=== PATIENT | male | born 1945 | race Caucasian/White ===

== ENCOUNTER 2020-02-09 18:48 | Inpatient (IN) | payer MEDICARE, BC ==
--- NOTE | 2020-02-09 19:15 | ER Document Report ---
ED Medical Screen (RME) - General Chief Complaint: Abnormal Lab Results Stated Complaint: ABNORMAL LABS Time Seen by Provider: 02/09/20 19:00 Notes: Patient is a 74-year-old male with a history of acid reflux and diabetes who presents emergency department with a chief complaint of abnormal labs. Patient reports he had his labs drawn at his doctor's office yesterday and was called today to report a low blood level. States that he was told to come immediately to the emergency department. Patient states he had his blood work drawn here at the hospital but there is no record. Patient states he has become more weak and short of breath. Patient also reports extreme swelling to his lower extremities. Physical Exam - Vital signs Vitals: Temp Pulse Resp BP Pulse Ox 98.7 F 87 22 H 117/51 L 100 02/09/20 19:00 02/09/20 19:00 02/09/20 19:00 02/09/20 19:00 02/09/20 19:00 Course - Re-evaluation Re-evalutation: 02/09/20 19:13 +4 pitting edema in bilateral lower extremities. There is no erythema. We will initiate basic labs as well as a chest x-ray and EKG to start. Son at side. I have greeted and performed a rapid initial assessment of this patient. A comprehensive ED assessment and evaluation of the patient, analysis of test results and completion of the medical decision making process will be conducted by additional ED providers. - Vital Signs Vital signs: Temp Pulse Resp BP Pulse Ox 98.7 F 87 22 H 117/51 L 100 02/09/20 19:00 02/09/20 19:00 02/09/20 19:00 02/09/20 19:00 02/09/20 19:00
--- NOTE | 2020-02-09 19:52 | RADIOLOGY REPORT (SQ) ---
EXAM DESCRIPTION: CHEST 2 VIEWS IMAGES COMPLETED DATE/TIME: 02/09/2020 7:40 pm REASON FOR STUDY: Shortness of breath COMPARISON: None. EXAM PARAMETERS: NUMBER OF VIEWS: two views TECHNIQUE: Digital Frontal and Lateral radiographic views of the chest acquired. RADIATION DOSE: NA LIMITATIONS: none FINDINGS: LUNGS AND PLEURA: Multifocal airspace opacities are seen throughout the lungs. No pleural effusion. No pneumothorax. MEDIASTINUM AND HILAR STRUCTURES: No masses or contour abnormalities. HEART AND VASCULAR STRUCTURES: Heart normal size. No evidence for failure. BONES: No acute findings. HARDWARE: None in the chest. OTHER: No other significant finding. IMPRESSION: In the appropriate clinical setting, findings are consistent with a multi lobar pneumoni a. Given distribution, recommend consideration for atypical etiologies in treatment planning. TECHNICAL DOCUMENTATION: JOB ID: [id number] 2010 [employer]- All Rights Reserved Reading location - IP/workstation name: [email or web address]
--- NOTE | 2020-02-09 20:45 | RADIOLOGY REPORT (SQ) ---
EXAM DESCRIPTION: CT HEAD WITHOUT IV CONTRAST COMPLETED DATE/TME: 02/09/2020 19:29 CLINICAL HISTORY: 74 years, Male, Confusion COMPARISON: None. TECHNIQUE: Axial images without IV contrast. Sagittal coronal reconstruction. Images stored on PACS. All CT scanners at this facility use dose modulation, iterative reconstruction, and/or weight based dosing when appropriate to reduce radiation dose to as low as reasonably achievable (ALARA). FINDINGS: Normal size ventricles. No suspicious intra-axial or extra-axial abnormalities. Pituitary gland is not enlarged. Paranasal sinuses are unremarkable. Previous left mastoidectomy with associated soft tissue structure. Bony calvarium is unremarkable. IMPRESSION: 1. No acute intracranial abnormalities. 2. Chronic changes in the left mastoid including left mastoidectomy.
[2020-02-09 21:51] LABS: MEAN CORPUSCULAR HGB CONC 31.9 g/dL (32.0-36.0); MEAN CORPUSCULAR VOLUME 85 fl (80-97); RED BLOOD COUNT 1.75 10^6/uL (4.35-5.55); RED CELL DISTRIBUTION WIDTH 21.6 % (11.5-14.0); WHITE BLOOD COUNT 3.8 10^3/uL (4.0-10.5)
[2020-02-09 22:03] LABS: PLATELET COUNT 73 10^3/uL (150-450)
[2020-02-09 22:04] LABS: INTERNATIONAL RATION (INR) 1.59; PROTHROMBIN TIME 19.1 SEC (11.4-15.4)
[2020-02-09 22:06] LABS: PARTIAL THROMBOPLASTIN TIME 52.6 SEC (23.5-35.8)
[2020-02-09 22:10] LABS: ALBUMIN 2.9 g/dL (3.5-5.0); ALKALINE PHOSPHATASE 96 U/L (38-126); ASPARTATE AMINO TRANSFERASE 41 U/L (17-59); BASOPHILS % (MANUAL) 0 % (0-2); BILIRUBIN,DIRECT 0.5 mg/dL (0.0-0.4); BILIRUBIN,TOTAL 1.8 mg/dL (0.2-1.3); BLOOD UREA NITROGEN 15 mg/dL (7-20); CALCIUM 8.2 mg/dL (8.4-10.2); CARBON DIOXIDE 24 mmol/L (22-30); EOSINOPHILS % (MANUAL) 2 % (0-6); GLUCOSE 89 mg/dL (75-110); LYMPHOCYTES % (MANUAL) 25 % (13-45); MONOCYTES % (MANUAL) 1 % (3-13); SEGMENTED NEUTROPHILS % (MAN) 72 % (42-78); TOTAL CELLS COUNTED 100; TOTAL PROTEIN 6.3 g/dL (6.3-8.2)
[2020-02-09 22:15] LABS: ANION GAP 5 (5-19); CHLORIDE 106 mmol/L (98-107)
[2020-02-09 22:16] LABS: ANISOCYTOSIS 3+; HYPOCHROMASIA 1+; OVALOCYTES 1+; POIKILOCYTOSIS SLIGHT; TOXIC GRANULATION SLIGHT
[2020-02-09 22:17] LABS: NT PRO BNP 562 pg/mL (<125); PLATELET COMMENT DECREASED; TEAR DROP CELLS SLIGHT
[2020-02-09 22:22] LABS: TROPONIN I < 0.012 ng/mL
[2020-02-09 22:27] LABS: HEMATOCRIT 14.8 % (37.9-51.0); HEMOGLOBIN 4.7 g/dL (13.5-17.0)
--- NOTE | 2020-02-09 23:10 | ER Document Report ---
ED General - General Chief Complaint: Abnormal Lab Results Stated Complaint: ABNORMAL LABS Time Seen by Provider: 02/09/20 19:00 Notes: 74-year-old male history of "liver problem" unable to further specify, diabetes "controlled by diet "referred to ED via PCP who did labs in office yesterday and was called today to say that there are abnormal values and presented to the emergency department. Patient endorses feeling short of breath for the last several months and not having energy to do activities. Patient has had dry cough for at least approximately 1 year and bilateral lower extremity edema for likely 1 year also. Patient says he is gone several years without seeing a doctor until now. Patient used to drink socially but none recently, says that liver problem was not attributed to alcohol use. Patient also endorses chronic abdominal distention of unknown duration. patient denies any chest pain, abdominal pain, black stools, bloody stools, frequent stools, vomiting, urinary symptoms, productive cough, fever, change in weight, history of drug use, infectious hepatitis history, cirrhosis, cardiac history - Related Data Allergies/Adverse Reactions: No Known Allergies Allergy (Unverified 02/09/20 19:21) Past Medical History - General Information source: Patient, Relative - Social History Smoking Status: Never Smoker Chew tobacco use (# tins/day): No Frequency of alcohol use: None Drug Abuse: None Family History: Reviewed & Not Pertinent Patient has homicidal ideation: No Review of Systems - Review of Systems Notes: REVIEW OF SYSTEMS: CONSTITUTIONAL : Denies fever, chills, or sweats. EENT: Denies recent cold/sinus symptoms, denies throat pain CARDIOVASCULAR: Denies chest pain, +NILES RESPIRATORY: +cough, + shortness of breath. GASTROINTESTINAL: Denies abdominal pain, nausea/vomiting. GENITOURINARY: Denies difficulty urinating, painful urination. MUSCULOSKELETAL: Denies neck pain, back pain. SKIN: Denies rash or skin lesions. HEMATOLOGIC : Denies easy bruising or bleeding. LYMPHATIC: Denies swollen, enlarged glands. NEUROLOGICAL: Denies headache, denies change in gait. PSYCHIATRIC: Denies anxiety or stress or depression. Physical Exam - Vital signs Vitals: Temp Pulse Resp BP Pulse Ox 98.7 F 87 22 H 117/51 L 100 02/09/20 19:00 02/09/20 19:00 02/09/20 19:00 02/09/20 19:00 02/09/20 19:00 - Notes Notes: PHYSICAL EXAMINATION: GENERAL: Well-appearing, well-nourished hard of hearing elderly male sitting up in stretcher with no visible signs of discomfort and in no acute distress. HEAD: Atraumatic, normocephalic. EYES: Pupils equal round and appropriate constriction, sclera anicteric, conjunctiva are pale ENT: nares patent, moist mucous membranes. NECK: Normal range of motion, supple without lymphadenopathy LUNGS: Breath sounds clear to auscultation bilaterally and equal. No wheezes rales or rhonchi. Normal respiratory rate and effort HEART: Regular rate and rhythm, iii/vi systolic ejection murmur heard loudest over upper right sternal border ABDOMEN: Soft, nontender, distended with fluid wave, no hepatosplenomegaly, no caput medusae, brown stool on rectal exam EXTREMITIES: Bilateral symmetric pitting lower extremity edema NEUROLOGICAL: Awake, alert, conversing appropriately, moves all extremities spontaneously. PSYCH: Normal mood, normal affect. SKIN: Warm, Dry, normal turgor, no rashes or lesions noted. 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 Anemia may also be due to aortic stenosis which patient has previously not had investigated. Chronic shortness of breath but no signs of impending respiratory failure, normal respiratory effort on room air and normal vital signs. Abdominal distention mild, not likely contributing to patient's shortness of breath. Patient will require admission for transfusion with likely outpatient CT surgery, cardiology, and hepatic follow- up. 02/10/20 01:52 Pt exam remains stable. Blood ordered. Stool guaiac negative. Discussed case with Dr. Up who has accepted patient to tele medicine. - Vital Signs Vital signs: Temp Pulse Resp BP Pulse Ox 98.5 F 89 16 104/44 L 96 02/10/20 01:02 02/10/20 01:02 02/10/20 01:02 02/10/20 01:02 02/10/20 01:02 - Laboratory Result Diagrams: 02/09/20 21:31 02/09/20 21:31 Laboratory results interpreted by me: 02/09/20 02/09/20 02/09/20 21:31 21:31 21:31 WBC 3.8 L RBC 1.75 L Hgb 4.7 L* Hct 14.8 L* MCHC 31.9 L RDW 21.6 H Plt Count 73 L Monocytes % (Manual) 1 L Abs Monocytes (Manual) 0.0 L PT APTT Sodium 134.9 L Calcium 8.2 L Total Bilirubin 1.8 H Direct Bilirubin 0.5 H NT-Pro-B Natriuret Pep 562 H Albumin 2.9 L Urine Urobilinogen Crossmatch 02/09/20 02/09/20 02/09/20 21:31 23:25 23:25 WBC RBC Hgb Hct MCHC RDW Plt Count Monocytes % (Manual) Abs Monocytes (Manual) PT 19.1 H APTT 52.6 H Sodium Calcium Total Bilirubin Direct Bilirubin NT-Pro-B Natriuret Pep Albumin Urine Urobilinogen 4.0 H Crossmatch See Detail 02/10/20 00:29 WBC RBC Hgb Hct MCHC RDW Plt Count Monocytes % (Manual) Abs Monocytes (Manual) PT 20.3 H APTT 56.0 H Sodium Calcium Total Bilirubin Direct Bilirubin NT-Pro-B Natriuret Pep Albumin Urine Urobilinogen Crossmatch - EKG Interpretation by Me Additional EKG results interpreted by me: 02/09/20 23:23 Heart rate 77, first-degree AV block, left bundle branch block, Sgarbossa's negative Discharge - Discharge Clinical Impression: Thrombocytopenia, Hepatic dysfunction Anemia Qualifiers: Anemia type: unspecified type Qualified Code(s): D64.9 - Anemia, unspecified Disposition: ADMITTED INPATIENT Unit Admitted: Telemetry
[2020-02-09 23:54] LABS: APPEARANCE,URINE CLEAR; BILIRUBIN,URINE NEGATIVE (NEGATIVE); COLOR,URINE YELLOW; GLUCOSE, URINE NEGATIVE (NEGATIVE); KETONES,URINE NEGATIVE (NEGATIVE); LEUKOCYTE ESTERASE,URINE NEGATIVE (NEGATIVE); NITRITE,URINE NEGATIVE (NEGATIVE); PROTEIN,URINE NEGATIVE (NEGATIVE); URINE SPECIFIC GRAVITY 1.016
[2020-02-10 00:48] LABS: INTERNATIONAL RATION (INR) 1.72; PROTHROMBIN TIME 20.3 SEC (11.4-15.4)
--- NOTE | 2020-02-10 01:28 | RADIOLOGY REPORT (SQ) ---
EXAM DESCRIPTION: CT scan of the chest without contrast. CLINICAL HISTORY: 74 years Male; multifocal infiltrates on cxr, no pna clinically TECHNIQUE: CT of the chest without intravenous contrast. All CT scans at this facility use dose modulation, iterative reconstruction, and/or weight based dosing when appropriate to reduce radiation dose to as low as reasonably achievable. COMPARISON: None. FINDINGS: Motion artifact is present. Chest: Lungs: Lung volumes are low. This results in crowding of the vascular lung markings. There is diffuse abnormality of the lung interstitium with increase in small irregular shadows, subpleural band formation and disorganization of the peripheral lung architecture. This is suggestive of changes of chronic fibrosis. In addition airways thickening is present diffusely and there is engorgement of the central pulmonary vessels and lymphatic suggestive of increased intravascular volume. No large pulmonary nodules or masses. Small pulmonary nodules would be missed on this exam because of motion.. Pleura: Possible trace pleural effusions bilaterally. No pneumothorax. Mediastinum: Four-chamber cardiac enlargement is seen and there is aortic valvular calcification. No pericardial abnormality. There is engorgement of the central lymphatics. No definitive lymphadenopathy. Bones: Endplate spondylosis. No destructive bone lesions. Upper Abdomen: Ascites is present in the abdomen. The liver is small and nodular and the spleen is enlarged. Findings are suggestive of cirrhosis and portal hypertension. IMPRESSION: 1. Cardiomegaly with probable changes of pulmonary edema. 2. Abnormality of the peripheral lung interstitium which may represent concordant mild fibrosis. Overall lung volumes are low. 3. Ascites with changes of cirrhosis and portal hypertension.
[2020-02-10] MEDS ORDERED: FUROSEMIDE INJ/PF 40 MG/4 ML SDV IV PRN ×2 (01:46→01:59)
[2020-02-10] MEDS ORDERED: ACETAMINOPHEN 325 MG TABLET PO PRN (01:46)
[2020-02-10] MEDS ORDERED: NORMAL SALINE 250 ML IV PRN ×4 (01:46→01:59)
[2020-02-10] MEDS ORDERED: MAGNESIUM HYDROXIDE SUSP 30 ML UDCUP PO PRN (01:51)
[2020-02-10] MEDS ORDERED: ONDANSETRON HCL INJ/PF 4 MG/2 ML SDV IV PRN (01:51)
[2020-02-10] MEDS ORDERED: MAG HYDROX/AL HYDROX/SIMETH SUSP 30 ML UDCUP PO PRN (01:51)
[2020-02-10] MEDS ORDERED: DEXTROSE 40% GEL 15 GM TUBE PO PRN ×2 (01:57)
[2020-02-10] MEDS ORDERED: DEXTROSE 50%-WATER 25 GM/50 ML DISP.SYRIN IV PRN ×2 (01:57)
[2020-02-10] MEDS ORDERED: GLUCAGON,HUMAN RECOMB 1 MG INJ IM PRN (01:57)
[2020-02-10 02:20] LABS: ABSOLUTE RETICS # 0.046 10^6/uL (0.028-0.122)
[2020-02-10] MEDS ORDERED: LORAZEPAM INJ 2 MG/1 ML VIAL IV PRN (02:25)
[2020-02-10] MEDS ORDERED: GUAIFENESIN SYRP 200 MG/10 ML UDC PO PRN (02:25)
[2020-02-10] MEDS ORDERED: MORPHINE SULFATE 10 MG/ML INJ IV PRN ×4 (02:25→02:43)
[2020-02-10 03:21] LABS: FERRITIN 7.48 ng/mL (17.9-464.0)
[2020-02-10] MEDS: DIPHENHYDRAMINE HCL 25 MG CAPSULE PO SCH ×4 (03:30→17:56)
--- NOTE | 2020-02-10 06:37 | PDOC H&P ---
History of Present Illness Admission Date/PCP: 02/10/2020 02:04 No local PCP Patient complains of: Generalized weakness History of Present Illness: RUPESH BUTLER is a 74 year old male who presents the emergency room with a 12-month history of generalized weakness. He admits gradually worsening constant generalized weakness over the course of the last year accompanied by dyspnea on exertion and associated with a nonproductive cough and progressively worsening bilateral lower extremity edema. He denies other associated or accompanying signs and symptoms. He denies prior similar episodes. He has not identified any aggravating or ameliorating factors for his generalized weakness. In the emergency room he was found to have a hemoglobin of 4.9 with a pancytopenia and bilateral pitting edema of his lower extremities was noted on clinical exam. Patient was subsequently admitted to the hospital for further evaluation treatment. Past Medical History Cardiac Medical History: Denies: Coronary Artery Disease, Myocardial Infarction, Hypertension Pulmonary Medical History: Denies: Asthma, Chronic Obstructive Pulmonary Disease (COPD) EENT Medical History: Denies: Cataracts, Ears - Hearing aids Neurological Medical History: Denies: Hemorrhagic CVA, Ischemic CVA, Seizures Endocrine Medical History: Reports: Diabetes Mellitus Type 2 Denies: Diabetes Mellitus Type 1, Hyperthyroidism, Hypothyroidism Renal/ Medical History: Denies: Chronic Kidney Disease, Nephrolithiasis Malignancy Medical History: Reports: None GI Medical History: Reports: Other - Elevated liver enzymes Denies: Cirrhosis, Crohn's Disease, Gastroesophageal Reflux Disease, Hepatiti s, Peptic Ulcer Disease, Ulcerative Colitis Musculoskeltal Medical History: Denies: Fibromyalgia, Gout Skin Medical History: Denies: Eczema, Psoriasis Psychiatric Medical History: Denies: Alcohol Dependency, Substance Abuse, Tobacco Dependency Traumatic Medical History: Reports: None Hematology: Denies: Anemia, Bleeding Tendencies Infectious Medical History: Reports: None Past Surgical History Past Surgical History: Reports: None Social History Information Source: Patient Lives with: Family Smoking Status: Never Smoker Electronic Cigarette use?: No Frequency of Alcohol Use: None Hx Recreational Drug Use: No Drugs: None Hx Prescription Drug Abuse: No - Advance Directive Resuscitation Status: Full Code Surrogate healthcare decision maker:: Jared Butler Family History Family History: CAD, CVA, DM, Hypertension, Malignancy Parental Family History Reviewed: Yes Children Family History Reviewed: No Sibling(s) Family History Reviewed.: Yes Medication/Allergy Home Medications: No Home Medications 02/09/20 Omeprazole 40 mg PO DAILY 02/09/20 Allergies/Adverse Reactions: No Known Allergies Allergy (Unverified 02/09/20 19:21) Review of Systems Constitutional: PRESENT: as per HPI, weakness. ABSENT: chills, fever(s) Eyes: ABSENT: visual disturbances, other - Eye pain Ears: ABSENT: hearing changes, other - Ear pain Nose, Mouth, and Throat: ABSENT: headache(s), sore throat Cardiovascular: PRESENT: as per HPI, dyspnea on exertion, edema. ABSENT: chest pain, palpitations Respiratory: PRESENT: as per HPI, cough. ABSENT: hemoptysis, sputum Gastrointestinal: ABSENT: abdominal pain, constipation, diarrhea, nausea, vomiting Genitourinary: ABSENT: dysuria, hematuria Musculoskeletal: ABSENT: back pain, joint swelling Integumentary: ABSENT: pruritus, rash Neurological: ABSENT: confusion, convulsions, focal weakness, memory loss, syncope Psychiatric: ABSENT: anxiety, depression Endocrine: ABSENT: cold intolerance, heat intolerance Hematologic/Lymphatic: ABSENT: easy bleeding, easy bruising Allergic/Immunologic: ABSENT: seasonal rhinorrhea Physical Exam Vital Signs: Temp Pulse Resp BP Pulse Ox 98.5 F 89 16 104/44 L 96 02/10/20 01:02 02/10/20 01:02 02/10/20 01:02 02/10/20 01:02 02/10/20 01:02 Intake & Output 02/08/20 02/09/20 02/10/20 23:59 23:59 23:59 Output Total 350 Balance -350 Weight 99.8 kg General appearance: PRESENT: no acute distress, cooperative, hard of hearing Head exam: PRESENT: atraumatic, normocephalic Eye exam: PRESENT: conjunctiva pale. ABSENT: conjunctival injection, scleral icterus Ear exam: PRESENT: normal external ear exam. ABSENT: bleeding, drainage Mouth exam: PRESENT: dry mucosa, neck supple Neck exam: ABSENT: thyromegaly, tracheal deviation Respiratory exam: PRESENT: clear to auscultation philip, symmetrical, unlabored Cardiovascular exam: PRESENT: RRR, systolic murmur - Grade 2/6 crescendo decrescendo systolic murmur heard best at the aortic root with radiation to the neck. ABSENT: clicks, gallop, rubs Pulses: PRESENT: normal carotid pulses, normal radial pulses Vascular exam: PRESENT: normal capillary refill, pallor - Generalized GI/Abdominal exam: PRESENT: normal bowel sounds, soft. ABSENT: tenderness Rectal exam: PRESENT: deferred. ABSENT: heme (+) stool - Heme-negative stool on ERP exam Extremities exam: PRESENT: other - 3+ pitting edema of the bilateral lower extremities to the distal thigh. ABSENT: joint swelling Musculoskeletal exam: ABSENT: deformity, dislocation Neurological exam: PRESENT: alert, oriented to person, oriented to place, oriented to time, oriented to situation, CN II-XII grossly intact. ABSENT: motor sensory deficit Psychiatric exam: ABSENT: anxious, depressed Skin exam: PRESENT: dry, intact, warm. ABSENT: jaundice, rash, urticaria Results Laboratory Results: 02/09/20 21:31 02/09/20 21:31 02/09/20 02/09/20 02/09/20 21:31 21:31 21:31 WBC 3.8 L RBC 1.75 L Hgb 4.7 L* Hct 14.8 L* MCV 85 MCH 27.0 MCHC 31.9 L RDW 21.6 H Plt Count 73 L Seg Neutrophils % Not Reportable Sodium 134.9 L Potassium 4.0 Chloride 106 Carbon Dioxide 24 Anion Gap 5 BUN 15 Creatinine 0.57 Est GFR ( Amer) > 60 Glucose 89 Calcium 8.2 L Total Bilirubin 1.8 H AST 41 Alkaline Phosphatase 96 Ammonia 12.3 Total Protein 6.3 Albumin 2.9 L Lipase 182.9 Urine Color Urine Appearance Urine pH Ur Specific Vesta Urine Protein Urine Glucose (UA) Urine Ketones Urine Blood Urine Nitrite Ur Leukocyte Esterase Urine WBC (Auto) Blood Type Antibody Screen 02/09/20 02/09/20 23:25 23:25 WBC RBC Hgb Hct MCV MCH MCHC RDW Plt Count Seg Neutrophils % Sodium Potassium Chloride Carbon Dioxide Anion Gap BUN Creatinine Est GFR ( Amer) Glucose Calcium Total Bilirubin AST Alkaline Phosphatase Ammonia Total Protein Albumin Lipase Urine Color YELLOW Urine Appearance CLEAR Urine pH 6.0 Ur Specific [place] 1.016 Urine Protein NEGATIVE Urine Glucose (UA) NEGATIVE Urine Ketones NEGATIVE Urine Blood NEGATIVE Urine Nitrite NEGATIVE Ur Leukocyte Esterase NEGATIVE Urine WBC (Auto) 1 Blood Type O NEGATIVE Antibody Screen NEGATIVE 02/09/20 21:31 Troponin I < 0.012 NT-Pro-B Natriuret Pep 562 H Impressions: Chest X-Ray 02/09/20 19:12 IMPRESSION: In the appropriate clinical setting, findings are consistent with a multi lobar pneumonia. Given distribution, recommend consideration for atypical etiologies in treatment planning. Head CT 02/09/20 19:29 IMPRESSION: 1. No acute intracranial abnormalities. 2. Chronic changes in the left mastoid including left mastoidectomy. Chest CT 02/09/20 23:16 IMPRESSION: 1. Cardiomegaly with probable changes of pulmonary edema. 2. Abnormality of the peripheral lung interstitium which may represent concordant mild fibrosis. Overall lung volumes are low. 3. Ascites with changes of cirrhosis and portal hypertension. Assessment and Plan - Diagnosis (1) Pancytopenia Is this a current diagnosis for this admission?: Yes (2) Dyspnea on exertion Is this a current diagnosis for this admission?: Yes (3) Generalized weakness Is this a current diagnosis for this admission?: Yes (4) Bilateral lower extremity edema Is this a current diagnosis for this admission?: Yes (5) Diabetes mellitus type 2 in nonobese Is this a current diagnosis for this admission?: Yes (6) Aortic stenosis Qualifiers: Cardiac valve disease etiology: etiology unspecified Qualified Code(s): I35.0 - Nonrheumatic aortic (valve) stenosis Is this a current diagnosis for this admission?: Yes - Plan Summary Summary: Patient will be admitted to the medical floor he will receive routine supportive and symptomatic cares with telemetry monitoring. He will be transfused with 4 units of packed red blood cells as soon as possible. He will be seen in consultation by Dr. Bar for hematology. An anemia profile will be obtained. Before meals and at bedtime Accu-Cheks will be performed with sliding scale insulin for hyperglycemia and a hypoglycemic protocol in place. Patient will receive Ativan 1 mg IV every 4 hours as needed for anxiety or restlessness. He will receive morphine sulfate 2 to 4 mg IV every 2 hours as needed for pain. An echocardiogram will be performed. Patient will be on a diabetic diet. CBCs, metabolic profiles and additional laboratory and/or radiographic evaluations will be obtained as needed. - Time Time Spent with patient: 15-24 minutes Medications reviewed and adjusted accordingly: Yes Anticipated Discharge Disposition: Home with Home Health Anticipated Discharge Timeframe: within 72 hours - Inpatient Certification Based on my medical assessment, after consideration of the patient's comorbiditi es, presenting symptoms, or acuity I expect that the services needed warrant INPATIENT care.: Yes I certify that my determination is in accordance with my understanding of [employer]'s requirements for reasonable and necessary INPATIENT services [42 CFR 412.3e].: Yes Medical Necessity: Need Close Monitoring Due to Risk of Patient Decompensation, Need For Continuous Telemetry Monitoring
[2020-02-10] MEDS: ACETAMINOPHEN 325 MG TABLET PO SCH ×4 (06:40→17:47)
--- NOTE | 2020-02-10 08:38 | PDOC CONSULTATION ---
Consultation Consult Date: 02/10/20 Attending physician:: LAURA DEL REAL Provider Consulted: JACK URIBE Consult reason:: Pancytopenia History of Present Illness Admission Date/PCP: 02/10/20 02:11 Patient complains of: Weakness, confusion History of Present Illness: RUPESH MICHELE is a 74 year old male who presents with several days of not being able to eat or drink anything and weakness, upon presentation he had severe pancytopenia, hemoglobin was in the 4 range platelets were 70, further evaluation of iron studies indicated a ferritin of less than 10. He had CT of the chest which did indicate ascites as well as nodular liver changes consistent with cirrhosis and portal hypertension. Patient is never had history of heavy alcohol use. But tells me greater than 10 years ago his PCP in [place] had mentioned something about "liver changes". He made dietary changes including avoiding fatty foods and going on a Mediterranean diet, lost a lot of weight and apparently the fatty liver changes resolved. He tells me about 2 years ago he did see what sounds like a houseperson in the [facility] area, Dr. Welch, but does not really remember too much about that conversation. He recently sold everything in [place] and came to move here with his son 1 to 2 years ago. And he has been apparently declining per his son. Past Medical History Cardiac Medical History: Denies: Coronary Artery Disease, Myocardial Infarction, Hypertension Pulmonary Medical History: Denies: Asthma, Chronic Obstructive Pulmonary Disease (COPD) EENT Medical History: Denies: Cataracts, Ears - Hearing aids Neurological Medical History: Denies: Hemorrhagic CVA, Ischemic CVA, Seizures Endocrine Medical History: Reports: Diabetes Mellitus Type 2 Denies: Diabetes Mellitus Type 1, Hyperthyroidism, Hypothyroidism Renal/ Medical History: Denies: Chronic Kidney Disease, Nephrolithiasis Malignancy Medical History: Reports: None GI Medical History: Reports: Other - Elevated liver enzymes Denies: Cirrhosis, Crohn's Disease, Gastroesophageal Reflux Disease, Hepatitis, Peptic Ulcer Disease, Ulcerative Colitis Musculoskeltal Medical History: Denies: Fibromyalgia, Gout Skin Medical History: Denies: Eczema, Psoriasis Psychiatric Medical History: Denies: Alcohol Dependency, Substance Abuse, Tobacco Dependency Traumatic Medical History: Reports: None Hematology: Denies: Anemia, Bleeding Tendencies Infectious Medical History: Reports: None Past Surgical History Past Surgical History: Reports: None Social History Lives with: Family Smoking Status: Never Smoker Electronic Cigarette use?: No Frequency of Alcohol Use: None Hx Recreational Drug Use: No Drugs: None Hx Prescription Drug Abuse: No - Advance Directive Resuscitation Status: Full Code Family History Family History: CAD, CVA, DM, Hypertension, Malignancy Parental Family History Reviewed: Yes Children Family History Reviewed: Yes Sibling(s) Family History Reviewed.: Yes Medication/Allergy Home Medications: No Home Medications 02/09/20 Omeprazole 40 mg PO DAILY 02/09/20 Allergies/Adverse Reactions: No Known Allergies Allergy (Verified 02/10/20 07:36) Review of Systems Constitutional: ABSENT: chills, fever(s), headache(s), weight gain, weight loss Eyes: ABSENT: visual disturbances Ears: ABSENT: hearing changes Cardiovascular: ABSENT: chest pain, dyspnea on exertion, edema, orthropnea, palpitations Respiratory: ABSENT: cough, hemoptysis Gastrointestinal: ABSENT: abdominal pain, constipation, diarrhea, hematemesis, hematochezia, nausea, vomiting Genitourinary: ABSENT: dysuria, hematuria Musculoskeletal: ABSENT: joint swelling Integumentary: ABSENT: rash, wounds Neurological: ABSENT: abnormal gait, abnormal speech, confusion, dizziness, foc al weakness, syncope Psychiatric: ABSENT: anxiety, depression, homidical ideation, suicidal ideation Endocrine: ABSENT: cold intolerance, heat intolerance, polydipsia, polyuria Hematologic/Lymphatic: ABSENT: easy bleeding, easy bruising Physical Exam Vital Signs: Temp Pulse Resp BP Pulse Ox 98.0 F 81 22 H 97/55 L 95 02/10/20 06:50 02/10/20 06:50 02/10/20 07:13 02/10/20 07:13 02/10/20 07:13 Intake & Output 02/09/20 02/10/20 02/11/20 06:59 06:59 06:59 Intake Total 300 Output Total 750 2450 Balance -450 -2450 Weight 99.8 kg General appearance: PRESENT: no acute distress, well-developed, well-nourished Head exam: PRESENT: atraumatic, normocephalic Eye exam: PRESENT: conjunctiva pink, EOMI, PERRLA. ABSENT: scleral icterus Ear exam: PRESENT: normal external ear exam Mouth exam: PRESENT: moist, tongue midline Neck exam: ABSENT: carotid bruit, JVD, lymphadenopathy, thyromegaly Respiratory exam: PRESENT: clear to auscultation philip. ABSENT: rales, rhonchi, wheezes Cardiovascular exam: PRESENT: RRR. ABSENT: diastolic murmur, rubs, systolic murmur Pulses: PRESENT: normal dorsalis pedis pul Vascular exam: PRESENT: normal capillary refill GI/Abdominal exam: PRESENT: normal bowel sounds, soft. ABSENT: distended, guarding, mass, organolmegaly, rebound, tenderness Rectal exam: PRESENT: deferred Extremities exam: PRESENT: full ROM. ABSENT: calf tenderness, clubbing, pedal edema Neurological exam: PRESENT: alert, awake, oriented to person, oriented to place, oriented to time, oriented to situation, CN II-XII grossly intact. ABSENT: motor sensory deficit Psychiatric exam: PRESENT: appropriate affect, normal mood. ABSENT: homicidal ideation, suicidal ideation Skin exam: PRESENT: dry, intact, warm. ABSENT: cyanosis, rash Results Laboratory Results: 02/09/20 21:31 02/09/20 21:31 02/09/20 02/09/20 02/09/20 21:31 21:31 21:31 WBC 3.8 L RBC 1.75 L Hgb 4.7 L* Hct 14.8 L* MCV 85 MCH 27.0 MCHC 31.9 L RDW 21.6 H Plt Count 73 L Seg Neutrophils % Not Reportable Retic Count (auto) Sodium 134.9 L Potassium 4.0 Chloride 106 Carbon Dioxide 24 Anion Gap 5 BUN 15 Creatinine 0.57 Est GFR ( Amer) > 60 Glucose 89 Calcium 8.2 L Iron TIBC % Saturation Ferritin Total Bilirubin 1.8 H AST 41 Alkaline Phosphatase 96 Ammonia 12.3 Total Protein 6.3 Albumin 2.9 L Lipase 182.9 Vitamin B12 Folate TSH Urine Color Urine Appearance Urine pH Ur Specific [place] Urine Protein Urine Glucose (UA) Urine Ketones Urine Blood Urine Nitrite Ur Leukocyte Esterase Urine WBC (Auto) Blood Type Antibody Screen 02/09/20 02/09/20 02/10/20 23:25 23:25 02:02 WBC RBC Hgb Hct MCV MCH MCHC RDW Plt Count Seg Neutrophils % Retic Count (auto) Sodium Potassium Chloride Carbon Dioxide Anion Gap BUN Creatinine Est GFR ( Amer) Glucose Calcium Iron TIBC % Saturation Ferritin Total Bilirubin AST Alkaline Phosphatase Ammonia Total Protein Albumin Lipase Vitamin B12 Folate TSH 1.72 Urine Color YELLOW Urine Appearance CLEAR Urine pH 6.0 Ur Specific [place] 1.016 Urine Protein NEGATIVE Urine Glucose (UA) NEGATIVE Urine Ketones NEGATIVE Urine Blood NEGATIVE Urine Nitrite NEGATIVE Ur Leukocyte Esterase NEGATIVE Urine WBC (Auto) 1 Blood Type O NEGATIVE Antibody Screen NEGATIVE 02/10/20 02/10/20 02:02 02:02 WBC RBC Hgb Hct MCV MCH MCHC RDW Plt Count Seg Neutrophils % Retic Count (auto) 2.70 Sodium Potassium Chloride Carbon Dioxide Anion Gap BUN Creatinine Est GFR ( Amer) Glucose Calcium Iron 23.0 L TIBC 450 % Saturation 5 Ferritin 7.48 L Total Bilirubin AST Alkaline Phosphatase Ammonia Total Protein Albumin Lipase Vitamin B12 > 1000.0 H Folate 16.90 TSH Urine Color Urine Appearance Urine pH Ur Specific [place] Urine Protein Urine Glucose (UA) Urine Ketones Urine Blood Urine Nitrite Ur Leukocyte Esterase Urine WBC (Auto) Blood Type Antibody Screen 02/09/20 21:31 Troponin I < 0.012 NT-Pro-B Natriuret Pep 562 H Impressions: Chest X-Ray 02/09/20 19:12 IMPRESSION: In the appropriate clinical setting, findings are consistent with a multi lobar pneumonia. Given distribution, recommend consideration for atypical etiologies in treatment planning. Head CT 02/09/20 19:29 IMPRESSION: 1. No acute intracranial abnormalities. 2. Chronic changes in the left mastoid including left mastoidectomy. Chest CT 02/09/20 23:16 IMPRESSION: 1. Cardiomegaly with probable changes of pulmonary edema. 2. Abnormality of the peripheral lung interstitium which may represent concordant mild fibrosis. Overall lung volumes are low. 3. Ascites with changes of cirrhosis and portal hypertension. 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 Agree with blood transfusion. Should not require platelet transfusion unless platelet gets under 10. Unknown cause of the cirrhosis however, but suspect probable fatty liver, would recommend a full cirrhotic work-up though. (2) Hepatic dysfunction Is this a current diagnosis for this admission?: Yes Plan: Unsure of cause, but this is the cause of his pancytopenia, suspect fatty liver but he should have other causes ruled out. Suggest getting gastroenterology involved if there is availability. Otherwise he will need gastroenterology as an outpatient. (3) Anemia Qualifiers: Anemia type: iron deficiency Iron deficiency anemia type: chronic blood loss Qualified Code(s): D50.0 - Iron deficiency anemia secondary to blood loss (chronic) Is this a current diagnosis for this admission?: Yes Plan: Probable chronic blood loss, since he does have cirrhosis and portal hypertension he may have esophageal varices that have bled in the past. Although he does not remember any symptomatology consistent with GI bleed. Agree with 4 units of packed red blood cell. Once he gets to floor, I can order IV iron for him. I will probably order that tomorrow. - Time Time Spent: Greater than 70 Minutes - Inpatient Certification Based on my medical assessment, after consideration of the patient's comorbidities, presenting symptoms, or acuity I expect that the services needed warrant INPATIENT care.: Yes I certify that my determination is in accordance with my understanding of Medicare's requirements for reasonable and necessary INPATIENT services [42 CFR 412.3e].: Yes Medical Necessity: Risk of Complication if Not Cared For in Hospital
--- NOTE | 2020-02-10 09:16 | EKG REPORT ---
SEVERITY:- ABNORMAL ECG - SINUS RHYTHM FIRST DEGREE AV BLOCK LEFT BUNDLE BRANCH BLOCK : Confirmed by: Lia Roberts 10-Feb-2020 09:16:05
[2020-02-10] MEDS: INSULIN LISPRO 100 UNIT/ML 3 ML VIAL SUBCUT SCH ×4 (10:15→21:43)
[2020-02-10] MEDS: HEPARIN SOD (PORCINE) 5,000 UNIT/ML 1 ML VIAL SUBCUT SCH (10:18)
[2020-02-10] MEDS: FAMOTIDINE 20 MG TABLET PO SCH ×2 (11:17→21:47)
[2020-02-10] MEDS: DOCUSATE SODIUM 100 MG CAPSULE PO SCH ×2 (11:17→17:47)
[2020-02-10 12:44] LABS: PATH REVIEW PATHOLOGIST REVIEWED
--- NOTE | 2020-02-10 13:51 | XCELERA REPORT ---
[address] [address] Transthoracic Echocardiogram Report Name: RUPESH MICHELE Age: 74 yrs Gender: Male : 1945 Patient Status: Inpatient Patient Location: [address] [place] [address] Study Date: 02/10/2020 08:37 AM History: Aortic stenosis Height: 72 in Weight: 220 lb BSA: 2.2 m2 Procedure: A complete two-dimensional transthoracic echocardiogram was performed (2D, M-mode, spectral and color flow Doppler). The study was technically difficult with many images being suboptimal in quality. Reason For Study: Aortic stenosis Previous Evaluation: No previous studies were available. History: Aortic stenosis Pancytopenia. Ordering Physician: NELDA CINTRON Performed By: Suzette Bauer Interpretation Summary Left ventricular systolic function is low normal. The Ejection Fraction estimate is 50-55% The right ventricle is normal in size and function. There is a trace amount of mitral regurgitation There is moderate aortic stenosis peak AO V=3.87 m/s Mean gradeient =38 mm Hg There is a trace amount of tricuspid regurgitation There is moderate to severe pulmonary hypertension by echo Small pericardial effusion. There are no echocardiographic indications of cardiac tamponade. Large left pleural effusion. MMode/2D Measurements & Calculations RVDd: 3.0 cm LVIDd: 5.0 cm FS: 25.6 % Ao root diam: 2.5 cm IVSd: 1.3 cm LVIDs: 3.7 cm EDV(Teich): 117.3 ml Ao root area: 5.0 cm2 LVPWd: 1.2 cm ESV(Teich): 58.4 ml EF(Teich): 50.2 % LVOT diam: 2.0 cm LVOT area: 3.1 cm2 Doppler Measurements & Calculations MV E max ashlee: MV dec slope: Ao V2 max: LV V1 max P.4 cm/sec 797.7 cm/sec2 386.6 cm/sec 8.0 mmHg MV A max ashlee: MV dec time: Ao max PG: LV V1 mean P.0 cm/sec 0.13 sec 59.8 mmHg 3.5 mmHg MV E/A: 0.76 Ao V2 mean: LV V1 max: 294.9 cm/sec 140.5 cm/sec Ao mean PG: LV V1 mean: 37.9 mmHg 86.9 cm/sec Ao V2 VTI: 92.0 cm LV V1 VTI: 30.1 cm EDWINA(I,D): 1.0 cm2 EDWINA(V,D): 1.1 cm2 SV(LVOT): 93.0 ml TR max ashlee: 387.5 cm/sec TR max P.1 mmHg Left Ventricle The left ventricle is grossly normal size. Left ventricular systolic function is low normal. The Ejection Fraction estimate is 50-55%. Doppler measurements suggest impaired left ventricular relaxation, which is associated with grade I/IV or mild diastolic dysfunction. No regional wall motion abnormalities noted. Right Ventricle The right ventricle is normal in size and function. Atria The right atrium is normal. The left atrium is mildly dilated. Mitral Valve Calcified mitral apparatus. There is no mitral valve stenosis. There is a trace amount of mitral regurgitation. Aortic Valve The aortic valve is sclerotic and shows some degree of functional abnormality. The aortic valve is moderately calcified. There is moderate aortic stenosis. peak AO V=3.87 m/s Mean gradeient =38 mm Hg. Tricuspid Valve The tricuspid valve is not well visualized, but is grossly normal. There is a trace amount of tricuspid regurgitation. There is moderate to severe pulmonary hypertension by echo. Right ventricular systolic pressure is estimated to be elevated at >60mmHg. Pulmonic Valve The pulmonic valve is not well visualized. There is a trace amount of pulmonic regurgitation. Great Vessels The aortic root is normal size. The inferior vena cava appeared normal and decreased > 50% with respiration (RAP 5-10 mmHg). Effusions Small pericardial effusion. There are no echocardiographic indications of cardiac tamponade. Large left pleural effusion. : NELDA CINTRON Anil
--- NOTE | 2020-02-10 14:52 | RADIOLOGY REPORT (SQ) ---
EXAM DESCRIPTION: U/S ABDOMEN LIMITED W/O DOP IMAGES COMPLETED DATE/TIME: 02/10/2020 2:06 pm REASON FOR STUDY: cirrhosis COMPARISON: None. TECHNIQUE: Dynamic and static grayscale images acquired of the abdomen and recorded on PACS. Shahidao adelita selected color Doppler and spectral images recorded. LIMITATIONS: None. FINDINGS: PANCREAS: No masses. The tail is not well seen. There is some free fluid adjacent to the pancreas. LIVER: The liver is somewhat heterogeneous and nodular. There is ascites around the liver. LIVER VASCULATURE: Normal directional flow of the main portal vein and hepatic veins. GALLBLADDER: Cannot entirely rule out a stone in the neck of the gallbladder. No wall thickening. N o pericholecystic fluid. ULTRASOUND-DETECTED TOLENTINO'S SIGN: Negative. INTRAHEPATIC DUCTS AND COMMON DUCT: CBD and intrahepatic ducts normal caliber. No filling defects. AORTA: No aneurysm. RIGHT KIDNEY: Normal size, 13.9 cm. Normal echogenicity. Multiple cysts. The largest measures 44 m m. No solid or suspicious masses. No hydronephrosis. No calcifications. PERITONEAL AND RIGHT PLEURAL SPACE: There is considerable ascites. OTHER: No other significant findings. IMPRESSION: Hepatic cirrhosis. Ascites. Cannot entirely rule out a stone in the neck of the gallbl adder. Right renal cysts. TECHNICAL DOCUMENTATION: JOB ID: [id number] [email or web address]- All Rights Reserved Reading location - IP/workstation name: [email or web address]
[2020-02-10] MEDS ORDERED: DIPHENHYDRAMINE HCL 25 MG CAPSULE PO PRN (17:45)
--- NOTE | 2020-02-10 20:04 | Progress Note ---
Provider Note Provider Note: Patient is a 74 year old male with a past medical history significant for DM2 and "liver disease," who was admitted early this morning with dyspnea on exertion, generalized weakness, and found to have pancytopenia with a hemoglobin of 4.7, WBC 3.8, platelet 73. Overnight events, nursing notes, vital signs, laboratory evaluation, imaging studies, H&P, consultation note, and orders reviewed. Agree with plan of care as established by the previous provider. In addition, have sent off hepatitis panel and requested a right upper quadrant ultrasound. This evening, I spoke with both of the patient's sons (Kwame and Jared Novoa) by phone and provided them an update regarding echocardiogram demonstrating moderate to severe pulmonary hypertension and right upper quadrant ultrasound showing cirrhosis/ascites. They do report that the patient was previously seen by Dr. Welch, gastroenterology, in [place]. Per patient, he is not recommended to be on a medication regiment for his liver failure. Will call Dr. Welch's office tomorrow to request most recent medication recommendations as the patient will clearly benefit from a combination of furosemide and spironolactone. Patient was seen by hematology, Dr. Bar. Appreciate Dr. Bar's assistance. Currently receiving PRBC x4 units.
[2020-02-11 00:45] LABS: HEMATOCRIT 22.3 % (37.9-51.0); MEAN CORPUSCULAR HEMOGLOBIN 28.2 pg (27.0-33.4); MEAN CORPUSCULAR HGB CONC 33.9 g/dL (32.0-36.0); MEAN CORPUSCULAR VOLUME 83 fl (80-97); RED BLOOD COUNT 2.68 10^6/uL (4.35-5.55); RED CELL DISTRIBUTION WIDTH 18.2 % (11.5-14.0); WHITE BLOOD COUNT 3.8 10^3/uL (4.0-10.5)
[2020-02-11 00:56] LABS: HEMOGLOBIN 7.6 g/dL (13.5-17.0)
[2020-02-11 01:16] LABS: PLATELET COUNT 62 10^3/uL (150-450)
[2020-02-11] MEDS: HEPARIN SOD (PORCINE) 5,000 UNIT/ML 1 ML VIAL SUBCUT SCH ×3 (05:47→22:06)
[2020-02-11 06:37] LABS: HEPATITS B SURFACE ANTIGEN Negative (Negative)
[2020-02-11 06:46] LABS: HEMATOCRIT 21.3 % (37.9-51.0); MEAN CORPUSCULAR HEMOGLOBIN 28.4 pg (27.0-33.4); MEAN CORPUSCULAR HGB CONC 33.8 g/dL (32.0-36.0); MEAN CORPUSCULAR VOLUME 84 fl (80-97); RED BLOOD COUNT 2.54 10^6/uL (4.35-5.55); RED CELL DISTRIBUTION WIDTH 18.1 % (11.5-14.0); WHITE BLOOD COUNT 3.2 10^3/uL (4.0-10.5)
[2020-02-11 06:58] LABS: ALBUMIN 2.4 g/dL (3.5-5.0); ALKALINE PHOSPHATASE 80 U/L (38-126); ASPARTATE AMINO TRANSFERASE 38 U/L (17-59); BILIRUBIN,DIRECT 0.6 mg/dL (0.0-0.4); BILIRUBIN,TOTAL 3.6 mg/dL (0.2-1.3); BLOOD UREA NITROGEN 15 mg/dL (7-20); CARBON DIOXIDE 25 mmol/L (22-30); GLUCOSE 100 mg/dL (75-110); HEMOGLOBIN 7.2 g/dL (13.5-17.0); PLATELET COUNT 52 10^3/uL (150-450); POTASSIUM 3.6 mmol/L (3.6-5.0); TOTAL PROTEIN 5.5 g/dL (6.3-8.2)
[2020-02-11 07:03] LABS: CHLORIDE 107 mmol/L (98-107)
[2020-02-11 07:04] LABS: ANION GAP 6 (5-19)
[2020-02-11 07:56] LABS: HEPATITIS C VIRUS ANTIBODY <0.1 s/co ratio (0.0-0.9)
[2020-02-11] MEDS: INSULIN LISPRO 100 UNIT/ML 3 ML VIAL SUBCUT SCH ×4 (08:00→22:11)
--- NOTE | 2020-02-11 08:02 | PDOC PROGRESS REPORT ---
Subjective Progress Note for:: 02/11/20 Subjective:: Seems better this am. Ordered IV iron for today Reason For Visit: ANEMIA,PANCYTOPENIA Physical Exam Vital Signs: Temp Pulse Resp BP Pulse Ox 98.2 F 68 20 102/49 L 98 02/11/20 04:01 02/11/20 04:01 02/11/20 04:01 02/11/20 04:01 02/11/20 04:01 Intake & Output 02/10/20 02/11/20 02/12/20 06:59 06:59 06:59 Intake Total 300 3646 Output Total 750 4565 Balance -450 -919 Weight 99.8 kg 93.2 kg General appearance: PRESENT: no acute distress, well-developed, well-nourished Head exam: PRESENT: atraumatic, normocephalic Eye exam: PRESENT: conjunctiva pink, EOMI, PERRLA. ABSENT: scleral icterus Ear exam: PRESENT: normal external ear exam Mouth exam: PRESENT: moist, tongue midline Neck exam: ABSENT: carotid bruit, JVD, lymphadenopathy, thyromegaly Respiratory exam: PRESENT: clear to auscultation philip. ABSENT: rales, rhonchi, wheezes Cardiovascular exam: PRESENT: RRR. ABSENT: diastolic murmur, rubs, systolic murmur Pulses: PRESENT: normal dorsalis pedis pul Vascular exam: PRESENT: normal capillary refill GI/Abdominal exam: PRESENT: normal bowel sounds, soft. ABSENT: distended, guarding, mass, organolmegaly, rebound, tenderness Rectal exam: PRESENT: deferred Extremities exam: PRESENT: full ROM. ABSENT: calf tenderness, clubbing, pedal edema Neurological exam: PRESENT: alert, awake, oriented to person, oriented to place, oriented to time, oriented to situation, CN II-XII grossly intact. ABSENT: motor sensory deficit Psychiatric exam: PRESENT: appropriate affect, normal mood. ABSENT: homicidal ideation, suicidal ideation Skin exam: PRESENT: dry, intact, warm. ABSENT: cyanosis, rash Results Laboratory Results: 02/11/20 05:28 02/11/20 05:28 02/09/20 02/11/20 02/11/20 23:25 00:26 05:28 WBC 3.8 L 3.2 L RBC 2.68 L 2.54 L Hgb 7.6 L D 7.2 L Hct 22.3 L 21.3 L MCV 83 84 MCH 28.2 28.4 MCHC 33.9 33.8 RDW 18.2 H 18.1 H Plt Count 62 L 52 L Sodium Potassium Chloride Carbon Dioxide Anion Gap BUN Creatinine Est GFR ( Amer) Glucose Calcium Magnesium Total Bilirubin AST Alkaline Phosphatase Total Protein Albumin Blood Type O NEGATIVE Antibody Screen NEGATIVE 02/11/20 05:28 WBC RBC Hgb Hct MCV MCH MCHC RDW Plt Count Sodium 137.5 Potassium 3.6 Chloride 107 Carbon Dioxide 25 Anion Gap 6 BUN 15 Creatinine 0.65 Est GFR ( Amer) > 60 Glucose 100 Calcium 8.0 L Magnesium 1.9 Total Bilirubin 3.6 H AST 38 Alkaline Phosphatase 80 Total Protein 5.5 L Albumin 2.4 L Blood Type Antibody Screen 02/09/20 21:31 Troponin I < 0.012 NT-Pro-B Natriuret Pep 562 H Impressions: Chest X-Ray 02/09/20 19:12 IMPRESSION: In the appropriate clinical setting, findings are consistent with a multi lobar pneumonia. Given distribution, recommend consideration for atypical etiologies in treatment planning. Head CT 02/09/20 19:29 IMPRESSION: 1. No acute intracranial abnormalities. 2. Chronic changes in the left mastoid including left mastoidectomy. Chest CT 02/09/20 23:16 IMPRESSION: 1. Cardiomegaly with probable changes of pulmonary edema. 2. Abnormality of the peripheral lung interstitium which may represent concordant mild fibrosis. Overall lung volumes are low. 3. Ascites with changes of cirrhosis and portal hypertension. Abdomen Ultrasound 02/10/20 00:00 IMPRESSION: Hepatic cirrhosis. Ascites. Cannot entirely rule out a stone in the neck of the gallbladder. Right renal cysts. 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
[2020-02-11] MEDS ORDERED: FERUMOXYTOL 510 MG in NORMAL SALINE 100 ML IV ONE (10:00)
[2020-02-11] MEDS: FUROSEMIDE 20 MG TABLET PO SCH (10:40)
[2020-02-11] MEDS: DOCUSATE SODIUM 100 MG CAPSULE PO SCH ×2 (10:40→17:35)
[2020-02-11] MEDS: FAMOTIDINE 20 MG TABLET PO SCH ×2 (10:40→22:05)
[2020-02-11] MEDS: SPIRONOLACTONE 25 MG TABLET PO SCH (10:41)
--- NOTE | 2020-02-11 18:20 | PDOC PROGRESS REPORT ---
Subjective Progress Note for:: 02/11/20 Subjective:: Patient is a 74 year old male with a past medical history significant for DM2 and "liver disease," who was admitted early this morning with dyspnea on exertion, generalized weakness, and found to have pancytopenia with a hemoglobin of 4.7, WBC 3.8, platelet 73. Patient was seen on afternoon rounds with son present. He was found sitting up to the recliner, comfortably, on supplemental oxygen via [place]. He reports that he is feeling much better. Has been ambulatory without difficulty; denies lightheadedness/dizziness, dyspnea, and palpitations. Patient and son are interested in possible [facility] placement. Discussed that patient will likely be stable for d/c home with home health services and can continue to pursue [facility] placement as outpatient. Patient denies fever, chills, chest pain, palpitations, dyspnea, abd pain, nausea and vomiting. They have no other questions or concerns at this time. No concerns per nursing. Reason For Visit: ANEMIA,PANCYTOPENIA Physical Exam Vital Signs: Temp Pulse Resp BP Pulse Ox 98.3 F 68 16 101/58 L 100 02/11/20 11:02 02/11/20 14:00 02/11/20 11:02 02/11/20 11:02 02/11/20 11:02 Intake & Output 02/10/20 02/11/20 02/12/20 06:59 06:59 06:59 Intake Total 300 3646 Output Total 750 4565 Balance -450 -919 Weight 99.8 kg 93.2 kg General appearance: PRESENT: no acute distress, cooperative, hard of hearing, well-developed, well-nourished Head exam: PRESENT: atraumatic, normocephalic Eye exam: PRESENT: conjunctiva pink, EOMI, PERRLA. ABSENT: scleral icterus Mouth exam: PRESENT: moist, tongue midline Respiratory exam: PRESENT: clear to auscultation philip, decreased breath sounds - bibasilar; R>L, symmetrical, unlabored, other - supplemental oxygen. ABSENT: rales, rhonchi, wheezes Cardiovascular exam: PRESENT: RRR. ABSENT: diastolic murmur, rubs, systolic murmur Vascular exam: PRESENT: normal capillary refill GI/Abdominal exam: PRESENT: ascites, normal bowel sounds, soft. ABSENT: distended, guarding, mass, organolmegaly, rebound, tenderness Rectal exam: PRESENT: deferred Extremities exam: PRESENT: full ROM, +1 edema - soft, nonpitting, BLE. ABSENT: calf tenderness, clubbing, pedal edema Musculoskeletal exam: PRESENT: ambulatory Neurological exam: PRESENT: alert, awake, oriented to person, oriented to place, oriented to time, oriented to situation, CN II-XII grossly intact. ABSENT: motor sensory deficit Psychiatric exam: PRESENT: appropriate affect, normal mood. ABSENT: homicidal ideation, suicidal ideation Skin exam: PRESENT: dry, intact, jaundice - mild, warm. ABSENT: cyanosis, rash Results Laboratory Results: 02/11/20 05:28 02/11/20 05:28 02/09/20 02/11/20 02/11/20 23:25 00:26 05:28 WBC 3.8 L 3.2 L RBC 2.68 L 2.54 L Hgb 7.6 L D 7.2 L Hct 22.3 L 21.3 L MCV 83 84 MCH 28.2 28.4 MCHC 33.9 33.8 RDW 18.2 H 18.1 H Plt Count 62 L 52 L Sodium Potassium Chloride Carbon Dioxide Anion Gap BUN Creatinine Est GFR ( Amer) Glucose Calcium Magnesium Total Bilirubin AST Alkaline Phosphatase Total Protein Albumin Blood Type O NEGATIVE Antibody Screen NEGATIVE 02/11/20 05:28 WBC RBC Hgb Hct MCV MCH MCHC RDW Plt Count Sodium 137.5 Potassium 3.6 Chloride 107 Carbon Dioxide 25 Anion Gap 6 BUN 15 Creatinine 0.65 Est GFR ( Amer) > 60 Glucose 100 Calcium 8.0 L Magnesium 1.9 Total Bilirubin 3.6 H AST 38 Alkaline Phosphatase 80 Total Protein 5.5 L Albumin 2.4 L Blood Type Antibody Screen 02/09/20 21:31 Troponin I < 0.012 NT-Pro-B Natriuret Pep 562 H Impressions: Chest X-Ray 02/09/20 19:12 IMPRESSION: In the appropriate clinical setting, findings are consistent with a multi lobar pneumonia. Given distribution, recommend consideration for atypical etiologies in treatment planning. Head CT 02/09/20 19:29 IMPRESSION: 1. No acute intracranial abnormalities. 2. Chronic changes in the left mastoid including left mastoidectomy. Chest CT 02/09/20 23:16 IMPRESSION: 1. Cardiomegaly with probable changes of pulmonary edema. 2. Abnormality of the peripheral lung interstitium which may represent concordant mild fibrosis. Overall lung volumes are low. 3. Ascites with changes of cirrhosis and portal hypertension. Abdomen Ultrasound 02/10/20 00:00 IMPRESSION: Hepatic cirrhosis. Ascites. Cannot entirely rule out a stone in the neck of the gallbladder. Right renal cysts. Assessment and Plan - Diagnosis (1) Pancytopenia Is this a current diagnosis for this admission?: Yes Plan: Likely secondary to cirrhosis. Patient has received 4 units PRBC. Hemoglobin 4.7-> 7.6-> 7.2. Occult stool negative. Urinalysis heme-negative. Hematology is consulted; appreciate Dr. Bar's assistance. Received IV iron today. Outpatient follow-up with Dr. Bar. (2) Cirrhosis Qualifiers: Hepatic cirrhosis type: unspecified hepatic cirrhosis Ascites presence: with ascites Qualified Code(s): K74.60 - Unspecified cirrhosis of liver; R18.8 - Other ascites Is this a current diagnosis for this admission?: Yes Plan: Likely QUINONES; patient and family deny hx EtOH use Hepatitis panel is negative. Last saw GI, Dr. Welch ([place]) in Apr 2018. Will start Spironolactone and furosemide. Monitor blood pressure and electrolytes. Follow-up chemistry. Patient with mild jaundice today following 4 units PRBC yesterday. We will check ammonia level in the morning as well. Recommend establishing with local gastroenterology. (3) Pulmonary HTN Is this a current diagnosis for this admission?: Yes Plan: Moderate to severe pulmonary hypertension noted by echocardiogram. LVEF 50 to 55%. Right ventricle with normal size and function. Grade 1 LV diastolic dysfunction. Small pericardial effusion. Furosemide and spironolactone as above. Recommend establishing with local manager of merchandising. (4) Bilateral lower extremity edema Is this a current diagnosis for this admission?: Yes Plan: Secondary to all of the above. ALYX hose. Elevate legs when not ambulatory. Diuretics as above. (5) Dyspnea on exertion Is this a current diagnosis for this admission?: Yes Plan: Secondary to all of the above. Improved following transfusions. Continues on supplemental oxygen at 2 L/min. Patient is not home O2 dependent. Continue weaning oxygen. Remaining management as above. (6) Generalized weakness Is this a current diagnosis for this admission?: Yes Plan: Resolved; likely secondary to profound anemia. Fall precautions. (7) Diabetes mellitus type 2 in nonobese Is this a current diagnosis for this admission?: Yes Plan: A1c 5.0%. Patient is diet controlled; does not take medications at home. Continue cardiac/consistent carb diet. Given patient's age, may be beneficial to liberalize dietary restrictions. PCP follow-up. - Time Time Spent with patient: 35 or more minutes Medications reviewed and adjusted accordingly: Yes Anticipated Discharge Disposition: Home with Home Health - vs [facility] Anticipated Discharge Timeframe: within 72 hours
[2020-02-12] MEDS: HEPARIN SOD (PORCINE) 5,000 UNIT/ML 1 ML VIAL SUBCUT SCH ×3 (05:30→22:16)
[2020-02-12 06:23] LABS: MEAN CORPUSCULAR HEMOGLOBIN 28.4 pg (27.0-33.4); MEAN CORPUSCULAR HGB CONC 33.4 g/dL (32.0-36.0); MEAN CORPUSCULAR VOLUME 85 fl (80-97); RED CELL DISTRIBUTION WIDTH 18.1 % (11.5-14.0); WHITE BLOOD COUNT 2.9 10^3/uL (4.0-10.5)
[2020-02-12 06:43] LABS: ALBUMIN 2.6 g/dL (3.5-5.0); ALKALINE PHOSPHATASE 84 U/L (38-126); ASPARTATE AMINO TRANSFERASE 38 U/L (17-59); BILIRUBIN,DIRECT 0.5 mg/dL (0.0-0.4); BILIRUBIN,TOTAL 2.9 mg/dL (0.2-1.3); BLOOD UREA NITROGEN 12 mg/dL (7-20); CALCIUM 8.2 mg/dL (8.4-10.2); GLUCOSE 84 mg/dL (75-110); POTASSIUM 3.9 mmol/L (3.6-5.0); TOTAL PROTEIN 5.7 g/dL (6.3-8.2)
[2020-02-12 06:48] LABS: ANION GAP 6 (5-19); CARBON DIOXIDE 24 mmol/L (22-30); CHLORIDE 105 mmol/L (98-107)
[2020-02-12 07:27] LABS: HEMOGLOBIN 7.7 g/dL (13.5-17.0); PLATELET COUNT 52 10^3/uL (150-450)
[2020-02-12] MEDS: INSULIN LISPRO 100 UNIT/ML 3 ML VIAL SUBCUT SCH ×4 (08:00→22:16)
[2020-02-12] MEDS: FUROSEMIDE 20 MG TABLET PO SCH (10:47)
[2020-02-12] MEDS: FAMOTIDINE 20 MG TABLET PO SCH ×2 (10:47→22:22)
[2020-02-12] MEDS: DOCUSATE SODIUM 100 MG CAPSULE PO SCH ×2 (10:47→18:11)
[2020-02-12] MEDS: LACTULOSE SYRUP 20 GM/30 ML UDCUP PO SCH ×2 (10:47→18:11)
[2020-02-12] MEDS: SPIRONOLACTONE 25 MG TABLET PO SCH (10:48)
--- NOTE | 2020-02-12 13:02 | PDOC PROGRESS REPORT ---
Subjective Progress Note for:: 02/12/20 Subjective:: No acute events overnight Reason For Visit: ANEMIA,PANCYTOPENIA Physical Exam Vital Signs: Temp Pulse Resp BP Pulse Ox 97.3 F 74 26 H 106/53 L 100 02/12/20 10:21 02/12/20 10:21 02/12/20 10:21 02/12/20 10:21 02/12/20 10:21 Intake & Output 02/11/20 02/12/20 02/13/20 06:59 06:59 06:59 Intake Total 3646 2420 Output Total 4565 1600 Balance -919 820 Weight 93.2 kg 93.4 kg General appearance: PRESENT: no acute distress, well-developed, well-nourished Head exam: PRESENT: atraumatic, normocephalic Eye exam: PRESENT: conjunctiva pink, EOMI, PERRLA. ABSENT: scleral icterus Ear exam: PRESENT: normal external ear exam Mouth exam: PRESENT: moist, tongue midline Neck exam: ABSENT: carotid bruit, JVD, lymphadenopathy, thyromegaly Respiratory exam: PRESENT: clear to auscultation philip. ABSENT: rales, rhonchi, wheezes Cardiovascular exam: PRESENT: RRR. ABSENT: diastolic murmur, rubs, systolic murmur Pulses: PRESENT: normal dorsalis pedis pul Vascular exam: PRESENT: normal capillary refill GI/Abdominal exam: PRESENT: normal bowel sounds, soft. ABSENT: distended, guarding, mass, organolmegaly, rebound, tenderness Rectal exam: PRESENT: deferred Extremities exam: PRESENT: full ROM. ABSENT: calf tenderness, clubbing, pedal edema Neurological exam: PRESENT: alert, awake, oriented to person, oriented to place, oriented to time, oriented to situation, CN II-XII grossly intact. ABSENT: motor sensory deficit Psychiatric exam: PRESENT: appropriate affect, normal mood. ABSENT: homicidal ideation, suicidal ideation Skin exam: PRESENT: dry, intact, warm. ABSENT: cyanosis, rash Results Laboratory Results: 02/12/20 05:16 02/12/20 05:16 02/12/20 02/12/20 02/12/20 05:16 05:16 05:16 WBC 2.9 L RBC 2.70 L Hgb 7.7 L Hct 23.0 L MCV 85 MCH 28.4 MCHC 33.4 RDW 18.1 H Plt Count 52 L Sodium 134.6 L Potassium 3.9 Chloride 105 Carbon Dioxide 24 Anion Gap 6 BUN 12 Creatinine 0.52 Est GFR ( Amer) > 60 Glucose 84 Calcium 8.2 L Total Bilirubin 2.9 H AST 38 Alkaline Phosphatase 84 Ammonia 62.8 H Total Protein 5.7 L Albumin 2.6 L 02/09/20 21:31 Troponin I < 0.012 NT-Pro-B Natriuret Pep 562 H Impressions: Chest X-Ray 02/09/20 19:12 IMPRESSION: In the appropriate clinical setting, findings are consistent with a multi lobar pneumonia. Given distribution, recommend consideration for atypical etiologies in treatment planning. Head CT 02/09/20 19:29 IMPRESSION: 1. No acute intracranial abnormalities. 2. Chronic changes in the left mastoid including left mastoidectomy. Chest CT 02/09/20 23:16 IMPRESSION: 1. Cardiomegaly with probable changes of pulmonary edema. 2. Abnormality of the peripheral lung interstitium which may represent concordant mild fibrosis. Overall lung volumes are low. 3. Ascites with changes of cirrhosis and portal hypertension. Abdomen Ultrasound 02/10/20 00:00 IMPRESSION: Hepatic cirrhosis. Ascites. Cannot entirely rule out a stone in the neck of the gallbladder. Right renal cysts. Assessment & Plan - Diagnosis (1) Pancytopenia Is this a current diagnosis for this admission?: Yes Plan: Related to cirrhosis, we can follow as an outpatient (2) Hepatic dysfunction Is this a current diagnosis for this admission?: Yes Plan: We will need outpatient GI follow-up (3) Anemia Qualifiers: Anemia type: iron deficiency Iron deficiency anemia type: chronic blood loss Qualified Code(s): D50.0 - Iron deficiency anemia secondary to blood loss (chronic) Is this a current diagnosis for this admission?: Yes Plan: Hemoglobin stable posttransfusion and IV iron. - Time Time Spent with patient: 25-34 minutes
--- NOTE | 2020-02-12 16:53 | PDOC PROGRESS REPORT ---
Subjective Progress Note for:: 02/12/20 Subjective:: Patient is a 74 year old male with a past medical history significant for DM2 and "liver disease," who was admitted early this morning with dyspnea on exertion, generalized weakness, and found to have pancytopenia with a hemoglobin of 4.7, WBC 3.8, platelet 73. Patient was seen on morning rounds. He was found ambulating in his room, comfortably, on room air. He reports that he is feeling much better today; appreciative of his care.. Has been ambulatory without difficulty; denies lightheadedness/dizziness, dyspnea, and palpitations. Patient denies fever, chills, chest pain, palpitations, dyspnea, abd pain, nausea and vomiting. He has no questions or concerns at this time. No concerns per nursing. Reason For Visit: ANEMIA,PANCYTOPENIA Physical Exam Vital Signs: Temp Pulse Resp BP Pulse Ox 97.7 F 73 19 115/56 L 100 02/12/20 16:13 02/12/20 16:13 02/12/20 16:13 02/12/20 16:13 02/12/20 16:13 Intake & Output 02/11/20 02/12/20 02/13/20 06:59 06:59 06:59 Intake Total 3646 2420 480 Output Total 4565 1600 Balance -919 820 480 Weight 93.2 kg 93.4 kg General appearance: PRESENT: no acute distress, cooperative, hard of hearing, well-developed, well-nourished Head exam: PRESENT: atraumatic, normocephalic Eye exam: PRESENT: conjunctiva pink, EOMI, PERRLA. ABSENT: scleral icterus Mouth exam: PRESENT: moist, tongue midline Respiratory exam: PRESENT: clear to auscultation philip, symmetrical, unlabored, other - room air. ABSENT: rales, rhonchi, wheezes Cardiovascular exam: PRESENT: RRR. ABSENT: diastolic murmur, rubs, systolic murmur Vascular exam: PRESENT: normal capillary refill GI/Abdominal exam: PRESENT: ascites, normal bowel sounds, soft. ABSENT: guarding, tenderness Rectal exam: PRESENT: deferred Extremities exam: PRESENT: full ROM. ABSENT: calf tenderness, clubbing, pedal edema Musculoskeletal exam: PRESENT: ambulatory Neurological exam: PRESENT: alert, awake, oriented to person, oriented to place, oriented to time, oriented to situation, CN II-XII grossly intact. ABSENT: motor sensory deficit Psychiatric exam: PRESENT: appropriate affect, normal mood. ABSENT: homicidal ideation, suicidal ideation Skin exam: PRESENT: dry, intact, warm. ABSENT: cyanosis, rash Results Laboratory Results: 02/12/20 05:16 02/12/20 05:16 02/12/20 02/12/20 02/12/20 05:16 05:16 05:16 WBC 2.9 L RBC 2.70 L Hgb 7.7 L Hct 23.0 L MCV 85 MCH 28.4 MCHC 33.4 RDW 18.1 H Plt Count 52 L Sodium 134.6 L Potassium 3.9 Chloride 105 Carbon Dioxide 24 Anion Gap 6 BUN 12 Creatinine 0.52 Est GFR ( Amer) > 60 Glucose 84 Calcium 8.2 L Total Bilirubin 2.9 H AST 38 Alkaline Phosphatase 84 Ammonia 62.8 H Total Protein 5.7 L Albumin 2.6 L 02/09/20 21:31 Troponin I < 0.012 NT-Pro-B Natriuret Pep 562 H Impressions: Chest X-Ray 02/09/20 19:12 IMPRESSION: In the appropriate clinical setting, findings are consistent with a multi lobar pneumonia. Given distribution, recommend consideration for atypical etiologies in treatment planning. Head CT 02/09/20 19:29 IMPRESSION: 1. No acute intracranial abnormalities. 2. Chronic changes in the left mastoid including left mastoidectomy. Chest CT 02/09/20 23:16 IMPRESSION: 1. Cardiomegaly with probable changes of pulmonary edema. 2. Abnormality of the peripheral lung interstitium which may represent concordant mild fibrosis. Overall lung volumes are low. 3. Ascites with changes of cirrhosis and portal hypertension. Abdomen Ultrasound 02/10/20 00:00 IMPRESSION: Hepatic cirrhosis. Ascites. Cannot entirely rule out a stone in the neck of the gallbladder. Right renal cysts. Assessment and Plan - Diagnosis (1) Pancytopenia Is this a current diagnosis for this admission?: Yes Plan: Likely secondary to cirrhosis. Patient has received 4 units PRBC. Hemoglobin 4.7-> 7.6-> 7.2-> 7.7 Occult stool negative. Urinalysis heme-negative. Hematology is consulted; appreciate Dr. Bar's assistance. Additional IV iron tomorrow Outpatient follow-up with Dr. Bar. (2) Cirrhosis Qualifiers: Hepatic cirrhosis type: unspecified hepatic cirrhosis Ascites presence: with ascites Qualified Code(s): K74.60 - Unspecified cirrhosis of liver; R18.8 - Other ascites Is this a current diagnosis for this admission?: Yes Plan: Likely QUINONES; patient and family deny hx EtOH use Hepatitis panel is negative. Last saw GI, Dr. Welch ([place]) in Apr 2018. Ammonia elevated to 62.8 Will start Spironolactone and furosemide. Orthostatic blood pressures are normal; borderline hypotension. Consider dose increase tomorrow. Start Lactulose 20gm q12 Monitor blood pressure and electrolytes. Follow-up chemistry. Recommend establishing with local gastroenterology. (3) Pulmonary HTN Is this a current diagnosis for this admission?: Yes Plan: Moderate to severe pulmonary hypertension noted by echocardiogram. LVEF 50 to 55%. Right ventricle with normal size and function. Grade 1 LV diastolic dysfunction. Small pericardial effusion. Furosemide and spironolactone as above. Recommend establishing with local brazing machine setter. (4) Bilateral lower extremity edema Is this a current diagnosis for this admission?: Yes Plan: Resolved; trace pedal edema bilaterally today Secondary to all of the above. ALYX hose. Elevate legs when not ambulatory. Diuretics as above. (5) Dyspnea on exertion Is this a current diagnosis for this admission?: Yes Plan: Resolved. Secondary to all of the above. Remaining management as above. (6) Generalized weakness Is this a current diagnosis for this admission?: Yes Plan: Resolved; likely secondary to profound anemia. Fall precautions. (7) Diabetes mellitus type 2 in nonobese Is this a current diagnosis for this admission?: Yes Plan: A1c 5.0%. Patient is diet controlled; does not take medications at home. Continue cardiac/consistent carb diet. Given patient's age, may be beneficial to liberalize dietary restrictions. PCP follow-up. - Time Time Spent with patient: 25-34 minutes Medications reviewed and adjusted accordingly: Yes Anticipated Discharge Disposition: Home with Home Health Anticipated Discharge Timeframe: within 48 hours
[2020-02-13 04:28] LABS: HEMATOCRIT 23.3 % (37.9-51.0); MEAN CORPUSCULAR HEMOGLOBIN 28.9 pg (27.0-33.4); MEAN CORPUSCULAR HGB CONC 33.7 g/dL (32.0-36.0); MEAN CORPUSCULAR VOLUME 86 fl (80-97); RED BLOOD COUNT 2.72 10^6/uL (4.35-5.55); RED CELL DISTRIBUTION WIDTH 18.3 % (11.5-14.0); WHITE BLOOD COUNT 3.3 10^3/uL (4.0-10.5)
[2020-02-13 04:45] LABS: ANION GAP 7 (5-19); BLOOD UREA NITROGEN 11 mg/dL (7-20); CALCIUM 8.5 mg/dL (8.4-10.2); CARBON DIOXIDE 23 mmol/L (22-30); CHLORIDE 106 mmol/L (98-107); GLUCOSE 87 mg/dL (75-110); POTASSIUM 4.1 mmol/L (3.6-5.0)
[2020-02-13] MEDS: HEPARIN SOD (PORCINE) 5,000 UNIT/ML 1 ML VIAL SUBCUT SCH ×3 (05:32→22:26)
[2020-02-13 05:34] LABS: HEMOGLOBIN 7.9 g/dL (13.5-17.0)
[2020-02-13 05:35] LABS: PLATELET COUNT 55 10^3/uL (150-450)
[2020-02-13] MEDS: INSULIN LISPRO 100 UNIT/ML 3 ML VIAL SUBCUT SCH ×4 (07:52→22:26)
[2020-02-13] MEDS: FUROSEMIDE 20 MG TABLET PO SCH (09:33)
[2020-02-13] MEDS: LACTULOSE SYRUP 20 GM/30 ML UDCUP PO SCH ×2 (09:33→22:25)
[2020-02-13] MEDS: SPIRONOLACTONE 25 MG TABLET PO SCH (09:34)
[2020-02-13] MEDS: DOCUSATE SODIUM 100 MG CAPSULE PO SCH ×2 (09:34→18:02)
[2020-02-13] MEDS: FAMOTIDINE 20 MG TABLET PO SCH ×2 (09:34→22:25)
[2020-02-13] MEDS ORDERED: FERUMOXYTOL 510 MG in NORMAL SALINE 100 ML IV ONE (10:00)
--- NOTE | 2020-02-13 19:00 | PDOC PROGRESS REPORT ---
Subjective Subjective:: Per previous physician: "Patient is a 74 year old male with a past medical history significant for DM2 and "liver disease," who was admitted early this morning with dyspnea on exertion, generalized weakness, and found to have pancytopenia with a hemoglobin of 4.7, WBC 3.8, platelet 73. Patient was seen on morning rounds. He was found ambulating in his room, comfortably, on room air. He reports that he is feeling much better today; appreciative of his care.. Has been ambulatory without difficulty; denies lightheadedness/dizziness, dyspnea, and palpitations. Patient denies fever, chills, chest pain, palpitations, dyspnea, abd pain, nausea and vomiting. He has no questions or concerns at this time. No concerns per nursing." 02/13/2020 Patient is currently being evaluated for assisted living and case management is reportedly helping him and his son with this. Hemoccult stool negative. WBC and platelets are higher and ammonia is elevated at 40. Follow-up with case management tomorrow to see where we are with planning his discharge. Patient may be able to discharge home with son until his assisted-living can be set up. He has no new complaints. Reason For Visit: ANEMIA,PANCYTOPENIA Physical Exam Vital Signs: Temp Pulse Resp BP Pulse Ox 98.2 F 68 17 110/63 100 02/13/20 16:45 02/13/20 16:45 02/13/20 16:45 02/13/20 16:45 02/13/20 16:45 Intake & Output 02/12/20 02/13/20 02/14/20 06:59 06:59 06:59 Intake Total 2420 1490 1070 Output Total 1600 Balance 820 1490 1070 Weight 93.4 kg 93.4 kg 88.1 kg General appearance: PRESENT: no acute distress, well-developed, well-nourished Head exam: PRESENT: atraumatic, normocephalic Eye exam: PRESENT: conjunctiva pink. ABSENT: scleral icterus Mouth exam: PRESENT: moist Respiratory exam: PRESENT: clear to auscultation philip. ABSENT: rales, rhonchi, wheezes Cardiovascular exam: PRESENT: RRR. ABSENT: diastolic murmur, rubs, systolic murmur GI/Abdominal exam: PRESENT: normal bowel sounds, soft. ABSENT: distended, guarding, mass, organolmegaly, rebound, tenderness Rectal exam: PRESENT: deferred Neurological exam: PRESENT: alert, awake, oriented to person, oriented to place, oriented to time, oriented to situation Psychiatric exam: PRESENT: appropriate affect, normal mood Skin exam: PRESENT: dry, intact, warm Results Laboratory Results: 02/13/20 03:59 02/13/20 03:59 02/13/20 02/13/20 02/13/20 03:59 03:59 03:59 WBC 3.3 L RBC 2.72 L Hgb 7.9 L Hct 23.3 L MCV 86 MCH 28.9 MCHC 33.7 RDW 18.3 H Plt Count 55 L Sodium 135.5 L Potassium 4.1 Chloride 106 Carbon Dioxide 23 Anion Gap 7 BUN 11 Creatinine 0.50 L Est GFR ( Amer) > 60 Glucose 87 Calcium 8.5 Ammonia 40.2 H 02/09/20 21:31 Troponin I < 0.012 NT-Pro-B Natriuret Pep 562 H Impressions: Chest X-Ray 02/09/20 19:12 IMPRESSION: In the appropriate clinical setting, findings are consistent with a multi lobar pneumonia. Given distribution, recommend consideration for atypical etiologies in treatment planning. Head CT 02/09/20 19:29 IMPRESSION: 1. No acute intracranial abnormalities. 2. Chronic changes in the left mastoid including left mastoidectomy. Chest CT 02/09/20 23:16 IMPRESSION: 1. Cardiomegaly with probable changes of pulmonary edema. 2. Abnormality of the peripheral lung interstitium which may represent concordant mild fibrosis. Overall lung volumes are low. 3. Ascites with changes of cirrhosis and portal hypertension. Abdomen Ultrasound 02/10/20 00:00 IMPRESSION: Hepatic cirrhosis. Ascites. Cannot entirely rule out a stone in the neck of the gallbladder. Right renal cysts. Assessment and Plan - Diagnosis (1) Cirrhosis Qualifiers: Hepatic cirrhosis type: unspecified hepatic cirrhosis Ascites presence: with ascites Qualified Code(s): K74.60 - Unspecified cirrhosis of liver; R18.8 - Other ascites Is this a current diagnosis for this admission?: Yes Plan: Per previous physician: "Likely QUINONES; patient and family deny hx EtOH use Hepatitis panel is negative. Last saw GI, Dr. Welch ([place]) in Apr 2018. Ammonia elevated to 62.8 Will start Spironolactone and furosemide. Orthostatic blood pressures are normal; borderline hypotension. Consider dose increase tomorrow. Start Lactulose 20gm q12 Monitor blood pressure and electrolytes. Follow-up chemistry. Recommend establishing with local gastroenterology." 02/13/2020 Continue cirrhosis medications as above, stable so far the blood pressure is lower limit normal, will keep doses the same needs GI follow-up (2) Pancytopenia Is this a current diagnosis for this admission?: Yes Plan: Her previous physician: "Likely secondary to cirrhosis. Patient has received 4 units PRBC. Hemoglobin 4.7-> 7.6-> 7.2-> 7.7 Occult stool negative. Urinalysis heme-negative. Hematology is consulted; appreciate Dr. Bar's assistance. Additional IV iron tomorrow Outpatient follow-up with Dr. Bar." 02/13/2020 Hematology is no further work-up inpatient, follow-up with patient outpatient Already given transfusion and IV iron (3) Aortic stenosis Qualifiers: Cardiac valve disease etiology: etiology unspecified Qualified Code(s): I35.0 - Nonrheumatic aortic (valve) stenosis Is this a current diagnosis for this admission?: Yes (4) Diabetes mellitus type 2 in nonobese Is this a current diagnosis for this admission?: Yes Plan: Per previous provider: "A1c 5.0%. Patient is diet controlled; does not take medications at home. Continue cardiac/consistent carb diet. Given patient's age, may be beneficial to liberalize dietary restrictions. PCP follow-up." (5) Dyspnea on exertion Is this a current diagnosis for this admission?: Yes Plan: Resolved. Secondary to all of the above. Remaining management as above. (6) Generalized weakness Is this a current diagnosis for this admission?: Yes Plan: Resolved; likely secondary to profound anemia. Fall precautions. (7) Pulmonary HTN Is this a current diagnosis for this admission?: Yes Plan: Moderate to severe pulmonary hypertension noted by echocardiogram. LVEF 50 to 55%. Right ventricle with normal size and function. Grade 1 LV diastolic dysfunction. Small pericardial effusion. Furosemide and spironolactone as above. Recommend establishing with local rn building. (8) Thrombocytopenia Is this a current diagnosis for this admission?: Yes - Time Time Spent with patient: 15-24 minutes Medications reviewed and adjusted accordingly: Yes Anticipated Discharge Disposition: Assisted Living with Home Health Services Anticipated Discharge Timeframe: within 24 hours - Inpatient Certification Based on my medical assessment, after consideration of the patient's comorbidities, presenting symptoms, or acuity I expect that the services needed warrant INPATIENT care.: Yes I certify that my determination is in accordance with my understanding of Medicare's requirements for reasonable and necessary INPATIENT services [42 CFR 412.3e].: Yes Medical Necessity: Significant Comorbidiites Make Outpatient Treatment Too Risky, Need Close Monitoring Due to Risk of Patient Decompensation, Risk of Complication if Not Cared For in Hospital, Risk of Diagnosis Which Will Require Inpatient Eval/Care/Monitoring
[2020-02-14 04:55] LABS: ABSOLUTE EOSINOPHILS # (AUTO) 0.1 10^3/uL (0.0-0.6); ABSOLUTE MONOCYTES (AUTO) 0.3 10^3/uL (0.1-1.4); ABSOLUTE NEUT (AUTO) 1.7 10^3/uL (1.7-8.2); BASOPHILS % (AUTO) 0.6 % (0-2); EOSINOPHILS % (AUTO) 3.5 % (0-6); HEMATOCRIT 23.3 % (37.9-51.0); MEAN CORPUSCULAR HEMOGLOBIN 29.2 pg (27.0-33.4); MEAN CORPUSCULAR HGB CONC 33.6 g/dL (32.0-36.0); MEAN CORPUSCULAR VOLUME 87 fl (80-97); MONOCYTES % (AUTO) 8.6 % (3-13); RED BLOOD COUNT 2.68 10^6/uL (4.35-5.55); RED CELL DISTRIBUTION WIDTH 18.7 % (11.5-14.0); SEGMENTED NEUTROPHILS % (AUTO) 55.3 % (42-78); TOTAL CELLS COUNTED % (AUTO) 100 %; WHITE BLOOD COUNT 3.1 10^3/uL (4.0-10.5)
[2020-02-14 05:01] LABS: BLOOD UREA NITROGEN 10 mg/dL (7-20); CALCIUM 8.6 mg/dL (8.4-10.2); GLUCOSE 86 mg/dL (75-110)
[2020-02-14 05:06] LABS: ANION GAP 3 (5-19); CARBON DIOXIDE 24 mmol/L (22-30); CHLORIDE 106 mmol/L (98-107)
[2020-02-14] MEDS: HEPARIN SOD (PORCINE) 5,000 UNIT/ML 1 ML VIAL SUBCUT SCH ×2 (05:47→13:19)
[2020-02-14 06:16] LABS: PLATELET COUNT 53 10^3/uL (150-450)
[2020-02-14 06:33] LABS: HEMOGLOBIN 7.8 g/dL (13.5-17.0)
[2020-02-14] MEDS: INSULIN LISPRO 100 UNIT/ML 3 ML VIAL SUBCUT SCH ×2 (07:39→11:18)
--- NOTE | 2020-02-14 07:54 | PDOC PROGRESS REPORT ---
Subjective Progress Note for:: 02/14/20 Subjective:: Clinically patient seems better, possible discharge home soon. Patient has follow-up in our office. Reason For Visit: ANEMIA,PANCYTOPENIA Physical Exam Vital Signs: Temp Pulse Resp BP Pulse Ox 98.2 F 66 17 119/58 L 96 02/14/20 03:43 02/14/20 03:43 02/14/20 03:43 02/14/20 03:43 02/14/20 03:43 Intake & Output 02/13/20 02/14/20 02/15/20 06:59 06:59 06:59 Intake Total 1490 1330 Balance 1490 1330 Weight 93.4 kg 93.4 kg General appearance: PRESENT: no acute distress, well-developed, well-nourished Head exam: PRESENT: atraumatic, normocephalic Eye exam: PRESENT: conjunctiva pink, EOMI, PERRLA. ABSENT: scleral icterus Ear exam: PRESENT: normal external ear exam Mouth exam: PRESENT: moist, tongue midline Neck exam: ABSENT: carotid bruit, JVD, lymphadenopathy, thyromegaly Respiratory exam: PRESENT: clear to auscultation philip. ABSENT: rales, rhonchi, w heezes Cardiovascular exam: PRESENT: RRR. ABSENT: diastolic murmur, rubs, systolic murmur Pulses: PRESENT: normal dorsalis pedis pul Vascular exam: PRESENT: normal capillary refill GI/Abdominal exam: PRESENT: normal bowel sounds, soft. ABSENT: distended, guarding, mass, organolmegaly, rebound, tenderness Rectal exam: PRESENT: deferred Extremities exam: PRESENT: full ROM. ABSENT: calf tenderness, clubbing, pedal edema Neurological exam: PRESENT: alert, awake, oriented to person, oriented to place, oriented to time, oriented to situation, CN II-XII grossly intact. ABSENT: motor sensory deficit Psychiatric exam: PRESENT: appropriate affect, normal mood. ABSENT: homicidal ideation, suicidal ideation Skin exam: PRESENT: dry, intact, warm. ABSENT: cyanosis, rash Results Laboratory Results: 02/14/20 03:58 02/14/20 03:58 02/14/20 02/14/20 03:58 03:58 WBC 3.1 L RBC 2.68 L Hgb 7.8 L Hct 23.3 L MCV 87 MCH 29.2 MCHC 33.6 RDW 18.7 H Plt Count 53 L Seg Neutrophils % 55.3 Sodium 133.3 L Potassium 4.0 Chloride 106 Carbon Dioxide 24 Anion Gap 3 L BUN 10 Creatinine 0.58 Est GFR ( Amer) > 60 Glucose 86 Calcium 8.6 02/09/20 21:31 Troponin I < 0.012 NT-Pro-B Natriuret Pep 562 H Impressions: Chest X-Ray 02/09/20 19:12 IMPRESSION: In the appropriate clinical setting, findings are consistent with a multi lobar pneumonia. Given distribution, recommend consideration for atypical etiologies in treatment planning. Head CT 02/09/20 19:29 IMPRESSION: 1. No acute intracranial abnormalities. 2. Chronic changes in the left mastoid including left mastoidectomy. Chest CT 02/09/20 23:16 IMPRESSION: 1. Cardiomegaly with probable changes of pulmonary edema. 2. Abnormality of the peripheral lung interstitium which may represent concordant mild fibrosis. Overall lung volumes are low. 3. Ascites with changes of cirrhosis and portal hypertension. Abdomen Ultrasound 02/10/20 00:00 IMPRESSION: Hepatic cirrhosis. Ascites. Cannot entirely rule out a stone in the neck of the gallbladder. Right renal cysts. Assessment & Plan - Diagnosis (1) Pancytopenia Is this a current diagnosis for this admission?: Yes Plan: Secondary to splenic sequestration from portal hypertension and cirrhosis stable overall (2) Hepatic dysfunction Is this a current diagnosis for this admission?: Yes Plan: Probably secondary to fatty liver work-up here is negative. Needs GI follow-up as an outpatient. (3) Anemia Qualifiers: Anemia type: iron deficiency Iron deficiency anemia type: chronic blood loss Qualified Code(s): D50.0 - Iron deficiency anemia secondary to blood loss (chronic) Is this a current diagnosis for this admission?: Yes Plan: Stable recently - Time Time Spent with patient: 15-24 minutes
[2020-02-14] MEDS: LACTULOSE SYRUP 20 GM/30 ML UDCUP PO SCH (09:23)
[2020-02-14] MEDS: FAMOTIDINE 20 MG TABLET PO SCH (09:24)
[2020-02-14] MEDS: SPIRONOLACTONE 25 MG TABLET PO SCH (09:24)
[2020-02-14] MEDS: FUROSEMIDE 20 MG TABLET PO SCH (09:24)
[2020-02-14] MEDS: DOCUSATE SODIUM 100 MG CAPSULE PO SCH (09:25)
[2020-02-14 12:36] VITALS: BP 108/49
--- NOTE | 2020-02-14 20:10 | PDOC DISCHARGE SUMMARY ---
Impression - Admit/DC Date/PCP Admission Date/Primary Care Provider: 02/10/20 02:11 Discharge Date: 02/14/20 - Discharge Diagnosis (1) Bilateral lower extremity edema Is this a current diagnosis for this admission?: Yes (2) Cirrhosis Is this a current diagnosis for this admission?: Yes (3) Diabetes mellitus type 2 in nonobese Is this a current diagnosis for this admission?: Yes (4) Dyspnea on exertion Is this a current diagnosis for this admission?: Yes (5) Generalized weakness Is this a current diagnosis for this admission?: Yes (6) Hepatic dysfunction Is this a current diagnosis for this admission?: Yes (7) Pancytopenia Is this a current diagnosis for this admission?: Yes (8) Pulmonary HTN Is this a current diagnosis for this admission?: Yes (9) Thrombocytopenia Is this a current diagnosis for this admission?: Yes - Assessment Summary: RUPESH MICHELE is a 74 year old male who presented with a 12-month history of generalized weakness accompanied by dyspnea on exertion and associated with a nonproductive cough and progressively worsening bilateral lower extremity edema. He was found to have QUINONES cirrhosis c/b portal hypertension, resulting in ascites, BLE edema and pancytopenia. He was started on diuretic therapy with Lasix/Spironolactone. He was also started on lactulose for elevated ammonia. He was seen by Heme/Onc who recommended outpatient follow up. He was also advised to follow up with GI within 1-2 weeks for ongoing management of cirrhosis (he was last seen by GI as outpatient >2 years ago). His symptoms of fatigue, SOB and STARK improved with treatment above. He was discharged home in stable condition with close outpatient follow up. - Additional Information Resuscitation Status: Full Code Discharge Diet: Cardiac, Other (Comments) Discharge Activity: Activity As Tolerated Referrals: GERARDO LA MD [ACTIVE STAFF] - (Called and left message at office to schedule appointment for stress test. Schedule for 2 weeks. Please contact office if you do not receive a call back.) JACK URIBE MD [ACTIVE STAFF] - 03/06/20 1:00 pm ( ) EDILBERTO MEDINA MD [ACTIVE STAFF] - (Called and left message with office to give a call with appointment date and time. ) Prescriptions: Spironolactone [Aldactone 25 mg Tablet] 50 mg PO DAILY #30 tablet Lactulose [Cephulac Syrup 20 gm/30 ml Udcup] 20 gm PO DAILY #30 udc Furosemide [Lasix 20 mg Tablet] 20 mg PO DAILY #30 tablet Omeprazole 20 mg PO DAILY #30 capsule. Home Medications: Furosemide [Lasix 20 mg Tablet] 20 mg PO DAILY #30 tablet 02/14/20 Lactulose [Cephulac Syrup 20 gm/30 ml Udcup] 20 gm PO DAILY #30 udc 02/14/20 Omeprazole 20 mg PO DAILY #30 capsule. 02/14/20 Spironolactone [Aldactone 25 mg Tablet] 50 mg PO DAILY #30 tablet 02/14/20 History of Present Illiness History of Present Illness: RUPESH MICHELE is a 74 year old male Physical Exam Vital Signs: Temp Pulse Resp BP Pulse Ox 97.4 F 69 24 H 108/49 L 97 02/14/20 12:31 02/14/20 12:31 02/14/20 12:31 02/14/20 12:31 02/14/20 12:31 Intake & Output 02/13/20 02/14/20 02/15/20 06:59 06:59 06:59 Intake Total 1490 1330 Balance 1490 1330 Weight 93.4 kg 93.4 kg Results Laboratory Results: WBC 3.1 10^3/uL (4.0-10.5) L 02/14/20 03:58 RBC 2.68 10^6/uL (4.35-5.55) L 02/14/20 03:58 Hgb 7.8 g/dL (13.5-17.0) L 02/14/20 03:58 Hct 23.3 % (37.9-51.0) L 02/14/20 03:58 MCV 87 fl (80-97) 02/14/20 03:58 MCH 29.2 pg (27.0-33.4) 02/14/20 03:58 MCHC 33.6 g/dL (32.0-36.0) 02/14/20 03:58 RDW 18.7 % (11.5-14.0) H 02/14/20 03:58 Plt Count 53 10^3/uL (150-450) L 02/14/20 03:58 Lymph % (Auto) 32.0 % (13-45) 02/14/20 03:58 [place] % (Auto) 8.6 % (3-13) 02/14/20 03:58 Eos % (Auto) 3.5 % (0-6) 02/14/20 03:58 Baso % (Auto) 0.6 % (0-2) 02/14/20 03:58 Reticulocyte # 0.046 10^6/uL (0.028-0.122) 02/10/20 02:02 Absolute Neuts (auto) 1.7 10^3/uL (1.7-8.2) 02/14/20 03:58 Absolute Lymphs (auto) 1.0 10^3/uL (0.5-4.7) 02/14/20 03:58 Absolute Monos (auto) 0.3 10^3/uL (0.1-1.4) 02/14/20 03:58 Absolute Eos (auto) 0.1 10^3/uL (0.0-0.6) 02/14/20 03:58 Absolute Basos (auto) 0.0 10^3/uL (0.0-0.2) 02/14/20 03:58 Total Counted 100 02/09/20 21:31 Seg Neutrophils % 55.3 % (42-78) 02/14/20 03:58 Seg Neuts % (Manual) 72 % (42-78) 02/09/20 21:31 Lymphocytes % (Manual) 25 % (13-45) 02/09/20 21:31 Monocytes % (Manual) 1 % (3-13) L 02/09/20 21:31 Eosinophils % (Manual) 2 % (0-6) 02/09/20 21:31 Basophils % (Manual) 0 % (0-2) 02/09/20 21:31 Abs Neuts (Manual) 2.7 10^3/uL (1.7-8.2) 02/09/20 21:31 Abs Lymphs (Manual) 1.0 10^3/uL (0.5-4.7) 02/09/20 21:31 Abs Monocytes (Manual) 0.0 10^3/uL (0.1-1.4) L 02/09/20 21:31 Absolute Eos (Manual) 0.1 10^3/uL (0.0-0.6) 02/09/20 21:31 Abs Basophils (Manual) 0.0 10^3/uL (0.0-0.2) 02/09/20 21:31 Toxic Granulation SLIGHT 02/09/20 21:31 Platelet Comment DECREASED 02/09/20 21:31 Hypochromasia 1+ 02/09/20 21:31 Poikilocytosis SLIGHT 02/09/20 21:31 Anisocytosis 3+ 02/09/20 21:31 Tear Drop Cells SLIGHT 02/09/20 21:31 Ovalocytes 1+ 02/09/20 21:31 Retic Count (auto) 2.70 % (0.66-2.85) 02/10/20 02:02 PT 20.3 SEC (11.4-15.4) H 02/10/20 00:29 INR 1.72 02/10/20 00:29 APTT 56.0 SEC (23.5-35.8) H 02/10/20 00:29 Sodium 133.3 mmol/L (137-145) L 02/14/20 03:58 Potassium 4.0 mmol/L (3.6-5.0) 02/14/20 03:58 Chloride 106 mmol/L (98-107) 02/14/20 03:58 Carbon Dioxide 24 mmol/L (22-30) 02/14/20 03:58 Anion Gap 3 (5-19) L 02/14/20 03:58 BUN 10 mg/dL (7-20) 02/14/20 03:58 Creatinine 0.58 mg/dL (0.52-1.25) 02/14/20 03:58 Est GFR ( Amer) > 60 (>60) 02/14/20 03:58 Est GFR (MDRD) Non-Af > 60 (>60) 02/14/20 03:58 Glucose 86 mg/dL (75-110) 02/14/20 03:58 POC Glucose 115 mg/dL (70-110) H 02/14/20 11:14 Hemoglobin A1c % 5.0 % (4.7-6.0) 02/11/20 05:28 Calcium 8.6 mg/dL (8.4-10.2) 02/14/20 03:58 Magnesium 1.9 mg/dL (1.6-2.3) 02/11/20 05:28 Iron 23.0 ug/dL (49-181) L 02/10/20 02:02 TIBC 450 ug/dL (250-450) 02/10/20 02:02 % Saturation 5 % 02/10/20 02:02 Ferritin 7.48 ng/mL (17.9-464.0) L 02/10/20 02:02 Total Bilirubin 2.9 mg/dL (0.2-1.3) H 02/12/20 05:16 Direct Bilirubin 0.5 mg/dL (0.0-0.4) H 02/12/20 05:16 Neonat Total Bilirubin Not Reportable 02/12/20 05:16 Neonat Direct Bilirubin Not Reportable 02/12/20 05:16 Neonat Indirect Bili Not Reportable 02/12/20 05:16 AST 38 U/L (17-59) 02/12/20 05:16 ALT 25 U/L (<50) 02/12/20 05:16 Alkaline Phosphatase 84 U/L (38-126) 02/12/20 05:16 Ammonia 40.2 umol/L (9-33) H 02/13/20 03:59 Troponin I < 0.012 ng/mL 02/09/20 21:31 NT-Pro-B Natriuret Pep 562 pg/mL (<125) H 02/09/20 21:31 Total Protein 5.7 g/dL (6.3-8.2) L 02/12/20 05:16 Albumin 2.6 g/dL (3.5-5.0) L 02/12/20 05:16 Lipase 182.9 U/L (23-300) 02/09/20 21:31 Vitamin B12 > 1000.0 pg/mL (239-931) H 02/10/20 02:02 Folate 16.90 ng/mL (>2.76) 02/10/20 02:02 TSH 1.72 uIU/mL (0.47-4.68) 02/10/20 02:02 Urine Color YELLOW 02/09/20 23:25 Urine Appearance CLEAR 02/09/20 23:25 Urine pH 6.0 (5.0-9.0) 02/09/20 23:25 Ur Specific [place] 1.016 02/09/20 23:25 Urine Protein NEGATIVE mg/dL (NEGATIVE) 02/09/20 23:25 Urine Glucose (UA) NEGATIVE mg/dL (NEGATIVE) 02/09/20 23:25 Urine Ketones NEGATIVE mg/dL (NEGATIVE) 02/09/20 23:25 Urine Blood NEGATIVE (NEGATIVE) 02/09/20 23:25 Urine Nitrite NEGATIVE (NEGATIVE) 02/09/20 23:25 Urine Bilirubin NEGATIVE (NEGATIVE) 02/09/20 23:25 Urine Urobilinogen 4.0 mg/dL (<2.0) H 02/09/20 23:25 Ur Leukocyte Esterase NEGATIVE (NEGATIVE) 02/09/20 23:25 Urine WBC (Auto) 1 /HPF 02/09/20 23:25 Squamous Epi Cells Auto <1 /HPF 02/09/20 23:25 Urine Mucus (Auto) OCC /LPF 02/09/20 23:25 Urine Ascorbic Acid NEGATIVE (NEGATIVE) 02/09/20 23:25 POC Stool Occult Blood NEGATIVE (NEGATIVE) 02/09/20 23:57 Hepatitis A IgM Ab Negative (Negative) 02/09/20 23:25 Hep Bs Antigen Negative (Negative) 02/09/20 23:25 Hep B Core IgM Ab Negative (Negative) 02/09/20 23:25 Hepatitis C Antibody <0.1 s/co ratio (0.0-0.9) 02/09/20 23:25 Slides for Path Review PATHOLOGIST REVIEWED 02/09/20 21:31 Blood Type O NEGATIVE 02/09/20 23:25 Blood Type Confirm O NEGATIVE 02/10/20 02:02 Antibody Screen NEGATIVE 02/09/20 23:25 Crossmatch See Detail 02/09/20 23:25 02/09/20 21:31 Troponin I < 0.012 NT-Pro-B Natriuret Pep 562 H Impressions: Chest X-Ray 02/09/20 19:12 IMPRESSION: In the appropriate clinical setting, findings are consistent with a multi lobar pneumonia. Given distribution, recommend consideration for atypical etiologies in treatment planning. Head CT 02/09/20 19:29 IMPRESSION: 1. No acute intracranial abnormalities. 2. Chronic changes in the left mastoid including left mastoidectomy. Chest CT 02/09/20 23:16 IMPRESSION: 1. Cardiomegaly with probable changes of pulmonary edema. 2. Abnormality of the peripheral lung interstitium which may represent concordant mild fibrosis. Overall lung volumes are low. 3. Ascites with changes of cirrhosis and portal hypertension. Abdomen Ultrasound 02/10/20 00:00 IMPRESSION: Hepatic cirrhosis. Ascites. Cannot entirely rule out a stone in the neck of the gallbladder. Right renal cysts. Stroke Is this a Stroke Patient?: No Acute Heart Failure Is this a Heart Failure Patient?: No
== END 2020-02-14 13:22 | disposition home health service (06) | DRG 809 ==
LOC: ER 18:48 → EH 02-10 02:11 → 4W 02-10 10:46
PROVIDERS: ADMIT Emergency Medicine; ATTEND Hospitalist
PROC: 30233N1 Transfusion of Nonautologous Red Blood Cells into Peripheral Vein, Percutaneous Approach (ICD-10-PCS; principal; 2020-02-10)
DX: D61.818 Other pancytopenia (principal); R18.8 Other ascites; K76.6 Portal hypertension; K74.60 Unspecified cirrhosis of liver; K75.81 Nonalcoholic steatohepatitis (NASH); I35.0 Nonrheumatic aortic (valve) stenosis; E11.9 Type 2 diabetes mellitus without complications; D50.0 Iron deficiency anemia secondary to blood loss (chronic); I27.20 Pulmonary hypertension, unspecified; Z82.49 Family history of ischemic heart disease and other diseases of the circulatory system; Z86.73 Personal history of transient ischemic attack (TIA), and cerebral infarction without residual deficits; Z83.3 Family history of diabetes mellitus
CPT/HCPCS: 36415; 36430; 70450; 71046; 71250; 76705; 80048; 80053; 80074; 81001; 82140; 82270; 82607; 82728; 82746; 82962; 83036; 83540; 83550; 83690; 83735; 83880; 84443; 84484; 85025; 85027; 85045; 85610; 85730; 86850; 86900; 86901; 86920; 93005; 93010; 93306; 99285; J1940; J3490; J7050; P9016; Q0138

== ENCOUNTER 2020-04-07 21:36 | Inpatient (IN) | payer MEDICARE, BC ==
[2020-04-07] MEDS ORDERED: NORMAL SALINE 1000 ML 1,000 ML IV ONE (22:20)
--- NOTE | 2020-04-07 22:23 | ER Document Report ---
ED General - Related Data Home Medications: lactulose. kamari <MARTINA HAGEN - Last Filed: 04/08/20 08:04> <OG LABOY Leida - Last Filed: 04/08/20 16:41> - General Chief Complaint: Fall Stated Complaint: FALL / ALTERED MENTAL STATUS Time Seen by Provider: 04/07/20 22:07 Notes: Patient is a 74-year-old male that comes emergency department for chief complaint of fall and being found on the floor after lying on the floor for an unknown duration. He comes by EMS. Patient states he was unable to get up himself. Patient cannot clearly tell me why he fell. He does believe he hit his head, he has new bruises to his upper back, old bruises to the lower back, although he denies any particular pain at this time. He denies shortness of breath, chest pain, fever/chills, nausea/vomiting. Past medical history includes type 2 diabetes, known heart murmur pending valvular repair with Dr. Falcon, patient denies any other medical history. (MARTINA HAGEN) - Related Data Allergies/Adverse Reactions: No Known Allergies Allergy (Verified 02/10/20 07:36) Past Medical History - General Information source: Patient - Social History Smoking Status: Never Smoker Chew tobacco use (# tins/day): No Frequency of alcohol use: None - denies Drug Abuse: None Lives with: Family Family History: CAD, CVA, DM, Hypertension, Malignancy Patient has homicidal ideation: No - Past Medical History Cardiac Medical History: Denies: Hx Coronary Artery Disease, Hx Heart Attack, Hx Hypertension Pulmonary Medical History: Denies: Hx Asthma, Hx COPD Neurological Medical History: Denies: Hx Seizures Endocrine Medical History: Reports: Hx Diabetes Mellitus Type 2. Denies: Hx Diabetes Mellitus Type 1, Hx Hyperthyroidism, Hx Hypothyroidism GI Medical History: Denies: Hx Cirrhosis, Hx Crohn's Disease, Hx Gastroesophageal Reflux Disease, Hx Hepatitis, Hx Ulcerative Colitis Musculoskeletal Medical History: Denies Hx Fibromyalgia, Denies Hx Gout Skin Medical History: Denies Hx Eczema, Denies Hx Psoriasis Psychiatric Medical History: Denies: Hx Depression Infectious Medical History: Denies: Hx Hepatitis - Immunizations Immunizations up to date: Yes Hx Diphtheria, Pertussis, Tetanus Vaccination: Yes <MARTINA HAGEN - Last Filed: 04/08/20 08:04> Review of Systems - Review of Systems Constitutional: See HPI EENT: No symptoms reported Cardiovascular: No symptoms reported Respiratory: No symptoms reported Gastrointestinal: No symptoms reported Genitourinary: No symptoms reported Male Genitourinary: No symptoms reported Musculoskeletal: See HPI Skin: No symptoms reported Hematologic/Lymphatic: No symptoms reported Neurological/Psychological: See HPI <MARTINA HAGEN - Last Filed: 04/08/20 08:04> Physical Exam <MARTINA HAGEN - Last Filed: 04/08/20 08:04> - Vital signs Vitals: Temp 98.6 F 04/07/20 21:37 - Notes Notes: GENERAL: Patient is frail and somewhat chronically ill-appearing. HEAD: Normocephalic, atraumatic. EYES: Pupils equal, round, and reactive to light. Extraocular movements intact. ENT: Oral mucosa parched, tongue midline. Oropharynx unremarkable. Airway patent. NECK: Full range of motion. Supple. Trachea midline. No lymphadenopathy. LUNGS: Clear to auscultation bilaterally, no wheezes, rales, or rhonchi. No respiratory distress. Non-tender chest wall. HEART: Regular rate and rhythm. No murmur ABDOMEN: Soft, non-tender. Non-distended. EXTREMITIES: Moves all 4 extremities spontaneously. No edema, normal radial and dorsalis pedis pulses bilaterally. No cyanosis. BACK: no cervical, thoracic, lumbar midline tenderness. No saddle anesthesia, normal distal neurovascular exam. Moves all extremities in full range of motion. NEUROLOGICAL: Alert and oriented to person and place but is difficult to understand when relating events. Very mumbled almost slurred speech. Cranial nerves II through XII grossly intact. Strength 5/5 in all extremities. Patient is unsteady on his feet with ataxia. PSYCH: Normal affect, normal mood. SKIN: Warm, dry, normal turgor. No rashes or lesions noted. (MARTINA HAGEN) Course - Laboratory Result Diagrams: 04/07/20 21:49 04/07/20 21:49 <MARTINA HAGEN - Last Filed: 04/08/20 08:04> - Laboratory Result Diagrams: 04/07/20 21:49 04/07/20 21:49 <OG LABOY - Last Filed: 04/08/20 16:41> - Re-evaluation Re-evalutation: 04/08/20 On exam patient is somewhat ill-appearing, frail, weak. He mumbles answers although he is oriented and cooperative. Patient is unable to even sit forward on his own strength, he is unable to stand or ambulate. His lungs are clear, he denies any current complaints, he states he was hoping to go home. However patient is doubtfully at his baseline despite what he says, he has multiple bruises over his face, upper back, and old bruises over his lower back. His work-up does appear to be most likely at baseline with unremarkable CAT scan of the head, unchanged anemia, not significantly changed pneumonia, not significantly changed bilirubin. Chest x-ray shows some vascular congestion and possible left lower consolidation but there is no leukocytosis, fever, respiratory abnormality on exam, hypoxia, tachycardia, or complaints of shortness of breath/chest pain. Clinically I do not suspect pneumonia. Patient has no lower extremity swelling. BNP is elevated but this is nonspecific given no comparison. Urinalysis, urine drug screen, alcohol unremarkable. I discussed again with patient, he did request to go home and is unable to tell me if this is clearly his baseline or not. He states he has a help from his son and [id number] his girlfriend, he states he uses a cane. Patient still unable to ambulate for me. I attempted to call the son to discuss patient's baseline but I was unable to reach them by phone. I discussed with Dr. Saavedra. Recommendation is MRI for ataxia, case management consultation. Patient is agr eeable for additional evaluation. MRI ordered and pending to assist with disposition. 04/08/20 08:05 Report given to Tabitha Laboy NP pending disposition. (MARTINA HAGEN) Disposition received from STEPHANY Gu at 805. MRI of brain pending. Repeat troponin less than 0.012 which is down from 0.017, repeat BNP 1010 to 1080. MRI of head without contrast did not show any acute findings for patient to explain the ataxia and weakness that he is experiencing. Consulted with Dr. Ovidio Trejo at 1043, he will come down to evaluate patient. A consult has already been placed for a social media senior associate. Dr. Trejo is working with social work to see if they can get him into an assisted living at [facility] and if he cannot he states that he will place him on observation on the medical service. pt was agreeable with this plan of care. 04/08/20 16:40 (OG LABOY) - Vital Signs Vital signs: Temp Pulse Resp BP Pulse Ox 98.7 F 20 95/58 L 96 04/08/20 09:24 04/08/20 16:00 04/08/20 16:00 04/08/20 16:00 - Laboratory Laboratory results interpreted by me: 04/07/20 04/07/20 04/07/20 21:49 21:49 21:49 RBC 2.38 L Hgb 8.8 L Hct 25.0 L MCV 105 H MCH 36.9 H RDW 23.7 H Plt Count 88 L PT APTT Sodium 134.2 L Total Bilirubin 4.9 H Direct Bilirubin 0.8 H AST 99 H ALT 63 H Ammonia Creatine Kinase 474 H NT-Pro-B Natriuret Pep Total Protein 5.9 L Albumin 2.7 L Urine Ketones Urine Urobilinogen 04/07/20 04/07/20 04/07/20 21:49 21:49 23:00 RBC Hgb Hct MCV MCH RDW Plt Count PT 21.7 H APTT 54.1 H Sodium Total Bilirubin Direct Bilirubin AST ALT Ammonia 40.0 H Creatine Kinase NT-Pro-B Natriuret Pep 1010 H Total Protein Albumin Urine Ketones Urine Urobilinogen 04/07/20 04/08/20 04/08/20 23:00 09:00 13:35 RBC Hgb Hct MCV MCH RDW Plt Count PT APTT Sodium Total Bilirubin Direct Bilirubin AST ALT Ammonia Creatine Kinase NT-Pro-B Natriuret Pep 1080 H Total Protein Albumin Urine Ketones TRACE H Urine Urobilinogen 4.0 H 4.0 H - EKG Interpretation by Me Additional EKG results interpreted by me: EKG shows sinus rhythm at a rate of 75, QTC slightly prolonged at 505, left bundle branch block is present but also present previously, first-degree AV block noted with CA interval of 260. No significant change from prior. (MARTINA HAGEN) Discharge <MARTINA HAGEN - Last Filed: 04/08/20 08:04> - Discharge Admitting Provider: Dr. Ovidio Trejo Unit Admitted: Medical Floor <OG LABOY - Last Filed: 04/08/20 16:41> - Discharge Clinical Impression: Generalized weakness, Ataxia Fall Qualifiers: Encounter type: initial encounter Qualified Code(s): W19.XXXA - Unspecified fall, initial encounter Facial contusion Qualifiers: Encounter type: initial encounter Qualified Code(s): S00.83XA - Contusion of other part of head, initial encounter Shoulder contusion Qualifiers: Encounter type: initial encounter Laterality: unspecified laterality Qualified Code(s): S40.019A - Contusion of unspecified shoulder, initial encounter Condition: Stable Disposition: ADMITTED OBSERVATION
[2020-04-07 22:34] LABS: ABSOLUTE EOSINOPHILS # (AUTO) 0.1 10^3/uL (0.0-0.6); ABSOLUTE LYMPHOCYTES (AUTO) 0.8 10^3/uL (0.5-4.7); ABSOLUTE MONOCYTES (AUTO) 0.4 10^3/uL (0.1-1.4); ABSOLUTE NEUT (AUTO) 4.4 10^3/uL (1.7-8.2); BASOPHILS % (AUTO) 0.3 % (0-2); EOSINOPHILS % (AUTO) 1.7 % (0-6); HEMOGLOBIN 8.8 g/dL (13.5-17.0); LYMPHOCYTES % (AUTO) 14.7 % (13-45); MEAN CORPUSCULAR HEMOGLOBIN 36.9 pg (27.0-33.4); MEAN CORPUSCULAR HGB CONC 35.2 g/dL (32.0-36.0); MEAN CORPUSCULAR VOLUME 105 fl (80-97); MONOCYTES % (AUTO) 7.7 % (3-13); RED BLOOD COUNT 2.38 10^6/uL (4.35-5.55); RED CELL DISTRIBUTION WIDTH 23.7 % (11.5-14.0); SEGMENTED NEUTROPHILS % (AUTO) 75.6 % (42-78); TOTAL CELLS COUNTED % (AUTO) 100 %; WHITE BLOOD COUNT 5.8 10^3/uL (4.0-10.5)
[2020-04-07 22:43] LABS: INTERNATIONAL RATION (INR) 1.88; PROTHROMBIN TIME 21.7 SEC (11.4-15.4)
[2020-04-07 22:44] LABS: ALBUMIN 2.7 g/dL (3.5-5.0); ALKALINE PHOSPHATASE 115 U/L (38-126); ANION GAP 7 (5-19); ASPARTATE AMINO TRANSFERASE 99 U/L (17-59); BILIRUBIN,DIRECT 0.8 mg/dL (0.0-0.4); BILIRUBIN,TOTAL 4.9 mg/dL (0.2-1.3); BLOOD UREA NITROGEN 16 mg/dL (7-20); CALCIUM 8.7 mg/dL (8.4-10.2); CARBON DIOXIDE 22 mmol/L (22-30); CHLORIDE 105 mmol/L (98-107); GLUCOSE 106 mg/dL (75-110); PARTIAL THROMBOPLASTIN TIME 54.1 SEC (23.5-35.8); POTASSIUM 4.1 mmol/L (3.6-5.0); TOTAL PROTEIN 5.9 g/dL (6.3-8.2)
[2020-04-07 23:08] LABS: PLATELET COUNT 88 10^3/uL (150-450)
--- NOTE | 2020-04-07 23:20 | RADIOLOGY REPORT (SQ) ---
EXAM DESCRIPTION: XR CHEST 1 VIEW, CT CERVICAL SPINE WITHOUT IV CONTRAST, CT HEAD WITHOUT IV CONTRAST COMPLETED DATE/TME: 04/07/2020 22:35 (accession [id number]), 04/07/2020 22:46 (accession [id number]), 04/07/2020 22:46 (accession [id number]) CLINICAL HISTORY: 74 years, Male, weakness EXAM DESCRIPTION: CHEST SINGLE VIEW (accession [id number]), CT CERVICAL SPINE WITHOUT (accession [id number]), CT HEAD WITHOUT (accession [id number]) CLINICAL HISTORY: weakness COMPARISON: None. FINDINGS: Single view of the chest is submitted. Cardiac silhouette is enlarged. There is mild pulmonary edema with consolidation at the left lung base. No significant pleural effusion. IMPRESSION: Cardiomegaly with pulmonary edema and left lung base consolidation. EXAM DESCRIPTION: CHEST SINGLE VIEW (accession [id number]), CT HEAD WITHOUT (accession [id number]), CT CERVICAL SPINE WITHOUT (accession [id number]) CLINICAL HISTORY: weakness COMPARISON: None Available TECHNIQUE: Contiguous axial CT images of the head were obtained. Coronal and sagittal reconstructions were created from the axial data. This exam was performed according to our departmental dose-optimization program, which includes automated exposure control, adjustment of the mA and/or kV according to patient size and/or use of iterative reconstruction technique. FINDINGS: There is no evidence of acute mass, mass effect, midline shift or hemorrhage. The ventricles and extra-axial CSF spaces are unremarkable. The brain parenchyma appears normal for the patient's age. No acute abnormalities of the bones is seen. IMPRESSION: No acute intracranial abnormality. EXAM DESCRIPTION: CHEST SINGLE VIEW (accession [id number]), CT HEAD WITHOUT (accession [id number]), CT CERVICAL SPINE WITHOUT (accession [id number]) CLINICAL HISTORY: weakness COMPARISON: None Available TECHNIQUE: Contiguous axial images of the cervical spine were obtained without the administration of intravenous contrast followed by reconstruction images. This exam was performed according to our departmental dose-optimization program, which includes automated exposure control, adjustment of the mA and/or kV according to patient size and/or use of iterative reconstruction technique. FINDINGS: There are degenerative changes with multilevel bridging syndesmophytes. There is interstitial thickening of the upper lungs with consolidation of the right upper lung. There is no acute fracture or subluxation. Prevertebral soft tissues are within normal limits. IMPRESSION: No acute fracture or subluxation
--- NOTE | 2020-04-07 23:20 | RADIOLOGY REPORT (SQ) ---
EXAM DESCRIPTION: XR CHEST 1 VIEW, CT CERVICAL SPINE WITHOUT IV CONTRAST, CT HEAD WITHOUT IV CONTRAST COMPLETED DATE/TME: 04/07/2020 22:35 (accession [id number]), 04/07/2020 22:46 (accession [id number]), 04/07/2020 22:46 (accession [id number]) CLINICAL HISTORY: 74 years, Male, weakness EXAM DESCRIPTION: CHEST SINGLE VIEW (accession [id number]), CT CERVICAL SPINE WITHOUT (accession [id number]), CT HEAD WITHOUT (accession [id number]) CLINICAL HISTORY: weakness COMPARISON: None. FINDINGS: Single view of the chest is submitted. Cardiac silhouette is enlarged. There is mild pulmonary edema with consolidation at the left lung base. No significant pleural effusion. IMPRESSION: Cardiomegaly with pulmonary edema and left lung base consolidation. EXAM DESCRIPTION: CHEST SINGLE VIEW (accession [id number]), CT HEAD WITHOUT (accession [id number]), CT CERVICAL SPINE WITHOUT (accession [id number]) CLINICAL HISTORY: weakness COMPARISON: None Available TECHNIQUE: Contiguous axial CT images of the head were obtained. Coronal and sagittal reconstructions were created from the axial data. This exam was performed according to our departmental dose-optimization program, which includes automated exposure control, adjustment of the mA and/or kV according to patient size and/or use of iterative reconstruction technique. FINDINGS: There is no evidence of acute mass, mass effect, midline shift or hemorrhage. The ventricles and extra-axial CSF spaces are unremarkable. The brain parenchyma appears normal for the patient's age. No acute abnormalities of the bones is seen. IMPRESSION: No acute intracranial abnormality. EXAM DESCRIPTION: CHEST SINGLE VIEW (accession [id number]), CT HEAD WITHOUT (accession [id number]), CT CERVICAL SPINE WITHOUT (accession [id number]) CLINICAL HISTORY: weakness COMPARISON: None Available TECHNIQUE: Contiguous axial images of the cervical spine were obtained without the administration of intravenous contrast followed by reconstruction images. This exam was performed according to our departmental dose-optimization program, which includes automated exposure control, adjustment of the mA and/or kV according to patient size and/or use of iterative reconstruction technique. FINDINGS: There are degenerative changes with multilevel bridging syndesmophytes. There is interstitial thickening of the upper lungs with consolidation of the right upper lung. There is no acute fracture or subluxation. Prevertebral soft tissues are within normal limits. IMPRESSION: No acute fracture or subluxation
--- NOTE | 2020-04-07 23:20 | RADIOLOGY REPORT (SQ) ---
EXAM DESCRIPTION: XR CHEST 1 VIEW, CT CERVICAL SPINE WITHOUT IV CONTRAST, CT HEAD WITHOUT IV CONTRAST COMPLETED DATE/TME: 04/07/2020 22:35 (accession [id number]), 04/07/2020 22:46 (accession [id number]), 04/07/2020 22:46 (accession [id number]) CLINICAL HISTORY: 74 years, Male, weakness EXAM DESCRIPTION: CHEST SINGLE VIEW (accession [id number]), CT CERVICAL SPINE WITHOUT (accession [id number]), CT HEAD WITHOUT (accession [id number]) CLINICAL HISTORY: weakness COMPARISON: None. FINDINGS: Single view of the chest is submitted. Cardiac silhouette is enlarged. There is mild pulmonary edema with consolidation at the left lung base. No significant pleural effusion. IMPRESSION: Cardiomegaly with pulmonary edema and left lung base consolidation. EXAM DESCRIPTION: CHEST SINGLE VIEW (accession [id number]), CT HEAD WITHOUT (accession [id number]), CT CERVICAL SPINE WITHOUT (accession [id number]) CLINICAL HISTORY: weakness COMPARISON: None Available TECHNIQUE: Contiguous axial CT images of the head were obtained. Coronal and sagittal reconstructions were created from the axial data. This exam was performed according to our departmental dose-optimization program, which includes automated exposure control, adjustment of the mA and/or kV according to patient size and/or use of iterative reconstruction technique. FINDINGS: There is no evidence of acute mass, mass effect, midline shift or hemorrhage. The ventricles and extra-axial CSF spaces are unremarkable. The brain parenchyma appears normal for the patient's age. No acute abnormalities of the bones is seen. IMPRESSION: No acute intracranial abnormality. EXAM DESCRIPTION: CHEST SINGLE VIEW (accession [id number]), CT HEAD WITHOUT (accession [id number]), CT CERVICAL SPINE WITHOUT (accession [id number]) CLINICAL HISTORY: weakness COMPARISON: None Available TECHNIQUE: Contiguous axial images of the cervical spine were obtained without the administration of intravenous contrast followed by reconstruction images. This exam was performed according to our departmental dose-optimization program, which includes automated exposure control, adjustment of the mA and/or kV according to patient size and/or use of iterative reconstruction technique. FINDINGS: There are degenerative changes with multilevel bridging syndesmophytes. There is interstitial thickening of the upper lungs with consolidation of the right upper lung. There is no acute fracture or subluxation. Prevertebral soft tissues are within normal limits. IMPRESSION: No acute fracture or subluxation
[2020-04-07 23:25] LABS: APPEARANCE,URINE CLEAR; BILIRUBIN,URINE NEGATIVE (NEGATIVE); COLOR,URINE AMBER; GLUCOSE, URINE NEGATIVE (NEGATIVE); KETONES,URINE TRACE mg/dL (NEGATIVE); LEUKOCYTE ESTERASE,URINE NEGATIVE (NEGATIVE); NITRITE,URINE NEGATIVE (NEGATIVE); PROTEIN,URINE NEGATIVE (NEGATIVE); URINE SPECIFIC GRAVITY 1.023
[2020-04-08 00:57] LABS: VENOUS BLOOD BASE EXCESS -1.3 mmol/L; VENOUS BLOOD HCO3 23.3 mmol/L (20-32); VENOUS BLOOD PCO2 38.8 mmHg (35-63); VENOUS BLOOD PH 7.4 (7.30-7.42)
[2020-04-08 02:29] LABS: URINE AMPHETAMINES SCREEN NEGATIVE; URINE BARBITURATES SCREEN NEGATIVE; URINE BENZODIAZEPINES SCREEN NEGATIVE; URINE COCAINE SCREEN NEGATIVE; URINE MARIJUANA (THC) SCREEN NEGATIVE; URINE METHADONE SCREEN NEGATIVE; URINE PHENCYCLIDINE SCREEN NEGATIVE
--- NOTE | 2020-04-08 09:18 | EKG REPORT ---
SEVERITY:- ABNORMAL ECG - SINUS RHYTHM FIRST DEGREE AV BLOCK LEFT BUNDLE BRANCH BLOCK : Confirmed by: Lia Roberts 08-Apr-2020 09:17:57
--- NOTE | 2020-04-08 09:22 | RADIOLOGY REPORT (SQ) ---
EXAM DESCRIPTION: MRI HEAD WITHOUT IMAGES COMPLETED DATE/TIME: 04/08/2020 8:55 am REASON FOR STUDY: ataxia COMPARISON: CT brain 02/09/2020 TECHNIQUE: Multiplanar imaging includes non-contrasted T1, T2, FLAIR, and diffusion with ADC map seq uences. Images stored on PACS. LIMITATIONS: None. FINDINGS: ANATOMY: No anomalies. Normal vascular flow voids. Pituitary fossa normal. CSF SPACES: Normal in size and contour. No hemorrhage. CEREBRUM: Diffusion-weighted images are negative for acute change No acute intracranial hemorrhage, mass effect, or midline shift FLAIR/ T2 weighted images demonstrate minimal chronic small vessel ischemic change in the hemispheric white matter. POSTERIOR FOSSA: No signal alteration. No hemorrhage. No edema, masses or mass effect. Internal kit tory canals, cerebello-pontine angles, mastoids normal. DIFFUSION IMAGING: Negative for acute or sub-acute infarction. ORBITS: No masses. Globes normal. PARANASAL SINUSES: No fluid levels. Mucosa normal. OTHER: No other significant finding. IMPRESSION: No acute findings EVIDENCE OF ACUTE STROKE: NO. TECHNICAL DOCUMENTATION: JOB ID: [id number] [employer]- All Rights Reserved Reading location - IP/workstation name: [id number]
[2020-04-08 10:04] LABS: NT PRO BNP 1080 pg/mL (<125)
[2020-04-08 10:05] LABS: TROPONIN I < 0.012 ng/mL
[2020-04-08 15:28] LABS: APPEARANCE,URINE SLIGHTLY-CLOUDY; BILIRUBIN,URINE NEGATIVE (NEGATIVE); CALCIUM OXALATE CRYSTALS,URINE MODERATE /HPF; COLOR,URINE AMBER; GLUCOSE, URINE NEGATIVE (NEGATIVE); KETONES,URINE NEGATIVE (NEGATIVE); PROTEIN,URINE NEGATIVE (NEGATIVE); URINE SPECIFIC GRAVITY 1.025
--- NOTE | 2020-04-08 15:49 | PDOC H&P ---
History of Present Illness Admission Date/PCP: 04/08/20 13:37 History of Present Illness: RUPESH MICHELE is a 74 year old male with multiple medical comorbidities who comes in after being found down at home. He has a history of nonalcoholic steatohepatitis with cirrhosis, general debility, pulmonary hypertension, and aortic stenosis. Apparently he lives with his son here in [place] who works at [employer] and is gone 60 to 65 hours a week at work. His other son, whom I spoke to today, lives in [place]. He told me his brother came home last night after having been away for a few days and found his father on the floor. The patient did not know how long he had been down there. Patient said he is fallen many times at home and can normally use his cane as leverage to help him get himself back up but was unable to do so this time. He does not know how long he was down on the floor. His son said that since the patient's 15 years ago the patient has not done hardly any physical activity and sits around most of the time. He said he never wants to talk about any issues of substance like his finances. Apparently for the last year or so they have been talking to the patient about getting into assisted living but the patient has always change the subject or just not engaged on the subject. He had multiple scans done and he does not have any fractures and his labs are all fairly consistent with baseline for him. His family would like help with getting him into assisted living. Past Medical History Cardiac Medical History: Denies: Coronary Artery Disease, Myocardial Infarction, Hypertension Pulmonary Medical History: Denies: Asthma, Chronic Obstructive Pulmonary Disease (COPD) Neurological Medical History: Denies: Seizures Endocrine Medical History: Reports: Diabetes Mellitus Type 2 Denies: Diabetes Mellitus Type 1, Hyperthyroidism, Hypothyroidism GI Medical History: Denies: Cirrhosis, Crohn's Disease, Gastroesophageal Reflux Disease, Hepatitis, Ulcerative Colitis Musculoskeltal Medical History: Denies: Fibromyalgia, Gout Skin Medical History: Denies: Eczema, Psoriasis Psychiatric Medical History: Denies: Depression Hematology: Denies: Anemia, Bleeding Tendencies Social History Lives with: Family Smoking Status: Never Smoker Electronic Cigarette use?: No Frequency of Alcohol Use: None Hx Recreational Drug Use: No Drugs: None Hx Prescription Drug Abuse: No Family History Family History: CAD, CVA, DM, Hypertension, Malignancy Parental Family History Reviewed: Yes Children Family History Reviewed: Yes Sibling(s) Family History Reviewed.: Yes Medication/Allergy Home Medications: Furosemide [Lasix 20 mg Tablet] 20 mg PO DAILY #30 tablet 02/14/20 Lactulose [Cephulac Syrup 20 gm/30 ml Udcup] 20 gm PO DAILY #30 udc 02/14/20 Omeprazole 20 mg PO DAILY #30 capsule. 02/14/20 Spironolactone [Aldactone 25 mg Tablet] 50 mg PO DAILY #30 tablet 02/14/20 Allergies/Adverse Reactions: No Known Allergies Allergy (Verified 02/10/20 07:36) Review of Systems All systems: reviewed and no additional remarkable complaints except as stated - All systems were reviewed and were negative except as noted in the HPI Physical Exam Vital Signs: Temp Pulse Resp BP Pulse Ox 98.7 F 21 H 94/50 L 92 04/08/20 09:24 04/08/20 14:00 04/08/20 14:00 04/08/20 14:00 Intake & Output 04/07/20 04/08/20 04/09/20 06:59 06:59 06:59 Intake Total 1000 Balance 1000 Weight 89.4 kg General appearance: PRESENT: no acute distress, cooperative, disheveled, other - Appears very frail and older than his stated age Head exam: PRESENT: atraumatic, normocephalic Eye exam: PRESENT: EOMI, PERRLA, scleral icterus. ABSENT: conjunctival injection, nystagmus Ear exam: PRESENT: normal external ear exam Mouth exam: PRESENT: dry mucosa, neck supple Throat exam: ABSENT: post pharyngeal erythema Neck exam: PRESENT: full ROM. ABSENT: carotid bruit, JVD, lymphadenopathy, meningismus, tenderness, thyromegaly Respiratory exam: PRESENT: clear to auscultation philip, symmetrical, unlabored. ABSENT: accessory muscle use, chest wall tenderness, crackles, prolonged expiratory phas, rhonchi, tachypnea, wheezes Cardiovascular exam: PRESENT: RRR, +S1, +S2 Pulses: PRESENT: normal carotid pulses Vascular exam: PRESENT: normal capillary refill GI/Abdominal exam: PRESENT: normal bowel sounds, soft. ABSENT: distended, guarding, rebound, tenderness Extremities exam: PRESENT: pedal edema, +1 edema. ABSENT: clubbing Musculoskeletal exam: PRESENT: normal inspection. ABSENT: deformity Neurological exam: PRESENT: awake, oriented to person, oriented to place, oriented to situation, CN II-XII grossly intact, motor sensory deficit - Diffusely weak Psychiatric exam: PRESENT: flat affect Skin exam: PRESENT: dry, pallor, warm Results Laboratory Results: 04/07/20 21:49 04/07/20 21:49 04/07/20 04/07/20 04/07/20 21:49 21:49 23:00 WBC 5.8 RBC 2.38 L Hgb 8.8 L Hct 25.0 L MCV 105 H MCH 36.9 H MCHC 35.2 RDW 23.7 H Plt Count 88 L Seg Neutrophils % 75.6 VBG pH VBG pCO2 VBG HCO3 VBG Base Excess Sodium 134.2 L Potassium 4.1 Chloride 105 Carbon Dioxide 22 Anion Gap 7 BUN 16 Creatinine 0.57 Est GFR ( Amer) > 60 Glucose 106 Calcium 8.7 Magnesium 1.9 Total Bilirubin 4.9 H AST 99 H Alkaline Phosphatase 115 Ammonia 40.0 H Total Protein 5.9 L Albumin 2.7 L Urine Color Urine Appearance Urine pH Ur Specific [place] Urine Protein Urine Glucose (UA) Urine Ketones Urine Blood Urine Nitrite Ur Leukocyte Esterase Urine WBC (Auto) Urine RBC (Auto) 04/07/20 04/08/20 23:00 00:30 WBC RBC Hgb Hct MCV MCH MCHC RDW Plt Count Seg Neutrophils % VBG pH 7.40 VBG pCO2 38.8 VBG HCO3 23.3 VBG Base Excess -1.3 Sodium Potassium Chloride Carbon Dioxide Anion Gap BUN Creatinine Est GFR ( Amer) Glucose Calcium Magnesium Total Bilirubin AST Alkaline Phosphatase Ammonia Total Protein Albumin Urine Color MISAEL Urine Appearance CLEAR Urine pH 6.0 Ur Specific [place] 1.023 Urine Protein NEGATIVE Urine Glucose (UA) NEGATIVE Urine Ketones TRACE H Urine Blood NEGATIVE Urine Nitrite NEGATIVE Ur Leukocyte Esterase NEGATIVE Urine WBC (Auto) 1 Urine RBC (Auto) 0 04/07/20 04/07/20 04/07/20 21:49 21:49 21:49 Creatine Kinase 474 H Troponin I 0.017 NT-Pro-B Natriuret Pep 1010 H 04/08/20 09:00 Creatine Kinase Troponin I < 0.012 NT-Pro-B Natriuret Pep 1080 H Impressions: Cervical Spine CT 04/07/20 22:18 IMPRESSION: Cardiomegaly with pulmonary edema and left lung base consolidation. EXAM DESCRIPTION: CHEST SINGLE VIEW (accession [id number]), CT HEAD WITHOUT (accession [id number]), CT CERVICAL SPINE WITHOUT (accession [id number]) CLINICAL HISTORY: weakness COMPARISON: None Available TECHNIQUE: Contiguous axial CT images of the head were obtained. Coronal and sagittal reconstructions were created from the axial data. This exam was performed according to our departmental dose-optimization program, which includes automated exposure control, adjustment of the mA and/or kV according to patient size and/or use of iterative reconstruction technique. FINDINGS: There is no evidence of acute mass, mass effect, midline shift or hemorrhage. The ventricles and extra-axial CSF spaces are unremarkable. The brain parenchyma appears normal for the patient's age. No acute abnormalities of the bones is seen. IMPRESSION: No acute intracranial abnormality. EXAM DESCRIPTION: CHEST SINGLE VIEW (accession [id number]), CT HEAD WITHOUT (accession [id number]), CT CERVICAL SPINE WITHOUT (accession [id number]) CLINICAL HISTORY: weakness COMPARISON: None Available TECHNIQUE: Contiguous axial images of the cervical spine were obtained without the administration of intravenous contrast followed by reconstruction images. This exam was performed according to our departmental dose-optimization program, which includes automated exposure control, adjustment of the mA and/or kV according to patient size and/or use of iterative reconstruction technique. FINDINGS: There are degenerative changes with multilevel bridging syndesmophytes. There is interstitial thickening of the upper lungs with consolidation of the right upper lung. There is no acute fracture or subluxation. Prevertebral soft tissues are within normal limits. IMPRESSION: No acute fracture or subluxation Head CT 04/07/20 22:18 IMPRESSION: Cardiomegaly with pulmonary edema and left lung base consolidation. EXAM DESCRIPTION: CHEST SINGLE VIEW (accession [id number]), CT HEAD WITHOUT (accession [id number]), CT CERVICAL SPINE WITHOUT (accession [id number]) CLINICAL HISTORY: weakness COMPARISON: None Available TECHNIQUE: Contiguous axial CT images of the head were obtained. Coronal and sagittal reconstructions were created from the axial data. This exam was performed according to our departmental dose-optimization program, which includes automated exposure control, adjustment of the mA and/or kV according to patient size and/or use of iterative reconstruction technique. FINDINGS: There is no evidence of acute mass, mass effect, midline shift or hemorrhage. The ventricles and extra-axial CSF spaces are unremarkable. The brain parenchyma appears normal for the patient's age. No acute abnormalities of the bones is seen. IMPRESSION: No acute intracranial abnormality. EXAM DESCRIPTION: CHEST SINGLE VIEW (accession [id number]), CT HEAD WITHOUT (accession [id number]), CT CERVICAL SPINE WITHOUT (accession [id number]) CLINICAL HISTORY: weakness COMPARISON: None Available TECHNIQUE: Contiguous axial images of the cervical spine were obtained without the administration of intravenous contrast followed by reconstruction images. This exam was performed according to our departmental dose-optimization program, which includes automated exposure control, adjustment of the mA and/or kV according to patient size and/or use of iterative reconstruction technique. FINDINGS: There are degenerative changes with multilevel bridging syndesmophytes. There is interstitial thickening of the upper lungs with consolidation of the right upper lung. There is no acute fracture or subluxation. Prevertebral soft tissues are within normal limits. IMPRESSION: No acute fracture or subluxation Chest X-Ray 04/07/20 22:19 IMPRESSION: Cardiomegaly with pulmonary edema and left lung base consolidation. EXAM DESCRIPTION: CHEST SINGLE VIEW (accession [id number]), CT HEAD WITHOUT (accession [id number]), CT CERVICAL SPINE WITHOUT (accession [id number]) CLINICAL HISTORY: weakness COMPARISON: None Available TECHNIQUE: Contiguous axial CT images of the head were obtained. Coronal and sagittal reconstructions were created from the axial data. This exam was performed according to our departmental dose-optimization program, which includes automated exposure control, adjustment of the mA and/or kV according to patient size and/or use of iterative reconstruction technique. FINDINGS: There is no evidence of acute mass, mass effect, midline shift or hemorrhage. The ventricles and extra-axial CSF spaces are unremarkable. The brain parenchyma appears normal for the patient's age. No acute abnormalities of the bones is seen. IMPRESSION: No acute intracranial abnormality. EXAM DESCRIPTION: CHEST SINGLE VIEW (accession [id number]), CT HEAD WITHOUT (accession [id number]), CT CERVICAL SPINE WITHOUT (accession [id number]) CLINICAL HISTORY: weakness COMPARISON: None Available TECHNIQUE: Contiguous axial images of the cervical spine were obtained without the administration of intravenous contrast followed by reconstruction images. This exam was performed according to our departmental dose-optimization program, which includes automated exposure control, adjustment of the mA and/or kV according to patient size and/or use of iterative reconstruction technique. FINDINGS: There are degenerative changes with multilevel bridging syndesmophytes. There is interstitial thickening of the upper lungs with consolidation of the right upper lung. There is no acute fracture or subluxation. Prevertebral soft tissues are within normal limits. IMPRESSION: No acute fracture or subluxation Head MRI 04/08/20 04:41 IMPRESSION: No acute findings EVIDENCE OF ACUTE STROKE: NO. Assessment and Plan - Diagnosis (1) Fall Qualifiers: Encounter type: initial encounter Qualified Code(s): W19.XXXA - Unspecified fall, initial encounter Is this a current diagnosis for this admission?: Yes (2) Generalized weakness Is this a current diagnosis for this admission?: Yes (3) Anemia Qualifiers: Anemia type: iron deficiency Iron deficiency anemia type: chronic blood loss Qualified Code(s): D50.0 - Iron deficiency anemia secondary to blood loss (chronic) Is this a current diagnosis for this admission?: Yes (4) Bilateral lower extremity edema Is this a current diagnosis for this admission?: Yes (5) Cirrhosis Qualifiers: Hepatic cirrhosis type: other cirrhosis Qualified Code(s): K74.69 - Other cirrhosis of liver Is this a current diagnosis for this admission?: Yes (6) Pulmonary HTN Is this a current diagnosis for this admission?: Yes (7) Aortic stenosis Qualifiers: Cardiac valve disease etiology: etiology unspecified Qualified Code(s): I35.0 - Nonrheumatic aortic (valve) stenosis Is this a current diagnosis for this admission?: Yes - Plan Summary Summary: His comorbid conditions are all at baseline. We will continue his home medications. We will admit him for observation so that he can get a physical therapy evaluation swab for Covid so that he can get into a intermediate facility for rehab in light of the recent waiver on the 3 midnight rule. The plan is to get him into rehab as a bridge to assisted living. Once a bed is available he will be transferred. - Time Time Spent with patient: 35 or more minutes Anticipated Discharge Disposition: Detention Facility Anticipated Discharge Timeframe: within 48 hours
[2020-04-08] MEDS: FUROSEMIDE 20 MG TABLET PO SCH (17:35)
[2020-04-08] MEDS: LACTULOSE SYRUP 20 GM/30 ML UDCUP PO SCH (17:35)
[2020-04-08] MEDS: PANTOPRAZOLE SODIUM 20 MG TABLET.DR PO SCH (17:35)
[2020-04-08] MEDS: SPIRONOLACTONE 25 MG TABLET PO SCH (17:35)
[2020-04-09] MEDS: SPIRONOLACTONE 25 MG TABLET PO SCH (10:07)
[2020-04-09] MEDS: FUROSEMIDE 20 MG TABLET PO SCH (10:07)
[2020-04-09] MEDS: PANTOPRAZOLE SODIUM 20 MG TABLET.DR PO SCH (10:07)
[2020-04-09] MEDS: LACTULOSE SYRUP 20 GM/30 ML UDCUP PO SCH (10:07)
--- NOTE | 2020-04-09 19:15 | PDOC PROGRESS REPORT ---
Subjective Date:: 04/09/20 Subjective:: No adverse events overnight. No new complaints. Vital signs been stable. Timmy ng fairly well. Reason For Visit: WEAKNESS Physical Exam Vital Signs: Temp Pulse Resp BP Pulse Ox 98.4 F 83 18 114/62 96 04/09/20 16:00 04/09/20 16:00 04/09/20 16:00 04/09/20 16:00 04/09/20 16:00 Intake & Output 04/08/20 04/09/20 04/10/20 06:59 06:59 06:59 Intake Total 1000 1275 700 Balance 1000 1275 700 Weight 89.4 kg 95.8 kg General appearance: PRESENT: no acute distress, cooperative, disheveled, other - Appears very frail and older than his stated age Respiratory exam: PRESENT: clear to auscultation philip, symmetrical, unlabored. ABSENT: accessory muscle use, chest wall tenderness, crackles, prolonged expi ratory phas, rhonchi, tachypnea, wheezes Cardiovascular exam: PRESENT: RRR, +S1, +S2 Pulses: PRESENT: normal carotid pulses Vascular exam: PRESENT: normal capillary refill GI/Abdominal exam: PRESENT: normal bowel sounds, soft. ABSENT: distended, guarding, rebound, tenderness Extremities exam: PRESENT: pedal edema, +1 edema. ABSENT: clubbing Musculoskeletal exam: PRESENT: normal inspection. ABSENT: deformity Neurological exam: PRESENT: awake, oriented to person, oriented to place, oriented to situation, motor sensory deficit - Diffusely weak Psychiatric exam: PRESENT: flat affect Skin exam: PRESENT: dry, pallor, warm Results Laboratory Results: 04/07/20 21:49 04/07/20 21:49 04/07/20 04/07/20 04/07/20 21:49 21:49 21:49 Creatine Kinase 474 H Troponin I 0.017 NT-Pro-B Natriuret Pep 1010 H 04/08/20 09:00 Creatine Kinase Troponin I < 0.012 NT-Pro-B Natriuret Pep 1080 H Impressions: Cervical Spine CT 04/07/20 22:18 IMPRESSION: Cardiomegaly with pulmonary edema and left lung base consolidation. EXAM DESCRIPTION: CHEST SINGLE VIEW (accession [id number]), CT HEAD WITHOUT (accession [id number]), CT CERVICAL SPINE WITHOUT (accession [id number]) CLINICAL HISTORY: weakness COMPARISON: None Available TECHNIQUE: Contiguous axial CT images of the head were obtained. Coronal and sagittal reconstructions were created from the axial data. This exam was performed according to our departmental dose-optimization program, which includes automated exposure control, adjustment of the mA and/or kV according to patient size and/or use of iterative reconstruction technique. FINDINGS: There is no evidence of acute mass, mass effect, midline shift or hemorrhage. The ventricles and extra-axial CSF spaces are unremarkable. The brain parenchyma appears normal for the patient's age. No acute abnormalities of the bones is seen. IMPRESSION: No acute intracranial abnormality. EXAM DESCRIPTION: CHEST SINGLE VIEW (accession [id number]), CT HEAD WITHOUT (accession [id number]), CT CERVICAL SPINE WITHOUT (accession [id number]) CLINICAL HISTORY: weakness COMPARISON: None Available TECHNIQUE: Contiguous axial images of the cervical spine were obtained without the administration of intravenous contrast followed by reconstruction images. This exam was performed according to our departmental dose-optimization program, which includes automated exposure control, adjustment of the mA and/or kV according to patient size and/or use of iterative reconstruction technique. FINDINGS: There are degenerative changes with multilevel bridging syndesmophytes. There is interstitial thickening of the upper lungs with consolidation of the right upper lung. There is no acute fracture or subluxation. Prevertebral soft tissues are within normal limits. IMPRESSION: No acute fracture or subluxation Head CT 04/07/20 22:18 IMPRESSION: Cardiomegaly with pulmonary edema and left lung base consolidation. EXAM DESCRIPTION: CHEST SINGLE VIEW (accession [id number]), CT HEAD WITHOUT (accession [id number]), CT CERVICAL SPINE WITHOUT (accession [id number]) CLINICAL HISTORY: weakness COMPARISON: None Available TECHNIQUE: Contiguous axial CT images of the head were obtained. Coronal and sagittal reconstructions were created from the axial data. This exam was performed according to our departmental dose-optimization program, which includes automated exposure control, adjustment of the mA and/or kV according to patient size and/or use of iterative reconstruction technique. FINDINGS: There is no evidence of acute mass, mass effect, midline shift or hemorrhage. The ventricles and extra-axial CSF spaces are unremarkable. The brain parenchyma appears normal for the patient's age. No acute abnormalities of the bones is seen. IMPRESSION: No acute intracranial abnormality. EXAM DESCRIPTION: CHEST SINGLE VIEW (accession [id number]), CT HEAD WITHOUT (accession [id number]), CT CERVICAL SPINE WITHOUT (accession [id number]) CLINICAL HISTORY: weakness COMPARISON: None Available TECHNIQUE: Contiguous axial images of the cervical spine were obtained without the administration of intravenous contrast followed by reconstruction images. This exam was performed according to our departmental dose-optimization program, which includes automated exposure control, adjustment of the mA and/or kV according to patient size and/or use of iterative reconstruction technique. FINDINGS: There are degenerative changes with multilevel bridging syndesmophytes. There is interstitial thickening of the upper lungs with consolidation of the right upper lung. There is no acute fracture or subluxation. Prevertebral soft tissues are within normal limits. IMPRESSION: No acute fracture or subluxation Chest X-Ray 04/07/20 22:19 IMPRESSION: Cardiomegaly with pulmonary edema and left lung base consolidation. EXAM DESCRIPTION: CHEST SINGLE VIEW (accession [id number]), CT HEAD WITHOUT (accession [id number]), CT CERVICAL SPINE WITHOUT (accession [id number]) CLINICAL HISTORY: weakness COMPARISON: None Available TECHNIQUE: Contiguous axial CT images of the head were obtained. Coronal and sagittal reconstructions were created from the axial data. This exam was performed according to our departmental dose-optimization program, which includes automated exposure control, adjustment of the mA and/or kV according to patient size and/or use of iterative reconstruction technique. FINDINGS: There is no evidence of acute mass, mass effect, midline shift or hemorrhage. The ventricles and extra-axial CSF spaces are unremarkable. The brain parenchyma appears normal for the patient's age. No acute abnormalities of the bones is seen. IMPRESSION: No acute intracranial abnormality. EXAM DESCRIPTION: CHEST SINGLE VIEW (accession [id number]), CT HEAD WITHOUT (accession [id number]), CT CERVICAL SPINE WITHOUT (accession [id number]) CLINICAL HISTORY: weakness COMPARISON: None Available TECHNIQUE: Contiguous axial images of the cervical spine were obtained without the administration of intravenous contrast followed by reconstruction images. This exam was performed according to our departmental dose-optimization program, which includes automated exposure control, adjustment of the mA and/or kV according to patient size and/or use of iterative reconstruction technique. FINDINGS: There are degenerative changes with multilevel bridging syndesmophytes. There is interstitial thickening of the upper lungs with consolidation of the right upper lung. There is no acute fracture or subluxation. Prevertebral soft tissues are within normal limits. IMPRESSION: No acute fracture or subluxation Head MRI 04/08/20 04:41 IMPRESSION: No acute findings EVIDENCE OF ACUTE STROKE: NO. Assessment and Plan - Diagnosis (1) Fall Qualifiers: Encounter type: initial encounter Qualified Code(s): W19.XXXA - Unspecified fall, initial encounter Is this a current diagnosis for this admission?: Yes (2) Generalized weakness Is this a current diagnosis for this admission?: Yes (3) Anemia Qualifiers: Anemia type: iron deficiency Iron deficiency anemia type: chronic blood loss Qualified Code(s): D50.0 - Iron deficiency anemia secondary to blood loss (chronic) Is this a current diagnosis for this admission?: Yes (4) Bilateral lower extremity edema Is this a current diagnosis for this admission?: Yes (5) Cirrhosis Qualifiers: Hepatic cirrhosis type: other cirrhosis Qualified Code(s): K74.69 - Other cirrhosis of liver Is this a current diagnosis for this admission?: Yes (6) Pulmonary HTN Is this a current diagnosis for this admission?: Yes (7) Aortic stenosis Qualifiers: Cardiac valve disease etiology: etiology unspecified Qualified Code(s): I35.0 - Nonrheumatic aortic (valve) stenosis Is this a current diagnosis for this admission?: Yes - Plan Summary Summary: His comorbid conditions are all at baseline. We will continue his home medications. We will admit him for observation so that he can get a physical therapy evaluation swab for Covid so that he can get into a correction facility for rehab in light of the recent waiver on the 3 midnight rule. The plan is to get him into rehab as a bridge to assisted living. Once a bed is available he will be transferred. - Time Time Spent with patient: 15-24 minutes Anticipated Discharge Disposition: Longterm Facility Anticipated Discharge Timeframe: when bed available
[2020-04-10] MEDS: LACTULOSE SYRUP 20 GM/30 ML UDCUP PO SCH (09:53)
[2020-04-10] MEDS: FUROSEMIDE 20 MG TABLET PO SCH (09:53)
[2020-04-10] MEDS: PANTOPRAZOLE SODIUM 20 MG TABLET.DR PO SCH (09:54)
[2020-04-10] MEDS: SPIRONOLACTONE 25 MG TABLET PO SCH (09:54)
--- NOTE | 2020-04-10 19:35 | PDOC PROGRESS REPORT ---
Subjective Date:: 04/10/20 Subjective:: No adverse events overnight. No new complaints. Vital signs been stable. Timmy ng fairly well. He tried to sit up on the edge of the bed today to eat and was too weak to hold himself up. Reason For Visit: WEAKNESS Physical Exam Vital Signs: Temp Pulse Resp BP Pulse Ox 97.8 F 82 24 H 108/62 95 04/10/20 15:34 04/10/20 15:34 04/10/20 15:34 04/10/20 15:34 04/10/20 15:34 Intake & Output 04/09/20 04/10/20 04/11/20 06:59 06:59 06:59 Intake Total 1275 1070 387 Balance 1275 1070 387 Weight 95.8 kg 96.8 kg General appearance: PRESENT: no acute distress, cooperative, disheveled, other - Appears very frail and older than his stated age Respiratory exam: PRESENT: clear to auscultation philip, symmetrical, unlabored. ABSENT: accessory muscle use, chest wall tenderness, crackles, prolonged expiratory phas, rhonchi, tachypnea, wheezes Cardiovascular exam: PRESENT: RRR, +S1, +S2 Pulses: PRESENT: normal carotid pulses Vascular exam: PRESENT: normal capillary refill GI/Abdominal exam: PRESENT: normal bowel sounds, soft. ABSENT: distended, guarding, rebound, tenderness Extremities exam: PRESENT: pedal edema, +1 edema. ABSENT: clubbing Musculoskeletal exam: PRESENT: normal inspection. ABSENT: deformity Neurological exam: PRESENT: awake, oriented to person, oriented to place, oriented to situation, motor sensory deficit - Diffusely weak Psychiatric exam: PRESENT: flat affect Skin exam: PRESENT: dry, pallor, warm Results Laboratory Results: 04/07/20 21:49 04/07/20 21:49 04/07/20 04/07/20 04/07/20 21:49 21:49 21:49 Creatine Kinase 474 H Troponin I 0.017 NT-Pro-B Natriuret Pep 1010 H 04/08/20 09:00 Creatine Kinase Troponin I < 0.012 NT-Pro-B Natriuret Pep 1080 H Impressions: Cervical Spine CT 04/07/20 22:18 IMPRESSION: Cardiomegaly with pulmonary edema and left lung base consolidation. EXAM DESCRIPTION: CHEST SINGLE VIEW (accession [id number]), CT HEAD WITHOUT (accession [id number]), CT CERVICAL SPINE WITHOUT (accession [id number]) CLINICAL HISTORY: weakness COMPARISON: None Available TECHNIQUE: Contiguous axial CT images of the head were obtained. Coronal and sagittal reconstructions were created from the axial data. This exam was performed according to our departmental dose-optimization program, which includes automated exposure control, adjustment of the mA and/or kV according to patient size and/or use of iterative reconstruction technique. FINDINGS: There is no evidence of acute mass, mass effect, midline shift or hemorrhage. The ventricles and extra-axial CSF spaces are unremarkable. The brain parenchyma appears normal for the patient's age. No acute abnormalities of the bones is seen. IMPRESSION: No acute intracranial abnormality. EXAM DESCRIPTION: CHEST SINGLE VIEW (accession [id number]), CT HEAD WITHOUT (accession [id number]), CT CERVICAL SPINE WITHOUT (accession [id number]) CLINICAL HISTORY: weakness COMPARISON: None Available TECHNIQUE: Contiguous axial images of the cervical spine were obtained without the administration of intravenous contrast followed by reconstruction images. This exam was performed according to our departmental dose-optimization program, which includes automated exposure control, adjustment of the mA and/or kV according to patient size and/or use of iterative reconstruction technique. FINDINGS: There are degenerative changes with multilevel bridging syndesmophytes. There is interstitial thickening of the upper lungs with consolidation of the right upper lung. There is no acute fracture or subluxation. Prevertebral soft tissues are within normal limits. IMPRESSION: No acute fracture or subluxation Head CT 04/07/20 22:18 IMPRESSION: Cardiomegaly with pulmonary edema and left lung base consolidation. EXAM DESCRIPTION: CHEST SINGLE VIEW (accession [id number]), CT HEAD WITHOUT (accession [id number]), CT CERVICAL SPINE WITHOUT (accession [id number]) CLINICAL HISTORY: weakness COMPARISON: None Available TECHNIQUE: Contiguous axial CT images of the head were obtained. Coronal and sagittal reconstructions were created from the axial data. This exam was performed according to our departmental dose-optimization program, which includes automated exposure control, adjustment of the mA and/or kV according to patient size and/or use of iterative reconstruction technique. FINDINGS: There is no evidence of acute mass, mass effect, midline shift or hemorrhage. The ventricles and extra-axial CSF spaces are unremarkable. The brain parenchyma appears normal for the patient's age. No acute abnormalities of the bones is seen. IMPRESSION: No acute intracranial abnormality. EXAM DESCRIPTION: CHEST SINGLE VIEW (accession [id number]), CT HEAD WITHOUT (accession [id number]), CT CERVICAL SPINE WITHOUT (accession [id number]) CLINICAL HISTORY: weakness COMPARISON: None Available TECHNIQUE: Contiguous axial images of the cervical spine were obtained without the administration of intravenous contrast followed by reconstruction images. This exam was performed according to our departmental dose-optimization program, which includes automated exposure control, adjustment of the mA and/or kV according to patient size and/or use of iterative reconstruction technique. FINDINGS: There are degenerative changes with multilevel bridging syndesmophytes. There is interstitial thickening of the upper lungs with consolidation of the right upper lung. There is no acute fracture or subluxation. Prevertebral soft tissues are within normal limits. IMPRESSION: No acute fracture or subluxation Chest X-Ray 04/07/20 22:19 IMPRESSION: Cardiomegaly with pulmonary edema and left lung base consolidation. EXAM DESCRIPTION: CHEST SINGLE VIEW (accession [id number]), CT HEAD WITHOUT (accession [id number]), CT CERVICAL SPINE WITHOUT (accession [id number]) CLINICAL HISTORY: weakness COMPARISON: None Available TECHNIQUE: Contiguous axial CT images of the head were obtained. Coronal and sagittal reconstructions were created from the axial data. This exam was performed according to our departmental dose-optimization program, which includes automated exposure control, adjustment of the mA and/or kV according to patient size and/or use of iterative reconstruction technique. FINDINGS: There is no evidence of acute mass, mass effect, midline shift or hemorrhage. The ventricles and extra-axial CSF spaces are unremarkable. The brain parenchyma appears normal for the patient's age. No acute abnormalities of the bones is seen. IMPRESSION: No acute intracranial abnormality. EXAM DESCRIPTION: CHEST SINGLE VIEW (accession [id number]), CT HEAD WITHOUT (accession [id number]), CT CERVICAL SPINE WITHOUT (accession [id number]) CLINICAL HISTORY: weakness COMPARISON: None Available TECHNIQUE: Contiguous axial images of the cervical spine were obtained without the administration of intravenous contrast followed by reconstruction images. This exam was performed according to our departmental dose-optimization program, which includes automated exposure control, adjustment of the mA and/or kV according to patient size and/or use of iterative reconstruction technique. FINDINGS: There are degenerative changes with multilevel bridging syndesmophytes. There is interstitial thickening of the upper lungs with consolidation of the right upper lung. There is no acute fracture or subluxation. Prevertebral soft tissues are within normal limits. IMPRESSION: No acute fracture or subluxation Head MRI 04/08/20 04:41 IMPRESSION: No acute findings EVIDENCE OF ACUTE STROKE: NO. Assessment and Plan - Diagnosis (1) Fall Qualifiers: Encounter type: initial encounter Qualified Code(s): W19.XXXA - Unspecified fall, initial encounter Is this a current diagnosis for this admission?: Yes (2) Generalized weakness Is this a current diagnosis for this admission?: Yes (3) Anemia Qualifiers: Anemia type: iron deficiency Iron deficiency anemia type: chronic blood loss Qualified Code(s): D50.0 - Iron deficiency anemia secondary to blood loss (chronic) Is this a current diagnosis for this admission?: Yes (4) Bilateral lower extremity edema Is this a current diagnosis for this admission?: Yes (5) Cirrhosis Qualifiers: Hepatic cirrhosis type: other cirrhosis Qualified Code(s): K74.69 - Other cirrhosis of liver Is this a current diagnosis for this admission?: Yes (6) Pulmonary HTN Is this a current diagnosis for this admission?: Yes (7) Aortic stenosis Qualifiers: Cardiac valve disease etiology: etiology unspecified Qualified Code(s): I35.0 - Nonrheumatic aortic (valve) stenosis Is this a current diagnosis for this admission?: Yes - Plan Summary Summary: His comorbid conditions are all at baseline. We will continue his home medications. He had an isolated low-grade fever today and so the skilled n ursing facility wants to see him fever free for 24 hours before they will take him. - Time Time Spent with patient: 15-24 minutes Anticipated Discharge Disposition: [facility] Anticipated Discharge Timeframe: within 24 hours
[2020-04-11] MEDS: PANTOPRAZOLE SODIUM 20 MG TABLET.DR PO SCH (10:18)
[2020-04-11] MEDS: SPIRONOLACTONE 25 MG TABLET PO SCH (10:18)
[2020-04-11] MEDS: FUROSEMIDE 20 MG TABLET PO SCH (10:18)
[2020-04-11] MEDS: LACTULOSE SYRUP 20 GM/30 ML UDCUP PO SCH (10:18)
--- NOTE | 2020-04-11 17:19 | PDOC PROGRESS REPORT ---
Subjective Date:: 04/11/20 Subjective:: No adverse events overnight. He has developed a large area of swelling that cam e up abruptly today over the right side of his face. It seems to be located around his angle of his mandible on the right. He has been afebrile today. Reason For Visit: WEAKNESS Physical Exam Vital Signs: Temp Pulse Resp BP Pulse Ox 99.2 F 79 20 103/41 L 93 04/11/20 11:24 04/11/20 11:24 04/11/20 11:24 04/11/20 11:24 04/11/20 11:24 Intake & Output 04/10/20 04/11/20 04/12/20 06:59 06:59 06:59 Intake Total 1070 962 600 Balance 1070 962 600 Weight 96.8 kg 99.2 kg General appearance: PRESENT: no acute distress, cooperative, disheveled, other - Appears very frail and older than his stated age HEENT: He has a large area of swelling and induration on the right side of his face around the angle of his right mandible, I could not see in his oropharynx very well because he had a large amount of residual broccoli that he had not swallowed Respiratory exam: PRESENT: clear to auscultation philip, symmetrical, unlabored. ABSENT: accessory muscle use, chest wall tenderness, crackles, prolonged expiratory phas, rhonchi, tachypnea, wheezes Cardiovascular exam: PRESENT: RRR, +S1, +S2 Pulses: PRESENT: normal carotid pulses Vascular exam: PRESENT: normal capillary refill GI/Abdominal exam: PRESENT: normal bowel sounds, soft. ABSENT: distended, guarding, rebound, tenderness Extremities exam: PRESENT: pedal edema, +1 edema. ABSENT: clubbing Musculoskeletal exam: PRESENT: normal inspection. ABSENT: deformity Neurological exam: PRESENT: awake, oriented to person, oriented to place, oriented to situation, motor sensory deficit - Diffusely weak Psychiatric exam: PRESENT: flat affect Skin exam: PRESENT: dry, pallor, warm Results Laboratory Results: 04/07/20 21:49 04/07/20 21:49 04/07/20 04/07/20 04/07/20 21:49 21:49 21:49 Creatine Kinase 474 H Troponin I 0.017 NT-Pro-B Natriuret Pep 1010 H 04/08/20 09:00 Creatine Kinase Troponin I < 0.012 NT-Pro-B Natriuret Pep 1080 H Impressions: Cervical Spine CT 04/07/20 22:18 IMPRESSION: Cardiomegaly with pulmonary edema and left lung base consolidation. EXAM DESCRIPTION: CHEST SINGLE VIEW (accession [id number]), CT HEAD WITHOUT (accession [id number]), CT CERVICAL SPINE WITHOUT (accession [id number]) CLINICAL HISTORY: weakness COMPARISON: None Available TECHNIQUE: Contiguous axial CT images of the head were obtained. Coronal and sagittal reconstructions were created from the axial data. This exam was performed according to our departmental dose-optimization program, which includes automated exposure control, adjustment of the mA and/or kV according to patient size and/or use of iterative reconstruction technique. FINDINGS: There is no evidence of acute mass, mass effect, midline shift or hemorrhage. The ventricles and extra-axial CSF spaces are unremarkable. The brain parenchyma appears normal for the patient's age. No acute abnormalities of the bones is seen. IMPRESSION: No acute intracranial abnormality. EXAM DESCRIPTION: CHEST SINGLE VIEW (accession [id number]), CT HEAD WITHOUT (accession [id number]), CT CERVICAL SPINE WITHOUT (accession [id number]) CLINICAL HISTORY: weakness COMPARISON: None Available TECHNIQUE: Contiguous axial images of the cervical spine were obtained without the administration of intravenous contrast followed by reconstruction images. This exam was performed according to our departmental dose-optimization program, which includes automated exposure control, adjustment of the mA and/or kV according to patient size and/or use of iterative reconstruction technique. FINDINGS: There are degenerative changes with multilevel bridging syndesmophytes. There is interstitial thickening of the upper lungs with consolidation of the right upper lung. There is no acute fracture or subluxation. Prevertebral soft tissues are within normal limits. IMPRESSION: No acute fracture or subluxation Head CT 04/07/20 22:18 IMPRESSION: Cardiomegaly with pulmonary edema and left lung base consolidation. EXAM DESCRIPTION: CHEST SINGLE VIEW (accession [id number]), CT HEAD WITHOUT (accession [id number]), CT CERVICAL SPINE WITHOUT (accession [id number]) CLINICAL HISTORY: weakness COMPARISON: None Available TECHNIQUE: Contiguous axial CT images of the head were obtained. Coronal and sagittal reconstructions were created from the axial data. This exam was performed according to our departmental dose-optimization program, which includes automated exposure control, adjustment of the mA and/or kV according to patient size and/or use of iterative reconstruction technique. FINDINGS: There is no evidence of acute mass, mass effect, midline shift or hemorrhage. The ventricles and extra-axial CSF spaces are unremarkable. The brain parenchyma appears normal for the patient's age. No acute abnormalities of the bones is seen. IMPRESSION: No acute intracranial abnormality. EXAM DESCRIPTION: CHEST SINGLE VIEW (accession [id number]), CT HEAD WITHOUT (accession [id number]), CT CERVICAL SPINE WITHOUT (accession [id number]) CLINICAL HISTORY: weakness COMPARISON: None Available TECHNIQUE: Contiguous axial images of the cervical spine were obtained without the administration of intravenous contrast followed by reconstruction images. This exam was performed according to our departmental dose-optimization program, which includes automated exposure control, adjustment of the mA and/or kV according to patient size and/or use of iterative reconstruction technique. FINDINGS: There are degenerative changes with multilevel bridging syndesmophytes. There is interstitial thickening of the upper lungs with consolidation of the right upper lung. There is no acute fracture or subluxation. Prevertebral soft tissues are within normal limits. IMPRESSION: No acute fracture or subluxation Chest X-Ray 04/07/20 22:19 IMPRESSION: Cardiomegaly with pulmonary edema and left lung base consolidation. EXAM DESCRIPTION: CHEST SINGLE VIEW (accession [id number]), CT HEAD WITHOUT (accession [id number]), CT CERVICAL SPINE WITHOUT (accession [id number]) CLINICAL HISTORY: weakness COMPARISON: None Available TECHNIQUE: Contiguous axial CT images of the head were obtained. Coronal and sagittal reconstructions were created from the axial data. This exam was performed according to our departmental dose-optimization program, which includes automated exposure control, adjustment of the mA and/or kV according to patient size and/or use of iterative reconstruction technique. FINDINGS: There is no evidence of acute mass, mass effect, midline shift or hemorrhage. The ventricles and extra-axial CSF spaces are unremarkable. The brain parenchyma appears normal for the patient's age. No acute abnormalities of the bones is seen. IMPRESSION: No acute intracranial abnormality. EXAM DESCRIPTION: CHEST SINGLE VIEW (accession [id number]), CT HEAD WITHOUT (accession [id number]), CT CERVICAL SPINE WITHOUT (accession [id number]) CLINICAL HISTORY: weakness COMPARISON: None Available TECHNIQUE: Contiguous axial images of the cervical spine were obtained without the administration of intravenous contrast followed by reconstruction images. This exam was performed according to our departmental dose-optimization program, which includes automated exposure control, adjustment of the mA and/or kV according to patient size and/or use of iterative reconstruction technique. FINDINGS: There are degenerative changes with multilevel bridging syndesmophytes. There is interstitial thickening of the upper lungs with consolidation of the right upper lung. There is no acute fracture or subluxation. Prevertebral soft tissues are within normal limits. IMPRESSION: No acute fracture or subluxation Head MRI 04/08/20 04:41 IMPRESSION: No acute findings EVIDENCE OF ACUTE STROKE: NO. Assessment and Plan - Diagnosis (1) Fall Qualifiers: Encounter type: initial encounter Qualified Code(s): W19.XXXA - Unspecified fall, initial encounter Is this a current diagnosis for this admission?: Yes (2) Generalized weakness Is this a current diagnosis for this admission?: Yes (3) Anemia Qualifiers: Anemia type: iron deficiency Iron deficiency anemia type: chronic blood loss Qualified Code(s): D50.0 - Iron deficiency anemia secondary to blood loss (chronic) Is this a current diagnosis for this admission?: Yes (4) Bilateral lower extremity edema Is this a current diagnosis for this admission?: Yes (5) Cirrhosis Qualifiers: Hepatic cirrhosis type: other cirrhosis Qualified Code(s): K74.69 - Other cirrhosis of liver Is this a current diagnosis for this admission?: Yes (6) Pulmonary HTN Is this a current diagnosis for this admission?: Yes (7) Aortic stenosis Qualifiers: Cardiac valve disease etiology: etiology unspecified Qualified Code(s): I35.0 - Nonrheumatic aortic (valve) stenosis Is this a current diagnosis for this admission?: Yes (8) Facial cellulitis Is this a current diagnosis for this admission?: Yes - Plan Summary Summary: His comorbid conditions are all at baseline. He is got a large amount of swelling on the right side of his face and a CT scan has been done and the read is pending. We are looking to see if he has any cellulitis, dental abscess, or parotitis. No evidence of overlying abrasion to suggest a superficial cellulitis. If so, will initiate antibiotics. - Time Time Spent with patient: 25-34 minutes [facility]ticipated [facility] Anticipated Discharge Timeframe: within 72 hours
[2020-04-12] MEDS: LACTULOSE SYRUP 20 GM/30 ML UDCUP PO SCH (10:05)
[2020-04-12] MEDS: SPIRONOLACTONE 25 MG TABLET PO SCH (10:05)
[2020-04-12] MEDS: PANTOPRAZOLE SODIUM 20 MG TABLET.DR PO SCH (10:05)
[2020-04-12] MEDS: FUROSEMIDE 20 MG TABLET PO SCH (10:05)
[2020-04-12 11:06] LABS: ABSOLUTE EOSINOPHILS # (AUTO) 0.1 10^3/uL (0.0-0.6); ABSOLUTE LYMPHOCYTES (AUTO) 0.9 10^3/uL (0.5-4.7); ABSOLUTE MONOCYTES (AUTO) 0.9 10^3/uL (0.1-1.4); ABSOLUTE NEUT (AUTO) 12.1 10^3/uL (1.7-8.2); BASOPHILS % (AUTO) 0.1 % (0-2); EOSINOPHILS % (AUTO) 0.7 % (0-6); HEMATOCRIT 28.1 % (37.9-51.0); HEMOGLOBIN 9.7 g/dL (13.5-17.0); LYMPHOCYTES % (AUTO) 6.4 % (13-45); MEAN CORPUSCULAR HEMOGLOBIN 36.4 pg (27.0-33.4); MEAN CORPUSCULAR HGB CONC 34.5 g/dL (32.0-36.0); MEAN CORPUSCULAR VOLUME 105 fl (80-97); MONOCYTES % (AUTO) 6.7 % (3-13); RED BLOOD COUNT 2.67 10^6/uL (4.35-5.55); SEGMENTED NEUTROPHILS % (AUTO) 86.1 % (42-78); TOTAL CELLS COUNTED % (AUTO) 100 %; WHITE BLOOD COUNT 14.1 10^3/uL (4.0-10.5)
[2020-04-12 11:24] LABS: ANION GAP 10 (5-19); BLOOD UREA NITROGEN 18 mg/dL (7-20); CALCIUM 8.9 mg/dL (8.4-10.2); CARBON DIOXIDE 23 mmol/L (22-30); CHLORIDE 96 mmol/L (98-107); GLUCOSE 160 mg/dL (75-110); POTASSIUM 4.2 mmol/L (3.6-5.0)
[2020-04-12 11:31] LABS: PLATELET COUNT 88 10^3/uL (150-450)
[2020-04-12 11:39] LABS: ANISOCYTOSIS 2+
[2020-04-12 11:40] LABS: TEAR DROP CELLS 2+
[2020-04-12 11:42] LABS: PLATELET COMMENT DECREASED
--- NOTE | 2020-04-12 15:27 | PDOC PROGRESS REPORT ---
Subjective Date:: 04/12/20 Subjective:: Patient's neck is swollen as well as tender. T scan done is currently pending p er review does show multiple lymphadenopathy/soft tissue swelling Reason For Visit: WEAKNESS Physical Exam Vital Signs: Temp Pulse Resp BP Pulse Ox 99.3 F 89 20 119/66 95 04/12/20 10:00 04/12/20 08:07 04/12/20 08:07 04/12/20 08:07 04/12/20 08:07 Intake & Output 04/11/20 04/12/20 04/13/20 06:59 06:59 06:59 Intake Total 962 1040 120 Balance 962 1040 120 Weight 99.2 kg 97.6 kg General appearance: PRESENT: no acute distress, well-nourished Head exam: PRESENT: atraumatic Eye exam: PRESENT: EOMI, PERRLA. ABSENT: scleral icterus Ear exam: PRESENT: normal external ear exam Mouth exam: PRESENT: tongue midline Neck exam: PRESENT: tenderness, other - swelling R neck. ABSENT: carotid bruit, JVD, lymphadenopathy, thyromegaly Respiratory exam: PRESENT: clear to auscultation philip. ABSENT: rales, rhonchi, wheezes Cardiovascular exam: PRESENT: RRR, +S1, +S2. ABSENT: diastolic murmur, rubs, systolic murmur Pulses: PRESENT: normal dorsalis pedis pul Vascular exam: PRESENT: normal capillary refill GI/Abdominal exam: PRESENT: normal bowel sounds, soft. ABSENT: distended, guarding, mass, organolmegaly, rebound, tenderness Rectal exam: PRESENT: deferred Extremities exam: PRESENT: full ROM. ABSENT: calf tenderness, clubbing, pedal edema Neurological exam: PRESENT: alert, awake, oriented to person, oriented to place, oriented to time, oriented to situation, CN II-XII grossly intact. ABSENT: motor sensory deficit Psychiatric exam: PRESENT: appropriate affect, normal mood. ABSENT: homicidal ideation, suicidal ideation Skin exam: PRESENT: dry, intact, warm. ABSENT: cyanosis, rash Results Laboratory Results: 04/12/20 10:14 04/12/20 10:14 04/12/20 04/12/20 10:14 10:14 WBC 14.1 H RBC 2.67 L Hgb 9.7 L Hct 28.1 L MCV 105 H MCH 36.4 H MCHC 34.5 RDW 22.0 H Plt Count 88 L Seg Neutrophils % 86.1 H Sodium 129.4 L Potassium 4.2 Chloride 96 L Carbon Dioxide 23 Anion Gap 10 BUN 18 Creatinine 0.57 Est GFR ( Amer) > 60 Glucose 160 H Calcium 8.9 04/07/20 04/07/20 04/07/20 21:49 21:49 21:49 Creatine Kinase 474 H Troponin I 0.017 NT-Pro-B Natriuret Pep 1010 H 04/08/20 09:00 Creatine Kinase Troponin I < 0.012 NT-Pro-B Natriuret Pep 1080 H Impressions: Cervical Spine CT 04/07/20 22:18 IMPRESSION: Cardiomegaly with pulmonary edema and left lung base consolidation. EXAM DESCRIPTION: CHEST SINGLE VIEW (accession [id number]), CT HEAD WITHOUT (accession [id number]), CT CERVICAL SPINE WITHOUT (accession [id number]) CLINICAL HISTORY: weakness COMPARISON: None Available TECHNIQUE: Contiguous axial CT images of the head were obtained. Coronal and sagittal reconstructions were created from the axial data. This exam was performed according to our departmental dose-optimization program, which includes automated exposure control, adjustment of the mA and/or kV according to patient size and/or use of iterative reconstruction technique. FINDINGS: There is no evidence of acute mass, mass effect, midline shift or hemorrhage. The ventricles and extra-axial CSF spaces are unremarkable. The brain parenchyma appears normal for the patient's age. No acute abnormalities of the bones is seen. IMPRESSION: No acute intracranial abnormality. EXAM DESCRIPTION: CHEST SINGLE VIEW (accession [id number]), CT HEAD WITHOUT (accession [id number]), CT CERVICAL SPINE WITHOUT (accession [id number]) CLINICAL HISTORY: weakness COMPARISON: None Available TECHNIQUE: Contiguous axial images of the cervical spine were obtained without the administration of intravenous contrast followed by reconstruction images. This exam was performed according to our departmental dose-optimization program, which includes automated exposure control, adjustment of the mA and/or kV according to patient size and/or use of iterative reconstruction technique. FINDINGS: There are degenerative changes with multilevel bridging syndesmophytes. There is interstitial thickening of the upper lungs with consolidation of the right upper lung. There is no acute fracture or subluxation. Prevertebral soft tissues are within normal limits. IMPRESSION: No acute fracture or subluxation Head CT 04/07/20 22:18 IMPRESSION: Cardiomegaly with pulmonary edema and left lung base consolidation. EXAM DESCRIPTION: CHEST SINGLE VIEW (accession [id number]), CT HEAD WITHOUT (accession [id number]), CT CERVICAL SPINE WITHOUT (accession [id number]) CLINICAL HISTORY: weakness COMPARISON: None Available TECHNIQUE: Contiguous axial CT images of the head were obtained. Coronal and sagittal reconstructions were created from the axial data. This exam was performed according to our departmental dose-optimization program, which includes automated exposure control, adjustment of the mA and/or kV according to patient size and/or use of iterative reconstruction technique. FINDINGS: There is no evidence of acute mass, mass effect, midline shift or hemorrhage. The ventricles and extra-axial CSF spaces are unremarkable. The brain parenchyma appears normal for the patient's age. No acute abnormalities of the bones is seen. IMPRESSION: No acute intracranial abnormality. EXAM DESCRIPTION: CHEST SINGLE VIEW (accession [id number]), CT HEAD WITHOUT (accession [id number]), CT CERVICAL SPINE WITHOUT (accession [id number]) CLINICAL HISTORY: weakness COMPARISON: None Available TECHNIQUE: Contiguous axial images of the cervical spine were obtained without the administration of intravenous contrast followed by reconstruction images. This exam was performed according to our departmental dose-optimization program, which includes automated exposure control, adjustment of the mA and/or kV according to patient size and/or use of iterative reconstruction technique. FINDINGS: There are degenerative changes with multilevel bridging syndesmophytes. There is interstitial thickening of the upper lungs with consolidation of the right upper lung. There is no acute fracture or subluxation. Prevertebral soft tissues are within normal limits. IMPRESSION: No acute fracture or subluxation Chest X-Ray 04/07/20 22:19 IMPRESSION: Cardiomegaly with pulmonary edema and left lung base consolidation. EXAM DESCRIPTION: CHEST SINGLE VIEW (accession [id number]), CT HEAD WITHOUT (accession [id number]), CT CERVICAL SPINE WITHOUT (accession [id number]) CLINICAL HISTORY: weakness COMPARISON: None Available TECHNIQUE: Contiguous axial CT images of the head were obtained. Coronal and sagittal reconstructions were created from the axial data. This exam was performed according to our departmental dose-optimization program, which includes automated exposure control, adjustment of the mA and/or kV according to patient size and/or use of iterative reconstruction technique. FINDINGS: There is no evidence of acute mass, mass effect, midline shift or hemorrhage. The ventricles and extra-axial CSF spaces are unremarkable. The brain parenchyma appears normal for the patient's age. No acute abnormalities of the bones is seen. IMPRESSION: No acute intracranial abnormality. EXAM DESCRIPTION: CHEST SINGLE VIEW (accession [id number]), CT HEAD WITHOUT (accession [id number]), CT CERVICAL SPINE WITHOUT (accession [id number]) CLINICAL HISTORY: weakness COMPARISON: None Available TECHNIQUE: Contiguous axial images of the cervical spine were obtained without the administration of intravenous contrast followed by reconstruction images. This exam was performed according to our departmental dose-optimization program, which includes automated exposure control, adjustment of the mA and/or kV according to patient size and/or use of iterative reconstruction technique. FINDINGS: There are degenerative changes with multilevel bridging syndesmophytes. There is interstitial thickening of the upper lungs with consolidation of the right upper lung. There is no acute fracture or subluxation. Prevertebral soft tissues are within normal limits. IMPRESSION: No acute fracture or subluxation Head MRI 04/08/20 04:41 IMPRESSION: No acute findings EVIDENCE OF ACUTE STROKE: NO. 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) Is this a current diagnosis for this admission?: Yes (4) Cirrhosis Qualifiers: Hepatic cirrhosis type: other cirrhosis Qualified Code(s): K74.69 - Other cirrhosis of liver Is this a current diagnosis for this admission?: Yes (5) Fall Qualifiers: Encounter type: subsequent encounter Qualified Code(s): W19.XXXD - Unspecified fall, subsequent encounter Is this a current diagnosis for this admission?: Yes (6) Aortic stenosis Qualifiers: Cardiac valve disease etiology: etiology unspecified Qualified Code(s): I35.0 - Nonrheumatic aortic (valve) stenosis Is this a current diagnosis for this admission?: Yes (7) Hyponatremia Is this a current diagnosis for this admission?: Yes - Plan Summary Summary: His comorbid conditions are all at baseline. He is got a large amount of swelling on the right side of his face and a CT scan has been done and the read is pending. We are looking to see if he has any cellulitis, dental abscess, or parotitis. No evidence of overlying abrasion to suggest a superficial cellulitis. If so, will initiate antibiotics. 04/12 patient has a leukocytosis, swelling of the right maxillary area possibly a parotitis with CT scan still pending. I will start the patient on Unasyn. Will continue to monitor and repeat blood count in a.m. Noted to have hyponatremia which is slightly worse than his baseline. This may be due to his acute infection. I will start him off on some normal saline and will recheck in a.m. - Time Time Spent with patient: 25-34 minutes Anticipated Discharge Disposition: [facility] Anticipated Discharge Timeframe: within 72 hours
[2020-04-12] MEDS: AMPICILLIN SODIUM/SULBACTAM NA 3 GM in NORMAL SALINE 100 ML IV SCH (17:56)
[2020-04-12] MEDS: NORMAL SALINE 1000 ML 1,000 ML IV PRN (17:56)
[2020-04-13] MEDS: AMPICILLIN SODIUM/SULBACTAM NA 3 GM in NORMAL SALINE 100 ML IV SCH ×5 (01:34→23:45)
[2020-04-13 05:28] LABS: ABSOLUTE BASOPHILS # (AUTO) 0.1 10^3/uL (0.0-0.2); ABSOLUTE EOSINOPHILS # (AUTO) 0.2 10^3/uL (0.0-0.6); ABSOLUTE MONOCYTES (AUTO) 0.8 10^3/uL (0.1-1.4); ABSOLUTE NEUT (AUTO) 8.7 10^3/uL (1.7-8.2); BASOPHILS % (AUTO) 0.5 % (0-2); EOSINOPHILS % (AUTO) 1.8 % (0-6); HEMATOCRIT 26.5 % (37.9-51.0); HEMOGLOBIN 9.4 g/dL (13.5-17.0); LYMPHOCYTES % (AUTO) 9.1 % (13-45); MEAN CORPUSCULAR HEMOGLOBIN 37.2 pg (27.0-33.4); MEAN CORPUSCULAR HGB CONC 35.5 g/dL (32.0-36.0); MEAN CORPUSCULAR VOLUME 105 fl (80-97); MONOCYTES % (AUTO) 7.4 % (3-13); RED BLOOD COUNT 2.52 10^6/uL (4.35-5.55); RED CELL DISTRIBUTION WIDTH 21.6 % (11.5-14.0); SEGMENTED NEUTROPHILS % (AUTO) 81.2 % (42-78); TOTAL CELLS COUNTED % (AUTO) 100 %; WHITE BLOOD COUNT 10.7 10^3/uL (4.0-10.5)
[2020-04-13 05:40] LABS: ANION GAP 5 (5-19); BLOOD UREA NITROGEN 19 mg/dL (7-20); CALCIUM 8.4 mg/dL (8.4-10.2); CARBON DIOXIDE 26 mmol/L (22-30); CHLORIDE 98 mmol/L (98-107); GLUCOSE 116 mg/dL (75-110); POTASSIUM 4.1 mmol/L (3.6-5.0)
[2020-04-13] MEDS: NORMAL SALINE 1000 ML 1,000 ML IV PRN (05:40)
[2020-04-13 06:01] LABS: PLATELET COUNT 75 10^3/uL (150-450)
[2020-04-13] MEDS ORDERED: NORMAL SALINE 1000 ML 1,000 ML IV PRN ×2 (11:07→14:13)
--- NOTE | 2020-04-13 11:19 | PDOC PROGRESS REPORT ---
Subjective Date:: 04/13/20 Subjective:: Patient's neck is swollen as well as tender but he says he feels better today. Abdomen also noted to be distended. Patient does have a history of cirrhosis and ascites however it is unclear if the distention is more than his baseline. Reason For Visit: POSSIBLE CELLULITIS OF FACE Physical Exam Vital Signs: Temp Pulse Resp BP Pulse Ox 97.5 F 79 20 92/49 L 97 04/13/20 08:01 04/13/20 08:01 04/13/20 08:01 04/13/20 08:01 04/12/20 23:53 Intake & Output 04/12/20 04/13/20 04/14/20 06:59 06:59 06:59 Intake Total 1040 2240 Balance 1040 2240 Weight 97.6 kg 96.6 kg General appearance: PRESENT: no acute distress Head exam: PRESENT: atraumatic, normocephalic, other - R supramandibular swelling and tenderness, hard and immobile Eye exam: PRESENT: conjunctiva pink, EOMI, PERRLA. ABSENT: scleral icterus Ear exam: PRESENT: normal external ear exam Mouth exam: PRESENT: moist, tongue midline Teeth exam: PRESENT: poor dentation Neck exam: ABSENT: carotid bruit, JVD, lymphadenopathy, thyromegaly Respiratory exam: PRESENT: clear to auscultation philip. ABSENT: rales, rhonchi, wheezes Cardiovascular exam: PRESENT: RRR, +S1, +S2, systolic murmur. ABSENT: diastolic murmur, rubs Pulses: PRESENT: normal dorsalis pedis pul Vascular exam: PRESENT: normal capillary refill GI/Abdominal exam: PRESENT: distended, normal bowel sounds, soft, other - ascit es. ABSENT: guarding, mass, organolmegaly, rebound, tenderness Rectal exam: PRESENT: deferred Extremities exam: PRESENT: full ROM, +1 edema. ABSENT: calf tenderness, clubbing, pedal edema Neurological exam: PRESENT: alert, awake, oriented to person, oriented to place, oriented to time, CN II-XII grossly intact. ABSENT: motor sensory deficit Psychiatric exam: PRESENT: appropriate affect, normal mood. ABSENT: homicidal ideation, suicidal ideation Skin exam: PRESENT: dry, intact, warm. ABSENT: cyanosis, rash Results Laboratory Results: 04/13/20 05:05 04/13/20 05:05 04/12/20 04/12/20 04/13/20 10:14 10:14 05:05 WBC 14.1 H 10.7 H RBC 2.67 L 2.52 L Hgb 9.7 L 9.4 L Hct 28.1 L 26.5 L MCV 105 H 105 H MCH 36.4 H 37.2 H MCHC 34.5 35.5 RDW 22.0 H 21.6 H Plt Count 88 L 75 L Seg Neutrophils % 86.1 H 81.2 H Sodium 129.4 L Potassium 4.2 Chloride 96 L Carbon Dioxide 23 Anion Gap 10 BUN 18 Creatinine 0.57 Est GFR ( Amer) > 60 Glucose 160 H Calcium 8.9 04/13/20 05:05 WBC RBC Hgb Hct MCV MCH MCHC RDW Plt Count Seg Neutrophils % Sodium 128.5 L Potassium 4.1 Chloride 98 Carbon Dioxide 26 Anion Gap 5 BUN 19 Creatinine 0.53 Est GFR ( Amer) > 60 Glucose 116 H Calcium 8.4 04/08/20 00:30 Blood Blood Culture - Final NO GROWTH IN 5 DAYS 04/07/20 21:49 Blood Blood Culture - Final NO GROWTH IN 5 DAYS 04/07/20 04/07/20 04/07/20 21:49 21:49 21:49 Creatine Kinase 474 H Troponin I 0.017 NT-Pro-B Natriuret Pep 1010 H 04/08/20 09:00 Creatine Kinase Troponin I < 0.012 NT-Pro-B Natriuret Pep 1080 H Impressions: Cervical Spine CT 04/07/20 22:18 IMPRESSION: Cardiomegaly with pulmonary edema and left lung base consolidation. EXAM DESCRIPTION: CHEST SINGLE VIEW (accession [id number]), CT HEAD WITHOUT (accession [id number]), CT CERVICAL SPINE WITHOUT (accession [id number]) CLINICAL HISTORY: weakness COMPARISON: None Available TECHNIQUE: Contiguous axial CT images of the head were obtained. Coronal and sagittal reconstructions were created from the axial data. This exam was performed according to our departmental dose-optimization program, which includes automated exposure control, adjustment of the mA and/or kV according to patient size and/or use of iterative reconstruction technique. FINDINGS: There is no evidence of acute mass, mass effect, midline shift or hemorrhage. The ventricles and extra-axial CSF spaces are unremarkable. The brain parenchyma appears normal for the patient's age. No acute abnormalities of the bones is seen. IMPRESSION: No acute intracranial abnormality. EXAM DESCRIPTION: CHEST SINGLE VIEW (accession [id number]), CT HEAD WITHOUT (accession [id number]), CT CERVICAL SPINE WITHOUT (accession [id number]) CLINICAL HISTORY: weakness COMPARISON: None Available TECHNIQUE: Contiguous axial images of the cervical spine were obtained without the administration of intravenous contrast followed by reconstruction images. This exam was performed according to our departmental dose-optimization program, which includes automated exposure control, adjustment of the mA and/or kV according to patient size and/or use of iterative reconstruction technique. FINDINGS: There are degenerative changes with multilevel bridging syndesmophytes. There is interstitial thickening of the upper lungs with consolidation of the right upper lung. There is no acute fracture or subluxation. Prevertebral soft tissues are within normal limits. IMPRESSION: No acute fracture or subluxation Head CT 04/07/20 22:18 IMPRESSION: Cardiomegaly with pulmonary edema and left lung base consolidation. EXAM DESCRIPTION: CHEST SINGLE VIEW (accession [id number]), CT HEAD WITHOUT (accession [id number]), CT CERVICAL SPINE WITHOUT (accession [id number]) CLINICAL HISTORY: weakness COMPARISON: None Available TECHNIQUE: Contiguous axial CT images of the head were obtained. Coronal and sagittal reconstructions were created from the axial data. This exam was performed according to our departmental dose-optimization program, which includes automated exposure control, adjustment of the mA and/or kV according to patient size and/or use of iterative reconstruction technique. FINDINGS: There is no evidence of acute mass, mass effect, midline shift or hemorrhage. The ventricles and extra-axial CSF spaces are unremarkable. The brain parenchyma appears normal for the patient's age. No acute abnormalities of the bones is seen. IMPRESSION: No acute intracranial abnormality. EXAM DESCRIPTION: CHEST SINGLE VIEW (accession [id number]), CT HEAD WITHOUT (accession [id number]), CT CERVICAL SPINE WITHOUT (accession [id number]) CLINICAL HISTORY: weakness COMPARISON: None Available TECHNIQUE: Contiguous axial images of the cervical spine were obtained without the administration of intravenous contrast followed by reconstruction images. This exam was performed according to our departmental dose-optimization program, which includes automated exposure control, adjustment of the mA and/or kV according to patient size and/or use of iterative reconstruction technique. FINDINGS: There are degenerative changes with multilevel bridging syndesmophytes. There is interstitial thickening of the upper lungs with consolidation of the right upper lung. There is no acute fracture or subluxation. Prevertebral soft tissues are within normal limits. IMPRESSION: No acute fracture or subluxation Chest X-Ray 04/07/20 22:19 IMPRESSION: Cardiomegaly with pulmonary edema and left lung base consolidation. EXAM DESCRIPTION: CHEST SINGLE VIEW (accession [id number]), CT HEAD WITHOUT (accession [id number]), CT CERVICAL SPINE WITHOUT (accession [id number]) CLINICAL HISTORY: weakness COMPARISON: None Available TECHNIQUE: Contiguous axial CT images of the head were obtained. Coronal and sagittal reconstructions were created from the axial data. This exam was performed according to our departmental dose-optimization program, which includes automated exposure control, adjustment of the mA and/or kV according to patient size and/or use of iterative reconstruction technique. FINDINGS: There is no evidence of acute mass, mass effect, midline shift or hemorrhage. The ventricles and extra-axial CSF spaces are unremarkable. The brain parenchyma appears normal for the patient's age. No acute abnormalities of the bones is seen. IMPRESSION: No acute intracranial abnormality. EXAM DESCRIPTION: CHEST SINGLE VIEW (accession [id number]), CT HEAD WITHOUT (accession [id number]), CT CERVICAL SPINE WITHOUT (accession [id number]) CLINICAL HISTORY: weakness COMPARISON: None Available TECHNIQUE: Contiguous axial images of the cervical spine were obtained without the administration of intravenous contrast followed by reconstruction images. This exam was performed according to our departmental dose-optimization program, which includes automated exposure control, adjustment of the mA and/or kV according to patient size and/or use of iterative reconstruction technique. FINDINGS: There are degenerative changes with multilevel bridging syndesmophytes. There is interstitial thickening of the upper lungs with consolidation of the right upper lung. There is no acute fracture or subluxation. Prevertebral soft tissues are within normal limits. IMPRESSION: No acute fracture or subluxation Head MRI 04/08/20 04:41 IMPRESSION: No acute findings EVIDENCE OF ACUTE STROKE: NO. 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) Is this a current diagnosis for this admission?: Yes (4) Cirrhosis Qualifiers: Hepatic cirrhosis type: other cirrhosis Qualified Code(s): K74.69 - Other cirrhosis of liver Is this a current diagnosis for this admission?: Yes (5) Fall Qualifiers: Encounter type: subsequent encounter Qualified Code(s): W19.XXXD - Unspecified fall, subsequent encounter Is this a current diagnosis for this admission?: Yes (6) Aortic stenosis Qualifiers: Cardiac valve disease etiology: etiology unspecified Qualified Code(s): I35.0 - Nonrheumatic aortic (valve) stenosis Is this a current diagnosis for this admission?: Yes (7) Hyponatremia Is this a current diagnosis for this admission?: Yes - Plan Summary Summary: His comorbid conditions are all at baseline. He is got a large amount of swelling on the right side of his face and a CT scan has been done and the read is pending. We are looking to see if he has any cellulitis, dental abscess, or parotitis. No evidence of overlying abrasion to suggest a superficial cellulitis. If so, will initiate antibiotics. 04/12 patient has a leukocytosis, swelling of the right maxillary area possibly a parotitis with CT scan still pending. I will start the patient on Unasyn. Will continue to monitor and repeat blood count in a.m. Noted to have hyponatremia which is slightly worse than his baseline. This may be due to his acute infection. I will start him off on some normal saline and will recheck in a.m. 04/13 I have called radiology to obtain the official CT scan reading. Patient appears to have a possible parotitis or sialadenitis. He does appear to have responded somewhat to the Unasyn which will cover: Organisms as well as anaerobic organisms. I will continue with this at this time. And guarded in order and ultrasound and possible paracentesis. Patient will also be given Some Albumin as his blood pressure is borderline low which could be multifactorial given his history of ascites and possible sepsis. I will cut down on his IV fluid as soon as possible - Time Time Spent with patient: 25-34 minutes Medications reviewed and adjusted accordingly: Yes Anticipated Discharge Disposition: [facility] Anticipated Discharge Timeframe: within 72 hours
[2020-04-13] MEDS: SPIRONOLACTONE 25 MG TABLET PO SCH (11:36)
[2020-04-13] MEDS: LACTULOSE SYRUP 20 GM/30 ML UDCUP PO SCH (11:36)
[2020-04-13] MEDS: PANTOPRAZOLE SODIUM 20 MG TABLET.DR PO SCH (11:36)
[2020-04-13] MEDS: FUROSEMIDE 20 MG TABLET PO SCH (11:36)
--- NOTE | 2020-04-13 11:36 | RADIOLOGY REPORT (SQ) ---
EXAM DESCRIPTION: CT SOFT TISSUE NECK WITH IMAGES COMPLETED DATE/TIME: 04/11/2020 3:02 pm REASON FOR STUDY: dental abscess, please eval right jaw swelling COMPARISON: None. TECHNIQUE: Post IV contrasted scanning from skull base through lung apices with review of bone, soft tissue and lung windows. Reconstructed coronal and sagittal MPR images reviewed. All images stored on PACS. All CT scanners at this facility use dose modulation, iterative reconstruction, and/or weight based d osing when appropriate to reduce radiation dose to as low as reasonably achievable (ALARA). [facility]: Dose Right [facility]: CareDose [facility]: Dose Right [facility]: Teradose 4D [facility]: [employer] RENAL FUNCTION: GFR > 60. RADIATION DOSE: . LIMITATIONS: None. FINDINGS: SKULL BASE: Intact. MAJOR SALIVARY GLANDS: 4.0 x 2.2 cm abnormal soft tissue density in the right parotid space which has indistinct margins with the parotid gland. No organized fluid collection. No evidence of salivary duct stone. LYMPHADENOPATHY: Subcentimeter regional nodes. No pathologically enlarged lymph nodes. MUCOSAL MASSES OR ASYMMETRY: No mucosal masses or asymmetry. LARYNX/CORDS: No abnormal findings. VASCULAR STRUCTURES: The major vessels are patent. LUNG APICES: Clear. BONES: Intact. THYROID: Normal size. No masses. PARANASAL SINUSES: Clear. OTHER: No other significant finding. IMPRESSION: Inflammatory changes in the right parotid space without organized fluid collection. Thi s could represent cellulitis although follow-up is recommended to exclude underlying mass. Small reg ional lymph nodes, most likely reactive. TECHNICAL DOCUMENTATION: JOB ID: [id number] Quality ID # [id number]: Final reports with documentation of one or more dose reduction techniques (e.g., Au tomated exposure control, adjustment of the mA and/or kV according to patient size, use of iterative reconstruction technique) 2010 [employer]- All Rights Reserved Reading location - IP/workstation name: [email or web address]
[2020-04-13 12:11] LABS: INTERNATIONAL RATION (INR) 1.56; PROTHROMBIN TIME 18.8 SEC (11.4-15.4)
[2020-04-13] MEDS: ALBUMIN HUMAN 12.5 GM/50 ML RTUINJ IV SCH ×2 (13:01→14:05)
[2020-04-14] MEDS: AMPICILLIN SODIUM/SULBACTAM NA 3 GM in NORMAL SALINE 100 ML IV SCH ×2 (05:43→13:41)
[2020-04-14 07:02] LABS: ABSOLUTE EOSINOPHILS # (AUTO) 0.3 10^3/uL (0.0-0.6); ABSOLUTE LYMPHOCYTES (AUTO) 0.9 10^3/uL (0.5-4.7); ABSOLUTE MONOCYTES (AUTO) 0.6 10^3/uL (0.1-1.4); ABSOLUTE NEUT (AUTO) 6.9 10^3/uL (1.7-8.2); BASOPHILS % (AUTO) 0.3 % (0-2); EOSINOPHILS % (AUTO) 3.6 % (0-6); HEMATOCRIT 26.8 % (37.9-51.0); HEMOGLOBIN 9.5 g/dL (13.5-17.0); LYMPHOCYTES % (AUTO) 10.1 % (13-45); MEAN CORPUSCULAR HEMOGLOBIN 36.9 pg (27.0-33.4); MEAN CORPUSCULAR HGB CONC 35.3 g/dL (32.0-36.0); MEAN CORPUSCULAR VOLUME 105 fl (80-97); MONOCYTES % (AUTO) 7.3 % (3-13); RED BLOOD COUNT 2.57 10^6/uL (4.35-5.55); RED CELL DISTRIBUTION WIDTH 21.7 % (11.5-14.0); SEGMENTED NEUTROPHILS % (AUTO) 78.7 % (42-78); TOTAL CELLS COUNTED % (AUTO) 100 %; WHITE BLOOD COUNT 8.8 10^3/uL (4.0-10.5)
[2020-04-14 07:27] LABS: ALBUMIN 2.5 g/dL (3.5-5.0); ALKALINE PHOSPHATASE 116 U/L (38-126); ANION GAP 8 (5-19); ASPARTATE AMINO TRANSFERASE 38 U/L (17-59); BILIRUBIN,DIRECT 0.7 mg/dL (0.0-0.4); BLOOD UREA NITROGEN 14 mg/dL (7-20); CALCIUM 8.2 mg/dL (8.4-10.2); CARBON DIOXIDE 21 mmol/L (22-30); CHLORIDE 100 mmol/L (98-107); GLUCOSE 137 mg/dL (75-110); POTASSIUM 4.1 mmol/L (3.6-5.0); TOTAL PROTEIN 5.8 g/dL (6.3-8.2)
[2020-04-14 08:26] LABS: PLATELET COUNT 79 10^3/uL (150-450)
[2020-04-14] MEDS: PANTOPRAZOLE SODIUM 20 MG TABLET.DR PO SCH (10:14)
[2020-04-14] MEDS: SPIRONOLACTONE 25 MG TABLET PO SCH (10:14)
--- NOTE | 2020-04-14 16:25 | RADIOLOGY REPORT (SQ) ---
EXAM DESCRIPTION: U/S ABD PARACENTESIS IMAGES COMPLETED DATE/TIME: 04/14/2020 4:15 pm REASON FOR STUDY: Cirrhosis, Ascites COMPARISON None. LIMITATIONS: None. PROCEDURE: After obtaining informed consent, the patient was brought to the ultrasound suite. The p rocedure was performed with the patient on a gurney. Ultrasound was used to identify a prominent poc ket of ascites in the right lower quadrant. An appropriate access site was selected. The patient wa s prepped and draped in usual sterile fashion. The access site was anesthetized with 8 mL 1% lidoca ine. A [id number] needle was advanced into the fluid. After aspiration of fluid the needle, th e catheter was advanced off the needle into the fluid. A total of 6,000 mL of clear, straw-colored f luid was removed. The patient tolerated the procedure well left the department in satisfactory condit ion. IMPRESSION: Successful ultrasound-guided paracentesis COMMENT: Patient medication list reviewed: Yes- Quality ID# [id number]:Eligible professional attests to doc umenting in the medical record they obtained, updated, or reviewed the patient's current medications. TECHNICAL DOCUMENTATION: JOB ID: [id number] 2010 [employer]- All Rights Reserved Reading location - IP/workstation name: [email or web address]
[2020-04-14] MEDS: FUROSEMIDE 20 MG TABLET PO SCH (16:28)
[2020-04-14] MEDS: LACTULOSE SYRUP 20 GM/30 ML UDCUP PO SCH (16:28)
--- NOTE | 2020-04-14 16:29 | PDOC PROGRESS REPORT ---
Subjective Date:: 04/14/20 Subjective:: Patient's neck is swollen as well as tender but he says he feels better today. Abdomen also noted to be distended. Patient does have a history of cirrhosis and ascites however it is unclear if the distention is more than his baseline. 04/14Patient feels better today. He is currently awaiting paracentesis to be done. His jaw swelling is slightly improved. No fever. No difficulty swallowing Reason For Visit: POSSIBLE CELLULITIS OF FACE Physical Exam Vital Signs: Temp Pulse Resp BP Pulse Ox 98.0 F 77 20 105/64 97 04/14/20 11:34 04/14/20 11:34 04/14/20 11:34 04/14/20 11:34 04/14/20 11:34 Intake & Output 04/13/20 04/14/20 04/15/20 06:59 06:59 06:59 Intake Total 2240 2590 Balance 2240 2590 Weight 96.6 kg 96.6 kg General appearance: PRESENT: no acute distress, cooperative Head exam: PRESENT: atraumatic, other - Right supra mandibular swelling, tender fixed warm to touch Teeth exam: PRESENT: poor dentation Respiratory exam: PRESENT: rhonchi Cardiovascular exam: PRESENT: RRR, +S1, +S2, systolic murmur GI/Abdominal exam: PRESENT: ascites, distended Rectal exam: PRESENT: deferred Neurological exam: PRESENT: alert, oriented to person, oriented to place, oriented to time Results Laboratory Results: 04/14/20 06:00 04/14/20 06:00 04/14/20 04/14/20 06:00 06:00 WBC 8.8 RBC 2.57 L Hgb 9.5 L Hct 26.8 L MCV 105 H MCH 36.9 H MCHC 35.3 RDW 21.7 H Plt Count 79 L Seg Neutrophils % 78.7 H Sodium 129.3 L Potassium 4.1 Chloride 100 Carbon Dioxide 21 L Anion Gap 8 BUN 14 Creatinine 0.54 Est GFR ( Amer) > 60 Glucose 137 H Calcium 8.2 L Total Bilirubin 5.0 H AST 38 Alkaline Phosphatase 116 Total Protein 5.8 L Albumin 2.5 L 04/07/20 04/07/20 04/07/20 21:49 21:49 21:49 Creatine Kinase 474 H Troponin I 0.017 NT-Pro-B Natriuret Pep 1010 H 04/08/20 09:00 Creatine Kinase Troponin I < 0.012 NT-Pro-B Natriuret Pep 1080 H Impressions: Cervical Spine CT 04/07/20 22:18 IMPRESSION: Cardiomegaly with pulmonary edema and left lung base consolidation. EXAM DESCRIPTION: CHEST SINGLE VIEW (accession [id number]), CT HEAD WITHOUT (accession [id number]), CT CERVICAL SPINE WITHOUT (accession [id number]) CLINICAL HISTORY: weakness COMPARISON: None Available TECHNIQUE: Contiguous axial CT images of the head were obtained. Coronal and sagittal reconstructions were created from the axial data. This exam was performed according to our departmental dose-optimization program, which includes automated exposure control, adjustment of the mA and/or kV according to patient size and/or use of iterative reconstruction technique. FINDINGS: There is no evidence of acute mass, mass effect, midline shift or hemorrhage. The ventricles and extra-axial CSF spaces are unremarkable. The brain parenchyma appears normal for the patient's age. No acute abnormalities of the bones is seen. IMPRESSION: No acute intracranial abnormality. EXAM DESCRIPTION: CHEST SINGLE VIEW (accession [id number]), CT HEAD WITHOUT (accession [id number]), CT CERVICAL SPINE WITHOUT (accession [id number]) CLINICAL HISTORY: weakness COMPARISON: None Available TECHNIQUE: Contiguous axial images of the cervical spine were obtained without the administration of intravenous contrast followed by reconstruction images. This exam was performed according to our departmental dose-optimization program, which includes automated exposure control, adjustment of the mA and/or kV according to patient size and/or use of iterative reconstruction technique. FINDINGS: There are degenerative changes with multilevel bridging syndesmophytes. There is interstitial thickening of the upper lungs with consolidation of the right upper lung. There is no acute fracture or subluxation. Prevertebral soft tissues are within normal limits. IMPRESSION: No acute fracture or subluxation Head CT 04/07/20 22:18 IMPRESSION: Cardiomegaly with pulmonary edema and left lung base consolidation. EXAM DESCRIPTION: CHEST SINGLE VIEW (accession [id number]), CT HEAD WITHOUT (accession [id number]), CT CERVICAL SPINE WITHOUT (accession [id number]) CLINICAL HISTORY: weakness COMPARISON: None Available TECHNIQUE: Contiguous axial CT images of the head were obtained. Coronal and sagittal reconstructions were created from the axial data. This exam was performed according to our departmental dose-optimization program, which includes automated exposure control, adjustment of the mA and/or kV according to patient size and/or use of iterative reconstruction technique. FINDINGS: There is no evidence of acute mass, mass effect, midline shift or hemorrhage. The ventricles and extra-axial CSF spaces are unremarkable. The brain parenchyma appears normal for the patient's age. No acute abnormalities of the bones is seen. IMPRESSION: No acute intracranial abnormality. EXAM DESCRIPTION: CHEST SINGLE VIEW (accession [id number]), CT HEAD WITHOUT (accession [id number]), CT CERVICAL SPINE WITHOUT (accession [id number]) CLINICAL HISTORY: weakness COMPARISON: None Available TECHNIQUE: Contiguous axial images of the cervical spine were obtained without the administration of intravenous contrast followed by reconstruction images. This exam was performed according to our departmental dose-optimization program, which includes automated exposure control, adjustment of the mA and/or kV according to patient size and/or use of iterative reconstruction technique. FINDINGS: There are degenerative changes with multilevel bridging syndesmophytes. There is interstitial thickening of the upper lungs with consolidation of the right upper lung. There is no acute fracture or subluxation. Prevertebral soft tissues are within normal limits. IMPRESSION: No acute fracture or subluxation Chest X-Ray 04/07/20 22:19 IMPRESSION: Cardiomegaly with pulmonary edema and left lung base consolidation. EXAM DESCRIPTION: CHEST SINGLE VIEW (accession [id number]), CT HEAD WITHOUT (accession [id number]), CT CERVICAL SPINE WITHOUT (accession [id number]) CLINICAL HISTORY: weakness COMPARISON: None Available TECHNIQUE: Contiguous axial CT images of the head were obtained. Coronal and sagittal reconstructions were created from the axial data. This exam was performed according to our departmental dose-optimization program, which includes automated exposure control, adjustment of the mA and/or kV according to patient size and/or use of iterative reconstruction technique. FINDINGS: There is no evidence of acute mass, mass effect, midline shift or hemorrhage. The ventricles and extra-axial CSF spaces are unremarkable. The brain parenchyma appears normal for the patient's age. No acute abnormalities of the bones is seen. IMPRESSION: No acute intracranial abnormality. EXAM DESCRIPTION: CHEST SINGLE VIEW (accession [id number]), CT HEAD WITHOUT (accession [id number]), CT CERVICAL SPINE WITHOUT (accession [id number]) CLINICAL HISTORY: weakness COMPARISON: None Available TECHNIQUE: Contiguous axial images of the cervical spine were obtained without the administration of intravenous contrast followed by reconstruction images. This exam was performed according to our departmental dose-optimization program, which includes automated exposure control, adjustment of the mA and/or kV according to patient size and/or use of iterative reconstruction technique. FINDINGS: There are degenerative changes with multilevel bridging syndesmophytes. There is interstitial thickening of the upper lungs with consolidation of the right upper lung. There is no acute fracture or subluxation. Prevertebral soft tissues are within normal limits. IMPRESSION: No acute fracture or subluxation Head MRI 04/08/20 04:41 IMPRESSION: No acute findings EVIDENCE OF ACUTE STROKE: NO. Soft Tissue Neck CT 04/11/20 00:00 IMPRESSION: Inflammatory changes in the right parotid space without organized fluid collection. This could represent cellulitis although follow-up is recommended to exclude underlying mass. Small regional lymph nodes, most likely reactive. 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) Is this a current diagnosis for this admission?: Yes (4) Cirrhosis Qualifiers: Hepatic cirrhosis type: other cirrhosis Qualified Code(s): K74.69 - Other cirrhosis of liver Is this a current diagnosis for this admission?: Yes (5) Fall Qualifiers: Encounter type: subsequent encounter Qualified Code(s): W19.XXXD - Unspecified fall, subsequent encounter Is this a current diagnosis for this admission?: Yes (6) Aortic stenosis Qualifiers: Cardiac valve disease etiology: etiology unspecified Qualified Code(s): I35.0 - Nonrheumatic aortic (valve) stenosis Is this a current diagnosis for this admission?: Yes (7) Hyponatremia Is this a current diagnosis for this admission?: Yes - Plan Summary Summary: His comorbid conditions are all at baseline. He is got a large amount of swelling on the right side of his face and a CT scan has been done and the read is pending. We are looking to see if he has any cellulitis, dental abscess, or parotitis. No evidence of overlying abrasion to suggest a superficial cellulitis. If so, will initiate antibiotics. 04/12 patient has a leukocytosis, swelling of the right maxillary area possibly a parotitis with CT scan still pending. I will start the patient on Unasyn. Will continue to monitor and repeat blood count in a.m. Noted to have hyponatremia which is slightly worse than his baseline. This may be due to his acute infection. I will start him off on some normal saline and will recheck in a.m. 04/13 I have called radiology to obtain the official CT scan reading. Patient appears to have a possible parotitis or sialadenitis. He does appear to have responded somewhat to the Unasyn which will cover: Organisms as well as anaerobic organisms. I will continue with this at this time. And guarded in order and ultrasound and possible paracentesis. Patient will also be given Some Albumin as his blood pressure is borderline low which could be multifactorial given his history of ascites and possible sepsis. I will cut down on his IV fluid as soon as possible 04/14 patient is status post paracentesis. Apparently 6 L of fluid were removed from his abdomen. He had 50 g of albumin yesterday and this appeared to have increased his blood pressure and his stabilized. Because of the large volume paracentesis I will give him another dose of albumin today. We will stop the IV fluids. We will continue with the IV antibiotics for now as this is still clinically indicated. There is no evidence of SBP above follow-up on cultures - Time Time Spent with patient: 15-24 minutes Medications reviewed and adjusted accordingly: Yes Anticipated Discharge Disposition: [facility] Anticipated Discharge Timeframe: within 72 hours
[2020-04-14 17:44] LABS: FLUID SOURCE ASCITES
[2020-04-14 17:45] LABS: FLUID APPEARANCE CLEAR; FLUID COLOR YELLOW; FLUID TYPE PERITONEAL; FLUID VISCOSITY LIQUID
[2020-04-14] MEDS: ALBUMIN HUMAN 12.5 GM/50 ML RTUINJ IV SCH ×3 (21:48→22:58)
[2020-04-15] MEDS: AMPICILLIN SODIUM/SULBACTAM NA 3 GM in NORMAL SALINE 100 ML IV SCH ×5 (00:04→20:25)
[2020-04-15] MEDS: PANTOPRAZOLE SODIUM 20 MG TABLET.DR PO SCH (09:48)
[2020-04-15] MEDS: FUROSEMIDE 20 MG TABLET PO SCH (09:48)
[2020-04-15] MEDS: LACTULOSE SYRUP 20 GM/30 ML UDCUP PO SCH (09:48)
[2020-04-15] MEDS: SPIRONOLACTONE 25 MG TABLET PO SCH (09:48)
--- NOTE | 2020-04-15 13:58 | PDOC PROGRESS REPORT ---
Subjective Date:: 04/15/20 Subjective:: Patient's neck is swollen as well as tender but he says he feels better today. Abdomen also noted to be distended. Patient does have a history of cirrhosis and ascites however it is unclear if the distention is more than his baseline. 04/14Patient feels better today. He is currently awaiting paracentesis to be done. His jaw swelling is slightly improved. No fever. No difficulty swallowing 04/15 patient continues to improve. The jaw swelling is improving although sti ll tender. He is status post paracentesis of 6 L of fluid Reason For Visit: POSSIBLE CELLULITIS OF FACE Physical Exam Vital Signs: Temp Pulse Resp BP Pulse Ox 97.8 F 84 18 113/59 L 97 04/15/20 12:31 04/15/20 12:31 04/15/20 12:31 04/15/20 12:31 04/15/20 12:31 Intake & Output 04/14/20 04/15/20 04/16/20 06:59 06:59 06:59 Intake Total 2590 2428 Output Total 2150 Balance 2590 278 Weight 96.6 kg 94.6 kg General appearance: PRESENT: no acute distress Head exam: PRESENT: atraumatic, normocephalic, other - Right supramandibular swelling tenderness improved with had fixed mass Eye exam: PRESENT: conjunctiva pink, EOMI, PERRLA. ABSENT: scleral icterus Ear exam: PRESENT: normal external ear exam Mouth exam: PRESENT: moist, tongue midline Teeth exam: PRESENT: poor dentation Neck exam: PRESENT: lymphadenopathy. ABSENT: carotid bruit, JVD, thyromegaly Respiratory exam: PRESENT: clear to auscultation philip. ABSENT: rales, rhonchi, wheezes Cardiovascular exam: PRESENT: RRR, +S1, +S2, systolic murmur. ABSENT: diastolic murmur, rubs Pulses: PRESENT: normal dorsalis pedis pul Vascular exam: PRESENT: normal capillary refill GI/Abdominal exam: PRESENT: ascites, normal bowel sounds, soft. ABSENT: distended, guarding, mass, organolmegaly, rebound, tenderness Rectal exam: PRESENT: deferred Extremities exam: PRESENT: full ROM, +1 edema. ABSENT: calf tenderness, clubbing, pedal edema Neurological exam: PRESENT: alert, awake, oriented to person, oriented to place, oriented to time, oriented to situation, CN II-XII grossly intact. ABSENT: motor sensory deficit Psychiatric exam: PRESENT: appropriate affect, normal mood. ABSENT: homicidal ideation, suicidal ideation Skin exam: PRESENT: dry, intact, warm. ABSENT: cyanosis, rash Results Laboratory Results: 04/14/20 06:00 04/14/20 06:00 04/14/20 14:39 Fluid Type PERITONEAL Fluid Source ASCITES Fluid Color YELLOW Fluid Appearance CLEAR Fluid Viscosity LIQUID Fluid WBC 244 Fluid RBC 278 04/07/20 04/07/20 04/07/20 21:49 21:49 21:49 Creatine Kinase 474 H Troponin I 0.017 NT-Pro-B Natriuret Pep 1010 H 04/08/20 09:00 Creatine Kinase Troponin I < 0.012 NT-Pro-B Natriuret Pep 1080 H Impressions: Cervical Spine CT 04/07/20 22:18 IMPRESSION: Cardiomegaly with pulmonary edema and left lung base consolidation. EXAM DESCRIPTION: CHEST SINGLE VIEW (accession [id number]), CT HEAD WITHOUT (accession [id number]), CT CERVICAL SPINE WITHOUT (accession [id number]) CLINICAL HISTORY: weakness COMPARISON: None Available TECHNIQUE: Contiguous axial CT images of the head were obtained. Coronal and sagittal reconstructions were created from the axial data. This exam was performed according to our departmental dose-optimization program, which includes automated exposure control, adjustment of the mA and/or kV according to patient size and/or use of iterative reconstruction technique. FINDINGS: There is no evidence of acute mass, mass effect, midline shift or hemorrhage. The ventricles and extra-axial CSF spaces are unremarkable. The brain parenchyma appears normal for the patient's age. No acute abnormalities of the bones is seen. IMPRESSION: No acute intracranial abnormality. EXAM DESCRIPTION: CHEST SINGLE VIEW (accession [id number]), CT HEAD WITHOUT (accession [id number]), CT CERVICAL SPINE WITHOUT (accession [id number]) CLINICAL HISTORY: weakness COMPARISON: None Available TECHNIQUE: Contiguous axial images of the cervical spine were obtained without the administration of intravenous contrast followed by reconstruction images. This exam was performed according to our departmental dose-optimization program, which includes automated exposure control, adjustment of the mA and/or kV according to patient size and/or use of iterative reconstruction technique. FINDINGS: There are degenerative changes with multilevel bridging syndesmophytes. There is interstitial thickening of the upper lungs with consolidation of the right upper lung. There is no acute fracture or subluxation. Prevertebral soft tissues are within normal limits. IMPRESSION: No acute fracture or subluxation Head CT 04/07/20 22:18 IMPRESSION: Cardiomegaly with pulmonary edema and left lung base consolidation. EXAM DESCRIPTION: CHEST SINGLE VIEW (accession [id number]), CT HEAD WITHOUT (accession [id number]), CT CERVICAL SPINE WITHOUT (accession [id number]) CLINICAL HISTORY: weakness COMPARISON: None Available TECHNIQUE: Contiguous axial CT images of the head were obtained. Coronal and sagittal reconstructions were created from the axial data. This exam was performed according to our departmental dose-optimization program, which includes automated exposure control, adjustment of the mA and/or kV according to patient size and/or use of iterative reconstruction technique. FINDINGS: There is no evidence of acute mass, mass effect, midline shift or hemorrhage. The ventricles and extra-axial CSF spaces are unremarkable. The brain parenchyma appears normal for the patient's age. No acute abnormalities of the bones is seen. IMPRESSION: No acute intracranial abnormality. EXAM DESCRIPTION: CHEST SINGLE VIEW (accession [id number]), CT HEAD WITHOUT (accession [id number]), CT CERVICAL SPINE WITHOUT (accession [id number]) CLINICAL HISTORY: weakness COMPARISON: None Available TECHNIQUE: Contiguous axial images of the cervical spine were obtained without the administration of intravenous contrast followed by reconstruction images. This exam was performed according to our departmental dose-optimization program, which includes automated exposure control, adjustment of the mA and/or kV according to patient size and/or use of iterative reconstruction technique. FINDINGS: There are degenerative changes with multilevel bridging syndesmophytes. There is interstitial thickening of the upper lungs with consolidation of the right upper lung. There is no acute fracture or subluxation. Prevertebral soft tissues are within normal limits. IMPRESSION: No acute fracture or subluxation Chest X-Ray 04/07/20 22:19 IMPRESSION: Cardiomegaly with pulmonary edema and left lung base consolidation. EXAM DESCRIPTION: CHEST SINGLE VIEW (accession [id number]), CT HEAD WITHOUT (accession [id number]), CT CERVICAL SPINE WITHOUT (accession [id number]) CLINICAL HISTORY: weakness COMPARISON: None Available TECHNIQUE: Contiguous axial CT images of the head were obtained. Coronal and sagittal reconstructions were created from the axial data. This exam was performed according to our departmental dose-optimization program, which includes automated exposure control, adjustment of the mA and/or kV according to patient size and/or use of iterative reconstruction technique. FINDINGS: There is no evidence of acute mass, mass effect, midline shift or hemorrhage. The ventricles and extra-axial CSF spaces are unremarkable. The brain parenchyma appears normal for the patient's age. No acute abnormalities of the bones is seen. IMPRESSION: No acute intracranial abnormality. EXAM DESCRIPTION: CHEST SINGLE VIEW (accession [id number]), CT HEAD WITHOUT (accession [id number]), CT CERVICAL SPINE WITHOUT (accession [id number]) CLINICAL HISTORY: weakness COMPARISON: None Available TECHNIQUE: Contiguous axial images of the cervical spine were obtained without the administration of intravenous contrast followed by reconstruction images. This exam was performed according to our departmental dose-optimization program, which includes automated exposure control, adjustment of the mA and/or kV according to patient size and/or use of iterative reconstruction technique. FINDINGS: There are degenerative changes with multilevel bridging syndesmophytes. There is interstitial thickening of the upper lungs with consolidation of the right upper lung. There is no acute fracture or subluxation. Prevertebral soft tissues are within normal limits. IMPRESSION: No acute fracture or subluxation Head MRI 04/08/20 04:41 IMPRESSION: No acute findings EVIDENCE OF ACUTE STROKE: NO. Soft Tissue Neck CT 04/11/20 00:00 IMPRESSION: Inflammatory changes in the right parotid space without organized fluid collection. This could represent cellulitis although follow-up is recommended to exclude underlying mass. Small regional lymph nodes, most likely reactive. Paracentesis Ultrasound 04/14/20 00:00 IMPRESSION: Successful ultrasound-guided paracentesis 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) Is this a current diagnosis for this admission?: Yes (4) Cirrhosis Qualifiers: Hepatic cirrhosis type: other cirrhosis Qualified Code(s): K74.69 - Other cirrhosis of liver Is this a current diagnosis for this admission?: Yes Plan: Rest with 6 L of paracentesis. There is no evidence of SBP (5) Fall Qualifiers: Encounter type: subsequent encounter Qualified Code(s): W19.XXXD - Unspecified fall, subsequent encounter Is this a current diagnosis for this admission?: Yes (6) Aortic stenosis Qualifiers: Cardiac valve disease etiology: etiology unspecified Qualified Code(s): I35.0 - Nonrheumatic aortic (valve) stenosis Is this a current diagnosis for this admission?: Yes (7) Hyponatremia Is this a current diagnosis for this admission?: Yes Plan: Likely is related to underlying cirrhosis of the liver - Plan Summary Summary: His comorbid conditions are all at baseline. He is got a large amount of swelli ng on the right side of his face and a CT scan has been done and the read is pending. We are looking to see if he has any cellulitis, dental abscess, or parotitis. No evidence of overlying abrasion to suggest a superficial cellulitis. If so, will initiate antibiotics. 04/12 patient has a leukocytosis, swelling of the right maxillary area possibly a parotitis with CT scan still pending. I will start the patient on Unasyn. Will continue to monitor and repeat blood count in a.m. Noted to have hyponatremia which is slightly worse than his baseline. This may be due to his acute infection. I will start him off on some normal saline and will recheck in a.m. 04/13 I have called radiology to obtain the official CT scan reading. Patient appears to have a possible parotitis or sialadenitis. He does appear to have responded somewhat to the Unasyn which will cover: Organisms as well as ladonna erobic organisms. I will continue with this at this time. And guarded in order and ultrasound and possible paracentesis. Patient will also be given Some Albumin as his blood pressure is borderline low which could be multifactorial given his history of ascites and possible sepsis. I will cut down on his IV fluid as soon as possible 04/14 patient is status post paracentesis. Apparently 6 L of fluid were removed from his abdomen. He had 50 g of albumin yesterday and this appeared to have increased his blood pressure and his stabilized. Because of the large volume paracentesis I will give him another dose of albumin today. We will stop the IV fluids. We will continue with the IV antibiotics for now as this is still clinically indicated. There is no evidence of SBP above follow-up on cultures 04/15 patient general condition appears to be improving. His blood pressure is better Albumin of which she received 50 g total. Have also discontinued his IV fluids. He continues on Unasyn with clinical improvement on his parotitis. We will continue with IV antibiotics and follow-up with labs in a.m. his total bilirubin is noted to be elevated due to his underlying liver disease - Time Time Spent with patient: 15-24 minutes Medications reviewed and adjusted accordingly: Yes Anticipated Discharge Disposition: Long Term Facility Anticipated Discharge Timeframe: within 72 hours
[2020-04-16] MEDS: AMPICILLIN SODIUM/SULBACTAM NA 3 GM in NORMAL SALINE 100 ML IV SCH ×4 (02:11→20:19)
[2020-04-16 06:45] LABS: HEMOGLOBIN 9.5 g/dL (13.5-17.0); MEAN CORPUSCULAR HEMOGLOBIN 36.8 pg (27.0-33.4); MEAN CORPUSCULAR HGB CONC 35.2 g/dL (32.0-36.0); MEAN CORPUSCULAR VOLUME 105 fl (80-97); RED BLOOD COUNT 2.58 10^6/uL (4.35-5.55); RED CELL DISTRIBUTION WIDTH 20.2 % (11.5-14.0); WHITE BLOOD COUNT 7.1 10^3/uL (4.0-10.5)
[2020-04-16 07:06] LABS: ALBUMIN 2.3 g/dL (3.5-5.0); ALKALINE PHOSPHATASE 114 U/L (38-126); ANION GAP 6 (5-19); ASPARTATE AMINO TRANSFERASE 46 U/L (17-59); BILIRUBIN,DIRECT 0.3 mg/dL (0.0-0.4); BILIRUBIN,TOTAL 4.4 mg/dL (0.2-1.3); BLOOD UREA NITROGEN 12 mg/dL (7-20); CALCIUM 8.1 mg/dL (8.4-10.2); CARBON DIOXIDE 24 mmol/L (22-30); CHLORIDE 100 mmol/L (98-107); GLUCOSE 149 mg/dL (75-110); POTASSIUM 4.3 mmol/L (3.6-5.0); TOTAL PROTEIN 5.6 g/dL (6.3-8.2)
[2020-04-16 07:19] LABS: PLATELET COUNT 85 10^3/uL (150-450)
[2020-04-16 07:21] LABS: ABSOLUTE LYMPHOCYTES# (MANUAL) 0.9 10^3/uL (0.5-4.7); ABSOLUTE MONOCYTES # (MANUAL) 0.3 10^3/uL (0.1-1.4); BASOPHILS % (MANUAL) 1 % (0-2); EOSINOPHILS % (MANUAL) 2 % (0-6); LYMPHOCYTES % (MANUAL) 12 % (13-45); MONOCYTES % (MANUAL) 4 % (3-13); SEGMENTED NEUTROPHILS % (MAN) 81 % (42-78); TOTAL CELLS COUNTED 100
[2020-04-16 07:23] LABS: ANISOCYTOSIS 2+; OVALOCYTES 1+; PLATELET COMMENT DECREASED; POLYCHROMASIA SLIGHT; TEAR DROP CELLS SLIGHT; TOXIC GRANULATION 1+
[2020-04-16] MEDS: FUROSEMIDE 20 MG TABLET PO SCH (09:18)
[2020-04-16] MEDS: LACTULOSE SYRUP 20 GM/30 ML UDCUP PO SCH (09:18)
[2020-04-16] MEDS: PANTOPRAZOLE SODIUM 20 MG TABLET.DR PO SCH (09:19)
[2020-04-16] MEDS: SPIRONOLACTONE 25 MG TABLET PO SCH (09:19)
[2020-04-16 12:09] LABS: ALBUMIN BODY FLUID 0.3 g/dL (Not Estab.)
--- NOTE | 2020-04-16 13:33 | PDOC PROGRESS REPORT ---
Subjective Date:: 04/16/20 Subjective:: Patient's neck is swollen as well as tender but he says he feels better today. Abdomen also noted to be distended. Patient does have a history of cirrhosis and ascites however it is unclear if the distention is more than his baseline. 04/14Patient feels better today. He is currently awaiting paracentesis to be done. His jaw swelling is slightly improved. No fever. No difficulty swallowing 04/15 patient continues to improve. The jaw swelling is improving although sti ll tender. He is status post paracentesis of 6 L of fluid 04/16 patient denies any new symptoms. He denies any abdominal pain. The jaw swelling is improving Reason For Visit: POSSIBLE CELLULITIS OF FACE Physical Exam Vital Signs: Temp Pulse Resp BP Pulse Ox 97.7 F 91 18 112/56 L 97 04/16/20 08:25 04/16/20 08:02 04/16/20 08:02 04/16/20 08:02 04/16/20 08:02 Intake & Output 04/15/20 04/16/20 04/17/20 06:59 06:59 06:59 Intake Total 2428 1262 Output Total 2150 375 Balance 278 887 Weight 94.6 kg 94.3 kg General appearance: PRESENT: no acute distress, thin, other - R supramandibular swelling Head exam: PRESENT: atraumatic, normocephalic Eye exam: PRESENT: conjunctiva pink, PERRLA. ABSENT: scleral icterus Ear exam: PRESENT: normal external ear exam Mouth exam: PRESENT: tongue midline Neck exam: ABSENT: carotid bruit, JVD, lymphadenopathy, thyromegaly Respiratory exam: PRESENT: clear to auscultation philip. ABSENT: rales, rhonchi, wheezes Cardiovascular exam: PRESENT: RRR, +S1, +S2, systolic murmur. ABSENT: diastolic murmur, rubs Pulses: PRESENT: normal dorsalis pedis pul Vascular exam: PRESENT: normal capillary refill GI/Abdominal exam: PRESENT: ascites, distended, normal bowel sounds, soft. ABSENT: guarding, mass, organolmegaly, rebound, tenderness Rectal exam: PRESENT: deferred Extremities exam: PRESENT: full ROM, +2 edema. ABSENT: calf tenderness, clubbing, pedal edema Neurological exam: PRESENT: alert, awake, oriented to person, oriented to place, oriented to time. ABSENT: motor sensory deficit Psychiatric exam: PRESENT: appropriate affect. ABSENT: homicidal ideation, suicidal ideation Skin exam: PRESENT: dry, intact, warm. ABSENT: cyanosis, rash Results Laboratory Results: 04/16/20 05:31 04/16/20 05:31 04/14/20 04/14/20 04/16/20 14:39 14:39 05:31 WBC 7.1 RBC 2.58 L Hgb 9.5 L Hct 27.0 L MCV 105 H MCH 36.8 H MCHC 35.2 RDW 20.2 H Plt Count 85 L Seg Neutrophils % Not Reportable Sodium Potassium Chloride Carbon Dioxide Anion Gap BUN Creatinine Est GFR ( Amer) Glucose Calcium Total Bilirubin AST Alkaline Phosphatase Total Protein Albumin Fluid Glucose 168 Fluid Albumin 0.3 Fluid LDH 38 04/16/20 05:31 WBC RBC Hgb Hct MCV MCH MCHC RDW Plt Count Seg Neutrophils % Sodium 130.2 L Potassium 4.3 Chloride 100 Carbon Dioxide 24 Anion Gap 6 BUN 12 Creatinine 0.59 Est GFR ( Amer) > 60 Glucose 149 H Calcium 8.1 L Total Bilirubin 4.4 H AST 46 Alkaline Phosphatase 114 Total Protein 5.6 L Albumin 2.3 L Fluid Glucose Fluid Albumin Fluid LDH 04/14/20 14:39 Abdominal Fluid Gram Stain - Final 04/07/20 04/07/20 04/07/20 21:49 21:49 21:49 Creatine Kinase 474 H Troponin I 0.017 NT-Pro-B Natriuret Pep 1010 H 04/08/20 09:00 Creatine Kinase Troponin I < 0.012 NT-Pro-B Natriuret Pep 1080 H Impressions: Cervical Spine CT 04/07/20 22:18 IMPRESSION: Cardiomegaly with pulmonary edema and left lung base consolidation. EXAM DESCRIPTION: CHEST SINGLE VIEW (accession [id number]), CT HEAD WITHOUT (accession [id number]), CT CERVICAL SPINE WITHOUT (accession [id number]) CLINICAL HISTORY: weakness COMPARISON: None Available TECHNIQUE: Contiguous axial CT images of the head were obtained. Coronal and sagittal reconstructions were created from the axial data. This exam was performed according to our departmental dose-optimization program, which includes automated exposure control, adjustment of the mA and/or kV according to patient size and/or use of iterative reconstruction technique. FINDINGS: There is no evidence of acute mass, mass effect, midline shift or hemorrhage. The ventricles and extra-axial CSF spaces are unremarkable. The brain parenchyma appears normal for the patient's age. No acute abnormalities of the bones is seen. IMPRESSION: No acute intracranial abnormality. EXAM DESCRIPTION: CHEST SINGLE VIEW (accession [id number]), CT HEAD WITHOUT (accession [id number]), CT CERVICAL SPINE WITHOUT (accession [id number]) CLINICAL HISTORY: weakness COMPARISON: None Available TECHNIQUE: Contiguous axial images of the cervical spine were obtained without the administration of intravenous contrast followed by reconstruction images. This exam was performed according to our departmental dose-optimization program, which includes automated exposure control, adjustment of the mA and/or kV according to patient size and/or use of iterative reconstruction technique. FINDINGS: There are degenerative changes with multilevel bridging syndesmophytes. There is interstitial thickening of the upper lungs with consolidation of the right upper lung. There is no acute fracture or subluxation. Prevertebral soft tissues are within normal limits. IMPRESSION: No acute fracture or subluxation Head CT 04/07/20 22:18 IMPRESSION: Cardiomegaly with pulmonary edema and left lung base consolidation. EXAM DESCRIPTION: CHEST SINGLE VIEW (accession [id number]), CT HEAD WITHOUT (accession [id number]), CT CERVICAL SPINE WITHOUT (accession [id number]) CLINICAL HISTORY: weakness COMPARISON: None Available TECHNIQUE: Contiguous axial CT images of the head were obtained. Coronal and sagittal reconstructions were created from the axial data. This exam was performed according to our departmental dose-optimization program, which includes automated exposure control, adjustment of the mA and/or kV according to patient size and/or use of iterative reconstruction technique. FINDINGS: There is no evidence of acute mass, mass effect, midline shift or hemorrhage. The ventricles and extra-axial CSF spaces are unremarkable. The brain parenchyma appears normal for the patient's age. No acute abnormalities of the bones is seen. IMPRESSION: No acute intracranial abnormality. EXAM DESCRIPTION: CHEST SINGLE VIEW (accession [id number]), CT HEAD WITHOUT (accession [id number]), CT CERVICAL SPINE WITHOUT (accession [id number]) CLINICAL HISTORY: weakness COMPARISON: None Available TECHNIQUE: Contiguous axial images of the cervical spine were obtained without the administration of intravenous contrast followed by reconstruction images. This exam was performed according to our departmental dose-optimization program, which includes automated exposure control, adjustment of the mA and/or kV according to patient size and/or use of iterative reconstruction technique. FINDINGS: There are degenerative changes with multilevel bridging syndesmophytes. There is interstitial thickening of the upper lungs with consolidation of the right upper lung. There is no acute fracture or subluxation. Prevertebral soft tissues are within normal limits. IMPRESSION: No acute fracture or subluxation Chest X-Ray 04/07/20 22:19 IMPRESSION: Cardiomegaly with pulmonary edema and left lung base consolidation. EXAM DESCRIPTION: CHEST SINGLE VIEW (accession [id number]), CT HEAD WITHOUT (accession [id number]), CT CERVICAL SPINE WITHOUT (accession [id number]) CLINICAL HISTORY: weakness COMPARISON: None Available TECHNIQUE: Contiguous axial CT images of the head were obtained. Coronal and sagittal reconstructions were created from the axial data. This exam was performed according to our departmental dose-optimization program, which includes automated exposure control, adjustment of the mA and/or kV according to patient size and/or use of iterative reconstruction technique. FINDINGS: There is no evidence of acute mass, mass effect, midline shift or hemorrhage. The ventricles and extra-axial CSF spaces are unremarkable. The brain parenchyma appears normal for the patient's age. No acute abnormalities of the bones is seen. IMPRESSION: No acute intracranial abnormality. EXAM DESCRIPTION: CHEST SINGLE VIEW (accession [id number]), CT HEAD WITHOUT (accession [id number]), CT CERVICAL SPINE WITHOUT (accession [id number]) CLINICAL HISTORY: weakness COMPARISON: None Available TECHNIQUE: Contiguous axial images of the cervical spine were obtained without the administration of intravenous contrast followed by reconstruction images. This exam was performed according to our departmental dose-optimization program, which includes automated exposure control, adjustment of the mA and/or kV according to patient size and/or use of iterative reconstruction technique. FINDINGS: There are degenerative changes with multilevel bridging syndesmophytes. There is interstitial thickening of the upper lungs with consolidation of the right upper lung. There is no acute fracture or subluxation. Prevertebral soft tissues are within normal limits. IMPRESSION: No acute fracture or subluxation Head MRI 04/08/20 04:41 IMPRESSION: No acute findings EVIDENCE OF ACUTE STROKE: NO. Soft Tissue Neck CT 04/11/20 00:00 IMPRESSION: Inflammatory changes in the right parotid space without organized fluid collection. This could represent cellulitis although follow-up is tres mmended to exclude underlying mass. Small regional lymph nodes, most likely reactive. Paracentesis Ultrasound 04/14/20 00:00 IMPRESSION: Successful ultrasound-guided paracentesis 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) Is this a current diagnosis for this admission?: Yes (4) Cirrhosis Qualifiers: Hepatic cirrhosis type: other cirrhosis Qualified Code(s): K74.69 - Other cirrhosis of liver Is this a current diagnosis for this admission?: Yes Plan: S/p 6 L of paracentesis. There is no evidence of SBP He has received 2 g I believe of Albumin so far over the last few days and his blood pressure has improved remarkably although still borderline hypotensive which is not unexpected (5) Fall Qualifiers: Encounter type: subsequent encounter Qualified Code(s): W19.XXXD - Unspecified fall, subsequent encounter Is this a current diagnosis for this admission?: Yes (6) Aortic stenosis Qualifiers: Cardiac valve disease etiology: etiology unspecified Qualified Code(s): I35.0 - Nonrheumatic aortic (valve) stenosis Is this a current diagnosis for this admission?: Yes (7) Hyponatremia Is this a current diagnosis for this admission?: Yes Plan: Likely is related to underlying cirrhosis of the liver, improved - Plan Summary Summary: His comorbid conditions are all at baseline. He is got a large amount of swelling on the right side of his face and a CT scan has been done and the read is pending. We are looking to see if he has any cellulitis, dental abscess, or parotitis. No evidence of overlying abrasion to suggest a superficial celluli tis. If so, will initiate antibiotics. 04/12 patient has a leukocytosis, swelling of the right maxillary area possibly a parotitis with CT scan still pending. I will start the patient on Unasyn. W ill continue to monitor and repeat blood count in a.m. Noted to have hyponatremia which is slightly worse than his baseline. This may be due to his acute infection. I will start him off on some normal saline and will recheck in a.m. 04/13 I have called radiology to obtain the official CT scan reading. Patient appears to have a possible parotitis or sialadenitis. He does appear to have responded somewhat to the Unasyn which will cover: Organisms as well as anaerobic organisms. I will continue with this at this time. And guarded in order and ultrasound and possible paracentesis. Patient will also be given Some Albumin as his blood pressure is borderline low which could be multifactorial given his history of ascites and possible sepsis. I will cut down on his IV fluid as soon as possible 04/14 patient is status post paracentesis. Apparently 6 L of fluid were removed from his abdomen. He had 50 g of albumin yesterday and this appeared to have increased his blood pressure and his stabilized. Because of the large volume paracentesis I will give him another dose of albumin today. We will stop the IV fluids. We will continue with the IV antibiotics for now as this is still clinically indicated. There is no evidence of SBP above follow-up on cultures 04/15 patient general condition appears to be improving. His blood pressure is better Albumin of which she received 50 g total. Have also discontinued his IV fluids. He continues on Unasyn with clinical improvement on his parotitis. We will continue with IV antibiotics and follow-up with labs in a.m. his total bilirubin is noted to be elevated due to his underlying liver disease 04/16 general condition continues to improve. The right supramandibular swelling continues to resolve on day 4 of Unasyn. I will continue with the Unasyn for now. Patient had paracentesis done with 6 L of fluid removed. I am pretty sure he still has residual fluid as his abdomen is still distended but not tender. We will consider further paracentesis if clinically warranted. The fluid was essentially benign with no evidence of infection. Plan is to discharge to [facility] hopefully this week once his medically stable - Time Time Spent with patient: 15-24 minutes Medications reviewed and adjusted accordingly: Yes Anticipated Discharge Disposition: [facility] Facility Anticipated Discharge Timeframe: within 72 hours
[2020-04-17] MEDS: AMPICILLIN SODIUM/SULBACTAM NA 3 GM in NORMAL SALINE 100 ML IV SCH ×4 (02:22→20:45)
[2020-04-17 07:22] LABS: PH BODY FLUID 8.3 (Not Estab.)
[2020-04-17] MEDS: LACTULOSE SYRUP 20 GM/30 ML UDCUP PO SCH (09:27)
[2020-04-17] MEDS: SPIRONOLACTONE 25 MG TABLET PO SCH (09:27)
[2020-04-17] MEDS: FUROSEMIDE 20 MG TABLET PO SCH (09:27)
[2020-04-17] MEDS: PANTOPRAZOLE SODIUM 20 MG TABLET.DR PO SCH (09:27)
--- NOTE | 2020-04-17 09:30 | PDOC PROGRESS REPORT ---
Subjective Date:: 04/17/20 Subjective:: Resting in the chair. States that his right jaw no longer hurts. Abdomen feels better since they took off fluid. He reports that they are doing a second tap tomorrow. Reason For Visit: POSSIBLE CELLULITIS OF FACE Physical Exam Vital Signs: Temp Pulse Resp BP Pulse Ox 97.8 F 76 18 99/74 L 96 04/17/20 07:26 04/17/20 07:26 04/17/20 07:26 04/17/20 07:26 04/17/20 07:26 Intake & Output 04/16/20 04/17/20 04/18/20 06:59 06:59 06:59 Intake Total 1262 2512 Output Total 375 250 Balance 887 2262 Weight 94.3 kg 94.3 kg General appearance: PRESENT: no acute distress, cooperative, well-developed Head exam: PRESENT: atraumatic, normocephalic, other - No tenderness over the right angle of the jaw area. Some firmness inferior to the right ear. Eye exam: PRESENT: conjunctiva pink, scleral icterus Ear exam: PRESENT: normal external ear exam. ABSENT: bleeding, drainage Mouth exam: PRESENT: moist, tongue midline Respiratory exam: PRESENT: prolonged expiratory phas, rales - Bilateral bases, symmetrical, unlabored. ABSENT: rhonchi, tachypnea, wheezes Cardiovascular exam: PRESENT: RRR, +S1, +S2, systolic murmur - 3/6. ABSENT: bradycardia, diastolic murmur, irregular rhythm GI/Abdominal exam: PRESENT: ascites, diminished bowel sounds - Difficult to auscultate due to large volume ascites, distended, soft, other - Diminished is distended and. ABSENT: tenderness Rectal exam: PRESENT: deferred Gentrourinary exam: ABSENT: indwelling catheter Extremities exam: PRESENT: +2 edema Neurological exam: PRESENT: alert, awake, oriented to person, oriented to place, oriented to situation, motor sensory deficit - Patient is hard of hearing Psychiatric exam: PRESENT: appropriate affect. ABSENT: agitated, anxious Focused psych exam: ABSENT: delusional, paranoid, restlessness Skin exam: PRESENT: dry, warm. ABSENT: erythema Results Laboratory Results: 04/16/20 05:31 04/16/20 05:31 04/14/20 04/14/20 14:39 14:39 Fluid pH 8.3 Fluid Glucose 168 Fluid Albumin 0.3 Fluid LDH 38 04/14/20 14:39 Abdominal Fluid Gram Stain - Final 04/07/20 04/07/20 04/07/20 21:49 21:49 21:49 Creatine Kinase 474 H Troponin I 0.017 NT-Pro-B Natriuret Pep 1010 H 04/08/20 09:00 Creatine Kinase Troponin I < 0.012 NT-Pro-B Natriuret Pep 1080 H Impressions: Cervical Spine CT 04/07/20 22:18 IMPRESSION: Cardiomegaly with pulmonary edema and left lung base consolidation. EXAM DESCRIPTION: CHEST SINGLE VIEW (accession [id number]), CT HEAD WITHOUT (accession [id number]), CT CERVICAL SPINE WITHOUT (accession [id number]) CLINICAL HISTORY: weakness COMPARISON: None Available TECHNIQUE: Contiguous axial CT images of the head were obtained. Coronal and sagittal reconstructions were created from the axial data. This exam was performed according to our departmental dose-optimization program, which includes automated exposure control, adjustment of the mA and/or kV according to patient size and/or use of iterative reconstruction technique. FINDINGS: There is no evidence of acute mass, mass effect, midline shift or hemorrhage. The ventricles and extra-axial CSF spaces are unremarkable. The brain parenchyma appears normal for the patient's age. No acute abnormalities of the bones is seen. IMPRESSION: No acute intracranial abnormality. EXAM DESCRIPTION: CHEST SINGLE VIEW (accession [id number]), CT HEAD WITHOUT (accession [id number]), CT CERVICAL SPINE WITHOUT (accession [id number]) CLINICAL HISTORY: weakness COMPARISON: None Available TECHNIQUE: Contiguous axial images of the cervical spine were obtained without the administration of intravenous contrast followed by reconstruction images. This exam was performed according to our departmental dose-optimization program, which includes automated exposure control, adjustment of the mA and/or kV according to patient size and/or use of iterative reconstruction technique. FINDINGS: There are degenerative changes with multilevel bridging syndesmophytes. There is interstitial thickening of the upper lungs with consolidation of the right upper lung. There is no acute fracture or subluxation. Prevertebral soft tissues are within normal limits. IMPRESSION: No acute fracture or subluxation Head CT 04/07/20 22:18 IMPRESSION: Cardiomegaly with pulmonary edema and left lung base consolidation. EXAM DESCRIPTION: CHEST SINGLE VIEW (accession [id number]), CT HEAD WITHOUT (accession [id number]), CT CERVICAL SPINE WITHOUT (accession [id number]) CLINICAL HISTORY: weakness COMPARISON: None Available TECHNIQUE: Contiguous axial CT images of the head were obtained. Coronal and sagittal reconstructions were created from the axial data. This exam was performed according to our departmental dose-optimization program, which includes automated exposure control, adjustment of the mA and/or kV according to patient size and/or use of iterative reconstruction technique. FINDINGS: There is no evidence of acute mass, mass effect, midline shift or hemorrhage. The ventricles and extra-axial CSF spaces are unremarkable. The brain parenchyma appears normal for the patient's age. No acute abnormalities of the bones is seen. IMPRESSION: No acute intracranial abnormality. EXAM DESCRIPTION: CHEST SINGLE VIEW (accession [id number]), CT HEAD WITHOUT (accession [id number]), CT CERVICAL SPINE WITHOUT (accession [id number]) CLINICAL HISTORY: weakness COMPARISON: None Available TECHNIQUE: Contiguous axial images of the cervical spine were obtained without the administration of intravenous contrast followed by reconstruction images. This exam was performed according to our departmental dose-optimization program, which includes automated exposure control, adjustment of the mA and/or kV according to patient size and/or use of iterative reconstruction technique. FINDINGS: There are degenerative changes with multilevel bridging syndesmophytes. There is interstitial thickening of the upper lungs with consolidation of the right upper lung. There is no acute fracture or subluxation. Prevertebral soft tissues are within normal limits. IMPRESSION: No acute fracture or subluxation Chest X-Ray 04/07/20 22:19 IMPRESSION: Cardiomegaly with pulmonary edema and left lung base consolidation. EXAM DESCRIPTION: CHEST SINGLE VIEW (accession [id number]), CT HEAD WITHOUT (accession [id number]), CT CERVICAL SPINE WITHOUT (accession [id number]) CLINICAL HISTORY: weakness COMPARISON: None Available TECHNIQUE: Contiguous axial CT images of the head were obtained. Coronal and sagittal reconstructions were created from the axial data. This exam was performed according to our departmental dose-optimization program, which includes automated exposure control, adjustment of the mA and/or kV according to patient size and/or use of iterative reconstruction technique. FINDINGS: There is no evidence of acute mass, mass effect, midline shift or hemorrhage. The ventricles and extra-axial CSF spaces are unremarkable. The brain parenchyma appears normal for the patient's age. No acute abnormalities of the bones is seen. IMPRESSION: No acute intracranial abnormality. EXAM DESCRIPTION: CHEST SINGLE VIEW (accession [id number]), CT HEAD WITHOUT (accession [id number]), CT CERVICAL SPINE WITHOUT (accession [id number]) CLINICAL HISTORY: weakness COMPARISON: None Available TECHNIQUE: Contiguous axial images of the cervical spine were obtained without the administration of intravenous contrast followed by reconstruction images. This exam was performed according to our departmental dose-optimization program, which includes automated exposure control, adjustment of the mA and/or kV according to patient size and/or use of iterative reconstruction technique. FINDINGS: There are degenerative changes with multilevel bridging syndesmophytes. There is interstitial thickening of the upper lungs with consolidation of the right upper lung. There is no acute fracture or subluxation. Prevertebral soft tissues are within normal limits. IMPRESSION: No acute fracture or subluxation Head MRI 04/08/20 04:41 IMPRESSION: No acute findings EVIDENCE OF ACUTE STROKE: NO. Soft Tissue Neck CT 04/11/20 00:00 IMPRESSION: Inflammatory changes in the right parotid space without organized fluid collection. This could represent cellulitis although follow-up is recommended to exclude underlying mass. Small regional lymph nodes, most likely reactive. Paracentesis Ultrasound 04/14/20 00:00 IMPRESSION: Successful ultrasound-guided paracentesis 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) Is this a current diagnosis for this admission?: Yes (4) Cirrhosis Qualifiers: Hepatic cirrhosis type: other cirrhosis Qualified Code(s): K74.69 - Other cirrhosis of liver Is this a current diagnosis for this admission?: Yes (5) Fall Qualifiers: Encounter type: subsequent encounter Qualified Code(s): W19.XXXD - Unspecified fall, subsequent encounter Is this a current diagnosis for this admission?: Yes (6) Hyponatremia Is this a current diagnosis for this admission?: Yes (7) Aortic stenosis Qualifiers: Cardiac valve disease etiology: etiology unspecified Qualified Code(s): I35.0 - Nonrheumatic aortic (valve) stenosis Is this a current diagnosis for this admission?: Yes - Plan Summary Summary: His comorbid conditions are all at baseline. He is got a large amount of swelling on the right side of his face and a CT scan has been done and the read is pending. We are looking to see if he has any cellulitis, dental abscess, or parotitis. No evidence of overlying abrasion to suggest a superficial cellulit is. If so, will initiate antibiotics. 04/12 patient has a leukocytosis, swelling of the right maxillary area possibly a parotitis with CT scan still pending. I will start the patient on Unasyn. Wi ll continue to monitor and repeat blood count in a.m. Noted to have hyponatremia which is slightly worse than his baseline. This may be due to his acute infection. I will start him off on some normal saline and will recheck in a.m. 04/13 I have called radiology to obtain the official CT scan reading. Patient appears to have a possible parotitis or sialadenitis. He does appear to have responded somewhat to the Unasyn which will cover: Organisms as well as anaerobic organisms. I will continue with this at this time. And guarded in order and ultrasound and possible paracentesis. Patient will also be given Some Albumin as his blood pressure is borderline low which could be multifactorial given his history of ascites and possible sepsis. I will cut down on his IV fluid as soon as possible 04/14 patient is status post paracentesis. Apparently 6 L of fluid were removed from his abdomen. He had 50 g of albumin yesterday and this appeared to have increased his blood pressure and his stabilized. Because of the large volume paracentesis I will give him another dose of albumin today. We will stop the IV fluids. We will continue with the IV antibiotics for now as this is still clinically indicated. There is no evidence of SBP above follow-up on cultures 04/15 patient general condition appears to be improving. His blood pressure is better Albumin of which she received 50 g total. Have also discontinued his IV fluids. He continues on Unasyn with clinical improvement on his parotitis. We will continue with IV antibiotics and follow-up with labs in a.m. his total bilirubin is noted to be elevated due to his underlying liver disease 04/16 general condition continues to improve. The right supramandibular swelling continues to resolve on day 4 of Unasyn. I will continue with the Unasyn for now. Patient had paracentesis done with 6 L of fluid removed. I am pretty sure he still has residual fluid as his abdomen is still distended but not tender. We will consider further paracentesis if clinically warranted. The fluid was essentially benign with no evidence of infection. Plan is to discharge to long-term hopefully this week once his medically stable 04/17/2020 Patient is resting in the bed. Sitting up and conversant. Reports that the right side of his face is much better. Right facial cellulitis-still with some firmness but no tenderness. Continue Unasyn. Ascites from cirrhosis-the patient reports that he supposed to have a second tap tomorrow. He did have 6 L removed several days ago. He would likely benefit from some albumin if in fact he is going to have a paracentesis. I have ordered an INR for the morning in the event of a repeat procedure. We will continue furosemide and spironolactone. Hyponatremia-with his hyponatremia and ascites consider fluid restriction. I will implement 1.5 L at this time. The patient is medically stable for transition to longterm. It is my understanding that he will need a repeat Covid test and this has been ordered. - Time Time Spent with patient: 15-24 minutes Medications reviewed and adjusted accordingly: Yes Anticipated Discharge Disposition: Nursing Home Facility Anticipated Discharge Timeframe: within 48 hours
[2020-04-18] MEDS: AMPICILLIN SODIUM/SULBACTAM NA 3 GM in NORMAL SALINE 100 ML IV SCH ×4 (04:00→21:09)
[2020-04-18 05:53] LABS: ABSOLUTE BASOPHILS # (AUTO) 0.1 10^3/uL (0.0-0.2); ABSOLUTE EOSINOPHILS # (AUTO) 0.3 10^3/uL (0.0-0.6); ABSOLUTE LYMPHOCYTES (AUTO) 1.3 10^3/uL (0.5-4.7); ABSOLUTE MONOCYTES (AUTO) 0.6 10^3/uL (0.1-1.4); ABSOLUTE NEUT (AUTO) 6.3 10^3/uL (1.7-8.2); BASOPHILS % (AUTO) 1.2 % (0-2); EOSINOPHILS % (AUTO) 3.4 % (0-6); HEMATOCRIT 29.2 % (37.9-51.0); HEMOGLOBIN 10.1 g/dL (13.5-17.0); LYMPHOCYTES % (AUTO) 14.8 % (13-45); MEAN CORPUSCULAR HEMOGLOBIN 36.1 pg (27.0-33.4); MEAN CORPUSCULAR HGB CONC 34.4 g/dL (32.0-36.0); MEAN CORPUSCULAR VOLUME 105 fl (80-97); MONOCYTES % (AUTO) 6.5 % (3-13); PLATELET COUNT 111 10^3/uL (150-450); RED BLOOD COUNT 2.78 10^6/uL (4.35-5.55); RED CELL DISTRIBUTION WIDTH 20.3 % (11.5-14.0); SEGMENTED NEUTROPHILS % (AUTO) 74.1 % (42-78); TOTAL CELLS COUNTED % (AUTO) 100 %; WHITE BLOOD COUNT 8.5 10^3/uL (4.0-10.5)
[2020-04-18 06:00] LABS: INTERNATIONAL RATION (INR) 1.55; PROTHROMBIN TIME 18.7 SEC (11.4-15.4)
[2020-04-18 06:21] LABS: ALBUMIN 2.5 g/dL (3.5-5.0); ALKALINE PHOSPHATASE 182 U/L (38-126); ANION GAP 5 (5-19); ASPARTATE AMINO TRANSFERASE 89 U/L (17-59); BILIRUBIN,DIRECT 0.5 mg/dL (0.0-0.4); BILIRUBIN,TOTAL 4.6 mg/dL (0.2-1.3); BLOOD UREA NITROGEN 14 mg/dL (7-20); CALCIUM 8.3 mg/dL (8.4-10.2); CARBON DIOXIDE 24 mmol/L (22-30); CHLORIDE 100 mmol/L (98-107); GLUCOSE 123 mg/dL (75-110); POTASSIUM 4.5 mmol/L (3.6-5.0)
[2020-04-18] MEDS: LACTULOSE SYRUP 20 GM/30 ML UDCUP PO SCH (09:15)
[2020-04-18] MEDS: SPIRONOLACTONE 25 MG TABLET PO SCH ×2 (09:16→21:09)
[2020-04-18] MEDS: FUROSEMIDE 20 MG TABLET PO SCH (09:16)
[2020-04-18] MEDS: PANTOPRAZOLE SODIUM 20 MG TABLET.DR PO SCH (09:16)
[2020-04-18] MEDS: ALBUMIN HUMAN 12.5 GM/50 ML RTUINJ IV SCH ×4 (13:19→18:49)
--- NOTE | 2020-04-18 14:25 | RADIOLOGY REPORT (SQ) ---
EXAM DESCRIPTION: U/S ABD PARACENTESIS IMAGES COMPLETED DATE/TIME: 04/18/2020 1:02 pm REASON FOR STUDY: Cirrhosis with ascites D62 ACUTE POSTHEMORRHAGIC ANEMIA A41.9 SEPSIS, UNSPECIFIE D ORGANISM COMPARISON: 04/14/2020 paracentesis RADIATION DOSE: None LIMITATIONS: None. PROCEDURE: Procedure, risks, benefit, and alternative explained to patient who then gave written con sent. The left lower abdominal wall marked using ultrasound guidance. A time-out was called for cor rect marking verification. Abdomen prepped and draped using sterile technique. Local anesthesia achi eved using 18 ml of 1% lidocaine injection. A 6fr [id number]-[id number]-Fsbhqlav set was introduced into the perito lucio cavity. Fluid was drained. The catheter was removed and entry site was covered with sterile ba ndage. No immediate complications noted. Images acquired during the procedure were stored on PACS. FINDINGS: ENTRY SITE: left lower quadrant. FLUID VOLUME: 6700 mL FLUID ANALYSIS: Straw-colored OTHER: Therapeutic only. IMPRESSION: SUCCESSFUL ULTRASOUND GUIDED PARACENTESIS. COMMENT: Patient medication list reviewed:Yes- Quality ID# [id number]:Eligible professional attests to docu menting in the medical record they obtained, updated, or reviewed the patient's current medications. TECHNICAL DOCUMENTATION: JOB ID: [id number] 2010 [employer]- All Rights Reserved Reading location - IP/workstation name: [email or web address]
--- NOTE | 2020-04-18 15:30 | PDOC PROGRESS REPORT ---
Subjective Date:: 04/18/20 Subjective:: Patient is sitting in the chair eating a piece of cake. He has returned from to day's paracentesis. They removed 6.7 L of fluid. He is currently receiving IV albumin. He states he feels better. He tolerated the procedure without any difficulty. Reason For Visit: POSSIBLE CELLULITIS OF FACE Physical Exam Vital Signs: Temp Pulse Resp BP Pulse Ox 97.1 F 88 18 114/64 98 04/18/20 07:57 04/18/20 07:57 04/18/20 07:57 04/18/20 07:57 04/18/20 07:57 Intake & Output 04/17/20 04/18/20 04/19/20 06:59 06:59 06:59 Intake Total 2512 2580 170 Output Total 250 200 Balance 2262 2380 170 Weight 94.3 kg 94.3 kg General appearance: PRESENT: no acute distress, cooperative, well-developed Head exam: PRESENT: atraumatic, normocephalic Respiratory exam: PRESENT: rales - At bases, symmetrical, unlabored. ABSENT: rhonchi, tachypnea, wheezes Cardiovascular exam: PRESENT: RRR, +S1, +S2, systolic murmur - 3/6. ABSENT: bradycardia, diastolic murmur, irregular rhythm, tachycardia GI/Abdominal exam: PRESENT: distended - Still with distended abdomen but softer than yesterday., normal bowel sounds, soft. ABSENT: guarding, tenderness Rectal exam: PRESENT: deferred Gentrourinary exam: ABSENT: indwelling catheter Extremities exam: PRESENT: pedal edema, +1 edema Musculoskeletal exam: PRESENT: ambulatory. ABSENT: deformity, dislocation Neurological exam: PRESENT: alert, awake, oriented to person, oriented to place, oriented to time, oriented to situation, CN II-XII grossly intact. ABSENT: altered Psychiatric exam: PRESENT: appropriate affect. ABSENT: agitated, anxious Focused psych exam: ABSENT: delusional, paranoid, restlessness Skin exam: PRESENT: dry, warm. ABSENT: rash Results Laboratory Results: 04/18/20 05:34 04/18/20 05:34 04/18/20 04/18/20 05:34 05:34 WBC 8.5 RBC 2.78 L Hgb 10.1 L Hct 29.2 L MCV 105 H MCH 36.1 H MCHC 34.4 RDW 20.3 H Plt Count 111 L Seg Neutrophils % 74.1 Sodium 129.2 L Potassium 4.5 Chloride 100 Carbon Dioxide 24 Anion Gap 5 BUN 14 Creatinine 0.62 Est GFR ( Amer) > 60 Glucose 123 H Calcium 8.3 L Magnesium 1.9 Total Bilirubin 4.6 H AST 89 H Alkaline Phosphatase 182 H Total Protein 6.0 L Albumin 2.5 L 04/14/20 14:39 Abdominal Fluid Gram Stain - Final 04/14/20 14:39 Abdominal Fluid Body Fluid Culture - Final NO AEROBIC OR ANAEROBIC ORGANISMS RECOVERED 04/07/20 04/07/20 04/07/20 21:49 21:49 21:49 Creatine Kinase 474 H Troponin I 0.017 NT-Pro-B Natriuret Pep 1010 H 04/08/20 09:00 Creatine Kinase Troponin I < 0.012 NT-Pro-B Natriuret Pep 1080 H Impressions: Cervical Spine CT 04/07/20 22:18 IMPRESSION: Cardiomegaly with pulmonary edema and left lung base consolidation. EXAM DESCRIPTION: CHEST SINGLE VIEW (accession [id number]), CT HEAD WITHOUT (accession [id number]), CT CERVICAL SPINE WITHOUT (accession [id number]) CLINICAL HISTORY: weakness COMPARISON: None Available TECHNIQUE: Contiguous axial CT images of the head were obtained. Coronal and sagittal reconstructions were created from the axial data. This exam was performed according to our departmental dose-optimization program, which includes automated exposure control, adjustment of the mA and/or kV according to patient size and/or use of iterative reconstruction technique. FINDINGS: There is no evidence of acute mass, mass effect, midline shift or hemorrhage. The ventricles and extra-axial CSF spaces are unremarkable. The brain parenchyma appears normal for the patient's age. No acute abnormalities of the bones is seen. IMPRESSION: No acute intracranial abnormality. EXAM DESCRIPTION: CHEST SINGLE VIEW (accession [id number]), CT HEAD WITHOUT (accession [id number]), CT CERVICAL SPINE WITHOUT (accession [id number]) CLINICAL HISTORY: weakness COMPARISON: None Available TECHNIQUE: Contiguous axial images of the cervical spine were obtained without the administration of intravenous contrast followed by reconstruction images. This exam was performed according to our departmental dose-optimization program, which includes automated exposure control, adjustment of the mA and/or kV according to patient size and/or use of iterative reconstruction technique. FINDINGS: There are degenerative changes with multilevel bridging syndesmophytes. There is interstitial thickening of the upper lungs with consolidation of the right upper lung. There is no acute fracture or subluxation. Prevertebral soft tissues are within normal limits. IMPRESSION: No acute fracture or subluxation Head CT 04/07/20 22:18 IMPRESSION: Cardiomegaly with pulmonary edema and left lung base consolidation. EXAM DESCRIPTION: CHEST SINGLE VIEW (accession [id number]), CT HEAD WITHOUT (accession [id number]), CT CERVICAL SPINE WITHOUT (accession [id number]) CLINICAL HISTORY: weakness COMPARISON: None Available TECHNIQUE: Contiguous axial CT images of the head were obtained. Coronal and sagittal reconstructions were created from the axial data. This exam was performed according to our departmental dose-optimization program, which includes automated exposure control, adjustment of the mA and/or kV according to patient size and/or use of iterative reconstruction technique. FINDINGS: There is no evidence of acute mass, mass effect, midline shift or hemorrhage. The ventricles and extra-axial CSF spaces are unremarkable. The brain parenchyma appears normal for the patient's age. No acute abnormalities of the bones is seen. IMPRESSION: No acute intracranial abnormality. EXAM DESCRIPTION: CHEST SINGLE VIEW (accession [id number]), CT HEAD WITHOUT (accession [id number]), CT CERVICAL SPINE WITHOUT (accession [id number]) CLINICAL HISTORY: weakness COMPARISON: None Available TECHNIQUE: Contiguous axial images of the cervical spine were obtained without the administration of intravenous contrast followed by reconstruction images. This exam was performed according to our departmental dose-optimization program, which includes automated exposure control, adjustment of the mA and/or kV according to patient size and/or use of iterative reconstruction technique. FINDINGS: There are degenerative changes with multilevel bridging syndesmophytes. There is interstitial thickening of the upper lungs with consolidation of the right upper lung. There is no acute fracture or subluxation. Prevertebral soft tissues are within normal limits. IMPRESSION: No acute fracture or subluxation Chest X-Ray 04/07/20 22:19 IMPRESSION: Cardiomegaly with pulmonary edema and left lung base consolidation. EXAM DESCRIPTION: CHEST SINGLE VIEW (accession [id number]), CT HEAD WITHOUT (accession [id number]), CT CERVICAL SPINE WITHOUT (accession [id number]) CLINICAL HISTORY: weakness COMPARISON: None Available TECHNIQUE: Contiguous axial CT images of the head were obtained. Coronal and sagittal reconstructions were created from the axial data. This exam was performed according to our departmental dose-optimization program, which includes automated exposure control, adjustment of the mA and/or kV according to patient size and/or use of iterative reconstruction technique. FINDINGS: There is no evidence of acute mass, mass effect, midline shift or hemorrhage. The ventricles and extra-axial CSF spaces are unremarkable. The brain parenchyma appears normal for the patient's age. No acute abnormalities of the bones is seen. IMPRESSION: No acute intracranial abnormality. EXAM DESCRIPTION: CHEST SINGLE VIEW (accession [id number]), CT HEAD WITHOUT (accession [id number]), CT CERVICAL SPINE WITHOUT (accession [id number]) CLINICAL HISTORY: weakness COMPARISON: None Available TECHNIQUE: Contiguous axial images of the cervical spine were obtained without the administration of intravenous contrast followed by reconstruction images. This exam was performed according to our departmental dose-optimization program, which includes automated exposure control, adjustment of the mA and/or kV according to patient size and/or use of iterative reconstruction technique. FINDINGS: There are degenerative changes with multilevel bridging syndesmophytes. There is interstitial thickening of the upper lungs with consolidation of the right upper lung. There is no acute fracture or subluxation. Prevertebral soft tissues are within normal limits. IMPRESSION: No acute fracture or subluxation Head MRI 04/08/20 04:41 IMPRESSION: No acute findings EVIDENCE OF ACUTE STROKE: NO. Soft Tissue Neck CT 04/11/20 00:00 IMPRESSION: Inflammatory changes in the right parotid space without organized fluid collection. This could represent cellulitis although follow-up is recommended to exclude underlying mass. Small regional lymph nodes, most likely reactive. Paracentesis Ultrasound 04/18/20 00:00 IMPRESSION: SUCCESSFUL ULTRASOUND GUIDED PARACENTESIS. 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) Is this a current diagnosis for this admission?: Yes (4) Cirrhosis Qualifiers: Hepatic cirrhosis type: other cirrhosis Qualified Code(s): K74.69 - Other cirrhosis of liver Is this a current diagnosis for this admission?: Yes (5) Fall Qualifiers: Encounter type: subsequent encounter Qualified Code(s): W19.XXXD - Unspecified fall, subsequent encounter Is this a current diagnosis for this admission?: Yes (6) Hyponatremia Is this a current diagnosis for this admission?: Yes (7) Aortic stenosis Qualifiers: Cardiac valve disease etiology: etiology unspecified Qualified Code(s): I35.0 - Nonrheumatic aortic (valve) stenosis Is this a current diagnosis for this admission?: Yes - Plan Summary Summary: His comorbid conditions are all at baseline. He is got a large amount of swelling on the right side of his face and a CT scan has been done and the read is pending. We are looking to see if he has any cellulitis, dental abscess, or parotitis. No evidence of overlying abrasion to suggest a superficial cellulitis. If so, will initiate antibiotics. 04/12 patient has a leukocytosis, swelling of the right maxillary area possibly a parotitis with CT scan still pending. I will start the patient on Unasyn. Will continue to monitor and repeat blood count in a.m. Noted to have hyponatremia which is slightly worse than his baseline. This may be due to his acute infection. I will start him off on some normal saline and will recheck in a.m. 04/13 I have called radiology to obtain the official CT scan reading. Patient appears to have a possible parotitis or sialadenitis. He does appear to have responded somewhat to the Unasyn which will cover: Organisms as well as anaerobic organisms. I will continue with this at this time. And guarded in order and ultrasound and possible paracentesis. Patient will also be given Some Albumin as his blood pressure is borderline low which could be multifactorial given his history of ascites and possible sepsis. I will cut down on his IV fluid as soon as possible 04/14 patient is status post paracentesis. Apparently 6 L of fluid were removed from his abdomen. He had 50 g of albumin yesterday and this appeared to have increased his blood pressure and his stabilized. Because of the large volume paracentesis I will give him another dose of albumin today. We will stop the IV fluids. We will continue with the IV antibiotics for now as this is still clinically indicated. There is no evidence of SBP above follow-up on cultures 04/15 patient general condition appears to be improving. His blood pressure is better Albumin of which she received 50 g total. Have also discontinued his IV fluids. He continues on Unasyn with clinical improvement on his parotitis. We will continue with IV antibiotics and follow-up with labs in a.m. his total bilirubin is noted to be elevated due to his underlying liver disease 04/16 general condition continues to improve. The right supramandibular swelling continues to resolve on day 4 of Unasyn. I will continue with the Unasyn for now. Patient had paracentesis done with 6 L of fluid removed. I am pretty sure he still has residual fluid as his abdomen is still distended but not tender. We will consider further paracentesis if clinically warranted. The fluid was essentially benign with no evidence of infection. Plan [facility] to [facility] to [facility] hopefully this week once his medically stable 04/17/2020 Patient is resting in the bed. Sitting up and conversant. Reports that the right side of his face is much better. Right facial cellulitis-still with some firmness but no tenderness. Continue Unasyn. Ascites from cirrhosis-the patient reports that he supposed to have a second tap tomorrow. He did have 6 L removed several days ago. He would likely benefit from some albumin if in fact he is going to have a paracentesis. I have ordered an INR for the morning in the event of a repeat procedure. We will continue furosemide and spironolactone. Hyponatremia-with his hyponatremia and ascites consider fluid restriction. I will implement 1.5 L at this time. The patient is medically stable for transition to assisted. It is my understanding that he will need a repeat Covid test and this has been ordered. 04/18/2020 Cirrhosis with ascites-another 6.7 L of fluid removed today. Currently receiving albumin 50 g IV. Reports feeling better. Edema-secondary to low albumin and anemia. Increasing Aldactone in addition to the fluid restriction and his furosemide dosing. We will try to keep the negative fluid balance. Hyponatremia-1.2 L fluid restriction Right facial cellulitis-resolving nicely. Anemia-hemoglobin continues to slowly improve little by little. The patient son is at the bedside. They are looking for assisted living f acilities. Pretransfer Covid testing is pending. Explained to the patient the importance of good meal intake and the fluid restriction. He will likely need recurrent paracenteses. - Time Time Spent with patient: 25-34 minutes - More than half this time was spent in discussion with the patient and his son regarding current pathologies as well as reviewing possible dispositions. Medications reviewed and adjusted accordingly: Yes Anticipated Discharge Disposition: [facility] - Probable assisted living. Actively looking for a facility. Anticipated Discharge Timeframe: when bed available
[2020-04-18] MEDS ORDERED: ALBUMIN HUMAN 12.5 GM/50 ML RTUINJ IV ONE (18:00)
[2020-04-19] MEDS: AMPICILLIN SODIUM/SULBACTAM NA 3 GM in NORMAL SALINE 100 ML IV SCH ×3 (05:11→15:55)
[2020-04-19 08:11] LABS: HEMATOCRIT 26.3 % (37.9-51.0); HEMOGLOBIN 9.2 g/dL (13.5-17.0); MEAN CORPUSCULAR HEMOGLOBIN 36.7 pg (27.0-33.4); MEAN CORPUSCULAR HGB CONC 34.9 g/dL (32.0-36.0); MEAN CORPUSCULAR VOLUME 105 fl (80-97); RED BLOOD COUNT 2.51 10^6/uL (4.35-5.55); RED CELL DISTRIBUTION WIDTH 19.9 % (11.5-14.0); WHITE BLOOD COUNT 6.3 10^3/uL (4.0-10.5)
[2020-04-19 08:16] LABS: ALBUMIN 2.5 g/dL (3.5-5.0); ALKALINE PHOSPHATASE 137 U/L (38-126); ANION GAP 5 (5-19); ASPARTATE AMINO TRANSFERASE 62 U/L (17-59); BILIRUBIN,DIRECT 0.2 mg/dL (0.0-0.4); BILIRUBIN,TOTAL 4.3 mg/dL (0.2-1.3); BLOOD UREA NITROGEN 16 mg/dL (7-20); CALCIUM 8.2 mg/dL (8.4-10.2); CARBON DIOXIDE 26 mmol/L (22-30); CHLORIDE 98 mmol/L (98-107); GLUCOSE 116 mg/dL (75-110); POTASSIUM 4.3 mmol/L (3.6-5.0); TOTAL PROTEIN 5.7 g/dL (6.3-8.2)
[2020-04-19 08:56] LABS: PLATELET COUNT 92 10^3/uL (150-450)
[2020-04-19] MEDS: PANTOPRAZOLE SODIUM 20 MG TABLET.DR PO SCH (10:41)
[2020-04-19] MEDS: VITAMIN B COMPLEX TABLET PO SCH (10:41)
[2020-04-19] MEDS: SPIRONOLACTONE 25 MG TABLET PO SCH ×2 (10:41→22:11)
[2020-04-19] MEDS: LACTULOSE SYRUP 20 GM/30 ML UDCUP PO SCH (10:41)
[2020-04-19] MEDS: FUROSEMIDE 20 MG TABLET PO SCH (10:41)
--- NOTE | 2020-04-19 15:50 | PDOC PROGRESS REPORT ---
Subjective Date:: 04/19/20 Subjective:: Resting comfortably. No complaints. Sitting with legs down and noticeable corrie a. Reason For Visit: POSSIBLE CELLULITIS OF FACE Physical Exam Vital Signs: Temp Pulse Resp BP Pulse Ox 97.9 F 71 17 102/55 L 99 04/19/20 12:00 04/19/20 12:00 04/19/20 12:00 04/19/20 12:00 04/19/20 12:00 Intake & Output 04/18/20 04/19/20 04/20/20 06:59 06:59 06:59 Intake Total 2580 1650 220 Output Total 200 Balance 2380 1650 220 Weight 94.3 kg 94.3 kg General appearance: PRESENT: cooperative, well-developed Ear exam: PRESENT: normal external ear exam. ABSENT: bleeding, drainage Mouth exam: PRESENT: moist, tongue midline Respiratory exam: PRESENT: rales - At bases, symmetrical, unlabored. ABSENT: rhonchi, tachypnea, wheezes Cardiovascular exam: PRESENT: RRR, +S1, +S2. ABSENT: bradycardia, diastolic murmur, irregular rhythm, systolic murmur, tachycardia GI/Abdominal exam: PRESENT: diminished bowel sounds, distended, soft. ABSENT: tenderness Rectal exam: PRESENT: deferred Gentrourinary exam: ABSENT: indwelling catheter Extremities exam: PRESENT: +2 edema Musculoskeletal exam: PRESENT: ambulatory Neurological exam: PRESENT: alert, awake, oriented to person, oriented to place, oriented to time, oriented to situation, CN II-XII grossly intact Psychiatric exam: ABSENT: agitated, anxious Focused psych exam: ABSENT: delusional, paranoid, restlessness Results Laboratory Results: 04/19/20 07:13 04/19/20 07:13 04/19/20 04/19/20 07:13 07:13 WBC 6.3 RBC 2.51 L Hgb 9.2 L Hct 26.3 L MCV 105 H MCH 36.7 H MCHC 34.9 RDW 19.9 H Plt Count 92 L Sodium 128.7 L Potassium 4.3 Chloride 98 Carbon Dioxide 26 Anion Gap 5 BUN 16 Creatinine 0.59 Est GFR ( Amer) > 60 Glucose 116 H Calcium 8.2 L Magnesium 1.9 Total Bilirubin 4.3 H AST 62 H Alkaline Phosphatase 137 H Total Protein 5.7 L Albumin 2.5 L 04/07/20 04/07/20 04/07/20 21:49 21:49 21:49 Creatine Kinase 474 H Troponin I 0.017 NT-Pro-B Natriuret Pep 1010 H 04/08/20 09:00 Creatine Kinase Troponin I < 0.012 NT-Pro-B Natriuret Pep 1080 H Impressions: Cervical Spine CT 04/07/20 22:18 IMPRESSION: Cardiomegaly with pulmonary edema and left lung base consolidation. EXAM DESCRIPTION: CHEST SINGLE VIEW (accession [id number]), CT HEAD WITHOUT (accession [id number]), CT CERVICAL SPINE WITHOUT (accession [id number]) CLINICAL HISTORY: weakness COMPARISON: None Available TECHNIQUE: Contiguous axial CT images of the head were obtained. Coronal and sagittal reconstructions were created from the axial data. This exam was performed according to our departmental dose-optimization program, which includes automated exposure control, adjustment of the mA and/or kV according to patient size and/or use of iterative reconstruction technique. FINDINGS: There is no evidence of acute mass, mass effect, midline shift or hemorrhage. The ventricles and extra-axial CSF spaces are unremarkable. The brain parenchyma appears normal for the patient's age. No acute abnormalities of the bones is seen. IMPRESSION: No acute intracranial abnormality. EXAM DESCRIPTION: CHEST SINGLE VIEW (accession [id number]), CT HEAD WITHOUT (accession [id number]), CT CERVICAL SPINE WITHOUT (accession [id number]) CLINICAL HISTORY: weakness COMPARISON: None Available TECHNIQUE: Contiguous axial images of the cervical spine were obtained without the administration of intravenous contrast followed by reconstruction images. This exam was performed according to our departmental dose-optimization program, which includes automated exposure control, adjustment of the mA and/or kV according to patient size and/or use of iterative reconstruction technique. FINDINGS: There are degenerative changes with multilevel bridging syndesmophytes. There is interstitial thickening of the upper lungs with consolidation of the right upper lung. There is no acute fracture or subluxation. Prevertebral soft tissues are within normal limits. IMPRESSION: No acute fracture or subluxation Head CT 04/07/20 22:18 IMPRESSION: Cardiomegaly with pulmonary edema and left lung base consolidation. EXAM DESCRIPTION: CHEST SINGLE VIEW (accession [id number]), CT HEAD WITHOUT (accession [id number]), CT CERVICAL SPINE WITHOUT (accession [id number]) CLINICAL HISTORY: weakness COMPARISON: None Available TECHNIQUE: Contiguous axial CT images of the head were obtained. Coronal and sagittal reconstructions were created from the axial data. This exam was performed according to our departmental dose-optimization program, which includes automated exposure control, adjustment of the mA and/or kV according to patient size and/or use of iterative reconstruction technique. FINDINGS: There is no evidence of acute mass, mass effect, midline shift or hemorrhage. The ventricles and extra-axial CSF spaces are unremarkable. The brain parenchyma appears normal for the patient's age. No acute abnormalities of the bones is seen. IMPRESSION: No acute intracranial abnormality. EXAM DESCRIPTION: CHEST SINGLE VIEW (accession [id number]), CT HEAD WITHOUT (accession [id number]), CT CERVICAL SPINE WITHOUT (accession [id number]) CLINICAL HISTORY: weakness COMPARISON: None Available TECHNIQUE: Contiguous axial images of the cervical spine were obtained without the administration of intravenous contrast followed by reconstruction images. This exam was performed according to our departmental dose-optimization program, which includes automated exposure control, adjustment of the mA and/or kV according to patient size and/or use of iterative reconstruction technique. FINDINGS: There are degenerative changes with multilevel bridging syndesmophytes. There is interstitial thickening of the upper lungs with consolidation of the right upper lung. There is no acute fracture or subluxation. Prevertebral soft tissues are within normal limits. IMPRESSION: No acute fracture or subluxation Chest X-Ray 04/07/20 22:19 IMPRESSION: Cardiomegaly with pulmonary edema and left lung base consolidation. EXAM DESCRIPTION: CHEST SINGLE VIEW (accession [id number]), CT HEAD WITHOUT (accession [id number]), CT CERVICAL SPINE WITHOUT (accession [id number]) CLINICAL HISTORY: weakness COMPARISON: None Available TECHNIQUE: Contiguous axial CT images of the head were obtained. Coronal and sagittal reconstructions were created from the axial data. This exam was performed according to our departmental dose-optimization program, which includes automated exposure control, adjustment of the mA and/or kV according to patient size and/or use of iterative reconstruction technique. FINDINGS: There is no evidence of acute mass, mass effect, midline shift or hemorrhage. The ventricles and extra-axial CSF spaces are unremarkable. The brain parenchyma appears normal for the patient's age. No acute abnormalities of the bones is seen. IMPRESSION: No acute intracranial abnormality. EXAM DESCRIPTION: CHEST SINGLE VIEW (accession [id number]), CT HEAD WITHOUT (accession [id number]), CT CERVICAL SPINE WITHOUT (accession [id number]) CLINICAL HISTORY: weakness COMPARISON: None Available TECHNIQUE: Contiguous axial images of the cervical spine were obtained without the administration of intravenous contrast followed by reconstruction images. This exam was performed according to our departmental dose-optimization program, which includes automated exposure control, adjustment of the mA and/or kV according to patient size and/or use of iterative reconstruction technique. FINDINGS: There are degenerative changes with multilevel bridging syndesmophytes. There is interstitial thickening of the upper lungs with consolidation of the right upper lung. There is no acute fracture or subluxation. Prevertebral soft tissues are within normal limits. IMPRESSION: No acute fracture or subluxation Head MRI 04/08/20 04:41 IMPRESSION: No acute findings EVIDENCE OF ACUTE STROKE: NO. Soft Tissue Neck CT 04/11/20 00:00 IMPRESSION: Inflammatory changes in the right parotid space without organized fluid collection. This could represent cellulitis although follow-up is recommended to exclude underlying mass. Small regional lymph nodes, most likely reactive. Paracentesis Ultrasound 04/18/20 00:00 IMPRESSION: SUCCESSFUL ULTRASOUND GUIDED PARACENTESIS. 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) Is this a current diagnosis for this admission?: Yes (4) Cirrhosis Qualifiers: Hepatic cirrhosis type: other cirrhosis Qualified Code(s): K74.69 - Other cirrhosis of liver Is this a current diagnosis for this admission?: Yes (5) Fall Qualifiers: Encounter type: subsequent encounter Qualified Code(s): W19.XXXD - Unspecified fall, subsequent encounter Is this a current diagnosis for this admission?: Yes (6) Hyponatremia Is this a current diagnosis for this admission?: Yes (7) Aortic stenosis Qualifiers: Cardiac valve disease etiology: etiology unspecified Qualified Code(s): I35.0 - Nonrheumatic aortic (valve) stenosis Is this a current diagnosis for this admission?: Yes - Plan Summary Summary: His comorbid conditions are all at baseline. He is got a large amount of swelling on the right side of his face and a CT scan has been done and the read is pending. We are looking to see if he has any cellulitis, dental abscess, or parotitis. No evidence of overlying abrasion to suggest a superficial cellulitis. If so, will initiate antibiotics. 04/12 patient has a leukocytosis, swelling of the right maxillary area possibly a parotitis with CT scan still pending. I will start the patient on Unasyn. Will continue to monitor and repeat blood count in a.m. Noted to have hyponatremia which is slightly worse than his baseline. This may be due to his acute infection. I will start him off on some normal saline and will recheck in a.m. 04/13 I have called radiology to obtain the official CT scan reading. Patient appears to have a possible parotitis or sialadenitis. He does appear to have responded somewhat to the Unasyn which will cover: Organisms as well as anaerobic organisms. I will continue with this at this time. And guarded in order and ultrasound and possible paracentesis. Patient will also be given Some Albumin as his blood pressure is borderline low which could be multifactorial given his history of ascites and possible sepsis. I will cut down on his IV fluid as soon as possible 04/14 patient is status post paracentesis. Apparently 6 L of fluid were removed from his abdomen. He had 50 g of albumin yesterday and this appeared to have increased his blood pressure and his stabilized. Because of the large volume paracentesis I will give him another dose of albumin today. We will stop the IV fluids. We will continue with the IV antibiotics for now as this is still clinically indicated. There is no evidence of SBP above follow-up on cultures 04/15 patient general condition appears to be improving. His blood pressure is better Albumin of which she received 50 g total. Have also discontinued his IV fluids. He continues on Unasyn with clinical improvement on his parotitis. We will continue with IV antibiotics and follow-up with labs in a.m. his total bilirubin is noted to be elevated due to his underlying liver disease 04/16 general condition continues to improve. The right supramandibular swelling continues to resolve on day 4 of Unasyn. I will continue with the Unasyn for now. Patient had paracentesis done with 6 L of fluid removed. I am pretty sure he still has residual fluid as his abdomen is still distended but not tender. We will consider further paracentesis if clinically warranted. The fluid was essentially benign with no evidence of infection. Plan is to discharge to halfway hopefully this week once his medically stable 04/17/2020 Patient is resting in the bed. Sitting up and conversant. Reports that the right side of his face is much better. Right facial cellulitis-still with some firmness but no tenderness. Continue Unasyn. Ascites from cirrhosis-the patient reports that he supposed to have a second tap tomorrow. He did have 6 L removed several days ago. He would likely benefit from some albumin if in fact he is going to have a paracentesis. I have ordered an INR for the morning in the event of a repeat procedure. We will continue furosemide and spironolactone. Hyponatremia-with his hyponatremia and ascites consider fluid restriction. I will implement 1.5 L at this time. The patient is medically stable for transition to long term. It is my understanding that he will need a repeat Covid test and this has been ordered. 04/18/2020 Cirrhosis with ascites-another 6.7 L of fluid removed today. Currently receiving albumin 50 g IV. Reports feeling better. Edema-secondary to low albumin and anemia. Increasing Aldactone in addition to the fluid restriction and his furosemide dosing. We will try to keep the negative fluid balance. Hyponatremia-1.2 L fluid restriction Right facial cellulitis-resolving nicely. Anemia-hemoglobin continues to slowly improve little by little. The patient son is at the bedside. They are looking for assisted living facilities. Pretransfer Covid testing is pending. Explained to the patient the importance of good meal intake and the fluid restriction. He will likely need recurrent paracenteses. 04/19/2020 Stable after yesterday's paracentesis. My concern is that fluid is already accumulating. Fluid restriction initiated. We will try and encourage accurate daily weights. Consider compression stockings. Awaiting placement for assisted living. - Time Time Spent with patient: Less than 15 minutes Medications reviewed and adjusted accordingly: Yes Anticipated Discharge Disposition: Assisted Living with Home Health Services Anticipated Discharge Timeframe: when bed available
[2020-04-20] MEDS: LACTULOSE SYRUP 20 GM/30 ML UDCUP PO SCH ×2 (09:00→22:35)
[2020-04-20] MEDS: VITAMIN B COMPLEX TABLET PO SCH (09:00)
[2020-04-20] MEDS: FUROSEMIDE 20 MG TABLET PO SCH (09:01)
[2020-04-20] MEDS: SPIRONOLACTONE 25 MG TABLET PO SCH ×2 (09:01→22:35)
[2020-04-20] MEDS: PANTOPRAZOLE SODIUM 20 MG TABLET.DR PO SCH (09:01)
--- NOTE | 2020-04-20 12:13 | PDOC PROGRESS REPORT ---
Subjective Date:: 04/20/20 Subjective:: The patient seems quite somnolent today. His abdomen appears to be increasing i n size from ascites. Reason For Visit: POSSIBLE CELLULITIS OF FACE Physical Exam Vital Signs: Temp Pulse Resp BP Pulse Ox 97.7 F 83 18 96/58 L 98 04/19/20 23:32 04/19/20 23:32 04/19/20 23:32 04/19/20 23:32 04/19/20 23:32 Intake & Output 04/19/20 04/20/20 04/21/20 06:59 06:59 06:59 Intake Total 1650 1210 Output Total 625 Balance 1650 585 Weight 94.3 kg 87.7 kg General appearance: PRESENT: mild distress Neck exam: PRESENT: JVD Respiratory exam: PRESENT: rales - Bilateral bases, symmetrical. ABSENT: rhonchi, wheezes Cardiovascular exam: PRESENT: RRR, +S1, +S2. ABSENT: bradycardia, tachycardia GI/Abdominal exam: PRESENT: diminished bowel sounds, distended, soft. ABSENT: tenderness Rectal exam: PRESENT: deferred Gentrourinary exam: ABSENT: indwelling catheter Extremities exam: PRESENT: +2 edema Neurological exam: PRESENT: awake. ABSENT: alert - More groggy today than alert Psychiatric exam: PRESENT: flat affect. ABSENT: agitated, anxious Results Laboratory Results: 04/19/20 07:13 04/19/20 07:13 04/07/20 04/07/20 04/07/20 21:49 21:49 21:49 Creatine Kinase 474 H Troponin I 0.017 NT-Pro-B Natriuret Pep 1010 H 04/08/20 09:00 Creatine Kinase Troponin I < 0.012 NT-Pro-B Natriuret Pep 1080 H Impressions: Cervical Spine CT 04/07/20 22:18 IMPRESSION: Cardiomegaly with pulmonary edema and left lung base consolidation. EXAM DESCRIPTION: CHEST SINGLE VIEW (accession [id number]), CT HEAD WITHOUT (accession [id number]), CT CERVICAL SPINE WITHOUT (accession [id number]) CLINICAL HISTORY: weakness COMPARISON: None Available TECHNIQUE: Contiguous axial CT images of the head were obtained. Coronal and sagittal reconstructions were created from the axial data. This exam was performed according to our departmental dose-optimization program, which includes automated exposure control, adjustment of the mA and/or kV according to patient size and/or use of iterative reconstruction technique. FINDINGS: There is no evidence of acute mass, mass effect, midline shift or hemorrhage. The ventricles and extra-axial CSF spaces are unremarkable. The brain parenchyma appears normal for the patient's age. No acute abnormalities of the bones is seen. IMPRESSION: No acute intracranial abnormality. EXAM DESCRIPTION: CHEST SINGLE VIEW (accession [id number]), CT HEAD WITHOUT (accession [id number]), CT CERVICAL SPINE WITHOUT (accession [id number]) CLINICAL HISTORY: weakness COMPARISON: None Available TECHNIQUE: Contiguous axial images of the cervical spine were obtained without the administration of intravenous contrast followed by reconstruction images. This exam was performed according to our departmental dose-optimization program, which includes automated exposure control, adjustment of the mA and/or kV according to patient size and/or use of iterative reconstruction technique. FINDINGS: There are degenerative changes with multilevel bridging syndesmophytes. There is interstitial thickening of the upper lungs with consolidation of the right upper lung. There is no acute fracture or subluxation. Prevertebral soft tissues are within normal limits. IMPRESSION: No acute fracture or subluxation Head CT 04/07/20 22:18 IMPRESSION: Cardiomegaly with pulmonary edema and left lung base consolidation. EXAM DESCRIPTION: CHEST SINGLE VIEW (accession [id number]), CT HEAD WITHOUT (accession [id number]), CT CERVICAL SPINE WITHOUT (accession [id number]) CLINICAL HISTORY: weakness COMPARISON: None Available TECHNIQUE: Contiguous axial CT images of the head were obtained. Coronal and sagittal reconstructions were created from the axial data. This exam was performed according to our departmental dose-optimization program, which includes automated exposure control, adjustment of the mA and/or kV according to patient size and/or use of iterative reconstruction technique. FINDINGS: There is no evidence of acute mass, mass effect, midline shift or hemorrhage. The ventricles and extra-axial CSF spaces are unremarkable. The brain parenchyma appears normal for the patient's age. No acute abnormalities of the bones is seen. IMPRESSION: No acute intracranial abnormality. EXAM DESCRIPTION: CHEST SINGLE VIEW (accession [id number]), CT HEAD WITHOUT (accession [id number]), CT CERVICAL SPINE WITHOUT (accession [id number]) CLINICAL HISTORY: weakness COMPARISON: None Available TECHNIQUE: Contiguous axial images of the cervical spine were obtained without the administration of intravenous contrast followed by reconstruction images. This exam was performed according to our departmental dose-optimization program, which includes automated exposure control, adjustment of the mA and/or kV according to patient size and/or use of iterative reconstruction technique. FINDINGS: There are degenerative changes with multilevel bridging syndesmophytes. There is interstitial thickening of the upper lungs with consolidation of the right upper lung. There is no acute fracture or subluxation. Prevertebral soft tissues are within normal limits. IMPRESSION: No acute fracture or subluxation Chest X-Ray 04/07/20 22:19 IMPRESSION: Cardiomegaly with pulmonary edema and left lung base consolidation. EXAM DESCRIPTION: CHEST SINGLE VIEW (accession [id number]), CT HEAD WITHOUT (accession [id number]), CT CERVICAL SPINE WITHOUT (accession [id number]) CLINICAL HISTORY: weakness COMPARISON: None Available TECHNIQUE: Contiguous axial CT images of the head were obtained. Coronal and sagittal reconstructions were created from the axial data. This exam was performed according to our departmental dose-optimization program, which includes automated exposure control, adjustment of the mA and/or kV according to patient size and/or use of iterative reconstruction technique. FINDINGS: There is no evidence of acute mass, mass effect, midline shift or hemorrhage. The ventricles and extra-axial CSF spaces are unremarkable. The brain parenchyma appears normal for the patient's age. No acute abnormalities of the bones is seen. IMPRESSION: No acute intracranial abnormality. EXAM DESCRIPTION: CHEST SINGLE VIEW (accession [id number]), CT HEAD WITHOUT (accession [id number]), CT CERVICAL SPINE WITHOUT (accession [id number]) CLINICAL HISTORY: weakness COMPARISON: None Available TECHNIQUE: Contiguous axial images of the cervical spine were obtained without the administration of intravenous contrast followed by reconstruction images. This exam was performed according to our departmental dose-optimization program, which includes automated exposure control, adjustment of the mA and/or kV according to patient size and/or use of iterative reconstruction technique. FINDINGS: There are degenerative changes with multilevel bridging syndesmophytes. There is interstitial thickening of the upper lungs with consolidation of the right upper lung. There is no acute fracture or subluxation. Prevertebral soft tissues are within normal limits. IMPRESSION: No acute fracture or subluxation Head MRI 04/08/20 04:41 IMPRESSION: No acute findings EVIDENCE OF ACUTE STROKE: NO. Soft Tissue Neck CT 04/11/20 00:00 IMPRESSION: Inflammatory changes in the right parotid space without organized fluid collection. This could represent cellulitis although follow-up is recommended to exclude underlying mass. Small regional lymph nodes, most likely reactive. Paracentesis Ultrasound 04/18/20 00:00 IMPRESSION: SUCCESSFUL ULTRASOUND GUIDED PARACENTESIS. 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) Is this a current diagnosis for this admission?: Yes (4) Cirrhosis Qualifiers: Hepatic cirrhosis type: other cirrhosis Qualified Code(s): K74.69 - Other cirrhosis of liver Is this a current diagnosis for this admission?: Yes (5) Fall Qualifiers: Encounter type: subsequent encounter Qualified Code(s): W19.XXXD - Unspecified fall, subsequent encounter Is this a current diagnosis for this admission?: Yes (6) Hyponatremia Is this a current diagnosis for this admission?: Yes (7) Aortic stenosis Qualifiers: Cardiac valve disease etiology: etiology unspecified Qualified Code(s): I35.0 - Nonrheumatic aortic (valve) stenosis Is this a current diagnosis for this admission?: Yes - Plan Summary Summary: His comorbid conditions are all at baseline. He is got a large amount of swelling on the right side of his face and a CT scan has been done and the read is pending. We are looking to see if he has any cellulitis, dental abscess, or parotitis. No evidence of overlying abrasion to suggest a superficial cellulitis. If so, will initiate antibiotics. 04/12 patient has a leukocytosis, swelling of the right maxillary area possibly a parotitis with CT scan still pending. I will start the patient on Unasyn. Will continue to monitor and repeat blood count in a.m. Noted to have hyponatremia which is slightly worse than his baseline. This may be due to his acute infection. I will start him off on some normal saline and will recheck in a.m. 04/13 I have called radiology to obtain the official CT scan reading. Patient appears to have a possible parotitis or sialadenitis. He does appear to have responded somewhat to the Unasyn which will cover: Organisms as well as anaerobic organisms. I will continue with this at this time. And guarded in order and ultrasound and possible paracentesis. Patient will also be given Some Albumin as his blood pressure is borderline low which could be multifactorial given his history of ascites and possible sepsis. I will cut down on his IV fluid as soon as possible 04/14 patient is status post paracentesis. Apparently 6 L of fluid were removed from his abdomen. He had 50 g of albumin yesterday and this appeared to have increased his blood pressure and his stabilized. Because of the large volume paracentesis I will give him another dose of albumin today. We will stop the IV fluids. We will continue with the IV antibiotics for now as this is still clinically indicated. There is no evidence of SBP above follow-up on cultures 04/15 patient general condition appears to be improving. His blood pressure is better Albumin of which she received 50 g total. Have also discontinued his IV fluids. He continues on Unasyn with clinical improvement on his parotitis. We will continue with IV antibiotics and follow-up with labs in a.m. his total bilirubin is noted to be elevated due to his underlying liver disease 04/16 general condition continues to improve. The right supramandibular swelling continues to resolve on day 4 of Unasyn. I will continue with the Unasyn for now. Patient had paracentesis done with 6 L of fluid removed. I am pretty sure he still has residual fluid as his abdomen is still distended but not tender. We will consider further paracentesis if clinically warranted. The fluid was essentially benign with no evidence of infection. Plan is to discharge to residential hopefully this week once his medically stable 04/17/2020 Patient is resting in the bed. Sitting up and conversant. Reports that the right side of his face is much better. Right facial cellulitis-still with some firmness but no tenderness. Continue Unasyn. Ascites from cirrhosis-the patient reports that he supposed to have a second tap tomorrow. He did have 6 L removed several days ago. He would likely benefit from some albumin if in fact he is going to have a paracentesis. I have ordered an INR for the morning in the event of a repeat procedure. We will continue furosemide and spironolactone. Hyponatremia-with his hyponatremia and ascites consider fluid restriction. I will implement 1.5 L at this time. The patient is medically stable for transition to [facility]. It is my understanding that he will need a repeat Covid test and this has been ordered. 04/18/2020 Cirrhosis with ascites-another 6.7 L of fluid removed today. Currently re ceiving albumin 50 g IV. Reports feeling better. Edema-secondary to low albumin and anemia. Increasing Aldactone in addition to the fluid restriction and his furosemide dosing. We will try to keep the negative fluid balance. Hyponatremia-1.2 L fluid restriction Right facial cellulitis-resolving nicely. Anemia-hemoglobin continues to slowly improve little by little. The patient son is at the bedside. They are looking for assisted living facilities. Pretransfer Covid testing is pending. Explained to the patient the importance of good meal intake and the fluid restriction. He will likely need recurrent paracenteses. 04/19/2020 Stable after yesterday's paracentesis. My concern is that fluid is already accumulating. Fluid restriction initiated. We will try and encourage accurate daily weights. Consider compression stockings. Awaiting placement for assisted living. 04/20/2020 Noticeable change from yesterday. He is awake and alert answering questions yesterday. Today I did wake him from a nap however he was somnolent and it was difficult to understand all of his conversation. The abdomen clearly appears to be enlarging from ascites. I am going to obtain an ammonia level at this time. He may need lactulose therapy. I will also administer additional albumin - Time Time Spent with patient: 15-24 minutes Medications reviewed and adjusted accordingly: Yes Anticipated Discharge Disposition: Assisted Living with Home Health Services Anticipated Discharge Timeframe: Unknown
[2020-04-20] MEDS: ALBUMIN HUMAN 12.5 GM/50 ML RTUINJ IV SCH ×2 (13:16→14:32)
[2020-04-20 13:31] LABS: ALBUMIN 2.6 g/dL (3.5-5.0); ALKALINE PHOSPHATASE 192 U/L (38-126); ANION GAP 6 (5-19); ASPARTATE AMINO TRANSFERASE 82 U/L (17-59); BILIRUBIN,DIRECT 0.3 mg/dL (0.0-0.4); BILIRUBIN,TOTAL 4.1 mg/dL (0.2-1.3); BLOOD UREA NITROGEN 21 mg/dL (7-20); CALCIUM 8.2 mg/dL (8.4-10.2); CARBON DIOXIDE 24 mmol/L (22-30); CHLORIDE 98 mmol/L (98-107); GLUCOSE 171 mg/dL (75-110); POTASSIUM 4.5 mmol/L (3.6-5.0)
[2020-04-21 06:16] LABS: PROTHROMBIN TIME 18.3 SEC (11.4-15.4)
[2020-04-21 06:17] LABS: ABSOLUTE EOSINOPHILS # (AUTO) 0.2 10^3/uL (0.0-0.6); ABSOLUTE MONOCYTES (AUTO) 0.3 10^3/uL (0.1-1.4); ABSOLUTE NEUT (AUTO) 4.2 10^3/uL (1.7-8.2); BASOPHILS % (AUTO) 0.5 % (0-2); EOSINOPHILS % (AUTO) 3.6 % (0-6); HEMATOCRIT 23.8 % (37.9-51.0); HEMOGLOBIN 8.3 g/dL (13.5-17.0); LYMPHOCYTES % (AUTO) 17.2 % (13-45); MEAN CORPUSCULAR HEMOGLOBIN 36.7 pg (27.0-33.4); MEAN CORPUSCULAR HGB CONC 34.8 g/dL (32.0-36.0); MEAN CORPUSCULAR VOLUME 105 fl (80-97); MONOCYTES % (AUTO) 5.4 % (3-13); RED BLOOD COUNT 2.25 10^6/uL (4.35-5.55); RED CELL DISTRIBUTION WIDTH 19.4 % (11.5-14.0); SEGMENTED NEUTROPHILS % (AUTO) 73.3 % (42-78); TOTAL CELLS COUNTED % (AUTO) 100 %; WHITE BLOOD COUNT 5.7 10^3/uL (4.0-10.5)
[2020-04-21] MEDS: LACTULOSE SYRUP 20 GM/30 ML UDCUP PO SCH ×3 (06:19→21:16)
[2020-04-21 06:41] LABS: PLATELET COUNT 75 10^3/uL (150-450)
[2020-04-21 06:42] LABS: ALBUMIN 2.4 g/dL (3.5-5.0); ALKALINE PHOSPHATASE 153 U/L (38-126); ASPARTATE AMINO TRANSFERASE 60 U/L (17-59); BILIRUBIN,DIRECT 0.4 mg/dL (0.0-0.4); BILIRUBIN,TOTAL 3.9 mg/dL (0.2-1.3); BLOOD UREA NITROGEN 16 mg/dL (7-20); CALCIUM 8.2 mg/dL (8.4-10.2); CARBON DIOXIDE 24 mmol/L (22-30); CHLORIDE 101 mmol/L (98-107); GLUCOSE 101 mg/dL (75-110); POTASSIUM 4.1 mmol/L (3.6-5.0); TOTAL PROTEIN 5.2 g/dL (6.3-8.2)
[2020-04-21 06:55] LABS: ANION GAP 3 (5-19)
[2020-04-21] MEDS: VITAMIN B COMPLEX TABLET PO SCH (10:38)
[2020-04-21] MEDS: FUROSEMIDE 20 MG TABLET PO SCH (10:38)
[2020-04-21] MEDS: SPIRONOLACTONE 25 MG TABLET PO SCH ×2 (10:38→21:21)
[2020-04-21] MEDS: PANTOPRAZOLE SODIUM 20 MG TABLET.DR PO SCH (10:38)
--- NOTE | 2020-04-21 12:09 | PDOC PROGRESS REPORT ---
Subjective Date:: 04/21/20 Subjective:: Patient appears less groggy than yesterday. He was wondering when he can discha rge to rehab. Reason For Visit: POSSIBLE CELLULITIS OF FACE Physical Exam Vital Signs: Temp Pulse Resp BP Pulse Ox 97.8 F 75 18 91/51 L 93 04/21/20 07:29 04/21/20 07:29 04/21/20 07:29 04/21/20 07:29 04/21/20 07:29 Intake & Output 04/20/20 04/21/20 04/22/20 06:59 06:59 06:59 Intake Total 1210 1081 Output Total 625 300 Balance 585 781 Weight 87.7 kg 87.4 kg General appearance: PRESENT: cooperative, mild distress, well-developed Head exam: PRESENT: atraumatic, normocephalic Eye exam: PRESENT: conjunctiva pale, scleral icterus Ear exam: PRESENT: normal external ear exam. ABSENT: bleeding, drainage Mouth exam: PRESENT: moist, tongue midline Respiratory exam: PRESENT: rales - Rales at left base, symmetrical, unlabored. ABSENT: accessory muscle use, rhonchi, tachypnea, wheezes Cardiovascular exam: PRESENT: RRR, +S1, +S2. ABSENT: bradycardia, diastolic murmur, irregular rhythm, systolic murmur, tachycardia GI/Abdominal exam: PRESENT: distended, normal bowel sounds, soft. ABSENT: tenderness Rectal exam: PRESENT: deferred Gentrourinary exam: ABSENT: indwelling catheter Extremities exam: PRESENT: +2 edema Neurological exam: PRESENT: alert, awake, oriented to person, oriented to place, oriented to time, oriented to situation, CN II-XII grossly intact. ABSENT: altered Psychiatric exam: PRESENT: flat affect. ABSENT: agitated, anxious Focused psych exam: ABSENT: delusional, paranoid, restlessness Results Laboratory Results: 04/21/20 05:55 04/21/20 05:55 04/20/20 04/20/20 04/21/20 12:54 12:54 05:55 WBC 5.7 RBC 2.25 L Hgb 8.3 L Hct 23.8 L MCV 105 H MCH 36.7 H MCHC 34.8 RDW 19.4 H Plt Count 75 L Seg Neutrophils % 73.3 Sodium 128.1 L Potassium 4.5 Chloride 98 Carbon Dioxide 24 Anion Gap 6 BUN 21 H Creatinine 0.63 Est GFR ( Amer) > 60 Glucose 171 H Calcium 8.2 L Magnesium Total Bilirubin 4.1 H AST 82 H Alkaline Phosphatase 192 H Ammonia 67.7 H Total Protein 6.0 L Albumin 2.6 L 04/21/20 04/21/20 05:55 05:55 WBC RBC Hgb Hct MCV MCH MCHC RDW Plt Count Seg Neutrophils % Sodium 128.3 L Potassium 4.1 Chloride 101 Carbon Dioxide 24 Anion Gap 3 L BUN 16 Creatinine 0.55 Est GFR ( Amer) > 60 Glucose 101 Calcium 8.2 L Magnesium 1.9 Total Bilirubin 3.9 H AST 60 H Alkaline Phosphatase 153 H Ammonia 35.4 H Total Protein 5.2 L Albumin 2.4 L 04/07/20 04/07/20 04/07/20 21:49 21:49 21:49 Creatine Kinase 474 H Troponin I 0.017 NT-Pro-B Natriuret Pep 1010 H 04/08/20 09:00 Creatine Kinase Troponin I < 0.012 NT-Pro-B Natriuret Pep 1080 H Impressions: Cervical Spine CT 04/07/20 22:18 IMPRESSION: Cardiomegaly with pulmonary edema and left lung base consolidation. EXAM DESCRIPTION: CHEST SINGLE VIEW (accession [id number]), CT HEAD WITHOUT (accession [id number]), CT CERVICAL SPINE WITHOUT (accession [id number]) CLINICAL HISTORY: weakness COMPARISON: None Available TECHNIQUE: Contiguous axial CT images of the head were obtained. Coronal and sagittal reconstructions were created from the axial data. This exam was performed according to our departmental dose-optimization program, which includes automated exposure control, adjustment of the mA and/or kV according to patient size and/or use of iterative reconstruction technique. FINDINGS: There is no evidence of acute mass, mass effect, midline shift or hemorrhage. The ventricles and extra-axial CSF spaces are unremarkable. The brain parenchyma appears normal for the patient's age. No acute abnormalities of the bones is seen. IMPRESSION: No acute intracranial abnormality. EXAM DESCRIPTION: CHEST SINGLE VIEW (accession [id number]), CT HEAD WITHOUT (accession [id number]), CT CERVICAL SPINE WITHOUT (accession [id number]) CLINICAL HISTORY: weakness COMPARISON: None Available TECHNIQUE: Contiguous axial images of the cervical spine were obtained without the administration of intravenous contrast followed by reconstruction images. This exam was performed according to our departmental dose-optimization program, which includes automated exposure control, adjustment of the mA and/or kV according to patient size and/or use of iterative reconstruction technique. FINDINGS: There are degenerative changes with multilevel bridging syndesmophytes. There is interstitial thickening of the upper lungs with consolidation of the right upper lung. There is no acute fracture or subluxation. Prevertebral soft tissues are within normal limits. IMPRESSION: No acute fracture or subluxation Head CT 04/07/20 22:18 IMPRESSION: Cardiomegaly with pulmonary edema and left lung base consolidation. EXAM DESCRIPTION: CHEST SINGLE VIEW (accession [id number]), CT HEAD WITHOUT (accession [id number]), CT CERVICAL SPINE WITHOUT (accession [id number]) CLINICAL HISTORY: weakness COMPARISON: None Available TECHNIQUE: Contiguous axial CT images of the head were obtained. Coronal and sagittal reconstructions were created from the axial data. This exam was performed according to our departmental dose-optimization program, which includes automated exposure control, adjustment of the mA and/or kV according to patient size and/or use of iterative reconstruction technique. FINDINGS: There is no evidence of acute mass, mass effect, midline shift or hemorrhage. The ventricles and extra-axial CSF spaces are unremarkable. The brain parenchyma appears normal for the patient's age. No acute abnormalities of the bones is seen. IMPRESSION: No acute intracranial abnormality. EXAM DESCRIPTION: CHEST SINGLE VIEW (accession [id number]), CT HEAD WITHOUT (accession [id number]), CT CERVICAL SPINE WITHOUT (accession [id number]) CLINICAL HISTORY: weakness COMPARISON: None Available TECHNIQUE: Contiguous axial images of the cervical spine were obtained without the administration of intravenous contrast followed by reconstruction images. This exam was performed according to our departmental dose-optimization program, which includes automated exposure control, adjustment of the mA and/or kV according to patient size and/or use of iterative reconstruction technique. FINDINGS: There are degenerative changes with multilevel bridging syndesmophytes. There is interstitial thickening of the upper lungs with consolidation of the right upper lung. There is no acute fracture or subluxation. Prevertebral soft tissues are within normal limits. IMPRESSION: No acute fracture or subluxation Chest X-Ray 04/07/20 22:19 IMPRESSION: Cardiomegaly with pulmonary edema and left lung base consolidation. EXAM DESCRIPTION: CHEST SINGLE VIEW (accession [id number]), CT HEAD WITHOUT (accession [id number]), CT CERVICAL SPINE WITHOUT (accession [id number]) CLINICAL HISTORY: weakness COMPARISON: None Available TECHNIQUE: Contiguous axial CT images of the head were obtained. Coronal and sagittal reconstructions were created from the axial data. This exam was performed according to our departmental dose-optimization program, which includes automated exposure control, adjustment of the mA and/or kV according to patient size and/or use of iterative reconstruction technique. FINDINGS: There is no evidence of acute mass, mass effect, midline shift or hemorrhage. The ventricles and extra-axial CSF spaces are unremarkable. The brain parenchyma appears normal for the patient's age. No acute abnormalities of the bones is seen. IMPRESSION: No acute intracranial abnormality. EXAM DESCRIPTION: CHEST SINGLE VIEW (accession [id number]), CT HEAD WITHOUT (accession [id number]), CT CERVICAL SPINE WITHOUT (accession [id number]) CLINICAL HISTORY: weakness COMPARISON: None Available TECHNIQUE: Contiguous axial images of the cervical spine were obtained without the administration of intravenous contrast followed by reconstruction images. This exam was performed according to our departmental dose-optimization program, which includes automated exposure control, adjustment of the mA and/or kV according to patient size and/or use of iterative reconstruction technique. FINDINGS: There are degenerative changes with multilevel bridging syndesmophytes. There is interstitial thickening of the upper lungs with consolidation of the right upper lung. There is no acute fracture or subluxation. Prevertebral soft tissues are within normal limits. IMPRESSION: No acute fracture or subluxation Head MRI 04/08/20 04:41 IMPRESSION: No acute findings EVIDENCE OF ACUTE STROKE: NO. Soft Tissue Neck CT 04/11/20 00:00 IMPRESSION: Inflammatory changes in the right parotid space without organized fluid collection. This could represent cellulitis although follow-up is recommended to exclude underlying mass. Small regional lymph nodes, most likely reactive. Paracentesis Ultrasound 04/18/20 00:00 IMPRESSION: SUCCESSFUL ULTRASOUND GUIDED PARACENTESIS. 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) Is this a current diagnosis for this admission?: Yes (4) Cirrhosis Qualifiers: Hepatic cirrhosis type: other cirrhosis Qualified Code(s): K74.69 - Other cirrhosis of liver Is this a current diagnosis for this admission?: Yes (5) Fall Qualifiers: Encounter type: subsequent encounter Qualified Code(s): W19.XXXD - Unspecified fall, subsequent encounter Is this a current diagnosis for this admission?: Yes (6) Hyponatremia Is this a current diagnosis for this admission?: Yes (7) Aortic stenosis Qualifiers: Cardiac valve disease etiology: etiology unspecified Qualified Code(s): I35.0 - Nonrheumatic aortic (valve) stenosis Is this a current diagnosis for this admission?: Yes - Plan Summary Summary: His comorbid conditions are all at baseline. He is got a large amount of swelling on the right side of his face and a CT scan has been done and the read is pending. We are looking to see if he has any cellulitis, dental abscess, or parotitis. No evidence of overlying abrasion to suggest a superficial cellulitis. If so, will initiate antibiotics. 04/12 patient has a leukocytosis, swelling of the right maxillary area possibly a parotitis with CT scan still pending. I will start the patient on Unasyn. Will continue to monitor and repeat blood count in a.m. Noted to have hyponatremia which is slightly worse than his baseline. This may be due to his acute infection. I will start him off on some normal saline and will recheck in a.m. 04/13 I have called radiology to obtain the official CT scan reading. Patient appears to have a possible parotitis or sialadenitis. He does appear to have responded somewhat to the Unasyn which will cover: Organisms as well as anaer obic organisms. I will continue with this at this time. And guarded in order and ultrasound and possible paracentesis. Patient will also be given Some Albumin as his blood pressure is borderline low which could be multifactorial given his history of ascites and possible sepsis. I will cut down on his IV fluid as soon as possible 04/14 patient is status post paracentesis. Apparently 6 L of fluid were removed from his abdomen. He had 50 g of albumin yesterday and this appeared to have increased his blood pressure and his stabilized. Because of the large volume paracentesis I will give him another dose of albumin today. We will stop the IV fluids. We will continue with the IV antibiotics for now as this is still clinically indicated. There is no evidence of SBP above follow-up on cultures 04/15 patient general condition appears to be improving. His blood pressure is better Albumin of which she received 50 g total. Have also discontinued his IV fluids. He continues on Unasyn with clinical improvement on his parotitis. We will continue with IV antibiotics and follow-up with labs in a.m. his total bilirubin is noted to be elevated due to his underlying liver disease 04/16 general condition continues to improve. The right supramandibular swelling continues to resolve on day 4 of Unasyn. I will continue with the Unasyn for now. Patient had paracentesis done with 6 L of fluid removed. I am pretty sure he still has residual fluid as his abdomen is still distended but not tender. We will consider further paracentesis if clinically warranted. The fluid was essentially benign with no evidence of infection. [facility] hopefully this week once his medically stable 04/17/2020 Patient is resting in the bed. Sitting up and conversant. Reports that the right side of his face is much better. Right facial cellulitis-still with some firmness but no tenderness. Continue Unasyn. Ascites from cirrhosis-the patient reports that he supposed to have a second tap tomorrow. He did have 6 L removed several days ago. He would likely benefit from some albumin if in fact he is going to have a paracentesis. I have ordered an INR for the morning in the event of a repeat procedure. We will continue furosemide and spironolactone. Hyponatremia-with his hyponatremia and ascites consider fluid restriction. I will implement 1.5 L at this time. The patient is medically stable for transition to halfway. It is my understanding that he will need a repeat Covid test and this has been ordered. 04/18/2020 Cirrhosis with ascites-another 6.7 L of fluid removed today. Currently receiving albumin 50 g IV. Reports feeling better. Edema-secondary to low albumin and anemia. Increasing Aldactone in addition to the fluid restriction and his furosemide dosing. We will try to keep the negative fluid balance. Hyponatremia-1.2 L fluid restriction Right facial cellulitis-resolving nicely. Anemia-hemoglobin continues to slowly improve little by little. The patient son is at the bedside. They are looking for assisted living facilities. Pretransfer Covid testing is pending. Explained to the patient the importance of good meal intake and the fluid restriction. He will likely need recurrent paracenteses. 04/19/2020 Stable after yesterday's paracentesis. My concern is that fluid is already accumulating. Fluid restriction initiated. We will try and encourage accurate daily weights. Consider compression stockings. Awaiting placement for assisted living. 04/20/2020 Noticeable change from yesterday. He is awake and alert answering questions yesterday. Today I did wake him from a nap however he was somnolent and it was difficult to understand all of his conversation. The abdomen clearly appears to be enlarging from ascites. I am going to obtain an ammonia level at this time. He may need lactulose therapy. I will also administer additional albumin 04/21/2020 Ammonia level is back down to 36. The patient is more alert and cohesive. Total bilirubin and transaminases are slightly improved. Abdomen is still distended but it is not tense. Serum sodium is holding at 128. Patient is tolerating additional spironolactone. Hemoglobin is slightly decreased. We will monitor his anemia closely. Discharge planning is working on placement for rehab. The patient son was going to provide a list of preferred facilities. Referrals were to be made. - Time Time Spent with patient: 15-24 minutes Medications reviewed and adjusted accordingly: Yes Anticipated Discharge Disposition: Long Term Facility Anticipated Discharge Timeframe: when bed available
[2020-04-22] MEDS: LACTULOSE SYRUP 20 GM/30 ML UDCUP PO SCH ×3 (06:44→22:28)
[2020-04-22] MEDS: VITAMIN B COMPLEX TABLET PO SCH (11:49)
[2020-04-22] MEDS: SPIRONOLACTONE 25 MG TABLET PO SCH ×2 (11:49→22:30)
[2020-04-22] MEDS: PANTOPRAZOLE SODIUM 20 MG TABLET.DR PO SCH (11:49)
[2020-04-22] MEDS: FUROSEMIDE 20 MG TABLET PO SCH (11:49)
--- NOTE | 2020-04-22 13:28 | PDOC PROGRESS REPORT ---
Subjective Date:: 04/22/20 Subjective:: The patient is resting in bed. He continues to ask when he might be going to rehab. Each day I explained that we are waiting for a bed. His son was going to give a list of facilities to discharge planning. The patient seems somewhat sluggish again today. Unfortunately his abdomen clearly is filling with fluid and he replaces the 6 L removed by paracentesis within 2 to 3 days. Reason For Visit: POSSIBLE CELLULITIS OF FACE Cirrhosis with ascites Hepatic encephalopathy Physical Exam Vital Signs: Temp Pulse Resp BP Pulse Ox 98.6 F 69 16 121/63 97 04/22/20 10:00 04/22/20 07:35 04/22/20 07:35 04/22/20 07:35 04/22/20 07:35 Intake & Output 04/21/20 04/22/20 04/23/20 06:59 06:59 06:59 Intake Total 1081 1356 Output Total 300 225 Balance 781 1131 Weight 87.4 kg 88 kg General appearance: PRESENT: cooperative, mild distress, well-developed Head exam: PRESENT: atraumatic, normocephalic Respiratory exam: PRESENT: clear to auscultation philip, symmetrical, unlabored. ABSENT: rales, rhonchi, tachypnea, wheezes Cardiovascular exam: PRESENT: RRR, +S1, +S2, systolic murmur - 4/6. ABSENT: bradycardia, diastolic murmur, irregular rhythm, tachycardia GI/Abdominal exam: PRESENT: ascites, distended - Markedly distended, normal bowel sounds, soft. ABSENT: tenderness Rectal exam: PRESENT: deferred Gentrourinary exam: ABSENT: indwelling catheter Extremities exam: PRESENT: pedal edema, +2 edema Neurological exam: PRESENT: alert, awake, oriented to person, oriented to place, oriented to situation Psychiatric exam: PRESENT: flat affect. ABSENT: agitated, anxious Focused psych exam: ABSENT: delusional, paranoid, restlessness Results Laboratory Results: 04/21/20 05:55 04/21/20 05:55 04/07/20 04/07/20 04/07/20 21:49 21:49 21:49 Creatine Kinase 474 H Troponin I 0.017 NT-Pro-B Natriuret Pep 1010 H 04/08/20 09:00 Creatine Kinase Troponin I < 0.012 NT-Pro-B Natriuret Pep 1080 H Impressions: Cervical Spine CT 04/07/20 22:18 IMPRESSION: Cardiomegaly with pulmonary edema and left lung base consolidation. EXAM DESCRIPTION: CHEST SINGLE VIEW (accession [id number]), CT HEAD WITHOUT (accession [id number]), CT CERVICAL SPINE WITHOUT (accession [id number]) CLINICAL HISTORY: weakness COMPARISON: None Available TECHNIQUE: Contiguous axial CT images of the head were obtained. Coronal and sagittal reconstructions were created from the axial data. This exam was performed according to our departmental dose-optimization program, which includes automated exposure control, adjustment of the mA and/or kV according to patient size and/or use of iterative reconstruction technique. FINDINGS: There is no evidence of acute mass, mass effect, midline shift or hemorrhage. The ventricles and extra-axial CSF spaces are unremarkable. The brain parenchyma appears normal for the patient's age. No acute abnormalities of the bones is seen. IMPRESSION: No acute intracranial abnormality. EXAM DESCRIPTION: CHEST SINGLE VIEW (accession [id number]), CT HEAD WITHOUT (accession [id number]), CT CERVICAL SPINE WITHOUT (accession [id number]) CLINICAL HISTORY: weakness COMPARISON: None Available TECHNIQUE: Contiguous axial images of the cervical spine were obtained without the administration of intravenous contrast followed by reconstruction images. This exam was performed according to our departmental dose-optimization program, which includes automated exposure control, adjustment of the mA and/or kV according to patient size and/or use of iterative reconstruction technique. FINDINGS: There are degenerative changes with multilevel bridging syndesmophytes. There is interstitial thickening of the upper lungs with consolidation of the right upper lung. There is no acute fracture or subluxation. Prevertebral soft tissues are within normal limits. IMPRESSION: No acute fracture or subluxation Head CT 04/07/20 22:18 IMPRESSION: Cardiomegaly with pulmonary edema and left lung base consolidation. EXAM DESCRIPTION: CHEST SINGLE VIEW (accession [id number]), CT HEAD WITHOUT (accession [id number]), CT CERVICAL SPINE WITHOUT (accession [id number]) CLINICAL HISTORY: weakness COMPARISON: None Available TECHNIQUE: Contiguous axial CT images of the head were obtained. Coronal and sagittal reconstructions were created from the axial data. This exam was performed according to our departmental dose-optimization program, which includes automated exposure control, adjustment of the mA and/or kV according to patient size and/or use of iterative reconstruction technique. FINDINGS: There is no evidence of acute mass, mass effect, midline shift or hemorrhage. The ventricles and extra-axial CSF spaces are unremarkable. The brain parenchyma appears normal for the patient's age. No acute abnormalities of the bones is seen. IMPRESSION: No acute intracranial abnormality. EXAM DESCRIPTION: CHEST SINGLE VIEW (accession [id number]), CT HEAD WITHOUT (accession [id number]), CT CERVICAL SPINE WITHOUT (accession [id number]) CLINICAL HISTORY: weakness COMPARISON: None Available TECHNIQUE: Contiguous axial images of the cervical spine were obtained without the administration of intravenous contrast followed by reconstruction images. This exam was performed according to our departmental dose-optimization program, which includes automated exposure control, adjustment of the mA and/or kV according to patient size and/or use of iterative reconstruction technique. FINDINGS: There are degenerative changes with multilevel bridging syndesmophytes. There is interstitial thickening of the upper lungs with consolidation of the right upper lung. There is no acute fracture or subluxation. Prevertebral soft tissues are within normal limits. IMPRESSION: No acute fracture or subluxation Chest X-Ray 04/07/20 22:19 IMPRESSION: Cardiomegaly with pulmonary edema and left lung base consolidation. EXAM DESCRIPTION: CHEST SINGLE VIEW (accession [id number]), CT HEAD WITHOUT (accession [id number]), CT CERVICAL SPINE WITHOUT (accession [id number]) CLINICAL HISTORY: weakness COMPARISON: None Available TECHNIQUE: Contiguous axial CT images of the head were obtained. Coronal and sagittal reconstructions were created from the axial data. This exam was performed according to our departmental dose-optimization program, which includes automated exposure control, adjustment of the mA and/or kV according to patient size and/or use of iterative reconstruction technique. FINDINGS: There is no evidence of acute mass, mass effect, midline shift or hemorrhage. The ventricles and extra-axial CSF spaces are unremarkable. The brain parenchyma appears normal for the patient's age. No acute abnormalities of the bones is seen. IMPRESSION: No acute intracranial abnormality. EXAM DESCRIPTION: CHEST SINGLE VIEW (accession [id number]), CT HEAD WITHOUT (accession [id number]), CT CERVICAL SPINE WITHOUT (accession [id number]) CLINICAL HISTORY: weakness COMPARISON: None Available TECHNIQUE: Contiguous axial images of the cervical spine were obtained without the administration of intravenous contrast followed by reconstruction images. This exam was performed according to our departmental dose-optimization program, which includes automated exposure control, adjustment of the mA and/or kV according to patient size and/or use of iterative reconstruction technique. FINDINGS: There are degenerative changes with multilevel bridging syndesmophytes. There is interstitial thickening of the upper lungs with consolidation of the right upper lung. There is no acute fracture or subluxation. Prevertebral soft tissues are within normal limits. IMPRESSION: No acute fracture or subluxation Head MRI 04/08/20 04:41 IMPRESSION: No acute findings EVIDENCE OF ACUTE STROKE: NO. Soft Tissue Neck CT 04/11/20 00:00 IMPRESSION: Inflammatory changes in the right parotid space without organized fluid collection. This could represent cellulitis although follow-up is recommended to exclude underlying mass. Small regional lymph nodes, most likely reactive. Paracentesis Ultrasound 04/18/20 00:00 IMPRESSION: SUCCESSFUL ULTRASOUND GUIDED PARACENTESIS. 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) Is this a current diagnosis for this admission?: Yes (4) Cirrhosis Qualifiers: Hepatic cirrhosis type: other cirrhosis Qualified Code(s): K74.69 - Other cirrhosis of liver Is this a current diagnosis for this admission?: Yes (5) Fall Qualifiers: Encounter type: subsequent encounter Qualified Code(s): W19.XXXD - Unspecified fall, subsequent encounter Is this a current diagnosis for this admission?: Yes (6) Hyponatremia Is this a current diagnosis for this admission?: Yes (7) Aortic stenosis Qualifiers: Cardiac valve disease etiology: etiology unspecified Qualified Code(s): I 35.0 - Nonrheumatic aortic (valve) stenosis Is this a current diagnosis for this admission?: Yes - Plan Summary Summary: His comorbid conditions are all at baseline. He is got a large amount of swelling on the right side of his face and a CT scan has been done and the read is pending. We are looking to see if he has any cellulitis, dental abscess, or parotitis. No evidence of overlying abrasion to suggest a superficial tami lulitis. If so, will initiate antibiotics. 04/12 patient has a leukocytosis, swelling of the right maxillary area possibly a parotitis with CT scan still pending. I will start the patient on Unasyn. Will continue to monitor and repeat blood count in a.m. Noted to have hyponatremia which is slightly worse than his baseline. This may be due to his acute infection. I will start him off on some normal saline and will recheck in a.m. 04/13 I have called radiology to obtain the official CT scan reading. Patient appears to have a possible parotitis or sialadenitis. He does appear to have responded somewhat to the Unasyn which will cover: Organisms as well as anaerobic organisms. I will continue with this at this time. And guarded in order and ultrasound and possible paracentesis. Patient will also be given Some Albumin as his blood pressure is borderline low which could be multifactorial given his history of ascites and possible sepsis. I will cut down on his IV fluid as soon as possible 04/14 patient is status post paracentesis. Apparently 6 L of fluid were removed from his abdomen. He had 50 g of albumin yesterday and this appeared to have increased his blood pressure and his stabilized. Because of the large volume paracentesis I will give him another dose of albumin today. We will stop the IV fluids. We will continue with the IV antibiotics for now as this is still clinically indicated. There is no evidence of SBP above follow-up on cultures 04/15 patient general condition appears to be improving. His blood pressure is better Albumin of which she received 50 g total. Have also discontinued his IV fluids. He continues on Unasyn with clinical improvement on his parotitis. We will continue with IV antibiotics and follow-up with labs in a.m. his total bi lirubin is noted to be elevated due to his underlying liver disease 04/16 general condition continues to improve. The right supramandibular swelling continues to resolve on day 4 of Unasyn. I will continue with the Unasyn for now. Patient had paracentesis done with 6 L of fluid removed. I am pretty sure he still has residual fluid as his abdomen is still distended but not tender. We will consider further paracentesis if clinically warranted. The fluid was essentially benign with no evidence of infection. Plan is to discharge to residential hopefully this week once his medically stable 04/17/2020 Patient is resting in the bed. Sitting up and conversant. Reports that the right side of his face is much better. Right facial cellulitis-still with some firmness but no tenderness. Continue Unasyn. Ascites from cirrhosis-the patient reports that he supposed to have a second tap tomorrow. He did have 6 L removed several days ago. He would likely benefit from some albumin if in fact he is going to have a paracentesis. I have ordered an INR for the morning in the event of a repeat procedure. We will continue furosemide and spironolactone. Hyponatremia-with his hyponatremia and ascites consider fluid restriction. I will implement 1.5 L at this time. The patient is medically stable for transition to [facility]. It is my understanding that he will need a repeat Covid test and this has been ordered. 04/18/2020 Cirrhosis with ascites-another 6.7 L of fluid removed today. Currently receiving albumin 50 g IV. Reports feeling better. Edema-secondary to low albumin and anemia. Increasing Aldactone in addition to the fluid restriction and his furosemide dosing. We will try to keep the negative fluid balance. Hyponatremia-1.2 L fluid restriction Right facial cellulitis-resolving nicely. Anemia-hemoglobin continues to slowly improve little by little. The patient son is at the bedside. They are looking for assisted living facilities. Pretransfer Covid testing is pending. Explained to the patient the importance of good meal intake and the fluid restriction. He will likely need recurrent paracenteses. 04/19/2020 Stable after yesterday's paracentesis. My concern is that fluid is already accumulating. Fluid restriction initiated. We will try and encourage accurate daily weights. Consider compression stockings. Awaiting placement for assisted living. 04/20/2020 Noticeable change from yesterday. He is awake and alert answering questions yesterday. Today I did wake him from a nap however he was somnolent and it was difficult to understand all of his conversation. The abdomen clearly appears to be enlarging from ascites. I am going to obtain an ammonia level at this time. He may need lactulose therapy. I will also administer additional albumin 04/21/2020 Ammonia level is back down to 36. The patient is more alert and cohesive. Total bilirubin and transaminases are slightly improved. Abdomen is still distended but it is not tense. Serum sodium is holding at 128. Patient is tolerating additional spironolactone. Hemoglobin is slightly decreased. We will monitor his anemia closely. Discharge planning is working on placement for rehab. The patient son was going to provide a list of preferred facilities. Referrals were to be made. 04/22/2020 Somewhat sluggish again today but participates in the encounter without difficulty. We will recheck liver function studies tomorrow. Abdomen appears more distended than yesterday. It is beginning to get firm. Blood pressures appear to be stable but I do not believe he would tolerate an increased dose of spironolactone. We will likely need to perform another paracentesis tomorrow. With this marked reaccumulation of fluid effective treatment of his cirrhosis with ascites may be limited. - Time Time Spent with patient: 15-24 minutes Medications reviewed and adjusted accordingly: Yes Anticipated Discharge Disposition: Senior Living Facility Anticipated Discharge Timeframe: when bed available
[2020-04-23 05:22] LABS: HEMATOCRIT 24.8 % (37.9-51.0); HEMOGLOBIN 8.6 g/dL (13.5-17.0); MEAN CORPUSCULAR HEMOGLOBIN 36.7 pg (27.0-33.4); MEAN CORPUSCULAR HGB CONC 34.6 g/dL (32.0-36.0); MEAN CORPUSCULAR VOLUME 106 fl (80-97); RED BLOOD COUNT 2.34 10^6/uL (4.35-5.55); RED CELL DISTRIBUTION WIDTH 19.1 % (11.5-14.0)
[2020-04-23 05:43] LABS: ALBUMIN 2.5 g/dL (3.5-5.0); ALKALINE PHOSPHATASE 150 U/L (38-126); ASPARTATE AMINO TRANSFERASE 65 U/L (17-59); BILIRUBIN,DIRECT 0.2 mg/dL (0.0-0.4); BILIRUBIN,TOTAL 3.5 mg/dL (0.2-1.3); BLOOD UREA NITROGEN 14 mg/dL (7-20); CALCIUM 8.3 mg/dL (8.4-10.2); GLUCOSE 95 mg/dL (75-110); POTASSIUM 4.3 mmol/L (3.6-5.0); TOTAL PROTEIN 5.7 g/dL (6.3-8.2)
[2020-04-23 05:49] LABS: CARBON DIOXIDE 25 mmol/L (22-30); CHLORIDE 102 mmol/L (98-107)
[2020-04-23 05:55] LABS: PLATELET COUNT 74 10^3/uL (150-450)
[2020-04-23 05:57] LABS: ANION GAP 3 (5-19)
[2020-04-23] MEDS: LACTULOSE SYRUP 20 GM/30 ML UDCUP PO SCH ×4 (06:33→22:20)
[2020-04-23] MEDS: PANTOPRAZOLE SODIUM 20 MG TABLET.DR PO SCH (10:23)
[2020-04-23] MEDS: SPIRONOLACTONE 25 MG TABLET PO SCH ×2 (10:23→22:17)
[2020-04-23] MEDS: VITAMIN B COMPLEX TABLET PO SCH (10:23)
[2020-04-23] MEDS: FUROSEMIDE 20 MG TABLET PO SCH (10:24)
--- NOTE | 2020-04-23 15:20 | PDOC PROGRESS REPORT ---
Subjective Date:: 04/23/20 Subjective:: The patient is resting in the chair. He is somewhat sleepy. It takes some prompting to awaken him. Reason For Visit: POSSIBLE CELLULITIS OF FACE Physical Exam Vital Signs: Temp Pulse Resp BP Pulse Ox 98.4 F 78 17 100/66 98 04/23/20 11:11 04/23/20 11:11 04/23/20 11:11 04/23/20 11:11 04/23/20 11:11 Intake & Output 04/22/20 04/23/20 04/24/20 06:59 06:59 06:59 Intake Total 1356 1110 240 Output Total 225 725 350 Balance 1131 385 -110 Weight 88 kg 88.5 kg General appearance: PRESENT: cooperative - Cooperative but slightly groggy, mild distress, well-developed Head exam: PRESENT: atraumatic, normocephalic Ear exam: PRESENT: normal external ear exam. ABSENT: bleeding, drainage Mouth exam: PRESENT: dry mucosa, tongue midline Respiratory exam: PRESENT: rales - This is, symmetrical, unlabored. ABSENT: rhonchi, tachypnea, wheezes Cardiovascular exam: PRESENT: RRR, +S1, +S2, systolic murmur - 3/6. ABSENT: bradycardia, diastolic murmur, irregular rhythm, tachycardia GI/Abdominal exam: PRESENT: distended, firm, normal bowel sounds, soft. ABSENT: tenderness Rectal exam: PRESENT: deferred Gentrourinary exam: ABSENT: indwelling catheter Extremities exam: PRESENT: +2 edema Neurological exam: PRESENT: awake - But slightly groggy, oriented to person, oriented to place, oriented to situation Psychiatric exam: PRESENT: flat affect. ABSENT: agitated Focused psych exam: ABSENT: delusional, paranoid, restlessness Results Laboratory Results: 04/23/20 05:07 04/23/20 05:07 04/23/20 04/23/20 05:07 05:07 WBC 5.0 RBC 2.34 L Hgb 8.6 L Hct 24.8 L MCV 106 H MCH 36.7 H MCHC 34.6 RDW 19.1 H Plt Count 74 L Sodium 129.8 L Potassium 4.3 Chloride 102 Carbon Dioxide 25 Anion Gap 3 L BUN 14 Creatinine 0.54 Est GFR ( Amer) > 60 Glucose 95 Calcium 8.3 L Total Bilirubin 3.5 H AST 65 H Alkaline Phosphatase 150 H Total Protein 5.7 L Albumin 2.5 L 04/07/20 04/07/20 04/07/20 21:49 21:49 21:49 Creatine Kinase 474 H Troponin I 0.017 NT-Pro-B Natriuret Pep 1010 H 04/08/20 09:00 Creatine Kinase Troponin I < 0.012 NT-Pro-B Natriuret Pep 1080 H Impressions: Cervical Spine CT 04/07/20 22:18 IMPRESSION: Cardiomegaly with pulmonary edema and left lung base consolidation. EXAM DESCRIPTION: CHEST SINGLE VIEW (accession [id number]), CT HEAD WITHOUT (accession [id number]), CT CERVICAL SPINE WITHOUT (accession [id number]) CLINICAL HISTORY: weakness COMPARISON: None Available TECHNIQUE: Contiguous axial CT images of the head were obtained. Coronal and sagittal reconstructions were created from the axial data. This exam was performed according to our departmental dose-optimization program, which includes automated exposure control, adjustment of the mA and/or kV according to patient size and/or use of iterative reconstruction technique. FINDINGS: There is no evidence of acute mass, mass effect, midline shift or hemorrhage. The ventricles and extra-axial CSF spaces are unremarkable. The brain parenchyma appears normal for the patient's age. No acute abnormalities of the bones is seen. IMPRESSION: No acute intracranial abnormality. EXAM DESCRIPTION: CHEST SINGLE VIEW (accession [id number]), CT HEAD WITHOUT (accession [id number]), CT CERVICAL SPINE WITHOUT (accession [id number]) CLINICAL HISTORY: weakness COMPARISON: None Available TECHNIQUE: Contiguous axial images of the cervical spine were obtained without the administration of intravenous contrast followed by reconstruction images. This exam was performed according to our departmental dose-optimization program, which includes automated exposure control, adjustment of the mA and/or kV according to patient size and/or use of iterative reconstruction technique. FINDINGS: There are degenerative changes with multilevel bridging syndesmophytes. There is interstitial thickening of the upper lungs with consolidation of the right upper lung. There is no acute fracture or subluxation. Prevertebral soft tissues are within normal limits. IMPRESSION: No acute fracture or subluxation Head CT 04/07/20 22:18 IMPRESSION: Cardiomegaly with pulmonary edema and left lung base consolidation. EXAM DESCRIPTION: CHEST SINGLE VIEW (accession [id number]), CT HEAD WITHOUT (accession [id number]), CT CERVICAL SPINE WITHOUT (accession [id number]) CLINICAL HISTORY: weakness COMPARISON: None Available TECHNIQUE: Contiguous axial CT images of the head were obtained. Coronal and sagittal reconstructions were created from the axial data. This exam was performed according to our departmental dose-optimization program, which includes automated exposure control, adjustment of the mA and/or kV according to patient size and/or use of iterative reconstruction technique. FINDINGS: There is no evidence of acute mass, mass effect, midline shift or hemorrhage. The ventricles and extra-axial CSF spaces are unremarkable. The brain parenchyma appears normal for the patient's age. No acute abnormalities of the bones is seen. IMPRESSION: No acute intracranial abnormality. EXAM DESCRIPTION: CHEST SINGLE VIEW (accession [id number]), CT HEAD WITHOUT (accession [id number]), CT CERVICAL SPINE WITHOUT (accession [id number]) CLINICAL HISTORY: weakness COMPARISON: None Available TECHNIQUE: Contiguous axial images of the cervical spine were obtained without the administration of intravenous contrast followed by reconstruction images. This exam was performed according to our departmental dose-optimization program, which includes automated exposure control, adjustment of the mA and/or kV according to patient size and/or use of iterative reconstruction technique. FINDINGS: There are degenerative changes with multilevel bridging syndesmophytes. There is interstitial thickening of the upper lungs with consolidation of the right upper lung. There is no acute fracture or subluxation. Prevertebral soft tissues are within normal limits. IMPRESSION: No acute fracture or subluxation Chest X-Ray 04/07/20 22:19 IMPRESSION: Cardiomegaly with pulmonary edema and left lung base consolidation. EXAM DESCRIPTION: CHEST SINGLE VIEW (accession [id number]), CT HEAD WITHOUT (accession [id number]), CT CERVICAL SPINE WITHOUT (accession [id number]) CLINICAL HISTORY: weakness COMPARISON: None Available TECHNIQUE: Contiguous axial CT images of the head were obtained. Coronal and sagittal reconstructions were created from the axial data. This exam was performed according to our departmental dose-optimization program, which includes automated exposure control, adjustment of the mA and/or kV according to patient size and/or use of iterative reconstruction technique. FINDINGS: There is no evidence of acute mass, mass effect, midline shift or hemorrhage. The ventricles and extra-axial CSF spaces are unremarkable. The brain parenchyma appears normal for the patient's age. No acute abnormalities of the bones is seen. IMPRESSION: No acute intracranial abnormality. EXAM DESCRIPTION: CHEST SINGLE VIEW (accession [id number]), CT HEAD WITHOUT (accession [id number]), CT CERVICAL SPINE WITHOUT (accession [id number]) CLINICAL HISTORY: weakness COMPARISON: None Available TECHNIQUE: Contiguous axial images of the cervical spine were obtained without the administration of intravenous contrast followed by reconstruction images. This exam was performed according to our departmental dose-optimization program, which includes automated exposure control, adjustment of the mA and/or kV according to patient size and/or use of iterative reconstruction technique. FINDINGS: There are degenerative changes with multilevel bridging syndesmophytes. There is interstitial thickening of the upper lungs with consolidation of the right upper lung. There is no acute fracture or subluxation. Prevertebral soft tissues are within normal limits. IMPRESSION: No acute fracture or subluxation Head MRI 04/08/20 04:41 IMPRESSION: No acute findings EVIDENCE OF ACUTE STROKE: NO. Soft Tissue Neck CT 04/11/20 00:00 IMPRESSION: Inflammatory changes in the right parotid space without organized fluid collection. This could represent cellulitis although follow-up is recommended to exclude underlying mass. Small regional lymph nodes, most likely reactive. Paracentesis Ultrasound 04/18/20 00:00 IMPRESSION: SUCCESSFUL ULTRASOUND GUIDED PARACENTESIS. 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) Is this a current diagnosis for this admission?: Yes (4) Cirrhosis Qualifiers: Hepatic cirrhosis type: other cirrhosis Qualified Code(s): K74.69 - Other cirrhosis of liver Is this a current diagnosis for this admission?: Yes (5) Fall Qualifiers: Encounter type: subsequent encounter Qualified Code(s): W19.XXXD - Unspecified fall, subsequent encounter Is this a current diagnosis for this admission?: Yes (6) Hyponatremia Is this a current diagnosis for this admission?: Yes (7) Aortic stenosis Qualifiers: Cardiac valve disease etiology: etiology unspecified Qualified Code(s): I35.0 - Nonrheumatic aortic (valve) stenosis Is this a current diagnosis for this admission?: Yes - Plan Summary Summary: His comorbid conditions are all at baseline. He is got a large amount of swelling on the right side of his face and a CT scan has been done and the read is pending. We are looking to see if he has any cellulitis, dental abscess, or parotitis. No evidence of overlying abrasion to suggest a superficial cellulitis. If so, will initiate antibiotics. 04/12 patient has a leukocytosis, swelling of the right maxillary area possibly a parotitis with CT scan still pending. I will start the patient on Unasyn. Will continue to monitor and repeat blood count in a.m. Noted to have hyponatremia which is slightly worse than his baseline. This may be due to his acute infection. I will start him off on some normal saline and will recheck in a.m. 04/13 I have called radiology to obtain the official CT scan reading. Patient appears to have a possible parotitis or sialadenitis. He does appear to have responded somewhat to the Unasyn which will cover: Organisms as well as anaerobic organisms. I will continue with this at this time. And guarded in order and ultrasound and possible paracentesis. Patient will also be given Some Albumin as his blood pressure is borderline low which could be multifactorial given his history of ascites and possible sepsis. I will cut down on his IV fluid as soon as possible 04/14 patient is status post paracentesis. Apparently 6 L of fluid were removed from his abdomen. He had 50 g of albumin yesterday and this appeared to have increased his blood pressure and his stabilized. Because of the large volume paracentesis I will give him another dose of albumin today. We will stop the IV fluids. We will continue with the IV antibiotics for now as this is still clinically indicated. There is no evidence of SBP above follow-up on cultures 04/15 patient general condition appears to be improving. His blood pressure is better Albumin of which she received 50 g total. Have also discontinued his IV fluids. He continues on Unasyn with clinical improvement on his parotitis. We will continue with IV antibiotics and follow-up with labs in a.m. his total bilirubin is noted to be elevated due to his underlying liver disease 04/16 general condition continues to improve. The right supramandibular swelling continues to resolve on day 4 of Unasyn. I will continue with the Unasyn for now. Patient had paracentesis done with 6 L of fluid removed. I am pretty sure he still has residual fluid as his abdomen is still distended but not tender. We will consider further paracentesis if clinically warranted. The fluid was essentially benign with no evidence of infection. Plan is to discharge to longterm hopefully this week once his medically stable 04/17/2020 Patient is resting in the bed. Sitting up and conversant. Reports that the right side of his face is much better. Right facial cellulitis-still with some firmness but no tenderness. Continue Unasyn. Ascites from cirrhosis-the patient reports that he supposed to have a second tap tomorrow. He did have 6 L removed several days ago. He would likely benefit from some albumin if in fact he is going to have a paracentesis. I have ordered an INR for the morning in the event of a repeat procedure. We will continue furosemide and spironolactone. Hyponatremia-with his hyponatremia and ascites consider fluid restriction. I will implement 1.5 L at this time. The patient is medically stable for transition to [facility]. It is my understanding that he will need a repeat Covid test and this has been ordered. 04/18/2020 Cirrhosis with ascites-another 6.7 L of fluid removed today. Currently receiving albumin 50 g IV. Reports feeling better. Edema-secondary to low albumin and anemia. Increasing Aldactone in addition to the fluid restriction and his furosemide dosing. We will try to keep the negative fluid balance. Hyponatremia-1.2 L fluid restriction Right facial cellulitis-resolving nicely. Anemia-hemoglobin continues to slowly improve little by little. The patient son is at the bedside. They are looking for assisted living facilities. Pretransfer Covid testing is pending. Explained to the patient the importance of good meal intake and the fluid restriction. He will likely need recurrent paracenteses. 04/19/2020 Stable after yesterday's paracentesis. My concern is that fluid is already accumulating. Fluid restriction initiated. We will try and encourage accurate daily weights. Consider compression stockings. Awaiting placement for assisted living. 04/20/2020 Noticeable change from yesterday. He is awake and alert answering questions yesterday. Today I did wake him from a nap however he was somnolent and it was difficult to understand all of his conversation. The abdomen clearly appears to be enlarging from ascites. I am going to obtain an ammonia level at this time. He may need lactulose therapy. I will also administer additional albumin 04/21/2020 Ammonia level is back down to 36. The patient is more alert and cohesive. Total bilirubin and transaminases are slightly improved. Abdomen is still distended but it is not tense. Serum sodium is holding at 128. Patient is tolerating additional spironolactone. Hemoglobin is slightly decreased. We will monitor his anemia closely. Discharge planning is working on placement for rehab. The patient son was going to provide a list of preferred facilities. Referrals were to be made. 04/22/2020 Somewhat sluggish again today but participates in the encounter without difficulty. We will recheck liver function studies tomorrow. Abdomen appears more distended than yesterday. It is beginning to get firm. Blood pressures appear to be stable but I do not believe he would tolerate an increased dose of spironolactone. We will likely need to perform another paracentesis tomorrow. With this marked reaccumulation of fluid effective treatment of his cirrhosis with ascites may be limited. 04/23/2020 I left a message for his son Kwame. I will try to call him later today. Wanted to discuss the progress with placement as well as the fact that his father's ascites recurs very rapidly. We will recheck ammonia level as well as laboratory studies tomorrow. I have ordered repeat paracentesis. The abdomen is now getting firm. Transaminases and bilirubin elevated but stable. Sodium is also 129.8 and improving slowly. Hemoglobin is slightly better at 8.6. Very disconcerting that he reaccumulate's the ascites that quickly. I decreased his fluid restriction to 1 L daily. We will continue the current furosemide and spironolactone dosing. - Time Time Spent with patient: Less than 15 minutes Medications reviewed and adjusted accordingly: Yes Anticipated Discharge Disposition: Long-Term Care Facility Anticipated Discharge Timeframe: when bed available
[2020-04-24 07:00] LABS: INTERNATIONAL RATION (INR) 1.47
[2020-04-24 07:02] LABS: HEMATOCRIT 24.8 % (37.9-51.0); HEMOGLOBIN 8.6 g/dL (13.5-17.0); MEAN CORPUSCULAR HEMOGLOBIN 36.8 pg (27.0-33.4); MEAN CORPUSCULAR HGB CONC 34.5 g/dL (32.0-36.0); MEAN CORPUSCULAR VOLUME 107 fl (80-97); RED BLOOD COUNT 2.32 10^6/uL (4.35-5.55); RED CELL DISTRIBUTION WIDTH 18.6 % (11.5-14.0); WHITE BLOOD COUNT 5.1 10^3/uL (4.0-10.5)
[2020-04-24 07:34] LABS: ALBUMIN 2.4 g/dL (3.5-5.0); ALKALINE PHOSPHATASE 150 U/L (38-126); ANION GAP 5 (5-19); ASPARTATE AMINO TRANSFERASE 60 U/L (17-59); BILIRUBIN,DIRECT 0.3 mg/dL (0.0-0.4); BILIRUBIN,TOTAL 3.2 mg/dL (0.2-1.3); BLOOD UREA NITROGEN 15 mg/dL (7-20); CALCIUM 8.4 mg/dL (8.4-10.2); CARBON DIOXIDE 26 mmol/L (22-30); CHLORIDE 101 mmol/L (98-107); GLUCOSE 100 mg/dL (75-110); POTASSIUM 4.2 mmol/L (3.6-5.0); TOTAL PROTEIN 5.6 g/dL (6.3-8.2)
[2020-04-24 07:35] LABS: PLATELET COUNT 84 10^3/uL (150-450)
[2020-04-24] MEDS: VITAMIN B COMPLEX TABLET PO SCH (13:00)
[2020-04-24] MEDS: PANTOPRAZOLE SODIUM 20 MG TABLET.DR PO SCH (13:00)
[2020-04-24] MEDS: SPIRONOLACTONE 25 MG TABLET PO SCH ×2 (13:00→22:55)
[2020-04-24] MEDS: FUROSEMIDE 20 MG TABLET PO SCH (13:00)
[2020-04-24] MEDS: LACTULOSE SYRUP 20 GM/30 ML UDCUP PO SCH ×4 (13:00→23:50)
[2020-04-24] MEDS: ALBUMIN HUMAN 12.5 GM/50 ML RTUINJ IV SCH ×5 (13:01→17:56)
--- NOTE | 2020-04-24 13:05 | PDOC PROGRESS REPORT ---
Subjective Date:: 04/24/20 Subjective:: The patient just returned from his paracentesis. 50 g of albumin are ordered. He is slightly sluggish but reports that he feels much better than this morning. Reason For Visit: POSSIBLE CELLULITIS OF FACE Physical Exam Vital Signs: Temp Pulse Resp BP Pulse Ox 98.4 F 74 18 97/52 L 96 04/24/20 08:30 04/24/20 07:38 04/24/20 07:38 04/24/20 07:38 04/24/20 07:38 Intake & Output 04/23/20 04/24/20 04/25/20 06:59 06:59 06:59 Intake Total 1110 1370 Output Total 725 550 Balance 385 820 Weight 88.5 kg 87.8 kg General appearance: PRESENT: no acute distress, cooperative Respiratory exam: PRESENT: clear to auscultation philip, symmetrical, unlabored. ABSENT: rales, rhonchi, tachypnea, wheezes Cardiovascular exam: PRESENT: RRR, +S1, +S2, systolic murmur - We have a 6 GI/Abdominal exam: PRESENT: distended - Much less distended this afternoon, no rmal bowel sounds, soft. ABSENT: tenderness Rectal exam: PRESENT: deferred Gentrourinary exam: ABSENT: indwelling catheter Extremities exam: PRESENT: +1 edema Neurological exam: PRESENT: alert - Slightly groggy as he just returned from a procedure, awake, oriented to person, oriented to place, oriented to situation, CN II-XII grossly intact Psychiatric exam: PRESENT: flat affect. ABSENT: agitated, anxious Focused psych exam: ABSENT: delusional, paranoid, restlessness Skin exam: PRESENT: dry, warm. ABSENT: rash Results Laboratory Results: 04/24/20 06:37 04/24/20 06:37 04/24/20 04/24/20 04/24/20 06:37 06:37 06:37 WBC 5.1 RBC 2.32 L Hgb 8.6 L Hct 24.8 L MCV 107 H MCH 36.8 H MCHC 34.5 RDW 18.6 H Plt Count 84 L Sodium 131.8 L Potassium 4.2 Chloride 101 Carbon Dioxide 26 Anion Gap 5 BUN 15 Creatinine 0.63 Est GFR ( Amer) > 60 Glucose 100 Calcium 8.4 Total Bilirubin 3.2 H AST 60 H Alkaline Phosphatase 150 H Ammonia 45.3 H Total Protein 5.6 L Albumin 2.4 L 04/07/20 04/07/20 04/07/20 21:49 21:49 21:49 Creatine Kinase 474 H Troponin I 0.017 NT-Pro-B Natriuret Pep 1010 H 04/08/20 09:00 Creatine Kinase Troponin I < 0.012 NT-Pro-B Natriuret Pep 1080 H Impressions: Cervical Spine CT 04/07/20 22:18 IMPRESSION: Cardiomegaly with pulmonary edema and left lung base consolidation. EXAM DESCRIPTION: CHEST SINGLE VIEW (accession [id number]), CT HEAD WITHOUT (accession [id number]), CT CERVICAL SPINE WITHOUT (accession [id number]) CLINICAL HISTORY: weakness COMPARISON: None Available TECHNIQUE: Contiguous axial CT images of the head were obtained. Coronal and sagittal reconstructions were created from the axial data. This exam was performed according to our departmental dose-optimization program, which includes automated exposure control, adjustment of the mA and/or kV according to patient size and/or use of iterative reconstruction technique. FINDINGS: There is no evidence of acute mass, mass effect, midline shift or hemorrhage. The ventricles and extra-axial CSF spaces are unremarkable. The brain parenchyma appears normal for the patient's age. No acute abnormalities of the bones is seen. IMPRESSION: No acute intracranial abnormality. EXAM DESCRIPTION: CHEST SINGLE VIEW (accession [id number]), CT HEAD WITHOUT (accession [id number]), CT CERVICAL SPINE WITHOUT (accession [id number]) CLINICAL HISTORY: weakness COMPARISON: None Available TECHNIQUE: Contiguous axial images of the cervical spine were obtained without the administration of intravenous contrast followed by reconstruction images. This exam was performed according to our departmental dose-optimization program, which includes automated exposure control, adjustment of the mA and/or kV according to patient size and/or use of iterative reconstruction technique. FINDINGS: There are degenerative changes with multilevel bridging syndesmophytes. There is interstitial thickening of the upper lungs with consolidation of the right upper lung. There is no acute fracture or subluxation. Prevertebral soft tissues are within normal limits. IMPRESSION: No acute fracture or subluxation Head CT 04/07/20 22:18 IMPRESSION: Cardiomegaly with pulmonary edema and left lung base consolidation. EXAM DESCRIPTION: CHEST SINGLE VIEW (accession [id number]), CT HEAD WITHOUT (accession [id number]), CT CERVICAL SPINE WITHOUT (accession [id number]) CLINICAL HISTORY: weakness COMPARISON: None Available TECHNIQUE: Contiguous axial CT images of the head were obtained. Coronal and sagittal reconstructions were created from the axial data. This exam was performed according to our departmental dose-optimization program, which includes automated exposure control, adjustment of the mA and/or kV according to patient size and/or use of iterative reconstruction technique. FINDINGS: There is no evidence of acute mass, mass effect, midline shift or hemorrhage. The ventricles and extra-axial CSF spaces are unremarkable. The brain parenchyma appears normal for the patient's age. No acute abnormalities of the bones is seen. IMPRESSION: No acute intracranial abnormality. EXAM DESCRIPTION: CHEST SINGLE VIEW (accession [id number]), CT HEAD WITHOUT (accession [id number]), CT CERVICAL SPINE WITHOUT (accession [id number]) CLINICAL HISTORY: weakness COMPARISON: None Available TECHNIQUE: Contiguous axial images of the cervical spine were obtained without the administration of intravenous contrast followed by reconstruction images. This exam was performed according to our departmental dose-optimization program, which includes automated exposure control, adjustment of the mA and/or kV according to patient size and/or use of iterative reconstruction technique. FINDINGS: There are degenerative changes with multilevel bridging syndesmophytes. There is interstitial thickening of the upper lungs with consolidation of the right upper lung. There is no acute fracture or subluxation. Prevertebral soft tissues are within normal limits. IMPRESSION: No acute fracture or subluxation Chest X-Ray 04/07/20 22:19 IMPRESSION: Cardiomegaly with pulmonary edema and left lung base consolidation. EXAM DESCRIPTION: CHEST SINGLE VIEW (accession [id number]), CT HEAD WITHOUT (accession [id number]), CT CERVICAL SPINE WITHOUT (accession [id number]) CLINICAL HISTORY: weakness COMPARISON: None Available TECHNIQUE: Contiguous axial CT images of the head were obtained. Coronal and sagittal reconstructions were created from the axial data. This exam was performed according to our departmental dose-optimization program, which includes automated exposure control, adjustment of the mA and/or kV according to patient size and/or use of iterative reconstruction technique. FINDINGS: There is no evidence of acute mass, mass effect, midline shift or hemorrhage. The ventricles and extra-axial CSF spaces are unremarkable. The brain parenchyma appears normal for the patient's age. No acute abnormalities of the bones is seen. IMPRESSION: No acute intracranial abnormality. EXAM DESCRIPTION: CHEST SINGLE VIEW (accession [id number]), CT HEAD WITHOUT (accession [id number]), CT CERVICAL SPINE WITHOUT (accession [id number]) CLINICAL HISTORY: weakness COMPARISON: None Available TECHNIQUE: Contiguous axial images of the cervical spine were obtained without the administration of intravenous contrast followed by reconstruction images. This exam was performed according to our departmental dose-optimization program, which includes automated exposure control, adjustment of the mA and/or kV according to patient size and/or use of iterative reconstruction technique. FINDINGS: There are degenerative changes with multilevel bridging syndesmophytes. There is interstitial thickening of the upper lungs with consolidation of the right upper lung. There is no acute fracture or subluxation. Prevertebral soft tissues are within normal limits. IMPRESSION: No acute fracture or subluxation Head MRI 04/08/20 04:41 IMPRESSION: No acute findings EVIDENCE OF ACUTE STROKE: NO. Soft Tissue Neck CT 04/11/20 00:00 IMPRESSION: Inflammatory changes in the right parotid space without organized fluid collection. This could represent cellulitis although follow-up is recommended to exclude underlying mass. Small regional lymph nodes, most likely reactive. 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) Is this a current diagnosis for this admission?: Yes (4) Cirrhosis Qualifiers: Hepatic cirrhosis type: other cirrhosis Qualified Code(s): K74.69 - Other cirrhosis of liver Is this a current diagnosis for this admission?: Yes (5) Fall Qualifiers: Encounter type: subsequent encounter Qualified Code(s): W19.XXXD - Unspecified fall, subsequent encounter Is this a current diagnosis for this admission?: Yes (6) Hyponatremia Is this a current diagnosis for this admission?: Yes (7) Aortic stenosis Qualifiers: Cardiac valve disease etiology: etiology unspecified Qualified Code(s): I35.0 - Nonrheumatic aortic (valve) stenosis Is this a current diagnosis for this admission?: Yes - Plan Summary Summary: His comorbid conditions are all at baseline. He is got a large amount of swelling on the right side of his face and a CT scan has been done and the read is pending. We are looking to see if he has any cellulitis, dental abscess, or parotitis. No evidence of overlying abrasion to suggest a superficial cellulitis. If so, will initiate antibiotics. 04/12 patient has a leukocytosis, swelling of the right maxillary area possibly a parotitis with CT scan still pending. I will start the patient on Unasyn. Will continue to monitor and repeat blood count in a.m. Noted to have hyponatremia which is slightly worse than his baseline. This may be due to his acute infection. I will start him off on some normal saline and will recheck in a.m. 04/13 I have called radiology to obtain the official CT scan reading. Patient appears to have a possible parotitis or sialadenitis. He does appear to have responded somewhat to the Unasyn which will cover: Organisms as well as anaerobic organisms. I will continue with this at this time. And guarded in order and ultrasound and possible paracentesis. Patient will also be given Some Albumin as his blood pressure is borderline low which could be multifactorial given his history of ascites and possible sepsis. I will cut down on his IV fluid as soon as possible 04/14 patient is status post paracentesis. Apparently 6 L of fluid were removed from his abdomen. He had 50 g of albumin yesterday and this appeared to have increased his blood pressure and his stabilized. Because of the large volume paracentesis I will give him another dose of albumin today. We will stop the IV fluids. We will continue with the IV antibiotics for now as this is still clinically indicated. There is no evidence of SBP above follow-up on cultures 04/15 patient general condition appears to be improving. His blood pressure is better Albumin of which she received 50 g total. Have also discontinued his IV fluids. He continues on Unasyn with clinical improvement on his parotitis. We will continue with IV antibiotics and follow-up with labs in a.m. his total bilirubin is noted to be elevated due to his underlying liver disease 04/16 general condition continues to improve. The right supramandibular swelling continues to resolve on day 4 of Unasyn. I will continue with the Unasyn for now. Patient had paracentesis done with 6 L of fluid removed. I am pretty sure he still has residual fluid as his abdomen is still distended but not tender. We will consider further paracentesis if clinically warranted. The fluid was essentially benign with no evidence of infection. Plan is to disch arge to halfway hopefully this week once his medically stable 04/17/2020 Patient is resting in the bed. Sitting up and conversant. Reports that the right side of his face is much better. Right facial cellulitis-still with some firmness but no tenderness. Continue Unasyn. Ascites from cirrhosis-the patient reports that he supposed to have a second tap tomorrow. He did have 6 L removed several days ago. He would likely benefit from some albumin if in fact he is going to have a paracentesis. I have ordered an INR for the morning in the event of a repeat procedure. We will continue fu rosemide and spironolactone. Hyponatremia-with his hyponatremia and ascites consider fluid restriction. I will implement 1.5 L at this time. The patient is medically stable for transition to halfway. It is my understanding that he will need a repeat Covid test and this has been ordered. 04/18/2020 Cirrhosis with ascites-another 6.7 L of fluid removed today. Currently receiving albumin 50 g IV. Reports feeling better. Edema-secondary to low albumin and anemia. Increasing Aldactone in addition to the fluid restriction and his furosemide dosing. We will try to keep the negative fluid balance. Hyponatremia-1.2 L fluid restriction Right facial cellulitis-resolving nicely. Anemia-hemoglobin continues to slowly improve little by little. The patient son is at the bedside. They are looking for assisted living facilities. Pretransfer Covid testing is pending. Explained to the patient the importance of good meal intake and the fluid restriction. He will likely need recurrent paracenteses. 04/19/2020 Stable after yesterday's paracentesis. My concern is that fluid is already a ccumulating. Fluid restriction initiated. We will try and encourage accurate daily weights. Consider compression stockings. Awaiting placement for assisted living. 04/20/2020 Noticeable change from yesterday. He is awake and alert answering questions yesterday. Today I did wake him from a nap however he was somnolent and it was difficult to understand all of his conversation. The abdomen clearly appears to be enlarging from ascites. I am going to obtain an ammonia level at this time. He may need lactulose therapy. I will also administer additional albumin 04/21/2020 Ammonia level is back down to 36. The patient is more alert and cohesive. Total bilirubin and transaminases are slightly improved. Abdomen is still distended but it is not tense. Serum sodium is holding at 128. Patient is tolerating additional spironolactone. Hemoglobin is slightly decreased. We will monitor his anemia closely. Discharge planning is working on placement for rehab. The patient son was going to provide a list of preferred facilities. Referrals were to be made. 04/22/2020 Somewhat sluggish again today but participates in the encounter without difficulty. We will recheck liver function studies tomorrow. Abdomen appears more distended than yesterday. It is beginning to get firm. Blood pressures appear to be stable but I do not believe he would tolerate an increased dose of spironolactone. We will likely need to perform another paracentesis tomorrow. With this marked reaccumulation of fluid effective treatment of his cirrhosis with ascites may be limited. 04/23/2020 I left a message for his son Kwame. I will try to call him later today. Wanted to discuss the progress with placement as well as the fact that his father's ascites recurs very rapidly. We will recheck ammonia level as well as laboratory studies tomorrow. I have ordered repeat paracentesis. The abdomen is now getting firm. Transaminases and bilirubin elevated but stable. Sodium is also 129.8 and improving slowly. Hemoglobin is slightly better at 8.6. Very disconcerting that he reaccumulate's the ascites that quickly. I decreased his fluid restriction to 1 L daily. We will continue the current furosemide and spironolactone dosing. 04/24/2020 Awaiting final report from paracentesis to see what volume was removed. The patient has 50 g of albumin IV ordered for now. Ammonia level was still slightly elevated. I will increase the lactulose. Sodium level is 131.8. It continues to slowly improve. Potassium is normal at 4.2 glucose was 100 BUN was 15 creatinine 0.63. Systolic blood pressure still hovered between approximately 100 and 110. Continue spironolactone and furosemide as is. We will try to reach his son Kwame again today to discuss disposition. - Time Time Spent with patient: Less than 15 minutes Medications reviewed and adjusted accordingly: Yes Anticipated Discharge Disposition: [facility] Facility Anticipated Discharge Timeframe: when bed available
--- NOTE | 2020-04-24 13:05 | RADIOLOGY REPORT (SQ) ---
EXAM DESCRIPTION: U/S ABD PARACENTESIS IMAGES COMPLETED DATE/TIME: 04/24/2020 12:54 pm REASON FOR STUDY: ascites COMPARISON 04/18/2020 LIMITATIONS: None. PROCEDURE: After obtaining informed consent, the patient was brought to the ultrasound suite. The p rocedure was performed with the patient on a gurney. Ultrasound was used to identify a prominent poc ket of ascites in the left lower quadrant. An appropriate access site was selected. The patient was prepped and draped in usual sterile fashion. The access site was anesthetized with 6 mL 1% lidocai ne. A Jsde-M-Qngwtgny needle was advanced into the fluid. After aspiration of fluid the needle, the catheter was advanced off the needle into the fluid. A total of 5,500 mL of chey colored, clear fl uid was removed. The patient tolerated the procedure well left the department in satisfactory conditi on. IMPRESSION: Successful ultrasound-guided paracentesis COMMENT: Patient medication list reviewed: Yes- Quality ID# [id number]:Eligible professional attests to doc umenting in the medical record they obtained, updated, or reviewed the patient's current medications. TECHNICAL DOCUMENTATION: JOB ID: [id number] 2010 [employer]- All Rights Reserved Reading location - IP/workstation name: [email or web address]
[2020-04-24] MEDS ORDERED: TUBERCULIN,PURIF.PROT.DERIV. 5 TU/0.1 ML TEST 1 ML VIAL ID ONE (22:00)
[2020-04-25] MEDS: LACTULOSE SYRUP 20 GM/30 ML UDCUP PO SCH ×6 (06:51→22:15)
[2020-04-25] MEDS: SPIRONOLACTONE 25 MG TABLET PO SCH (10:40)
[2020-04-25] MEDS: VITAMIN B COMPLEX TABLET PO SCH (10:41)
[2020-04-25] MEDS: PANTOPRAZOLE SODIUM 20 MG TABLET.DR PO SCH (10:41)
[2020-04-25] MEDS: FUROSEMIDE 40 MG TABLET PO SCH (10:41)
--- NOTE | 2020-04-25 17:10 | PDOC PROGRESS REPORT ---
Subjective Date:: 04/25/20 Subjective:: NAEO. Patient is disoriented and confused. ROS unable to be performed due to AMS. Reason For Visit: POSSIBLE CELLULITIS OF FACE Physical Exam Vital Signs: Temp Pulse Resp BP Pulse Ox 97.8 F 66 17 93/46 L 100 04/25/20 11:19 04/25/20 11:19 04/25/20 11:19 04/25/20 11:19 04/25/20 11:19 Intake & Output 04/24/20 04/25/20 04/26/20 06:59 06:59 06:59 Intake Total 1370 978 120 Output Total 550 625 Balance 820 353 120 Weight 87.8 kg 80 kg General appearance: PRESENT: no acute distress Eye exam: PRESENT: scleral icterus Throat exam: ABSENT: post pharyngeal erythema Neck exam: ABSENT: JVD Respiratory exam: PRESENT: unlabored Cardiovascular exam: PRESENT: RRR GI/Abdominal exam: PRESENT: ascites, normal bowel sounds, soft. ABSENT: firm, guarding, rebound, rigid, tenderness Extremities exam: PRESENT: +2 edema Neurological exam: PRESENT: altered, awake Skin exam: PRESENT: jaundice. ABSENT: rash Results Laboratory Results: 04/24/20 06:37 04/24/20 06:37 04/07/20 04/07/20 04/07/20 21:49 21:49 21:49 Creatine Kinase 474 H Troponin I 0.017 NT-Pro-B Natriuret Pep 1010 H 04/08/20 09:00 Creatine Kinase Troponin I < 0.012 NT-Pro-B Natriuret Pep 1080 H Impressions: Cervical Spine CT 04/07/20 22:18 IMPRESSION: Cardiomegaly with pulmonary edema and left lung base consolidation. EXAM DESCRIPTION: CHEST SINGLE VIEW (accession [id number]), CT HEAD WITHOUT (accession [id number]), CT CERVICAL SPINE WITHOUT (accession [id number]) CLINICAL HISTORY: weakness COMPARISON: None Available TECHNIQUE: Contiguous axial CT images of the head were obtained. Coronal and sagittal reconstructions were created from the axial data. This exam was performed according to our departmental dose-optimization program, which includes automated exposure control, adjustment of the mA and/or kV according to patient size and/or use of iterative reconstruction technique. FINDINGS: There is no evidence of acute mass, mass effect, midline shift or hemorrhage. The ventricles and extra-axial CSF spaces are unremarkable. The brain parenchyma appears normal for the patient's age. No acute abnormalities of the bones is seen. IMPRESSION: No acute intracranial abnormality. EXAM DESCRIPTION: CHEST SINGLE VIEW (accession [id number]), CT HEAD WITHOUT (accession [id number]), CT CERVICAL SPINE WITHOUT (accession [id number]) CLINICAL HISTORY: weakness COMPARISON: None Available TECHNIQUE: Contiguous axial images of the cervical spine were obtained without the administration of intravenous contrast followed by reconstruction images. This exam was performed according to our departmental dose-optimization program, which includes automated exposure control, adjustment of the mA and/or kV according to patient size and/or use of iterative reconstruction technique. FINDINGS: There are degenerative changes with multilevel bridging syndesmophytes. There is interstitial thickening of the upper lungs with consolidation of the right upper lung. There is no acute fracture or subluxation. Prevertebral soft tissues are within normal limits. IMPRESSION: No acute fracture or subluxation Head CT 04/07/20 22:18 IMPRESSION: Cardiomegaly with pulmonary edema and left lung base consolidation. EXAM DESCRIPTION: CHEST SINGLE VIEW (accession [id number]), CT HEAD WITHOUT (accession [id number]), CT CERVICAL SPINE WITHOUT (accession [id number]) CLINICAL HISTORY: weakness COMPARISON: None Available TECHNIQUE: Contiguous axial CT images of the head were obtained. Coronal and sagittal reconstructions were created from the axial data. This exam was performed according to our departmental dose-optimization program, which includes automated exposure control, adjustment of the mA and/or kV according to patient size and/or use of iterative reconstruction technique. FINDINGS: There is no evidence of acute mass, mass effect, midline shift or hemorrhage. The ventricles and extra-axial CSF spaces are unremarkable. The brain parenchyma appears normal for the patient's age. No acute abnormalities of the bones is seen. IMPRESSION: No acute intracranial abnormality. EXAM DESCRIPTION: CHEST SINGLE VIEW (accession [id number]), CT HEAD WITHOUT (accession [id number]), CT CERVICAL SPINE WITHOUT (accession [id number]) CLINICAL HISTORY: weakness COMPARISON: None Available TECHNIQUE: Contiguous axial images of the cervical spine were obtained without the administration of intravenous contrast followed by reconstruction images. This exam was performed according to our departmental dose-optimization program, which includes automated exposure control, adjustment of the mA and/or kV according to patient size and/or use of iterative reconstruction technique. FINDINGS: There are degenerative changes with multilevel bridging syndesmophytes. There is interstitial thickening of the upper lungs with consolidation of the right upper lung. There is no acute fracture or subluxation. Prevertebral soft tissues are within normal limits. IMPRESSION: No acute fracture or subluxation Chest X-Ray 04/07/20 22:19 IMPRESSION: Cardiomegaly with pulmonary edema and left lung base consolidation. EXAM DESCRIPTION: CHEST SINGLE VIEW (accession [id number]), CT HEAD WITHOUT (accession [id number]), CT CERVICAL SPINE WITHOUT (accession [id number]) CLINICAL HISTORY: weakness COMPARISON: None Available TECHNIQUE: Contiguous axial CT images of the head were obtained. Coronal and sagittal reconstructions were created from the axial data. This exam was performed according to our departmental dose-optimization program, which includes automated exposure control, adjustment of the mA and/or kV according to patient size and/or use of iterative reconstruction technique. FINDINGS: There is no evidence of acute mass, mass effect, midline shift or hemorrhage. The ventricles and extra-axial CSF spaces are unremarkable. The brain parenchyma appears normal for the patient's age. No acute abnormalities of the bones is seen. IMPRESSION: No acute intracranial abnormality. EXAM DESCRIPTION: CHEST SINGLE VIEW (accession [id number]), CT HEAD WITHOUT (accession [id number]), CT CERVICAL SPINE WITHOUT (accession [id number]) CLINICAL HISTORY: weakness COMPARISON: None Available TECHNIQUE: Contiguous axial images of the cervical spine were obtained without the administration of intravenous contrast followed by reconstruction images. This exam was performed according to our departmental dose-optimization program, which includes automated exposure control, adjustment of the mA and/or kV according to patient size and/or use of iterative reconstruction technique. FINDINGS: There are degenerative changes with multilevel bridging syndesmophytes. There is interstitial thickening of the upper lungs with consolidation of the right upper lung. There is no acute fracture or subluxation. Prevertebral soft tissues are within normal limits. IMPRESSION: No acute fracture or subluxation Head MRI 04/08/20 04:41 IMPRESSION: No acute findings EVIDENCE OF ACUTE STROKE: NO. Soft Tissue Neck CT 04/11/20 00:00 IMPRESSION: Inflammatory changes in the right parotid space without organized fluid collection. This could represent cellulitis although follow-up is recommended to exclude underlying mass. Small regional lymph nodes, most likely reactive. Paracentesis Ultrasound 04/24/20 08:00 IMPRESSION: Successful ultrasound-guided paracentesis Assessment and Plan - Diagnosis (1) Facial cellulitis Is this a current diagnosis for this admission?: Yes (2) Fall Qualifiers: Encounter type: subsequent encounter Qualified Code(s): W19.XXXD - Unspecified fall, subsequent encounter Is this a current diagnosis for this admission?: Yes (3) Generalized weakness Is this a current diagnosis for this admission?: Yes (4) Hyponatremia Is this a current diagnosis for this admission?: Yes (5) Anemia Qualifiers: Anemia type: iron deficiency Iron deficiency anemia type: chronic blood loss Qualified Code(s): D50.0 - Iron deficiency anemia secondary to blood loss (chronic) Is this a current diagnosis for this admission?: Yes (6) Bilateral lower extremity edema Is this a current diagnosis for this admission?: Yes (7) Cirrhosis Qualifiers: Hepatic cirrhosis type: other cirrhosis Qualified Code(s): K74.69 - Other cirrhosis of liver Is this a current diagnosis for this admission?: Yes (8) Diabetes mellitus type 2 in nonobese Is this a current diagnosis for this admission?: Yes (9) Dyspnea on exertion Is this a current diagnosis for this admission?: Yes (10) Hepatic dysfunction Is this a current diagnosis for this admission?: Yes (11) Pancytopenia Is this a current diagnosis for this admission?: Yes (12) Pulmonary HTN Is this a current diagnosis for this admission?: Yes (13) Thrombocytopenia Is this a current diagnosis for this admission?: Yes - Plan Summary Summary: RUPESH MICHELE is a 74 year old male with QUINONES cirrhosis with ascites, general debility c/b frequent falls, pulmonary hypertension, and aortic stenosis. He was found down at home after a fall. He lives with his son, Jared, who notes that patient is very sedentary at baseline and has had 10-15 falls over the last 6-8 weeks. He can normally use his cane as leverage to help him get himself back up but was unable to do so this time. He does not know how long he was down on the floor. His son said that since the patient's 15 years ago, the patient has not done hardly any physical activity and sits around at home most of the time. The patient's sons have been working on getting their father into an [employer] for increased support and assistance, since they both work and are gone for the majority of the day. Frequent Falls: sons note that patient falls at least 10 times a year, but over the last 2 months, has had 10-15 falls at home. He is incredibly weak and debilitated. High risk for future falls. - fall precautions - PT/OT right parotitis: treated with Unasyn, now resolved. QUINONES cirrhosis with ascites: s/p paracentesis x3 this admission - increase Lasix/spironolactone doses - limit fluid intake to 1 L/day hypervolemic hyponatremia: has diffuse edema and ascites due to severe cirrhosis - increase Lasix/spironolactone doses - limit fluid intake to 1 L/day Hyperammonemia: somnolent again today after refusing several doses of lactulose. - increase lactulose frequency and encourage medication adherence - goal 3-4 BM/day - recheck ammonia tomorrow macrocytic anemia: stable, no signs of active bleeding. Likely due to known cirrhosis. - check iron studies - on PPI therapy and B-complex vitamins thrombocytopenia: stable, due to cirrhosis. - transfuse for plt >10K or active bleeding DM2: resolved, HbA1c 5% in 01/2020 - does not require SSI DVT ppx: HELD due to thrombocytopenia - Time Time Spent with patient: 35 or more minutes Anticipated Discharge Disposition: [facility] Anticipated Discharge Timeframe: within 24 hours
--- NOTE | 2020-04-25 17:15 | ADVANCED CARE ---
- Diagnosis (3) Hyponatremia Diagnosis Current: Yes (4) Anemia Diagnosis Current: Yes (5) Bilateral lower extremity edema Diagnosis Current: Yes (6) Cirrhosis Diagnosis Current: Yes (7) Dyspnea on exertion Diagnosis Current: Yes (8) Hepatic dysfunction Diagnosis Current: Yes (9) Pancytopenia Diagnosis Current: Yes (10) Pulmonary HTN Diagnosis Current: Yes (11) Thrombocytopenia Diagnosis Current: Yes Attendance: Jared, son Resuscitation Status: Full Code Discussion: Discussed with patient's son, Jared, that Mr. Butler has severe cirrhosis. He is weak, debilitated and altered. He is refusing to take the medications that he needs to stay healthy, like lactulose. He is at high risk for future hospitalizations, falls, bleeding complications and likely has a very limited amount of time left to live due to severe hepatic dysfunction. Jared and his brother make medical decisions jointly for their dad, and we are planning to have a family meeting to discuss code status and goals of care further tomorrow, 04/26. Time Spent: >16 minutes
[2020-04-26] MEDS: LACTULOSE SYRUP 20 GM/30 ML UDCUP PO SCH ×4 (01:49→13:22)
[2020-04-26 06:00] LABS: ABSOLUTE RETICS # 0.057 10^6/uL (0.028-0.122); HEMATOCRIT 24.4 % (37.9-51.0); HEMOGLOBIN 8.4 g/dL (13.5-17.0); MEAN CORPUSCULAR HEMOGLOBIN 36.6 pg (27.0-33.4); MEAN CORPUSCULAR HGB CONC 34.5 g/dL (32.0-36.0); MEAN CORPUSCULAR VOLUME 106 fl (80-97); RETICULOCYTE COUNT (AUTO) 2.48 % (0.66-2.85); WHITE BLOOD COUNT 3.6 10^3/uL (4.0-10.5)
[2020-04-26 06:32] LABS: BLOOD UREA NITROGEN 15 mg/dL (7-20); CALCIUM 8.7 mg/dL (8.4-10.2); CARBON DIOXIDE 26 mmol/L (22-30); CHLORIDE 103 mmol/L (98-107); GLUCOSE 99 mg/dL (75-110); IRON(TIBC) 51.7 ug/dL (49-181); POTASSIUM 4.1 mmol/L (3.6-5.0)
[2020-04-26 06:33] LABS: PLATELET COUNT 64 10^3/uL (150-450)
[2020-04-26 07:47] LABS: ANION GAP 4 (5-19)
[2020-04-26] MEDS: SPIRONOLACTONE 25 MG TABLET PO SCH (09:48)
[2020-04-26] MEDS: PANTOPRAZOLE SODIUM 20 MG TABLET.DR PO SCH (09:48)
[2020-04-26] MEDS: FUROSEMIDE 40 MG TABLET PO SCH (09:48)
[2020-04-26] MEDS: VITAMIN B COMPLEX TABLET PO SCH (09:49)
--- NOTE | 2020-04-26 10:31 | PDOC TRANSFER SUMMARY ---
Impression - Admit/DC Date/PCP Admission Date/Primary Care Provider: 04/12/20 16:01 Discharge Date: 04/26/20 - Discharge Diagnosis (1) Fall Is this a current diagnosis for this admission?: Yes (2) Generalized weakness Is this a current diagnosis for this admission?: Yes (3) Hyponatremia Is this a current diagnosis for this admission?: Yes (4) Anemia Is this a current diagnosis for this admission?: Yes (5) Bilateral lower extremity edema Is this a current diagnosis for this admission?: Yes (6) Cirrhosis Is this a current diagnosis for this admission?: Yes (7) Dyspnea on exertion Is this a current diagnosis for this admission?: Yes (8) Hepatic dysfunction Is this a current diagnosis for this admission?: Yes (9) Pancytopenia Is this a current diagnosis for this admission?: Yes (10) Pulmonary HTN Is this a current diagnosis for this admission?: Yes (11) Thrombocytopenia Is this a current diagnosis for this admission?: Yes - Assessment Summary: RUPESH MICHELE is a 74 year old gentleman with QUINONES cirrhosis with ascites, general debility c/b frequent falls, pulmonary hypertension, and aortic stenosis who presented on 04/07/2020 was found down at home after a fall. He lives with his son, Jared, who notes that patient is very sedentary at baseline and has had 10-15 falls over the last 6-8 weeks prior to admission. He can normally use his cane as leverage to help him get himself back up but was unable to do so this time. He did not know how long he was down on the floor. His son said that since the patient's 15 years ago, the patient has not done hardly any physical activity and sits around at home most of the time. The patient's sons have been working on getting their father into an JENA for increased support and assistance, since they both work and are gone for the majority of the day. Frequent Falls: sons note that patient falls at least 10 times a year, but over the last 2 months, has had 10-15 falls at home. He is weak and debilitated. High risk for future falls. He was evaluated by PT/OT who recommended discharge to SNF. Right parotitis: treated with Unasyn, now resolved. QUINONES cirrhosis with ascites: s/p paracentesis x3 this admission. Ascites now much improved after increased doses of Lasix/spironolactone. His fluid intake has been limited to 1 L/day. He will need close outpatient GI follow up upon discharge from SNF for ongoing medication titration. Hypervolemic hyponatremia: presented with diffuse edema and ascites due to severe, decompensated cirrhosis. Now much improved after increasing Lasix/spironolactone doses. Continue to limit fluid intake to 1 L/day. Hyperammonemia: increased lactulose frequency and encourage medication adherence. Goal is for him to have at least 3-4 BM/day. Iron deficiency anemia: stable, no signs of active bleeding. He has not had a recent EGD/colonoscopy, and will need outpatient GI follow up for further work- up after rehab. He has been started on oral iron therapy, PPI therapy and B- complex vitamins. Pancytopenia: stable, due to cirrhosis. DM2: resolved, HbA1c 5% in 01/2020. He does not require further therapy. Goals of Care: family meeting held with patient's sons, Jared and Kwame, on 04/26/2020. Code status was changed to DNR/DNI. They agree that their father requires more assistance and supervision, and are pursuing JENA after discharge from SNF. We discussed that he has severe liver disease, is at high risk for falls, and has poor overall prognosis given his liver disease, heart disease, frailty, weakness and frequent falls. They are understanding. All three (patient and his sons) agree that comfort and maintaining a good quality of life are their main goals. If he does well at SNF, he could go to a SNF with home healthcare services. However, if he continues to decline further, he would benefit from referral to home hospice for ongoing symptom management. Code Status: DNR/DNI - Additional Information Resuscitation Status: Do Not Resuscitate Discharge Diet: Cardiac, Other (Comments) - 1 L/day fluid restriction Discharge Activity: Keep Legs Elevated, Supervised Activity, Weigh Daily Prescriptions: Spironolactone [Aldactone 25 mg Tablet] 100 mg PO DAILY #30 tablet Lactulose [Cephulac Syrup 20 gm/30 ml Udcup] 20 gm PO QID #30 udc Ferrous Sulfate/Vit C/Folic AC [Folitab 500 Caplet] 1 each PO DAILY #30 tablet.er Furosemide [Lasix 20 mg Tablet] 40 mg PO DAILY #30 tablet Pantoprazole Sodium [Protonix [address] Tablet] 40 mg PO DAILY #60 tablet.dr Home Medications: Ferrous Sulfate/Vit C/Folic AC [Folitab 500 Caplet] 1 each PO DAILY #30 tablet.er 04/26/20 Furosemide [Lasix 20 mg Tablet] 40 mg PO DAILY #30 tablet 04/26/20 Lactulose [Cephulac Syrup 20 gm/30 ml Udcup] 20 gm PO QID #30 udc 04/26/20 Pantoprazole Sodium [Protonix [address] Tablet] 40 mg PO DAILY #60 tablet.dr 04/26/20 Spironolactone [Aldactone 25 mg Tablet] 100 mg PO DAILY #30 tablet 04/26/20 Vitamin B Complex [Vitamin B Complex Tablet] 1 tab PO DAILY tablet 04/26/20 History of Present Illiness History of Present Illness: RUPESH MICHELE is a 74 year old male Physical Exam Vital Signs: Temp Pulse Resp BP Pulse Ox 98.1 F 65 17 98/51 L 99 04/26/20 07:22 04/26/20 07:22 04/26/20 07:22 04/26/20 07:22 04/26/20 07:22 Intake & Output 04/25/20 04/26/20 04/27/20 06:59 06:59 06:59 Intake Total 978 600 Output Total 625 775 Balance 353 -175 Weight 80 kg 78.7 kg Results Laboratory Results: WBC 3.6 10^3/uL (4.0-10.5) L 04/26/20 05:33 RBC 2.30 10^6/uL (4.35-5.55) L 04/26/20 05:33 Hgb 8.4 g/dL (13.5-17.0) L 04/26/20 05:33 Hct 24.4 % (37.9-51.0) L 04/26/20 05:33 MCV 106 fl (80-97) H 04/26/20 05:33 MCH 36.6 pg (27.0-33.4) H 04/26/20 05:33 MCHC 34.5 g/dL (32.0-36.0) 04/26/20 05:33 RDW 18.0 % (11.5-14.0) H 04/26/20 05:33 Plt Count 64 10^3/uL (150-450) L 04/26/20 05:33 Lymph % (Auto) 17.2 % (13-45) 04/21/20 05:55 [place] % (Auto) 5.4 % (3-13) 04/21/20 05:55 Eos % (Auto) 3.6 % (0-6) 04/21/20 05:55 Baso % (Auto) 0.5 % (0-2) 04/21/20 05:55 Reticulocyte # 0.057 10^6/uL (0.028-0.122) 04/26/20 05:33 Absolute Neuts (auto) 4.2 10^3/uL (1.7-8.2) 04/21/20 05:55 Absolute Lymphs (auto) 1.0 10^3/uL (0.5-4.7) 04/21/20 05:55 Absolute Monos (auto) 0.3 10^3/uL (0.1-1.4) 04/21/20 05:55 Absolute Eos (auto) 0.2 10^3/uL (0.0-0.6) 04/21/20 05:55 Absolute Basos (auto) 0.0 10^3/uL (0.0-0.2) 04/21/20 05:55 Total Counted 100 04/16/20 05:31 Seg Neutrophils % 73.3 % (42-78) 04/21/20 05:55 Seg Neuts % (Manual) 81 % (42-78) H 04/16/20 05:31 Lymphocytes % (Manual) 12 % (13-45) L 04/16/20 05:31 Monocytes % (Manual) 4 % (3-13) 04/16/20 05:31 Eosinophils % (Manual) 2 % (0-6) 04/16/20 05:31 Basophils % (Manual) 1 % (0-2) 04/16/20 05:31 Abs Neuts (Manual) 5.8 10^3/uL (1.7-8.2) 04/16/20 05:31 Abs Lymphs (Manual) 0.9 10^3/uL (0.5-4.7) 04/16/20 05:31 Abs Monocytes (Manual) 0.3 10^3/uL (0.1-1.4) 04/16/20 05:31 Absolute Eos (Manual) 0.1 10^3/uL (0.0-0.6) 04/16/20 05:31 Abs Basophils (Manual) 0.1 10^3/uL (0.0-0.2) 04/16/20 05:31 Toxic Granulation 1+ 04/16/20 05:31 Platelet Comment DECREASED 04/16/20 05:31 Polychromasia SLIGHT 04/16/20 05:31 Anisocytosis 2+ 04/16/20 05:31 Macrocytosis 2+ 04/16/20 05:31 Tear Drop Cells SLIGHT 04/16/20 05:31 Ovalocytes 1+ 04/16/20 05:31 Retic Count (auto) 2.48 % (0.66-2.85) 04/26/20 05:33 PT 18.0 SEC (11.4-15.4) H 04/24/20 06:37 INR 1.47 04/24/20 06:37 APTT 54.1 SEC (23.5-35.8) H 04/07/20 21:49 VBG pH 7.40 (7.30-7.42) 04/08/20 00:30 VBG pCO2 38.8 mmHg (35-63) 04/08/20 00:30 VBG HCO3 23.3 mmol/L (20-32) 04/08/20 00:30 VBG Base Excess -1.3 mmol/L 04/08/20 00:30 Sodium 132.9 mmol/L (137-145) L 04/26/20 05:33 Potassium 4.1 mmol/L (3.6-5.0) 04/26/20 05:33 Chloride 103 mmol/L (98-107) 04/26/20 05:33 Carbon Dioxide 26 mmol/L (22-30) 04/26/20 05:33 Anion Gap 4 (5-19) L 04/26/20 05:33 BUN 15 mg/dL (7-20) 04/26/20 05:33 Creatinine 0.56 mg/dL (0.52-1.25) 04/26/20 05:33 Est GFR ( Amer) > 60 (>60) 04/26/20 05:33 Est GFR (MDRD) Non-Af > 60 (>60) 04/26/20 05:33 Glucose 99 mg/dL (75-110) 04/26/20 05:33 Calcium 8.7 mg/dL (8.4-10.2) 04/26/20 05:33 Magnesium 1.9 mg/dL (1.6-2.3) 04/26/20 05:33 Iron 51.7 ug/dL (49-181) 04/26/20 05:33 TIBC 291 ug/dL (250-450) 04/26/20 05:33 % Saturation 18 % 04/26/20 05:33 Ferritin 14.10 ng/mL (17.9-464.0) L 04/26/20 05:33 Total Bilirubin 3.2 mg/dL (0.2-1.3) H 04/24/20 06:37 Direct Bilirubin 0.3 mg/dL (0.0-0.4) 04/24/20 06:37 Neonat Total Bilirubin Not Reportable 04/24/20 06:37 Neonat Direct Bilirubin Not Reportable 04/24/20 06:37 Neonat Indirect Bili Not Reportable 04/24/20 06:37 AST 60 U/L (17-59) H 04/24/20 06:37 ALT 51 U/L (<50) H 04/24/20 06:37 Alkaline Phosphatase 150 U/L (38-126) H 04/24/20 06:37 Ammonia 44.7 umol/L (9-33) H 04/26/20 05:33 Creatine Kinase 474 U/L (55-170) H 04/07/20 21:49 Troponin I < 0.012 ng/mL 04/08/20 09:00 NT-Pro-B Natriuret Pep 1080 pg/mL (<125) H 04/08/20 09:00 Total Protein 5.6 g/dL (6.3-8.2) L 04/24/20 06:37 Albumin 2.4 g/dL (3.5-5.0) L 04/24/20 06:37 Vitamin B12 > 1000.0 pg/mL (239-931) H 04/26/20 05:33 Folate 10.20 ng/mL (>2.76) 04/26/20 05:33 Urine Color MISAEL 04/08/20 13:35 Urine Appearance SLIGHTLY-CLOUDY 04/08/20 13:35 Urine pH 5.0 (5.0-9.0) 04/08/20 13:35 Ur Specific [place] 1.025 04/08/20 13:35 Urine Protein NEGATIVE mg/dL (NEGATIVE) 04/08/20 13:35 Urine Glucose (UA) NEGATIVE mg/dL (NEGATIVE) 04/08/20 13:35 Urine Ketones NEGATIVE mg/dL (NEGATIVE) 04/08/20 13:35 Urine Blood NEGATIVE (NEGATIVE) 04/08/20 13:35 Urine Nitrite NEGATIVE (NEGATIVE) 04/07/20 23:00 Urine Nitrite (Reflex) NEGATIVE (NEGATIVE) 04/08/20 13:35 Urine Bilirubin NEGATIVE (NEGATIVE) 04/08/20 13:35 Urine Urobilinogen 4.0 mg/dL (<2.0) H 04/08/20 13:35 Ur Leukocyte Esterase NEGATIVE (NEGATIVE) 04/07/20 23:00 Leukocyte Esterase Rfl NEGATIVE (NEGATIVE) 04/08/20 13:35 Urine WBC (Auto) 1 /HPF 04/07/20 23:00 Urine RBC (Auto) 5 /HPF 04/08/20 13:35 U Hyaline Cast (Auto) 5 /LPF 04/08/20 13:35 Urine WBC (Reflex) 4 /HPF 04/08/20 13:35 Squamous Epi Cells Auto <1 /HPF 04/07/20 23:00 Calcium Oxalate Cr Auto MODERATE /HPF 04/08/20 13:35 Urine Mucus (Auto) MANY /LPF 04/08/20 13:35 Urine Ascorbic Acid NEGATIVE (NEGATIVE) 04/08/20 13:35 Fluid Type PERITONEAL 04/14/20 14:39 Fluid Source ASCITES 04/14/20 14:39 Fluid Color YELLOW 04/14/20 14:39 Fluid Appearance CLEAR 04/14/20 14:39 Fluid Viscosity LIQUID 04/14/20 14:39 Fluid pH 8.3 (Not Estab.) 04/14/20 14:39 Fluid WBC 244 /uL 04/14/20 14:39 Fluid RBC 278 /uL 04/14/20 14:39 Fluid Seg Neutrophils 54 % 04/14/20 14:39 Fluid Lymphocytes 25 % 04/14/20 14:39 Fluid Monocytes 21 % 04/14/20 14:39 Fluid Eosinophils 0 % 04/14/20 14:39 Fluid Basophils 0 % 04/14/20 14:39 Fluid Glucose 168 mg/dL (.) 04/14/20 14:39 Fluid Albumin 0.3 g/dL (Not Estab.) 04/14/20 14:39 Fluid LDH 38 IU/L (.) 04/14/20 14:39 Urine Opiates Screen NEGATIVE 04/07/20 23:00 Urine Methadone Screen NEGATIVE 04/07/20 23:00 Ur Barbiturates Screen NEGATIVE 04/07/20 23:00 Ur Phencyclidine Scrn NEGATIVE 04/07/20 23:00 Ur Amphetamines Screen NEGATIVE 04/07/20 23:00 U Benzodiazepines Scrn NEGATIVE 04/07/20 23:00 Urine Cocaine Screen NEGATIVE 04/07/20 23:00 U Marijuana (THC) Screen NEGATIVE 04/07/20 23:00 Serum Alcohol < 10 mg/dL (NONE DETECTED) 04/07/20 21:49 COVID-19 Source See comment 04/17/20 18:33 COVID-19 (PRADIP) Not Detected (Not Detect) 04/17/20 18:33 04/07/20 04/07/20 04/08/20 21:49 21:49 09:00 Troponin I 0.017 < 0.012 NT-Pro-B Natriuret Pep 1010 H 1080 H Impressions: Cervical Spine CT 04/07/20 22:18 IMPRESSION: Cardiomegaly with pulmonary edema and left lung base consolidation. EXAM DESCRIPTION: CHEST SINGLE VIEW (accession [id number]), CT HEAD WITHOUT (accession [id number]), CT CERVICAL SPINE WITHOUT (accession [id number]) CLINICAL HISTORY: weakness COMPARISON: None Available TECHNIQUE: Contiguous axial CT images of the head were obtained. Coronal and sagittal reconstructions were created from the axial data. This exam was performed according to our departmental dose-optimization program, which includes automated exposure control, adjustment of the mA and/or kV according to patient size and/or use of iterative reconstruction technique. FINDINGS: There is no evidence of acute mass, mass effect, midline shift or hemorrhage. The ventricles and extra-axial CSF spaces are unremarkable. The brain parenchyma appears normal for the patient's age. No acute abnormalities of the bones is seen. IMPRESSION: No acute intracranial abnormality. EXAM DESCRIPTION: CHEST SINGLE VIEW (accession [id number]), CT HEAD WITHOUT (accession [id number]), CT CERVICAL SPINE WITHOUT (accession [id number]) CLINICAL HISTORY: weakness COMPARISON: None Available TECHNIQUE: Contiguous axial images of the cervical spine were obtained without the administration of intravenous contrast followed by reconstruction images. This exam was performed according to our departmental dose-optimization program, which includes automated exposure control, adjustment of the mA and/or kV according to patient size and/or use of iterative reconstruction technique. FINDINGS: There are degenerative changes with multilevel bridging syndesmophytes. There is interstitial thickening of the upper lungs with consolidation of the right upper lung. There is no acute fracture or subluxation. Prevertebral soft tissues are within normal limits. IMPRESSION: No acute fracture or subluxation Head CT 04/07/20 22:18 IMPRESSION: Cardiomegaly with pulmonary edema and left lung base consolidation. EXAM DESCRIPTION: CHEST SINGLE VIEW (accession [id number]), CT HEAD WITHOUT (accession [id number]), CT CERVICAL SPINE WITHOUT (accession [id number]) CLINICAL HISTORY: weakness COMPARISON: None Available TECHNIQUE: Contiguous axial CT images of the head were obtained. Coronal and sagittal reconstructions were created from the axial data. This exam was performed according to our departmental dose-optimization program, which includes automated exposure control, adjustment of the mA and/or kV according to patient size and/or use of iterative reconstruction technique. FINDINGS: There is no evidence of acute mass, mass effect, midline shift or hemorrhage. The ventricles and extra-axial CSF spaces are unremarkable. The brain parenchyma appears normal for the patient's age. No acute abnormalities of the bones is seen. IMPRESSION: No acute intracranial abnormality. EXAM DESCRIPTION: CHEST SINGLE VIEW (accession [id number]), CT HEAD WITHOUT (accession [id number]), CT CERVICAL SPINE WITHOUT (accession [id number]) CLINICAL HISTORY: weakness COMPARISON: None Available TECHNIQUE: Contiguous axial images of the cervical spine were obtained without the administration of intravenous contrast followed by reconstruction images. This exam was performed according to our departmental dose-optimization program, which includes automated exposure control, adjustment of the mA and/or kV according to patient size and/or use of iterative reconstruction technique. FINDINGS: There are degenerative changes with multilevel bridging syndesmophytes. There is interstitial thickening of the upper lungs with consolidation of the right upper lung. There is no acute fracture or subluxation. Prevertebral soft tissues are within normal limits. IMPRESSION: No acute fracture or subluxation Chest X-Ray 04/07/20 22:19 IMPRESSION: Cardiomegaly with pulmonary edema and left lung base consolidation. EXAM DESCRIPTION: CHEST SINGLE VIEW (accession [id number]), CT HEAD WITHOUT (accession [id number]), CT CERVICAL SPINE WITHOUT (accession [id number]) CLINICAL HISTORY: weakness COMPARISON: None Available TECHNIQUE: Contiguous axial CT images of the head were obtained. Coronal and sagittal reconstructions were created from the axial data. This exam was performed according to our departmental dose-optimization program, which includes automated exposure control, adjustment of the mA and/or kV according to patient size and/or use of iterative reconstruction technique. FINDINGS: There is no evidence of acute mass, mass effect, midline shift or hemorrhage. The ventricles and extra-axial CSF spaces are unremarkable. The brain parenchyma appears normal for the patient's age. No acute abnormalities of the bones is seen. IMPRESSION: No acute intracranial abnormality. EXAM DESCRIPTION: CHEST SINGLE VIEW (accession [id number]), CT HEAD WITHOUT (accession [id number]), CT CERVICAL SPINE WITHOUT (accession [id number]) CLINICAL HISTORY: weakness COMPARISON: None Available TECHNIQUE: Contiguous axial images of the cervical spine were obtained without the administration of intravenous contrast followed by reconstruction images. This exam was performed according to our departmental dose-optimization program, which includes automated exposure control, adjustment of the mA and/or kV according to patient size and/or use of iterative reconstruction technique. FINDINGS: There are degenerative changes with multilevel bridging syndesmophytes. There is interstitial thickening of the upper lungs with consolidation of the right upper lung. There is no acute fracture or subluxation. Prevertebral soft tissues are within normal limits. IMPRESSION: No acute fracture or subluxation Head MRI 04/08/20 04:41 IMPRESSION: No acute findings EVIDENCE OF ACUTE STROKE: NO. Soft Tissue Neck CT 04/11/20 00:00 IMPRESSION: Inflammatory changes in the right parotid space without organized fluid collection. This could represent cellulitis although follow-up is recommended to exclude underlying mass. Small regional lymph nodes, most likely reactive. Paracentesis Ultrasound 04/14/20 00:00 IMPRESSION: Successful ultrasound-guided paracentesis Paracentesis Ultrasound 04/18/20 00:00 IMPRESSION: SUCCESSFUL ULTRASOUND GUIDED PARACENTESIS. Paracentesis Ultrasound 04/24/20 08:00 IMPRESSION: Successful ultrasound-guided paracentesis Stroke Is this a Stroke Patient?: No Acute Heart Failure Is this a Heart Failure Patient?: No
--- NOTE | 2020-04-26 10:32 | ADVANCED CARE ---
- Diagnosis (1) Fall Diagnosis Current: Yes (2) Generalized weakness Diagnosis Current: Yes (3) Hyponatremia Diagnosis Current: Yes (4) Anemia Diagnosis Current: Yes (5) Bilateral lower extremity edema Diagnosis Current: Yes (6) Cirrhosis Diagnosis Current: Yes (7) Dyspnea on exertion Diagnosis Current: Yes (8) Hepatic dysfunction Diagnosis Current: Yes (9) Pancytopenia Diagnosis Current: Yes (10) Pulmonary HTN Diagnosis Current: Yes (11) Thrombocytopenia Diagnosis Current: Yes Resuscitation Status: Do Not Resuscitate Discussion: Family meeting held with patient's sons, Jared and Kwame, on 04/26/2020. Code status was changed to DNR/DNI. They agree that their father requires more assistance and supervision, and are pursuing JENA after discharge from SNF. We discussed that he has severe liver disease, is at high risk for falls, and has poor overall prognosis given his liver disease, heart disease, frailty, weakness and frequent falls. They are understanding. All three (patient and his sons) agree that comfort and maintaining a good quality of life are their main goals. If he does well at SNF, he could go to a [facility] with home healthcare services. However, if he continues to decline further, he would benefit from referral to home hospice for ongoing symptom management. Time Spent: >20 minutes
[2020-04-26] MEDS ORDERED: IRON SUCROSE COMPLEX INJ/PF 100 MG/5 ML SDV IV SCH (11:00)
[2020-04-26 12:17] VITALS: BP 90/44
== END 2020-04-26 17:13 | DRG 155 ==
LOC: ER 21:36 → EH 04-08 13:37 → 3W 04-08 16:45 → 4W 04-08 18:42 → OBSVTOIN 04-12 16:01 → 4S 04-19 16:55
PROVIDERS: ADMIT Family Medicine; ATTEND Hospitalist
PROC: 0W9G3ZZ Drainage of Peritoneal Cavity, Percutaneous Approach (ICD-10-PCS; principal; 2020-04-14)
PROC: 0W9G3ZZ Drainage of Peritoneal Cavity, Percutaneous Approach (ICD-10-PCS; 2020-04-18)
PROC: 0W9G3ZZ Drainage of Peritoneal Cavity, Percutaneous Approach (ICD-10-PCS; 2020-04-24)
DX: K11.20 Sialoadenitis, unspecified (principal); E87.1 Hypo-osmolality and hyponatremia; R18.8 Other ascites; D61.818 Other pancytopenia; L03.211 Cellulitis of face; Z20.828 Contact with and (suspected) exposure to other viral communicable diseases; W19.XXXA Unspecified fall, initial encounter; R53.1 Weakness; D64.9 Anemia, unspecified; R60.0 Localized edema; I27.20 Pulmonary hypertension, unspecified; K75.81 Nonalcoholic steatohepatitis (NASH); R29.6 Repeated falls; K74.69 Other cirrhosis of liver; I95.89 Other hypotension; E87.70 Fluid overload, unspecified; Z66 Do not resuscitate; E11.9 Type 2 diabetes mellitus without complications; I35.0 Nonrheumatic aortic (valve) stenosis; D50.0 Iron deficiency anemia secondary to blood loss (chronic); K72.90 Hepatic failure, unspecified without coma; S00.83XA Contusion of other part of head, initial encounter; S40.019A Contusion of unspecified shoulder, initial encounter; Z79.899 Other long term (current) drug therapy; Z82.49 Family history of ischemic heart disease and other diseases of the circulatory system; Z82.3 Family history of stroke; Z83.3 Family history of diabetes mellitus; Z80.9 Family history of malignant neoplasm, unspecified
CPT/HCPCS: 36415; 49083; 70450; 70491; 70551; 71045; 72125; 80048; 80053; 80076; 80307; 81001; 82042; 82140; 82550; 82607; 82728; 82746; 82803; 82945; 83540; 83550; 83615; 83735; 83880; 83986; 84484; 85025; 85027; 85045; 85610; 85730; 87040; 87070; 87075; 87205; 87635; 89050; 93005; 93010; 94799; 0241U; C9803; G0378; J0295; J1756; J3490; J7030; J7050; P9047